=== PATIENT | female | born 1945 | race Caucasian/White ===

== ENCOUNTER → 2016-09-15 | Outpatient (CLI) | payer MEDICARE, OTHER | LOC: CARD 12:48 | PROVIDERS: ATTEND Nurse Practitioner Family | DX: I10 Essential (primary) hypertension (principal) | CPT/HCPCS: 93306 ==

== ENCOUNTER → 2016-10-21 | Outpatient (CLI) | payer MEDICARE, OTHER ==
--- NOTE | 2016-10-21 15:54 | Diagnostic Imaging Report ---
Bilateral screening mammogram 2D views with tomosynthesis The current study was also evaluated with a Computer Aided Detection (CAD) system. INDICATION: Screening. No current complaints stated on the questionnaire. COMPARISON: 11/21/2014. FINDINGS: The breasts are composed of heterogeneously dense parenchyma which may decrease mammographic sensitivity. There is a lobulated nodule in the central aspect of the right breast anteriorly and smaller similar lobulated nodules more posteriorly and superiorly. When compared to prior exams including 2010, these appear to be present on these prior exams compatible with cysts or fibroadenomas. Allowing for technique and positional differences, no suspicious change is seen. IMPRESSION: No significant change. ACR BI-RADS Category 2: Benign findings. Result letter will be mailed to the patient. Note: At least 10% of breast cancer is not imaged by mammography. Dictated by: Dictated on workstation # [id number]
== END ==
LOC: RAD 10:18
PROVIDERS: ATTEND Nurse Practitioner Family
DX: Z12.31 Encounter for screening mammogram for malignant neoplasm of breast (principal)
CPT/HCPCS: 77067

== ENCOUNTER → 2016-12-09 | Outpatient (CLI) | payer MEDICARE, OTHER ==
[2016-12-09 15:04] LABS: BASOPHILS % (AUTO) 0 % (0-10); EOSINOPHILS # (AUTO) 0.3 10^3/uL (0.0-0.3); EOSINOPHILS % (AUTO) 4 % (0-10); LYMPHOCYTES # (AUTO) 1.6 X 10^3 (1.0-4.0); LYMPHOCYTES % (AUTO) 24 % (12-44); MEAN CORPUSCULAR HEMOGLOBIN 31 PG (25-34); MEAN CORPUSCULAR HGB CONC 33 G/DL (32-36); MEAN CORPUSCULAR VOLUME 94 FL (80-99); MEAN PLATELET VOLUME 12.1 FL (7.4-10.4); MONOCYTES # (AUTO) 0.8 X 10^3 (0.0-1.0); MONOCYTES % (AUTO) 11 % (0-12); NEUTROPHILS # (AUTO) 4.1 X 10^3 (1.8-7.8); NEUTROPHILS % (AUTO) 61 % (42-75); PLATELET COUNT 215 10^3/uL (130-400); RED BLOOD COUNT 4.28 10^6/uL (4.35-5.85); RED CELL DISTRIBUTION WIDTH 13.2 % (10.0-14.5); WHITE BLOOD COUNT 6.8 10^3/uL (4.3-11.0)
[2016-12-09 15:25] LABS: ALANINE AMINOTRANSFERASE 13 U/L (0-55); ANION GAP 9 MMOL/L (5-14); ASPARTATE AMINO TRANSFERASE 14 U/L (5-34); BILIRUBIN,TOTAL 0.4 MG/DL (0.1-1.0); BLOOD UREA NITROGEN 19 MG/DL (7-18); BUN/CREATININE RATIO 21; CALCIUM 9.4 MG/DL (8.5-10.1); CARBON DIOXIDE 25 MMOL/L (21-32); CHLORIDE 107 MMOL/L (98-107); CREATININE SERUM 0.92 MG/DL (0.60-1.30); GFR ESTIMATED > 60; GLUCOSE 102 MG/DL (70-105); POTASSIUM 4.4 MMOL/L (3.6-5.0); SODIUM 141 MMOL/L (135-145); TOTAL PROTEIN 6.9 GM/DL (6.4-8.2)
[2016-12-09 15:27] LABS: TROPONIN I < 0.30 NG/ML (<0.30)
== END ==
LOC: CARD 14:41
PROVIDERS: ATTEND Nurse Practitioner Family
DX: R07.9 Chest pain, unspecified (principal)
CPT/HCPCS: 36415; 80053; 82553; 84484; 85025

== ENCOUNTER 2017-01-17 16:56 | Emergency (ER) | payer MEDICARE, OTHER ==
[~2017-01-17] VITALS: Ht 165.1 cm; Wt 77.1 kg
[2017-01-17] MEDS ORDERED: TETANUS,DIPTH,PERTUSS P/F (BOOSTRIX) 0.5 ML VIAL IM ONE (18:30)
--- NOTE | 2017-01-17 18:31 | ED Fall/Injury ---
General Chief Complaint: Trauma-Non Activation Stated Complaint: FALL/R EYE INJ Nursing Triage Note: Pt reports she tripped over a box and landed on the R side of face, R arm, and L knee. Swelling noted to R brow. Pt denies LOC at time of fall. Source: patient Exam Limitations: no limitations History of Present Illness Time seen by provider: 18:20 Initial Comments This 72-year-old woman presents to the emergency room after having a fall in her home. She tripped on a box she did not see while carrying other items. She struck her face on the hardwood floor and has pain and swelling over the right brow. She denies any loss of consciousness. She does not believe she has any symptoms of concussion such as confusion, nausea, change in vision, etc. She also struck her right forearm and has a small abrasion in that area. She has pain in the right trapezius muscles as well. She has some minor pain to the left knee. She is ambulatory. C-collar was applied on my assessment she had neck pain and tenderness. Allergies and Home Medications Allergies Coded Allergies: Penicillins (Verified Allergy, Unknown, 01/17/17) codeine (Verified Allergy, Unknown, 01/17/17) Constitutional: no symptoms reported Eyes: No Symptoms Reported Ears, Nose, Mouth, Throat: no symptoms reported Respiratory: no symptoms reported Cardiovascular: no symptoms reported Gastrointestinal: no symptoms reported Genitourinary: no symptoms reported : No Musculoskeletal: see HPI Skin: see HPI Psychiatric/Neurological: No Symptoms Reported Past [place]-[facility]oy[facility] Hx Patient Social History Recent Foreign Travel: No Contact w/Someone Who Travel: No Recent Infectious Disease Expo: No Surgeries History of Surgeries: Yes Surgeries: Section, Gallbladder, Hysterectomy Respiratory History of Respiratory Disorde: No Cardiovascular History of Cardiac Disorders: No Neurological History of Neurological Disord: No Genitourinary History of Genitourinary Disor: No Gastrointestinal History of Gastrointestinal Di: No Musculoskeletal History of Musculoskeletal Dis: No Endocrine History of Endocrine Disorders: Yes Endocrine Disorders: Diabetes, Non-Insulin dep HEENT History of HEENT Disorders: No Cancer History of Cancer: No Psychosocial History of Psychiatric Problem: No Integumentary History of Skin or Integumenta: No Physical Exam Vital Signs Vital Sign - Last 12Hours 01/17/17 17:29 Temp 98.1 Pulse 82 Resp 18 B/P (MAP) 137/92 Pulse Ox 98 O2 Delivery Room Air Capillary Refill : Less Than 3 Seconds General Appearance: WD/WN, no apparent distress HEENT: PERRL/EOMI, TMs normal, other (small shallow laceration over the right brow with localized edema) Neck: supple, normal inspection, tender midline (posterior) Cardiovascular: regular rate, rhythm, no edema, no murmur Respiratory: lungs clear, normal breath sounds, no respiratory distress, no accessory muscle use Gastrointestinal: non tender, soft Extremities: normal range of motion, non-tender, other (abrasion/laceration on the right forearm. Minor bruise on the left knee. 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, no motor/sensory deficits, alert, normal mood/affect, oriented x 3 Skin: normal color, warm/dry Lucas Coma Score Best Eye Response: (4) Open Spontaneously Best Verbal Response: (5) Oriented Best Motor Response: (6) Obeys Commands Lucas Total: 15 Progress/Results/Core Measures Results/Orders My Orders Orders - NOMAN PALM MD Ct Head/Cervical Spine Wo (01/17/17 18:27) Dipht,Pertuss(Acell),Tet Adult (Boostrix (01/17/17 18:30) Shoulder, Right, 3 Views (01/17/17 18:35) Medications Given in ED Current Medications Medications Dose Ordered Sig/Bereket Route Start Time Stop Time Status Last Admin Dose Admin Diphtheria/ Tetanus/Acell Pertussis 0.5 ml ONCE ONCE IM 01/17/17 18:30 01/17/17 18:31 DC 01/17/17 19:19 0.5 ML Vital Signs/I&O Vital Sign - Last 12Hours 01/17/17 01/17/17 01/17/17 17:29 18:00 19:24 Temp 98.1 98.1 Pulse 82 82 87 Resp 18 18 18 B/P (MAP) 137/92 137/92 (107) Pulse Ox 98 98 99 O2 Delivery Room Air Blood Pressure Mean: 107 Progress Note : Progress Note Patient was given a Boostrix tetanus booster. C-collar was cleared after review of CT report. Patient was offered medication for her pain which she declined. Brow laceration did not require repair. Diagnostic Imaging Diagonstic Imaging: CT Plain Films/CT/US/NM/MRI: c-spine, head Comments CT head and cervical spine viewed by me and report reviewed. See report below: NAME: [facility] REC#: [id number] PT STATUS: REG ER : 1945 PHYSICIAN: NOMAN PALM MD ADMIT DATE: 01/17/17/ER Draft Date of Exam:01/17/17 CT HEAD/CERVICAL SPINE WO TECHNIQUE: Multiple contiguous axial images were obtained through the brain and cervical spine without the use of intravenous contrast. Sagittal and coronal reformations through the cervical spine were then performed. INDICATION: Patient fell forward tonight. Swelling and bruising to the right lateral orbit. EXAMINATION: CT brain, CT cervical spine, 01/17/2017. Comparison made to a brain dated 01/05/2016. Brain: FINDINGS: Diffuse chronic ischemic disease is seen in a periventricular distribution. No mass, mass effect or midline shift is seen and there is no hydrocephalus. No acute hemorrhage is appreciated and there is no definite superimposed acute infarcts. IMPRESSION: 1. Diffuse chronic changes with no superimposed acute abnormality appreciated. CT cervical spine: FINDINGS: There is normal height and alignment of the vertebral bodies. Multilevel diffuse degenerative disease is seen with no acute fractures appreciated and there are no subluxations. The lung apices appear clear. The prevertebral soft tissues unremarkable. IMPRESSION: 1. Degenerative findings as described with no acute abnormality appreciated. Dictated on workstation # [id number] Dict: 01/17/17 1846 Trans: 01/17/17 1855 [facility] [place] [id number] Interpreted by: FAUSTO COTE MD Diagonstic Imaging: Xray Plain Films/CT/US/NM/MRI: other (right shoulder) Comments X-ray of the right shoulder viewed by me and report reviewed. See report below: NAME: [facility] REC#: [id number] PT STATUS: REG ER : 1945 PHYSICIAN: NOMAN PALM MD ADMIT DATE: 01/17/17/ER Draft Date of Exam:10/23/17 SHOULDER, RIGHT, 3 VIEWS INDICATION: Fall. FINDINGS: Right shoulder shows glenohumeral joint in good alignment. Joint space well preserved. Articulating surfaces are smooth. AC joint in good alignment. Mild hypertrophic changes are noted. There are no fractures. IMPRESSION: 1. No acute abnormalities with mild hypertrophic changes of the AC joint. Dictated on workstation # [id number] Dict: 01/17/171850 Trans: 01/17/171854 [id number] Interpreted by: JESSICA VELÁZQUEZ MD Departure Impression Impression: Primary Impression: Fall on same level Qualified Codes: W18.30XA - Fall on same level, unspecified, initial encounter Additional Impressions: Facial laceration Qualified Codes: S01.81XA - Laceration without foreign body of other part of head, initial encounter Abrasion of right arm Qualified Codes: S40.811A - Abrasion of right upper arm, initial encounter Facial contusion Qualified Codes: S00.83XA - Contusion of other part of head, initial encounter Disposition: 01 HOME, SELF-CARE Condition: Improved Departure-Patient Inst. Decision time for Depature: 19:12 Referrals: JOYCE JANE MD (PCP/Family) Primary Care Physician Patient Instructions: Contusion (DC) Add. Discharge Instructions: You may take Tylenol (acetaminophen) up to 1000 mg every 6 hours as needed for pain. Add ibuprofen up to 400 mg every 6 hours as needed for additional pain relief. Icing your forehead and other sore parts in 20 minute intervals may also be helpful. Return to the ER if you develop worsening symptoms or if you develop symptoms of concussion such as vomiting, confusion, irritability, vision changes, etc. Monitor your skin wounds for signs of infection such as increasing swelling, increasing pain, increasing redness, puslike drainage, or fever. You may option only use antibiotic ointment. Cover your wounds if in dirty environments. All discharge instructions reviewed with patient and/or family. Voiced understanding. NOMAN PALM MD Jan 17, 2017 18:31
--- NOTE | 2017-01-17 18:55 | Diagnostic Imaging Report ---
INDICATION: Fall. FINDINGS: Right shoulder shows glenohumeral joint in good alignment. Joint space well preserved. Articulating surfaces are smooth. AC joint in good alignment. Mild hypertrophic changes are noted. There are no fractures. IMPRESSION: 1. No acute abnormalities with mild hypertrophic changes of the AC joint. Dictated by: Dictated on workstation # [id number]
--- NOTE | 2017-01-17 18:56 | Diagnostic Imaging Report ---
TECHNIQUE: Multiple contiguous axial images were obtained through the brain and cervical spine without the use of intravenous contrast. Sagittal and coronal reformations through the cervical spine were then performed. INDICATION: Patient fell forward tonight. Swelling and bruising to the right lateral orbit. EXAMINATION: CT brain, CT cervical spine, 01/17/2017. Comparison made to a brain dated 01/05/2016. Brain: FINDINGS: Diffuse chronic ischemic disease is seen in a periventricular distribution. No mass, mass effect or midline shift is seen and there is no hydrocephalus. No acute hemorrhage is appreciated and there is no definite superimposed acute infarcts. IMPRESSION: 1. Diffuse chronic changes with no superimposed acute abnormality appreciated. CT cervical spine: FINDINGS: There is normal height and alignment of the vertebral bodies. Multilevel diffuse degenerative disease is seen with no acute fractures appreciated and there are no subluxations. The lung apices appear clear. The prevertebral soft tissues unremarkable. IMPRESSION: 1. Degenerative findings as described with no acute abnormality appreciated. Dictated by: Dictated on workstation # [id number]
[2017-01-17 19:24] VITALS: BP 132/87
== END 2017-01-17 19:24 | disposition home or self-care (01) ==
LOC: EDUNIT# 16:56 → ER 16:58
DX: S51.811A Laceration without foreign body of right forearm, initial encounter (principal); S01.111A Laceration without foreign body of right eyelid and periocular area, initial encounter; E11.9 Type 2 diabetes mellitus without complications; Z23 Encounter for immunization; Z87.59 Personal history of other complications of pregnancy, childbirth and the puerperium; Z90.710 Acquired absence of both cervix and uterus; W18.09XA Striking against other object with subsequent fall, initial encounter
CPT/HCPCS: 70450; 72125; 73030; 90471; 90715; 99284

== ENCOUNTER 2017-06-29 19:25 | Emergency (ER) | payer MEDICARE, OTHER ==
[~2017-06-29] VITALS: Ht 165.1 cm; Wt 77.1 kg
--- OUTSIDE RECORDS SUMMARY | 2017-06-29 19:32 | XMS REPORT | CCD ---
Author Author Shraddha Dillon MD, [facility] Address [address] [place] [address] Phone Care Team Providers Care Superintendent Drilling And Production Name Role Phone PP Unavailable CCM Unavailable Summary Purpose Interface Exchange Insurance Providers Payer name Policy type / Coverage type Covered democrat ID Effective Begin Date Effective End Date WPS Medicare Part B Medicare Part B [id number] Unknown Unknown [employer] Life Medicare Part B [id number] Unknown Unknown Family history Son Diagnosis Age At Onset Hyperlipidemia Unknown Father Diagnosis Age At Onset Congestive heart failure Unknown Colon cancer Unknown Diabetes Unknown Runs in the family Diagnosis Age At Onset Hyperlipidemia Unknown Mother Diagnosis Age At Onset Coronary Artery Disease Unknown Hyperlipidemia Unknown Breast cancer Unknown Social History Social History Element Codes Description Effective Dates Marital status Unknown [place] 08/27/2014 Number of children Unknown 5 08/27/[address]: 581857358 Never smoker 08/27/[address]: 946171440 Never drinks alcohol 08/27/2014 Allergies, Adverse Reactions, Alerts Allergies, Adverse Reactions, Alerts data not found Past Medical History Illness Codes Condition Status Onset Date Resolved Date Other acute sinusitis ICD-9: 461.8 ICD-10: J01.80 Active 03/18/2017 Unknown Other allergic rhinitis ICD-9: 477.8 ICD-10: J30.89 Active 04/29/2016 Unknown Encounter for immunization ICD-9: V04.81 ICD-10: Z23 Active 01/12/2017 Unknown Essential (primary) hypertension ICD-9: 401.9 ICD-10: I10 Active 08/27/2016 Unknown Other chest pain ICD-9 : 786.59 ICD-10: R07.89 Active 12/09/2016 Unknown Acne vulgaris ICD-9: 706.1 ICD-10: L70.0 Active 10/18/2016 Unknown Sacroiliitis, not elsewhere classified ICD-9: 720.2 ICD-10: M46.1 Active 10/18/2016 Unknown Encounter for general adult medical examination with abnormal findings ICD-9: V70.0 ICD-10: Z00.01 Active 09/21/2016 Unknown Hypertension Unknown Active 08/27/2016 Unknown Acute laryngopharyngitis ICD-9: 465.0 ICD-10: J06.0 Active 04/29/2016 Unknown Dysuria ICD-9: 788.1 ICD-10: R30.0 Active 02/24/2016 Unknown Cellulitis of neck ICD -9: 682.1 ICD-10: L03.221 Active 02/11/2016 Unknown Headache ICD-9: 784.0 ICD-10: R51 Active 01/04/2016 Unknown Insect bite (nonvenomous) of left front wall of thorax, initial encounter ICD-9: 911.5 ICD-10: S20.362A Active 01/04/2016 Unknown Mixed hyperlipidemia ICD-9: 272.2 ICD-10: E78.2 Active 01/04/2016 Unknown Transient visual loss, left eye ICD-9: 368.12 ICD-10: H53.122 Active 01/04/2016 Unknown Trigeminal neuralgia ICD-9: 350.1 ICD-10: G50.0 Active 01/04/2016 Unknown Type 2 diabetes mellitus without complications ICD-9: 250.00 ICD-10: E11.9 Active 08/26/2014 Unknown Other screening mammogram ICD-9: V76.12 Active 11/20/2014 Unknown Diabetes Unknown Active 08/27/2014 Unknown Diabetes mellitus ICD- 9: 250.00 Active 08/26/2014 Unknown Screening for breast cancer ICD-9: V76.10 Active 08/26/2014 Unknown Screening for osteoporosis ICD-9: V82.81 Active 08/26/2014 Unknown Problems Condition Codes Effective Dates Condition Status Other acute sinusitis ICD-9: 461.8 ICD-10: J01.80 03/18/2017 Active Other allergic rhinitis ICD-9: 477.8 ICD-10: J30.89 04/29/2016 Active Encounter for immunization ICD-9: V04.81 ICD-10: Z23 01/12/2017 Active Essential (primary) hypertension ICD-9: 401.9 ICD-10: I10 08/27/2016 Active Other chest pain ICD-9 : 786.59 ICD-10: R07.89 12/09/2016 Active Acne vulgaris ICD-9: 706.1 ICD-10: L70.0 10/18/2016 Active Sacroiliitis, not elsewhere classified ICD-9: 720.2 ICD-10: M46.1 10/18/2016 Active Encounter for general adult medical examination with abnormal findings ICD-9: V70.0 ICD-10: Z00.01 09/21/2016 Active Hypertension Unknown 08/27/2016 Active Acute laryngopharyngitis ICD-9: 465.0 ICD-10: J06.0 04/29/2016 Active Dysuria ICD-9: 788.1 ICD-10: R30.0 02/24/2016 Active Cellulitis of neck ICD -9: 682.1 ICD-10: L03.221 02/11/2016 Active Headache ICD-9: 784.0 ICD-10: R51 01/04/2016 Active Insect bite (nonvenomous) of left front wall of thorax, initial encounter ICD-9: 911.5 ICD-10: S20.362A 01/04/2016 Active Mixed hyperlipidemia ICD-9: 272.2 ICD-10: E78.2 01/04/2016 Active Transient visual loss, left eye ICD-9: 368.12 ICD-10: H53.122 01/04/2016 Active Trigeminal neuralgia ICD-9: 350.1 ICD-10: G50.0 01/04/2016 Active Type 2 diabetes mellitus without complications ICD-9: 250.00 ICD-10: E11.9 08/26/2014 Active Other screening mammogram ICD-9: V76.12 11/20/2014 Active Diabetes Unknown 08/27/2014 Active Diabetes mellitus ICD- 9: 250.00 08/26/2014 Active Screening for breast cancer ICD-9: V76.10 08/26/2014 Active Screening for osteoporosis ICD-9: V82.81 08/26/2014 Active Medications Medication Codes Instructions Start Date Stop Date Status Fill Instructions Kombiglyze XR 5 mg-1,000 mg tablet,extended release RxNorm: 0934831 TAKE ONE TABLET BY MOUTH DAILY 04/04/20172018 Active Kombiglyze XR 5 mg-1,000 mg tablet,extended release RxNorm: 3157819 TAKE ONE TABLET BY MOUTH DAILY 04/04/20172017 Inactive Zithromax Z-Jose 250 mg tablet RxNorm: 958472 1 Tablet(s) PO UD 03/18/2017 No Stop Date Active Kombiglyze XR 5 mg-1,000 mg tablet,extended release RxNorm: 0980348 TAKE ONE TABLET BY MOUTH DAILY 12/22/20162016 Inactive lisinopril 5 mg tablet RxNorm: 539531 1/2 Tablet(s) PO BID 03/08/2017 Inactive clobetasol 0.05 % topical cream RxNorm: 468672 1 Application TOP BID 10/18/2016 No Stop Date Active uubzfleo-pymackktl-tgwvqpkaw 3.5 mg/mL-10,000 unit/mL-1 % ear solution RxNorm: 568514 2 OTIC QID 10/18/2016 10/24/2016 Inactive lisinopril 5 mg tablet RxNorm: 000455 1/2-1 Tablet(s) PO daily 09/02/2016 11/30/2016 Inactive start 1/2 tab daily-increase to a full tab if needed lisinopril 20 mg tablet RxNorm: 294866 1 Tablet(s) PO daily 04/201609/01/2016 Inactive Lofibra 54 mg tablet RxNorm: 164822 1 Tablet(s) PO daily 201611/03/2016 Inactive DC fenofibrate 40 mg Lofibra 54 mg tablet RxNorm: 402578 1 Tablet(s) PO daily 201607/06/2016 Inactive DC fenofibrate 40 mg fenofibrate 40 mg tablet RxNorm: 975722 1 Tablet(s) PO daily 07/06/2016 Inactive fenofibrate 40 mg tablet RxNorm: 025905 1 Tablet(s) PO daily 07/01/2016 Inactive Kombiglyze XR 5 mg-1,000 mg tablet,extended release RxNorm: 6844630 TAKE ONE TABLET BY MOUTH DAILY 06/21/20162016 Inactive Kombiglyze XR 5 mg-1,000 mg tablet,extended release RxNorm: 1633740 Tablet(s) TAKE ONE TABLET BY MOUTH DAILY 05/05/2016 06/20/2016 Inactive Zyrtec 10 mg tablet RxNorm: 1287810 1 Tablet(s) PO daily 04/2905/28/2016 Inactive Zithromax Z-Jose 250 mg tablet RxNorm: 194770 1 Tablet(s) PO UD 04/29/2016 07/01/2016 Inactive Bactrim DS 800 mg-160 mg tablet RxNorm: 343946 1 Tablet(s) PO BID 02/25/2016 02/24/2016 Inactive Bactrim DS 800 mg-160 mg tablet RxNorm: 550941 1 Tablet(s) PO BID 02/25/2016 03/02/2016 Inactive WelChol 625 mg tablet RxNorm: 476295 3 Tablet(s) PO BID 201502/19/2016 Inactive WelChol 625 mg tablet RxNorm: 812138 3 Tablet(s) PO BID with meals 02/20/2016 04/19/2016 Inactive dc zetia doxycycline hyclate 100 mg tablet RxNorm: 587536 1 Tablet(s) PO BID 02/12/2016 02/18/2016 Inactive doxycycline hyclate 100 mg tablet RxNorm: 083627 1 Tablet(s) PO BID 01/05/2016 01/18/2016 Inactive prednisone 20 mg tablet RxNorm: 536289 3 Tablet(s) PO daily 12/201501/09/2016 Inactive Zetia 10 mg tablet RxNorm: 385583 TAKE ONE TABLET BY MOUTH EVERY NIGHT AT BEDTIME 11/13/2015 02/19/2016 Inactive Kombiglyze XR 5 mg-1,000 mg tablet,extended release RxNorm: 1316175 TAKE ONE TABLET BY MOUTH DAILY 07/24/20152015 Inactive Zetia 10 mg tablet RxNorm: 263444 1 Tablet(s) PO QHS 201511/04/2015 Inactive Zetia 10 mg tablet RxNorm: 462824 1 Tablet(s) PO QHS 201507/07/2015 Inactive Kombiglyze XR 5 mg-1,000 mg tablet,extended release RxNorm: 9791571 1 Tablet(s) PO daily 04/16/2015 07/14/2015 Inactive Calcium + D oral RxNorm: 784649 oral No Start Date Active Flaxseed Meal RxNorm: 943791 miscellaneous No Start Date Active Vitamin D3 5,000 unit tablet RxNorm: 572565 1 Tablet(s) PO daily No Start Date Active Multiple Vitamin oral RxNorm: 10136 oral No Start Date Active Kombiglyze XR 5 mg-1,000 mg tablet,extended release RxNorm: 4841658 1 Tablet(s) PO daily No Start Date 04/15/2015 Inactive Medication Administered No Medication Administered data Immunizations Vaccine Codes Date Status Influenza CVX: 141 01/12/2017 completed Assessments Condition Codes Effective Dates Other acute sinusitis ICD-10: J01.80 ICD-9: 461.8 03/18/2017 Other allergic rhinitis ICD-10: J30.89 ICD-9: 477.8 03/18/2017 Encounter for immunization ICD-10: Z23 ICD-9: V04.81 01/12/2017 Other chest pain ICD-10: R07.89 ICD-9: 786.59 12/09/2016 Essential (primary) hypertension ICD-10: I10 ICD-9: 401.9 12/09/2016 Acne vulgaris ICD-10: L70.0 ICD-9: 706.1 10/18/2016 Sacroiliitis, not elsewhere classified ICD-10: M46.1 ICD-9: 720.2 10/18/2016 Encounter for general adult medical examination with abnormal findings ICD-10: Z00.01 ICD-9: V70.0 09/21/2016 Acute laryngopharyngitis ICD-10: J06.0 ICD-9: 465.0 04/29/2016 Dysuria ICD-10: R30.0 ICD-9: 788.1 02/25/2016 Cellulitis of neck ICD-10: L03.221 ICD-9: 682.1 02/12/2016 Mixed hyperlipidemia ICD-10: E78.2 ICD-9: 272.2 01/05/2016 Type 2 diabetes mellitus without complications ICD-10: E11.9 ICD-9: 250.00 01/05/2016 Headache ICD-10: R51 ICD-9: 784.0 01/05/2016 Insect bite (nonvenomous) of left front wall of thorax, initial encounter ICD-10: S20.362A ICD-9: 911.5 01/05/2016 Trigeminal neuralgia ICD-10: G50.0 ICD-9: 350.1 01/05/2016 Transient visual loss, left eye ICD-10: H53.122 ICD-9: 368.12 01/05/2016 Other screening mammogram ICD-9: V76.12 11/21/2014 Screening for breast cancer ICD-9: V76.10 08/27/2014 Diabetes mellitus ICD-9: 250.00 2014 Screening for osteoporosis ICD-9: V82.81 08/27/2014 Reason For Visit Reason For Visit Effective Dates Notes sinus congestion 03/18/2017 vaccination against influenza 01/12/2017 chest pain/pressure 12/09/2016 hypertension 10/18/2016 Annual Medicare Wellness Exam 09/21/2016 hypertension 09/02/2016 hypertension 08/27/2016 fever 04/29/2016 spider bite 02/12/2016 dizziness 01/05/2016 well woman exam (65+ years) 02/26/2015 diabetes mellitus 08/27/2014 type 2. Results Observation Observation Code Item Item Code Result Date Lipid Ord30 CHOL 272 mg/dL 10/06/2016 Lipid Ord30 HDL 44.0 mg/dl 10/06/2016 Lipid Ord30 TRIG 252 mg/dL 10/06/2016 Lipid Ord30 LDL 178 mg/dL 10/06/2016 Lipid Ord30 C/HDL 6.2 Ratio 10/06/2016 Cbc With Differential Ord2 WBC 5.63 K/ul 10/06/2016 Cbc With Differential Ord2 RBC 4.14 M/ul 10/06/2016 Cbc With Differential Ord2 HGB 13.2 g/dl 10/06/2016 Cbc With Differential Ord2 Neut% 56.0 % 10/06/2016 Cbc With Differential Ord2 HCT 39.5 % 10/06/2016 Cbc With Differential Ord2 MCV 95.4 fl 10/06/2016 Cbc With Differential Ord2 Lymph% 29.0 % 10/06/2016 Cbc With Differential Ord2 MCH 31.9 pg 10/06/2016 Cbc With Differential Ord2 [place]% 9.8 % 10/06/2016 Cbc With Differential Ord2 MCHC 33.4 pg 10/06/2016 Cbc With Differential Ord2 Eos% 4.8 % 10/06/2016 Cbc With Differential Ord2 PLT 200 K/ul 10/06/2016 Cbc With Differential Ord2 Baso% 0.4 % 10/06/2016 Cbc With Differential Ord2 RDW 13.8 % 10/06/2016 Cbc With Differential Ord2 Neut ABS# 3.16 K/ul 10/06/2016 Cbc With Differential Ord2 Lymph ABS# 1.63 K/ul 10/06/2016 Cbc With Differential Ord2 [place] ABS# 0.6 K/ul 10/06/2016 Cbc With Differential Ord2 Eos ABS# 0.3 K/ul 10/06/2016 Cbc With Differential Ord2 Baso ABS# 0.0 K/ul 10/06/2016 Comp Metabolic Gwz444 NA 140 mEq/L 10/06/2016 Comp Metabolic Ctf942 K 4.3 mEq/L 10/06/2016 Comp Metabolic Ycq860 CL 107 mEq/L 10/06/2016 Comp Metabolic Igj913 CO2 25.0 mEq/L 10/06/2016 Comp Metabolic Jfs579 ANION GAP 12 10/06/2016 Comp Metabolic Emn068 GLUCOSE 122 mg/dL 10/06/2016 Comp Metabolic Gny382 Creat 0.7 mg/dL 10/06/2016 Comp Metabolic Wso361 eGFR 84 ml/min/1.73m2 10/06/2016 Comp Metabolic Nxo143 BUN 17 mg/dL 10/06/2016 Comp Metabolic Bnh900 B/C Ratio 23.3 Ratio 10/06/2016 Comp Metabolic Fam436 CALCIUM 9.0 mg/dL 10/06/2016 Comp Metabolic Tpf939 ALK PHOS 52 U/L 10/06/2016 Comp Metabolic Lug330 AST(SGOT) 18 U/L 10/06/2016 Comp Metabolic Fqa807 ALT(SGPT) 22 U/L 10/06/2016 Comp Metabolic Lmb633 BILI T 0.6 mg/dL 10/06/2016 Comp Metabolic Bny384 ALBUMIN 3.9 g/dL 10/06/2016 Comp Metabolic Ksz143 TPRO 6.1 g/dL 10/06/2016 Comp Metabolic Yzv245 GLOB 2.2 g/dL 10/06/2016 Comp Metabolic Wzp713 A/G Ratio 1.8 Ratio 10/06/2016 Comp Metabolic Bjs011 Osmo 282 mOsmo 10/06/2016 %Hba1C Fql791 % HbA1c 82217-9 6.4 % 10/06/2016 %Hba1C Ksp760 Gluc Ave 137 mg/dL 10/06/2016 %Hba1C Wdv213 % HbA1c 53387-8 6.3 % 05/21/2016 %Hba1C Hwo123 Gluc Ave 134 mg/dL 05/21/2016 Hepatic Hxp220 ALBUMIN 4.2 g/dL 05/21/2016 Hepatic Fty761 TPRO 6.6 g/dL 05/21/2016 Hepatic Zpg698 GLOB 2.4 g/dL 05/21/2016 Hepatic Haj678 A/G Ratio 1.7 Ratio 05/21/2016 Hepatic Voq033 ALK PHOS 64 U/L 05/21/2016 Hepatic Ftv738 ALT(SGPT) 16 U/L 05/21/2016 Hepatic Dit771 AST(SGOT) 13 U/L 05/21/2016 Hepatic Anj509 BILI T 0.5 mg/dL 05/21/2016 Hepatic Mym771 BILI D 0.1 mg/dL 05/21/2016 Hepatic Kpu111 BILI I 0.4 mg/dL 05/21/2016 Lipid Ord30 CHOL 285 mg/dL 05/21/2016 Lipid Ord30 HDL 42.0 mg/dl 05/21/2016 Lipid Ord30 TRIG 364 mg/dL 05/21/2016 Lipid Ord30 LDL 0 Unable to calculate Due to elevated triglycerides mg/dL 05/21/2016 Lipid Ord30 C/HDL 6.8 Ratio 05/21/2016 C A/B FLU [id number] Influenza A Scr Negative 04/29/2016 C A/B FLU 8745512 Influenza B Scr Negative 04/29/2016 Urine Culture Ucult Complete Growth of aerobe sent to ref lab 02/26/2016 Cbc With Differential Ord2 WBC 7.87 K/ul 02/12/2016 Cbc With Differential Ord2 RBC 4.24 M/ul 02/12/2016 Cbc With Differential Ord2 HGB 13.7 g/dl 02/12/2016 Cbc With Differential Ord2 Neut% 69.2 % 02/12/2016 Cbc With Differential Ord2 HCT 41.1 % 02/12/2016 Cbc With Differential Ord2 Lymph% 17.7 % 02/12/2016 Cbc With Differential Ord2 MCV 96.9 fl 02/12/2016 Cbc With Differential Ord2 [place]% 10.5 % 02/12/2016 Cbc With Differential Ord2 MCH 32.3 pg 02/12/2016 Cbc With Differential Ord2 MCHC 33.3 pg 02/12/2016 Cbc With Differential Ord2 Eos% 2.5 % 02/12/2016 Cbc With Differential Ord2 Baso% 0.1 % 02/12/2016 Cbc With Differential Ord2 PLT 205 K/ul 02/12/2016 Cbc With Differential Ord2 RDW 14.3 % 02/12/2016 Cbc With Differential Ord2 Neut ABS# 5.44 K/ul 02/12/2016 Cbc With Differential Ord2 Lymph ABS# 1.39 K/ul 02/12/2016 Cbc With Differential Ord2 [place] ABS# 0.8 K/ul 02/12/2016 Cbc With Differential Ord2 Eos ABS# 0.2 K/ul 02/12/2016 Cbc With Differential Ord2 Baso ABS# 0.0 K/ul 02/12/2016 %Hba1C Php073 % HbA1c 23494-3 6.6 % 02/12/2016 %Hba1C Lzd538 Gluc Ave 143 mg/dL 02/12/2016 Lipid Ord30 CHOL 276 mg/dL 02/12/2016 Lipid Ord30 HDL 47.0 mg/dl 02/12/2016 Lipid Ord30 TRIG 424 mg/dL 02/12/2016 Lipid Ord30 LDL 0 Unable to calculate Due to elevated triglycerides mg/dL 02/12/2016 Lipid Ord30 C/HDL 5.9 Ratio 02/12/2016 Tsh Ord6 hTSH II 1.21 uIU/mL 02/12/2016 Microalbumin Jzy831 MicroAlb <0.7 mg/dL 02/12/2016 Comp Metabolic Lef003 NA 138 mEq/L 02/12/2016 Comp Metabolic Lke969 K 4.2 mEq/L 02/12/2016 Comp Metabolic Xpd351 CL 103 mEq/L 02/12/2016 Comp Metabolic Hxl801 CO2 28.0 mEq/L 02/12/2016 Comp Metabolic Uwt168 ANION GAP 11 02/12/2016 Comp Metabolic Vtx787 GLUCOSE 97 mg/dL 02/12/2016 Comp Metabolic Ifo534 Creat 0.7 mg/dL 02/12/2016 Comp Metabolic Fbs405 eGFR 83 ml/min/1.73m2 02/12/2016 Comp Metabolic Cli250 BUN 16 mg/dL 02/12/2016 Comp Metabolic Lbi021 B/C Ratio 21.6 Ratio 02/12/2016 Comp Metabolic Jdr659 CALCIUM 9.6 mg/dL 02/12/2016 Comp Metabolic Cnq741 ALK PHOS 53 U/L 02/12/2016 Comp Metabolic Diz468 AST(SGOT) 16 U/L 02/12/2016 Comp Metabolic Dud515 ALT(SGPT) 22 U/L 02/12/2016 Comp Metabolic Zus183 BILI T 0.5 mg/dL 02/12/2016 Comp Metabolic Fom394 ALBUMIN 3.9 g/dL 02/12/2016 Comp Metabolic Fur015 TPRO 6.4 g/dL 02/12/2016 Comp Metabolic Wni618 GLOB 2.5 g/dL 02/12/2016 Comp Metabolic Kvz996 A/G Ratio 1.6 Ratio 02/12/2016 Comp Metabolic Mef252 Osmo 277 mOsmo 02/12/2016 [place] Spotted Fever Igg/Igm 378642 [place] SPOTTED FEVER IGM EIA . 01/10/2016 [place] Spotted Fever Igg/Igm 118280 RMSF, IGM 0.21 index 01/10/2016 [place] Spotted Fever Igg/Igm 880074 VIKTORIA MT SPOTTED FEVER IGG EIA FLEX . 01/10/2016 [place] Spotted Fever Igg/Igm 075894 RMSF, IGG SCREEN-FLEX Equivocal 01/10/2016 Viktoria Mtn Spot'D Fev Igg 422348 RMSF, IGG -TITER IFA <1:64 Ehrlichia Chaffeensis Antibody Igm 614447 EHRLICHIA CHAFFEENSIS IGM < 1:16 01/09/2016 Ehrlichia Chaffeensis Antibody Igg 782190 EHRLICHIA CHAFFEENSIS IGG <1:64 01/09/2016 [place] Virus Ab 468681 WE[place]ILE VIRUS AB IGG 0.33 IV 01/08/2016 [place] Nile Virus Ab [id number] [place] VIRUS AB IGM 0.02 IV 01/08/2016 Lymes Disease Total Antibodies With Western Blot Reflex [id number] B. BURGDORFERI, IGG/IGM 0.09 LI 01/07/2016 Lymes Disease Total Antibodies With Western Blot Reflex [id number] 01/07/2016 Cbc With Differential Ord2 WBC 6.25 K/ul 01/05/2016 Cbc With Differential Ord2 RBC 4.43 M/ul 01/05/2016 Cbc With Differential Ord2 HGB 14.3 g/dl 01/05/2016 Cbc With Differential Ord2 Neut% 63.3 % 01/05/2016 Cbc With Differential Ord2 HCT 42.5 % 01/05/2016 Cbc With Differential Ord2 Lymph% 25.8 % 01/05/2016 Cbc With Differential Ord2 MCV 95.9 fl 01/05/2016 Cbc With Differential Ord2 MCH 32.3 pg 01/05/2016 Cbc With Differential Ord2 [place]% 8.3 % 01/05/2016 Cbc With Differential Ord2 MCHC 33.6 pg 01/05/2016 Cbc With Differential Ord2 Eos% 2.4 % 01/05/2016 Cbc With Differential Ord2 PLT 207 K/ul 01/05/2016 Cbc With Differential Ord2 Baso% 0.2 % 01/05/2016 Cbc With Differential Ord2 RDW 13.5 % 01/05/2016 Cbc With Differential Ord2 Neut ABS# 3.96 K/ul 01/05/2016 Cbc With Differential Ord2 Lymph ABS# 1.61 K/ul 01/05/2016 Cbc With Differential Ord2 [place] ABS# 0.5 K/ul 01/05/2016 Cbc With Differential Ord2 Eos ABS# 0.2 K/ul 01/05/2016 Cbc With Differential Ord2 Baso ABS# 0.0 K/ul 01/05/2016 Sed Rate Ord21 ESR 16 mm/hr 01/05/2016 C-Reactive Protein Qnt Crqnt CRP 0.4 mg/dl 01/05/2016 Comp Metabolic Yxw724 NA 138 mEq/L 01/05/2016 Comp Metabolic Pny365 K 4.4 mEq/L 01/05/2016 Comp Metabolic Atq127 CL 103 mEq/L 01/05/2016 Comp Metabolic Sou866 CO2 27.0 mEq/L 01/05/2016 Comp Metabolic Psp369 ANION GAP 12 01/05/2016 Comp Metabolic Mpi000 GLUCOSE 199 mg/dL 01/05/2016 Comp Metabolic Bxi649 Creat 0.8 mg/dL 01/05/2016 Comp Metabolic Vsf176 eGFR 78 ml/min/1.73m2 01/05/2016 Comp Metabolic Muv901 BUN 15 mg/dL 01/05/2016 Comp Metabolic Zqe197 B/C Ratio 19.2 Ratio 01/05/2016 Comp Metabolic Fgx142 CALCIUM 9.4 mg/dL 01/05/2016 Comp Metabolic Acx028 ALK PHOS 59 U/L 01/05/2016 Comp Metabolic Rvx740 AST(SGOT) 15 U/L 01/05/2016 Comp Metabolic Fok409 ALT(SGPT) 19 U/L 01/05/2016 Comp Metabolic Ifi663 BILI T 0.6 mg/dL 01/05/2016 Comp Metabolic Gih289 ALBUMIN 4.2 g/dL 01/05/2016 Comp Metabolic Xfg442 TPRO 6.6 g/dL 01/05/2016 Comp Metabolic Bmb851 GLOB 2.4 g/dL 01/05/2016 Comp Metabolic Fmy609 A/G Ratio 1.7 Ratio 01/05/2016 Comp Metabolic Jpq492 Osmo 282 mOsmo 01/05/2016 Lipid Ord30 CHOL 241 mg/dL 10/07/2015 Lipid Ord30 HDL 47.0 mg/dl 10/07/2015 Lipid Ord30 TRIG 249 mg/dL 10/07/2015 Lipid Ord30 LDL 144 mg/dL 10/07/2015 Lipid Ord30 C/HDL 5.1 Ratio 10/07/2015 Lipid Ord30 CHOL 256 mg/dL 06/30/2015 Lipid Ord30 HDL 45.0 mg/dl 06/30/2015 Lipid Ord30 TRIG 336 mg/dL 06/30/2015 Lipid Ord30 LDL 144 mg/dL 06/30/2015 Lipid Ord30 C/HDL 5.7 Ratio 06/30/2015 %Hba1C Zqn642 % HbA1c 32629-3 5.8 % 06/30/2015 %Hba1C Lmn952 Gluc Ave 120 mg/dL 06/30/2015 Lipid Ord30 CHOL 274 mg/dL 02/27/2015 Lipid Ord30 HDL 44.0 mg/dl 02/27/2015 Lipid Ord30 TRIG 199 mg/dL 02/27/2015 Lipid Ord30 LDL 190 mg/dL 02/27/2015 Lipid Ord30 C/HDL 6.2 Ratio 02/27/2015 Microalbumin Qiq016 MicroAlb 0.2 mg/dL 02/27/2015 Tsh Ord6 hTSH II 2.53 uIU/mL 02/27/2015 Comp Metabolic Apn807 NA 139 mEq/L 02/27/2015 Comp Metabolic Tsx698 K 4.3 mEq/L 02/27/2015 Comp Metabolic Xgn430 CL 105 mEq/L 02/27/2015 Comp Metabolic Lzh180 CO2 28.0 mEq/L 02/27/2015 Comp Metabolic Ryu599 ANION GAP 10 02/27/2015 Comp Metabolic Den144 GLUCOSE 116 mg/dL 02/27/2015 Comp Metabolic Mom990 Creat 0.9 mg/dL 02/27/2015 Comp Metabolic Tvf864 eGFR 70 ml/min/1.73m2 02/27/2015 Comp Metabolic Aoj278 BUN 20 mg/dL 02/27/2015 Comp Metabolic Psr069 B/C Ratio 23.3 Ratio 02/27/2015 Comp Metabolic Pwz731 CALCIUM 9.0 mg/dL 02/27/2015 Comp Metabolic Ydk540 ALK PHOS 59 U/L 02/27/2015 Comp Metabolic Aai278 AST(SGOT) 15 U/L 02/27/2015 Comp Metabolic Peo195 ALT(SGPT) 17 U/L 02/27/2015 Comp Metabolic Ghg770 BILI T 0.7 mg/dL 02/27/2015 Comp Metabolic Svq542 ALBUMIN 3.9 g/dL 02/27/2015 Comp Metabolic Vcc374 TPRO 6.2 g/dL 02/27/2015 Comp Metabolic Wrt775 GLOB 2.3 g/dL 02/27/2015 Comp Metabolic Kis555 A/G Ratio 1.7 Ratio 02/27/2015 Comp Metabolic Kcg456 Osmo 281 mOsmo 02/27/2015 %Hba1C Gun654 % HbA1c 22295-7 6.2 % 02/27/2015 %Hba1C Zpu946 Gluc Ave 131 mg/dL 02/27/2015 Cbc With Differential Ord2 WBC 5.7 K/uL 02/27/2015 Cbc With Differential Ord2 LYM 2.0 K/uL 02/27/2015 Cbc With Differential Ord2 LYM% 35.2 % 02/27/2015 Cbc With Differential Ord2 NEUT/GRAN 3.3 K/uL 02/27/2015 Cbc With Differential Ord2 NEUT/GRAN % 57.9 % 02/27/2015 Cbc With Differential Ord2 MID 0.4 K/uL 02/27/2015 Cbc With Differential Ord2 MID% 6.9 % 02/27/2015 Cbc With Differential Ord2 RBC 4.38 M/uL 02/27/2015 Cbc With Differential Ord2 HGB 13.5 g/dL 02/27/2015 Cbc With Differential Ord2 HCT 43.1 % 02/27/2015 Cbc With Differential Ord2 MCV 98 fL 02/27/2015 Cbc With Differential Ord2 MCH 31 pg 02/27/2015 Cbc With Differential Ord2 MCHC 31 g/dL 02/27/2015 Cbc With Differential Ord2 PLT 183 K/uL 02/27/2015 Cbc With Differential Ord2 RDW 13.2 % 02/27/2015 Review of Systems System Result Effective Dates Constitutional recent illness 03/18/2017 Constitutional No chills 03/18/2017 Constitutional No diaphoresis 03/18/2017 Constitutional No fever 03/18/2017 Eyes No eye erythema 03/18/2017 Ears/Nose/Throat/Neck nasal allergies Ears/Nose/Throat/Neck nasal discharge Ears/Nose/Throat/Neck postnasal drip Ears/Nose/Throat/Neck sinus congestion Ears/Nose/Throat/Neck No sore throat Cardiovascular No chest pain/pressure Cardiovascular No dyspnea 03/18/2017 Respiratory No chest congestion 2016 Respiratory cough 03/18/2017 Respiratory No dyspnea 03/18/2017 Gastrointestinal No abdominal pain 2016 Gastrointestinal No constipation 2016 Gastrointestinal No diarrhea 03/18/2017 Gastrointestinal No nausea 03/18/2017 Gastrointestinal No vomiting 03/18/2017 Dermatologic No rash 03/18/2017 Neurologic No alteration of consciousness 03/18/2017 Neurologic No mental status change 2016 Ears/Nose/Throat/Neck otalgia 03/18/2017 Constitutional No recent illness 2016 Constitutional No chills 12/09/2016 Constitutional No diaphoresis 12/09/2016 Constitutional No fever 12/09/2016 Eyes No eye erythema 12/09/2016 Ears/Nose/Throat/Neck No nasal discharge 12/09/2016 Ears/Nose/Throat/Neck No nasal allergies 12/09/2016 Cardiovascular chest pain/pressure 2016 Cardiovascular dyspnea 12/09/2016 Cardiovascular No palpitations 2016 Cardiovascular No syncope 12/09/2016 Cardiovascular near-syncope/dizziness Respiratory No cough 12/09/2016 Respiratory No dyspnea 12/09/2016 Respiratory dyspnea on exertion 2016 Gastrointestinal No abdominal pain 2016 Gastrointestinal No vomiting 12/09/2016 Gastrointestinal No nausea 12/09/2016 Musculoskeletal back pain 12/09/2016 Dermatologic No rash 12/09/2016 Neurologic No alteration of consciousness 12/09/2016 Neurologic No mental status change 2016 Dermatologic sores 10/18/2016 Constitutional No recent illness 2016 Constitutional No anorexia 10/18/2016 Constitutional No night sweats 2016 Constitutional No chills 10/18/2016 Constitutional No diaphoresis 10/18/2016 Constitutional fatigue 10/18/2016 Constitutional No fever 10/18/2016 Constitutional No insomnia 10/18/2016 Constitutional No malaise 10/18/2016 Constitutional No weight loss 10/18/2016 Constitutional No weight gain 10/18/2016 Eyes No eye discharge 10/18/2016 Eyes No eye erythema 10/18/2016 Ears/Nose/Throat/Neck No dizziness 2016 Ears/Nose/Throat/Neck nasal allergies Ears/Nose/Throat/Neck No nasal discharge 10/18/2016 Cardiovascular No chest pain/pressure Cardiovascular No dyspnea 10/18/2016 Cardiovascular No edema 10/18/2016 Respiratory No productive sputum 2016 Respiratory No cough 10/18/2016 Gastrointestinal No abdominal pain 2016 Gastrointestinal No constipation 2016 Gastrointestinal No diarrhea 10/18/2016 Genitourinary/Nephrology No dysuria 10/18 Musculoskeletal No joint complaint 2016 Dermatologic No rash 10/18/2016 Neurologic No alteration of consciousness 10/18/2016 Dermatologic cyst 10/18/2016 Musculoskeletal back pain 10/18/2016 Constitutional No recent illness 2016 Constitutional No chills 09/21/2016 Constitutional No diaphoresis 09/21/2016 Constitutional No fever 09/21/2016 Eyes No eye erythema 09/21/2016 Ears/Nose/Throat/Neck No nasal discharge 09/21/2016 Cardiovascular No chest pain/pressure Cardiovascular No dyspnea 09/21/2016 Respiratory No cough 09/21/2016 Respiratory No dyspnea 09/21/2016 Gastrointestinal No abdominal pain 2016 Dermatologic No rash 09/21/2016 Neurologic No alteration of consciousness 09/21/2016 Neurologic No mental status change 2016 Constitutional No recent illness 2016 Constitutional No anorexia 09/02/2016 Constitutional No night sweats 2016 Constitutional No chills 09/02/2016 Constitutional No diaphoresis 09/02/2016 Constitutional fatigue 09/02/2016 Constitutional No fever 09/02/2016 Constitutional No insomnia 09/02/2016 Constitutional No malaise 09/02/2016 Constitutional No weight loss 09/02/2016 Constitutional No weight gain 09/02/2016 Eyes No eye discharge 09/02/2016 Eyes No eye erythema 09/02/2016 Ears/Nose/Throat/Neck No dizziness 2016 Ears/Nose/Throat/Neck headache 2016 Ears/Nose/Throat/Neck nasal allergies 10/2016 Ears/Nose/Throat/Neck No nasal discharge 09/02/2016 Cardiovascular No chest pain/pressure 10/2016 Cardiovascular No dyspnea 09/02/2016 Cardiovascular No edema 09/02/2016 Respiratory No productive sputum 2016 Respiratory No cough 09/02/2016 Gastrointestinal No abdominal pain 2016 Gastrointestinal No constipation 2016 Gastrointestinal No diarrhea 09/02/2016 Genitourinary/Nephrology No dysuria 09/02 Musculoskeletal No joint complaint 2016 Dermatologic No rash 09/02/2016 Neurologic No alteration of consciousness 09/02/2016 Constitutional No recent illness 2016 Constitutional No anorexia 08/27/2016 Constitutional No night sweats 2016 Constitutional No chills 08/27/2016 Constitutional No diaphoresis 08/27/2016 Constitutional fatigue 08/27/2016 Constitutional No fever 08/27/2016 Constitutional No insomnia 08/27/2016 Constitutional No malaise 08/27/2016 Constitutional No weight loss 08/27/2016 Constitutional No weight gain 08/27/2016 Eyes No eye discharge 08/27/2016 Eyes No eye erythema 08/27/2016 Ears/Nose/Throat/Neck No dizziness 2016 Ears/Nose/Throat/Neck headache 2016 Ears/Nose/Throat/Neck No nasal discharge 08/27/2016 Ears/Nose/Throat/Neck nasal allergies 04/2016 Cardiovascular No chest pain/pressure 04/2016 Cardiovascular No dyspnea 08/27/2016 Cardiovascular No edema 08/27/2016 Respiratory No productive sputum 2016 Respiratory No cough 08/27/2016 Gastrointestinal No abdominal pain 2016 Gastrointestinal No constipation 2016 Gastrointestinal No diarrhea 08/27/2016 Genitourinary/Nephrology No dysuria 08/27 Musculoskeletal No joint complaint 2016 Dermatologic No rash 08/27/2016 Neurologic No alteration of consciousness 08/27/2016 Constitutional recent illness 04/29/2016 Constitutional chills 04/29/2016 Constitutional No diaphoresis 04/29/2016 Constitutional fever 04/29/2016 Eyes No eye erythema 04/29/2016 Ears/Nose/Throat/Neck nasal allergies 04/2016 Ears/Nose/Throat/Neck nasal discharge 04/2016 Ears/Nose/Throat/Neck postnasal drip 04/2016 Ears/Nose/Throat/Neck sinus congestion Cardiovascular No chest pain/pressure 04/2016 Cardiovascular No dyspnea 04/29/2016 Respiratory No chest congestion 2016 Respiratory cough 04/29/2016 Respiratory No dyspnea 04/29/2016 Gastrointestinal nausea 04/29/2016 Gastrointestinal vomiting 04/29/2016 Dermatologic No rash 04/29/2016 Neurologic No alteration of consciousness 04/29/2016 Neurologic No mental status change 2016 Gastrointestinal No diarrhea 04/29/2016 Constitutional No recent illness 2015 Constitutional No anorexia 02/12/2016 Constitutional No night sweats 2015 Constitutional No chills 02/12/2016 Constitutional No diaphoresis 02/12/2016 Constitutional No fatigue 02/12/2016 Constitutional No fever 02/12/2016 Constitutional No insomnia 02/12/2016 Constitutional No malaise 02/12/2016 Constitutional No weight loss 02/12/2016 Constitutional No weight gain 02/12/2016 Dermatologic erythema 02/12/2016 Constitutional No recent illness 2015 Constitutional No anorexia 01/05/2016 Constitutional No night sweats 2015 Constitutional No chills 01/05/2016 Constitutional No diaphoresis 01/05/2016 Constitutional fatigue 01/05/2016 Constitutional No fever 01/05/2016 Constitutional No insomnia 01/05/2016 Constitutional No malaise 01/05/2016 Eyes No eye discharge 01/05/2016 Eyes No eye erythema 01/05/2016 Ears/Nose/Throat/Neck No dizziness 2015 Ears/Nose/Throat/Neck No headache 2015 Ears/Nose/Throat/Neck nasal allergies 12/2015 Ears/Nose/Throat/Neck nasal discharge 12/2015 Ears/Nose/Throat/Neck No sore throat 12/2015 Cardiovascular No chest pain/pressure 12/2015 Cardiovascular No dyspnea 01/05/2016 Cardiovascular No edema 01/05/2016 Respiratory No cough 01/05/2016 Gastrointestinal No abdominal pain 2015 Gastrointestinal No constipation 2015 Gastrointestinal No diarrhea 01/05/2016 Genitourinary/Nephrology No dysuria 01/04 Neurologic No alteration of consciousness 01/05/2016 Psychiatric anxiety 01/05/2016 Psychiatric No depression 01/05/2016 Neurologic dizziness 01/05/2016 Eyes eye pain 01/05/2016 Constitutional No recent illness 2014 Constitutional No anorexia 02/26/2015 Constitutional No night sweats 2014 Constitutional No chills 02/26/2015 Constitutional No diaphoresis 02/26/2015 Constitutional No fatigue 02/26/2015 Constitutional No fever 02/26/2015 Constitutional No insomnia 02/26/2015 Constitutional No malaise 02/26/2015 Eyes No eye discharge 02/26/2015 Eyes No eye erythema 02/26/2015 Ears/Nose/Throat/Neck No dizziness 2014 Ears/Nose/Throat/Neck No headache 2014 Ears/Nose/Throat/Neck nasal allergies 04/2014 Ears/Nose/Throat/Neck nasal discharge 04/2014 Ears/Nose/Throat/Neck No sore throat 04/2014 Cardiovascular No chest pain/pressure 04/2014 Cardiovascular No dyspnea 02/26/2015 Cardiovascular No edema 02/26/2015 Respiratory No cough 02/26/2015 Gastrointestinal No abdominal pain 2014 Gastrointestinal No constipation 2014 Gastrointestinal No diarrhea 02/26/2015 Genitourinary/Nephrology No dysuria 02/26 Neurologic No alteration of consciousness 02/26/2015 Psychiatric anxiety 02/26/2015 Psychiatric No depression 02/26/2015 Constitutional No recent illness 2014 Constitutional No anorexia 08/27/2014 Constitutional No night sweats 2014 Constitutional No chills 08/27/2014 Constitutional No diaphoresis 08/27/2014 Constitutional No fatigue 08/27/2014 Constitutional No fever 08/27/2014 Constitutional No malaise 08/27/2014 Constitutional No insomnia 08/27/2014 Constitutional No weight loss 08/27/2014 Constitutional No weight gain 08/27/2014 Constitutional No obesity 08/27/2014 Eyes No eye discharge 08/27/2014 Eyes No eye erythema 08/27/2014 Ears/Nose/Throat/Neck No dizziness 2014 Ears/Nose/Throat/Neck No headache 2014 Ears/Nose/Throat/Neck nasal allergies 04/2014 Ears/Nose/Throat/Neck nasal discharge 04/2014 Ears/Nose/Throat/Neck No sore throat 04/2014 Cardiovascular No chest pain/pressure 04/2014 Cardiovascular No dyspnea 08/27/2014 Cardiovascular No edema 08/27/2014 Respiratory No cough 08/27/2014 Gastrointestinal No abdominal pain 2014 Gastrointestinal No constipation 2014 Gastrointestinal No diarrhea 08/27/2014 Genitourinary/Nephrology No dysuria 08/27 Musculoskeletal joint complaint 2014 Dermatologic rash 08/27/2014 Neurologic No alteration of consciousness 08/27/2014 Psychiatric No depression 08/27/2014 Psychiatric anxiety 08/27/2014 Endocrine No dry or coarse skin 2014 Hematologic/Lymphatic No abnormal bleeding and bruising 08/27/2014 Physical Exam Exam Name System Name Item Name Status Result Effective Dates Notes Full Exam - ENT Constitutional general appearance Overall: well nourished 03/18/2017 None Full Exam - ENT Constitutional general appearance Overall: well developed 03/18/2017 None Full Exam - ENT Constitutional general appearance Overall: in no acute distress 03/18/2017 None Full Exam - ENT Ears/Nose/Throat otoscopic exam Overall: external auditory canals normal 03/18/2017 None Full Exam - ENT Ears/Nose/Throat otoscopic exam Left tympanic membrane: air -fluid level 03/18/2017 None Full Exam - ENT Ears/Nose/Throat otoscopic exam Right tympanic membrane: air-fluid level 03/18/2017 None Full Exam - ENT Ears/Nose/Throat nasal mucosa, septum, turbinates Drainage: clear 03/18/2017 None Full Exam - ENT Ears/Nose/Throat nasal mucosa, septum, turbinates Drainage: yellow 03/18/2017 None Full Exam - ENT Ears/Nose/Throat lips/ teeth/gingiva Overall: benign lips 03/18/2017 None Full Exam - ENT Ears/Nose/Throat oropharynx Posterior Pharynx: clear post nasal drainage 03/18/2017 None Full Exam - ENT Face and Head palpation Left maxillary sinus: tender 03/18/2017 None Full Exam - ENT Face and Head palpation Right maxillary sinus: tender 03/18/2017 None Full Exam - ENT Respiratory inspection Overall: no retractions 03/18/2017 None Full Exam - ENT Respiratory inspection Overall: normal rate None Full Exam - ENT Respiratory auscultation Overall: breath sounds clear bilaterally 03/18/2017 None Full Exam - ENT Cardiovascular auscultation of heart Overall: regular rate 03/18/2017 None Full Exam - ENT Cardiovascular auscultation of heart Overall: normal heart sounds 03/18/2017 None Full Exam - ENT Lymphatic palpation of lymph nodes Overall: anterior cervical chain benign 03/18/2017 None Full Exam - ENT Lymphatic palpation of lymph nodes Overall: posterior cervical chain benign 03/18/2017 None Full Exam - ENT Neurologic mood and affect Overall: normal mood 03/18/2017 None Full Exam - ENT Neurologic mood and affect Overall: normal affect 03/18/2017 None Full Exam - ENT Neurologic orientation Overall: oriented to person, place and time 03/18/2017 None Full Exam - General 1994 Constitutional general appearance Overall: well developed 12/09/2016 None Full Exam - General 1994 Constitutional general appearance Overall: in no acute distress 12/09/2016 None Full Exam - General 1994 Constitutional general appearance Overall: well nourished 12/09/2016 None Full Exam - General 1994 Eyes conjunctiva /eyelids Overall: conjunctiva clear 12/09/2016 None Full Exam - General 1994 Eyes conjunctiva /eyelids Overall: eyelids normal 12/09/2016 None Full Exam - General 1994 Eyes pupils and irises Overall: pupils equal, round, reactive to light and accomodation 12/09/2016 None Full Exam - General 1994 Ears/Nose/Throat oral cavity/pharynx/larynx Overall: oral mucosa clear 12/09/2016 None Full Exam - General 1994 Respiratory auscultation Overall: breath sounds clear bilaterally 12/09/2016 None Full Exam - General 1994 Respiratory respiratory effort/rhythm Overall: no retractions 12/09/2016 None Full Exam - General 1994 Respiratory respiratory effort/rhythm Overall: normal rate 12/09/2016 None Full Exam - General 1994 Cardiovascular extremities Overall: no clubbing 12/09/2016 None Full Exam - General 1994 Cardiovascular auscultation of heart Overall: regular rate 12/09/2016 None Full Exam - General 1994 Cardiovascular auscultation of heart Overall: normal heart sounds 12/09/2016 None Full Exam - General 1994 Abdomen abdominal exam Overall: no tenderness 12/09/2016 None Full Exam - General 1994 Abdomen abdominal exam Overall: normal bowel sounds 12/09/2016 None Full Exam - General 1994 Neurologic cranial nerves Overall: crainial nerves 2 - 12 grossly intact 12/09/2016 None Full Exam - General 1994 Psychiatric orientation/consciousness Overall: oriented to person, place and time 12/09/2016 None Full Exam - General 1994 Ears/Nose/Throat lips/teeth/gingiva Overall: benign lips 12/09/2016 None Full Exam - General 1994 Musculoskeletal spine, ribs and pelvis Spine: tender @ thoracic spine 12/09/2016 None Full Exam - General 1994 Musculoskeletal gait and station Overall: normal gait 12/09/2016 None Full Exam - General 1994 Musculoskeletal gait and station Overall: normal station 12/09/2016 None Full Exam - General 1994 Musculoskeletal head and neck Overall: head atraumatic 12/09/2016 None Full Exam - General 1994 Psychiatric mood and affect Overall: normal mood and affect 12/09/2016 None Full Exam - General 1994 Psychiatric appearance Overall: well-groomed, good eye contact 12/09/2016 None Full Exam - General 1994 Constitutional general appearance Overall: well developed 10/18/2016 None Full Exam - General 1994 Constitutional general appearance Overall: in no acute distress 10/18/2016 None Full Exam - General 1994 Constitutional general appearance Overall: well nourished 10/18/2016 None Full Exam - General 1994 Eyes conjunctiva /eyelids Overall: conjunctiva clear 10/18/2016 None Full Exam - General 1994 Ears/Nose/Throat otoscopic exam Overall: external auditory canals clear 10/18/2016 None Full Exam - General 1994 Ears/Nose/Throat otoscopic exam Overall: tympanic membranes clear 10/18/2016 None Full Exam - General 1994 Ears/Nose/Throat oral cavity/pharynx/larynx Overall: oral mucosa clear 10/18/2016 None Full Exam - General 1994 Respiratory auscultation Overall: breath sounds clear bilaterally 10/18/2016 None Full Exam - General 1994 Respiratory respiratory effort/rhythm Overall: no retractions 10/18/2016 None Full Exam - General 1994 Respiratory respiratory effort/rhythm Overall: normal rate 10/18/2016 None Full Exam - General 1994 Cardiovascular extremities Overall: no clubbing 10/18/2016 None Full Exam - General 1994 Cardiovascular auscultation of heart Overall: regular rate 10/18/2016 None Full Exam - General 1994 Cardiovascular auscultation of heart Overall: normal heart sounds 10/18/2016 None Full Exam - General 1994 Abdomen abdominal exam Overall: no tenderness 10/18/2016 None Full Exam - General 1994 Abdomen abdominal exam Overall: normal bowel sounds 10/18/2016 None Full Exam - General 1994 Lymphatic neck nodes Overall: anterior cervical chain benign 10/18/2016 None Full Exam - General 1994 Lymphatic neck nodes Overall: posterior cervical chain benign 10/18/2016 None Full Exam - General 1994 Neurologic deep tendon reflexes Overall: deep tendon reflexes intact 10/18/2016 None Full Exam - General 1994 Neurologic cranial nerves Overall: crainial nerves 2 - 12 grossly intact 10/18/2016 None Full Exam - General 1994 Psychiatric orientation/consciousness Overall: oriented to person, place and time 10/18/2016 None Full Exam - General 1994 Integument inspection of skin Location: left leg 10/18/2016 lipoma left thigh Full Exam - General 1994 Integument inspection of skin Location: chest 10/18/2016 comedome between breasts Full Exam - General 1994 Musculoskeletal spine, ribs and pelvis Sacroiliac joints: tender left sacroiliac joint 10/18/2016 None Full Exam - General 1994 Constitutional general appearance Overall: in no acute distress 09/21/2016 None Full Exam - General 1994 Constitutional general appearance Overall: well nourished 09/21/2016 None Full Exam - General 1994 Constitutional general appearance Overall: well developed 09/21/2016 None Full Exam - General 1994 Eyes conjunctiva /eyelids Overall: conjunctiva clear 09/21/2016 None Full Exam - General 1994 Eyes conjunctiva /eyelids Overall: eyelids normal 09/21/2016 None Full Exam - General 1994 Ears/Nose/Throat lips/teeth/gingiva Overall: benign lips 09/21/2016 None Full Exam - General 1994 Ears/Nose/Throat oral cavity/pharynx/larynx Overall: oral mucosa clear 09/21/2016 None Full Exam - General 1994 Respiratory respiratory effort/rhythm Overall: no retractions 09/21/2016 None Full Exam - General 1994 Respiratory respiratory effort/rhythm Overall: normal rate 09/21/2016 None Full Exam - General 1994 Cardiovascular extremities Overall: no clubbing 09/21/2016 None Full Exam - General 1994 Musculoskeletal head and neck Overall: head atraumatic 09/21/2016 None Full Exam - General 1994 Neurologic cranial nerves Overall: crainial nerves 2 - 12 grossly intact 09/21/2016 None Full Exam - General 1994 Psychiatric orientation/consciousness Overall: oriented to person, place and time 09/21/2016 None Full Exam - General 1994 Psychiatric mood and affect Overall: normal mood and affect 09/21/2016 None Full Exam - General 1994 Psychiatric appearance Overall: well-groomed, good eye contact 09/21/2016 None Full Exam - General 1994 Constitutional general appearance Overall: well developed 09/02/2016 None Full Exam - General 1994 Constitutional general appearance Overall: in no acute distress 09/02/2016 None Full Exam - General 1994 Constitutional general appearance Overall: well nourished 09/02/2016 None Full Exam - General 1994 Eyes conjunctiva /eyelids Overall: conjunctiva clear 09/02/2016 None Full Exam - General 1994 Ears/Nose/Throat otoscopic exam Overall: external auditory canals clear 09/02/2016 None Full Exam - General 1994 Ears/Nose/Throat otoscopic exam Overall: tympanic membranes clear 09/02/2016 None Full Exam - General 1994 Ears/Nose/Throat oral cavity/pharynx/larynx Overall: oral mucosa clear 09/02/2016 None Full Exam - General 1994 Neck inspection of neck Jugular venous distension: to angle of mandible in upright position 09/02/2016 None Full Exam - General 1994 Respiratory auscultation Overall: breath sounds clear bilaterally 09/02/2016 None Full Exam - General 1994 Respiratory respiratory effort/rhythm Overall: no retractions 09/02/2016 None Full Exam - General 1994 Respiratory respiratory effort/rhythm Overall: normal rate 09/02/2016 None Full Exam - General 1994 Cardiovascular extremities Overall: no clubbing 09/02/2016 None Full Exam - General 1994 Cardiovascular auscultation of heart Overall: regular rate 09/02/2016 None Full Exam - General 1994 Cardiovascular auscultation of heart Overall: normal heart sounds 09/02/2016 None Full Exam - General 1994 Abdomen abdominal exam Overall: no tenderness 09/02/2016 None Full Exam - General 1994 Abdomen abdominal exam Overall: normal bowel sounds 09/02/2016 None Full Exam - General 1994 Lymphatic neck nodes Overall: anterior cervical chain benign 09/02/2016 None Full Exam - General 1994 Lymphatic neck nodes Overall: posterior cervical chain benign 09/02/2016 None Full Exam - General 1994 Neurologic deep tendon reflexes Overall: deep tendon reflexes intact 09/02/2016 None Full Exam - General 1994 Neurologic cranial nerves Overall: crainial nerves 2 - 12 grossly intact 09/02/2016 None Full Exam - General 1994 Psychiatric orientation/consciousness Overall: oriented to person, place and time 09/02/2016 None Full Exam - General 1994 Constitutional general appearance Overall: well developed 08/27/2016 None Full Exam - General 1994 Constitutional general appearance Overall: in no acute distress 08/27/2016 None Full Exam - General 1994 Constitutional general appearance Overall: well nourished 08/27/2016 None Full Exam - General 1994 Eyes conjunctiva /eyelids Overall: conjunctiva clear 08/27/2016 None Full Exam - General 1994 Ears/Nose/Throat otoscopic exam Overall: external auditory canals clear 08/27/2016 None Full Exam - General 1994 Ears/Nose/Throat otoscopic exam Overall: tympanic membranes clear 08/27/2016 None Full Exam - General 1994 Ears/Nose/Throat oral cavity/pharynx/larynx Overall: oral mucosa clear 08/27/2016 None Full Exam - General 1994 Respiratory auscultation Overall: breath sounds clear bilaterally 08/27/2016 None Full Exam - General 1994 Respiratory respiratory effort/rhythm Overall: no retractions 08/27/2016 None Full Exam - General 1994 Respiratory respiratory effort/rhythm Overall: normal rate 08/27/2016 None Full Exam - General 1994 Cardiovascular extremities Overall: no clubbing 08/27/2016 None Full Exam - General 1994 Cardiovascular auscultation of heart Overall: regular rate 08/27/2016 None Full Exam - General 1994 Cardiovascular auscultation of heart Overall: normal heart sounds 08/27/2016 None Full Exam - General 1994 Abdomen abdominal exam Overall: no tenderness 08/27/2016 None Full Exam - General 1994 Abdomen abdominal exam Overall: normal bowel sounds 08/27/2016 None Full Exam - General 1994 Neurologic deep tendon reflexes Overall: deep tendon reflexes intact 08/27/2016 None Full Exam - General 1994 Neurologic cranial nerves Overall: crainial nerves 2 - 12 grossly intact 08/27/2016 None Full Exam - General 1994 Psychiatric orientation/consciousness Overall: oriented to person, place and time 08/27/2016 None Full Exam - General 1994 Lymphatic neck nodes Overall: anterior cervical chain benign 08/27/2016 None Full Exam - General 1994 Lymphatic neck nodes Overall: posterior cervical chain benign 08/27/2016 None Full Exam - General 1994 Neck inspection of neck Jugular venous distension: to angle of mandible in upright position 08/27/2016 None Full Exam - ENT Constitutional general appearance Overall: well nourished 04/29/2016 None Full Exam - ENT Constitutional general appearance Overall: well developed 04/29/2016 None Full Exam - ENT Constitutional general appearance Overall: in no acute distress 04/29/2016 None Full Exam - ENT Ears/Nose/Throat otoscopic exam Overall: external auditory canals normal 04/29/2016 None Full Exam - ENT Ears/Nose/Throat otoscopic exam Left tympanic membrane: air -fluid level 04/29/2016 None Full Exam - ENT Ears/Nose/Throat otoscopic exam Right tympanic membrane: air-fluid level 04/29/2016 None Full Exam - ENT Ears/Nose/Throat lips/ teeth/gingiva Overall: benign lips 04/29/2016 None Full Exam - ENT Ears/Nose/Throat oropharynx Overall: oral mucosa clear 04/29/2016 None Full Exam - ENT Ears/Nose/Throat oropharynx Posterior Pharynx: clear post nasal drainage 04/29/2016 None Full Exam - ENT Ears/Nose/Throat oropharynx Posterior Pharynx: erythema 04/29/2016 None Full Exam - ENT Respiratory inspection Overall: no retractions 04/29/2016 None Full Exam - ENT Respiratory inspection Overall: normal rate 04/2016 None Full Exam - ENT Respiratory auscultation Overall: breath sounds clear bilaterally 04/29/2016 None Full Exam - ENT Cardiovascular auscultation of heart Rate: normal rate 04/29/2016 None Full Exam - ENT Cardiovascular auscultation of heart Rhythm: regular rhythm 04/29/2016 None Full Exam - ENT Lymphatic palpation of lymph nodes Overall: anterior cervical chain benign 04/29/2016 None Full Exam - ENT Lymphatic palpation of lymph nodes Overall: posterior cervical chain benign 04/29/2016 None Full Exam - ENT Neurologic mood and affect Overall: normal mood 04/29/2016 None Full Exam - ENT Neurologic mood and affect Overall: normal affect 04/29/2016 None Full Exam - ENT Neurologic orientation Overall: oriented to person, place and time 04/29/2016 None Full Exam - Dermatology Constitutional general appearance Overall: well nourished 02/12/2016 None Full Exam - Dermatology Constitutional general appearance Overall: in no acute distress 02/12/2016 None Full Exam - Dermatology Constitutional general appearance Overall: well developed 02/12/2016 None Full Exam - Dermatology Constitutional general appearance Overall: of normal body habitus 02/12/2016 None Full Exam - Dermatology Constitutional general appearance Overall: well groomed 02/12/2016 None Full Exam - Dermatology Psychiatric orientation Overall: oriented to person, place and time 02/12/2016 None Full Exam - Dermatology Integument insp & palp - neck Location: on the left neck 02/12/2016 None Full Exam - Dermatology Integument insp & palp - neck Color: erythematous 02/12/2016 2 puncture chakraborty with surrounding erythema Full Exam - General 1994 Constitutional general appearance Overall: well developed 01/05/2016 None Full Exam - General 1994 Constitutional general appearance Overall: in no acute distress 01/05/2016 None Full Exam - General 1994 Constitutional general appearance Overall: well nourished 01/05/2016 None Full Exam - General 1994 Eyes conjunctiva /eyelids Overall: conjunctiva clear 01/05/2016 None Full Exam - General 1994 Ears/Nose/Throat otoscopic exam Overall: external auditory canals clear 01/05/2016 None Full Exam - General 1994 Ears/Nose/Throat otoscopic exam Overall: tympanic membranes clear 01/05/2016 None Full Exam - General 1994 Ears/Nose/Throat oral cavity/pharynx/larynx Overall: oral mucosa clear 01/05/2016 None Full Exam - General 1994 Respiratory auscultation Overall: breath sounds clear bilaterally 01/05/2016 None Full Exam - General 1994 Respiratory respiratory effort/rhythm Overall: no retractions 01/05/2016 None Full Exam - General 1994 Respiratory respiratory effort/rhythm Overall: normal rate 01/05/2016 None Full Exam - General 1994 Cardiovascular extremities Overall: no clubbing 01/05/2016 None Full Exam - General 1994 Cardiovascular auscultation of heart Overall: regular rate 01/05/2016 None Full Exam - General 1994 Cardiovascular auscultation of heart Overall: normal heart sounds 01/05/2016 None Full Exam - General 1994 Abdomen abdominal exam Overall: no tenderness 01/05/2016 None Full Exam - General 1994 Abdomen abdominal exam Overall: normal bowel sounds 01/05/2016 None Full Exam - General 1994 Neurologic deep tendon reflexes Overall: deep tendon reflexes intact 01/05/2016 None Full Exam - General 1994 Neurologic cranial nerves Overall: crainial nerves 2 - 12 grossly intact 01/05/2016 None Full Exam - General 1994 Psychiatric orientation/consciousness Overall: oriented to person, place and time 01/05/2016 None Full Exam - General 1994 Constitutional general appearance Overall: well developed 02/26/2015 None Full Exam - General 1994 Constitutional general appearance Overall: in no acute distress 02/26/2015 None Full Exam - General 1994 Constitutional general appearance Overall: well nourished 02/26/2015 None Full Exam - General 1994 Eyes conjunctiva /eyelids Overall: conjunctiva clear 02/26/2015 None Full Exam - General 1994 Ears/Nose/Throat otoscopic exam Overall: external auditory canals clear 02/26/2015 None Full Exam - General 1994 Ears/Nose/Throat otoscopic exam Overall: tympanic membranes clear 02/26/2015 None Full Exam - General 1994 Ears/Nose/Throat oral cavity/pharynx/larynx Overall: oral mucosa clear 02/26/2015 None Full Exam - General 1994 Respiratory auscultation Overall: breath sounds clear bilaterally 02/26/2015 None Full Exam - General 1994 Respiratory respiratory effort/rhythm Overall: no retractions 02/26/2015 None Full Exam - General 1994 Respiratory respiratory effort/rhythm Overall: normal rate 02/26/2015 None Full Exam - General 1994 Cardiovascular extremities Overall: no clubbing 02/26/2015 None Full Exam - General 1994 Cardiovascular auscultation of heart Overall: regular rate 02/26/2015 None Full Exam - General 1994 Cardiovascular auscultation of heart Overall: normal heart sounds 02/26/2015 None Full Exam - General 1994 Abdomen abdominal exam Overall: no tenderness 02/26/2015 None Full Exam - General 1994 Abdomen abdominal exam Overall: normal bowel sounds 02/26/2015 None Full Exam - General 1994 Neurologic deep tendon reflexes Overall: deep tendon reflexes intact 02/26/2015 None Full Exam - General 1994 Neurologic cranial nerves Overall: crainial nerves 2 - 12 grossly intact 02/26/2015 None Full Exam - General 1994 Psychiatric orientation/consciousness Overall: oriented to person, place and time 02/26/2015 None Full Exam - General 1994 Psychiatric orientation/consciousness Overall: oriented to person, place and time 08/27/2014 None Full Exam - General 1994 Neurologic deep tendon reflexes Overall: deep tendon reflexes intact 08/27/2014 None Full Exam - General 1994 Neurologic cranial nerves Overall: crainial nerves 2 - 12 grossly intact 08/27/2014 None Full Exam - General 1994 Integument inspection of skin Overall: no rash, lesions 08/27/2014 None Full Exam - General 1994 Musculoskeletal gait and station Overall: normal gait 08/27/2014 None Full Exam - General 1994 Musculoskeletal gait and station Overall: normal station 08/27/2014 None Full Exam - General 1994 Musculoskeletal head and neck Overall: head atraumatic 08/27/2014 None Full Exam - General 1994 Lymphatic neck nodes Overall: anterior cervical chain benign 08/27/2014 None Full Exam - General 1994 Lymphatic neck nodes Overall: posterior cervical chain benign 08/27/2014 None Full Exam - General 1994 Abdomen abdominal exam Overall: no tenderness 08/27/2014 None Full Exam - General 1994 Abdomen abdominal exam Overall: normal bowel sounds 08/27/2014 None Full Exam - General 1994 Cardiovascular auscultation of heart Overall: regular rate 08/27/2014 None Full Exam - General 1994 Cardiovascular auscultation of heart Overall: normal heart sounds 08/27/2014 None Full Exam - General 1994 Respiratory auscultation Overall: breath sounds clear bilaterally 08/27/2014 None Full Exam - General 1994 Respiratory respiratory effort/rhythm Overall: no retractions 08/27/2014 None Full Exam - General 1994 Respiratory respiratory effort/rhythm Overall: normal rate 08/27/2014 None Full Exam - General 1994 Ears/Nose/Throat otoscopic exam Overall: external auditory canals clear 08/27/2014 None Full Exam - General 1994 Ears/Nose/Throat otoscopic exam Overall: tympanic membranes clear 08/27/2014 None Full Exam - General 1994 Ears/Nose/Throat oral cavity/pharynx/larynx Overall: oral mucosa clear 08/27/2014 None Full Exam - General 1994 Eyes conjunctiva /eyelids Overall: conjunctiva clear 08/27/2014 None Full Exam - General 1994 Constitutional general appearance Overall: well nourished 08/27/2014 None Full Exam - General 1994 Constitutional general appearance Overall: well developed 08/27/2014 None Full Exam - General 1994 Constitutional general appearance Overall: in no acute distress 08/27/2014 None Full Exam - General 1994 Cardiovascular extremities Overall: no clubbing 08/27/2014 None Full Exam - General 1994 Musculoskeletal spine, ribs and pelvis Spine: a normal exam 08/27/2014 tender lumbar spine muscles bilaterally Procedures Procedure Codes Date FLU VAC NO PRSV 4 MOI 3 YRS+ CPT-4: 21069 01/12/2017 ADMIN INFLUENZA VIRUS VAC CPT-4: G0008 01/12/2017 PPPS, SUBSEQ VISIT CPT -4: G0439 09/21/2016 URINALYSIS NONAUTO W/O SCOPE CPT-4: 86394 02/25/2016 Vital Signs Date Vital 03/18/2017 Blood Pressure 1: 144/84 Code : 8480-6 BMI: 29.1 Code : 79459-7 Heart Rate 1 : 94 bpm Height: 5'5" SpO2: 98% Weight: 175 lbs 12/09/2016 Blood Pressure 1: 134/78 Code : 8480-6 BMI: 29.0 Code : 49884-7 Heart Rate 1 : 89 bpm Height: 5'5" SpO2: 97% Weight: 174 lbs 10/18/2016 Blood Pressure 1: 166/92 Code : 8480-6 BMI: 29.4 Code : 36800-4 Heart Rate 1 : 94 bpm Height: 5'5" SpO2: 94% Weight: 176 lbs 8 oz 09/21/2016 Blood Pressure 1: 140/84 Code : 8480-6 BMI: 29.1 Code : 60971-7 Heart Rate 1 : 90 bpm Height: 5'5" SpO2: 97% Weight: 175 lbs 09/02/2016 Blood Pressure 1: 146/82 Code : 8480-6 BMI: 29.3 Code : 11138-5 Heart Rate 1 : 95 bpm Height: 5'5" SpO2: 98% Weight: 176 lbs 08/27/2016 Blood Pressure 1: 178/90 Code : 8480-6 Blood Pressure 1: 148/88 Code: 8480-6 Blood Pressure 1: 162/84 Code: 8480-6 BMI: 30.1 Code: 02821-9 Heart Rate 1: 80 bpm Height: 5'5" SpO2: 98% Weight: 181 lbs 04/29/2016 Blood Pressure 1: 152/76 Code : 8480-6 BMI: 30.1 Code : 05414-2 Heart Rate 1 : 99 bpm Height: 5'5" SpO2: 98% Temperature: 37.4 (C) / 99.3 (F) Weight: 181 lbs 02/12/2016 Blood Pressure 1: 136/82 Code : 8480-6 Heart Rate 1: 88 bpm SpO2: 97% 01/05/2016 Blood Pressure 1: 150/80 Code : 8480-6 BMI: 28.8 Code : 34244-9 Heart Rate 1 : 80 bpm Height: 5'5" SpO2: 98% Weight: 173 lbs 02/26/2015 Blood Pressure 1: 144/84 Code : 8480-6 Blood Pressure 1: 140/82 Code: 8480-6 BMI: 28.8 Code: 27300-5 Heart Rate 1: 81 bpm Height: 5'5" SpO2: 98% Weight: 173 lbs 08/27/2014 Blood Pressure 1: 132/80 Code : 8480-6 BMI: 28.1 Code : 57322-8 Height: 5'5" Weight: 169 lbs Functional Status No Functional Status data History of Present Illness Symptom Name Status Result Effective Date Notes sinus congestion Location maxillary sinuses 03/18/2017 None sinus congestion Quality acute 03/18/2017 None sinus congestion Quality pressure 03/18/2017 None sinus congestion Onset and Resolution sudden in onset 03/18/2017 None sinus congestion Onset of Symptom 2-3 days ago 03/18/2017 None sinus congestion Severity moderate 03/18/2017 None sinus congestion Pertinent Findings Denies fever 03/18/2017 None sinus congestion Pertinent Findings cough 03/18/2017 None chest pain/pressure Location diffusely 12/09/2016 None chest pain/pressure Radiating the left shoulder 12/09/2016 None chest pain/pressure Quality aching 12/09/2016 None chest pain/pressure Quality pressure 12/09/2016 None chest pain/pressure Onset and Resolution sudden in onset 12/09/2016 None chest pain/pressure Onset of Symptom 3 days ago 12/09/2016 None hypertension Quality acute 10/18/2016 None hypertension Quality improving 10/18/2016 None hypertension Onset and Resolution sudden in onset 10/18/2016 None hypertension Onset of Symptom 1 days ago 10/18/2016 None hypertension Blood Pressure Values pt checking blood pressure - see scanned document 10/18/2016 None hypertension Severity not consistently severe symptoms, the symptoms fluctuate from no symptoms to anxiety and headaches 10/18/2016 None hypertension Frequency of Episodes increasing 10/18/2016 None hypertension Triggers no known associated factors 10/18/2016 None hypertension Alleviating Factors medication 10/18/2016 None hypertension Pertinent Findings Denies dizziness 10/18/2016 None hypertension Pertinent Findings Denies dyspnea 10/18/2016 None hypertension Pertinent Findings edema 10/18/2016 neck cyst Location on the chest 10/18/2016 None cyst Location on the left leg 10/18/2016 None cyst Onset and Resolution ongoing 10/18/2016 None Annual Medicare Wellness Exam Alcohol Use does not drink any alcohol 09/21/2016 None Annual Medicare Wellness Exam Aspirin Use no 09/21/2016 None Annual Medicare Wellness Exam Blood Glucose (self reported) borderline high (100-125) 09/21/2016 None Annual Medicare Wellness Exam Blood Pressure (self reported ) borderline (120/80 - 139/89) 09/21/2016 None Annual Medicare Wellness Exam Cholesterol (self reported) don't know 09/21/2016 None Annual Medicare Wellness Exam Depression (last 6 months) almost never 09/21/2016 None Annual Medicare Wellness Exam Depression or Hopelessness almost never 09/21/2016 None Annual Medicare Wellness Exam Describe Your Health very good 09/21/2016 None Annual Medicare Wellness Exam Exercise Habits exercises 4 days per week 09/21/2016 None Annual Medicare Wellness Exam Handling Stress usually santos effectively 09/21/2016 None Annual Medicare Wellness Exam Hemaglobin A-1C (self reported ) desireable (6 or lower) 09/21/2016 None Annual Medicare Wellness Exam Hours of Sleep 6-8 09/21/2016 None Annual Medicare Wellness Exam Interaction with Friends yes 09/21/2016 None Annual Medicare Wellness Exam Interests & Pleasure almost all of the time 09/21/2016 None Annual Medicare Wellness Exam Life Satisfaction satisfied 09/21/2016 None Annual Medicare Wellness Exam Motor Vehicle Safety always fastens seat belt: y 09/21/2016 None Annual Medicare Wellness Exam Nutrition servings of vegetables / fruit per day: 5-7 09/21/2016 None Annual Medicare Wellness Exam Smoking and Tobacco Use non smoker 09/21/2016 None Annual Medicare Wellness Exam Social & Emotional Support usually 09/21/2016 None Annual Medicare Wellness Exam Stress some of the time 09/21/2016 None Annual Medicare Wellness Exam Sun Exposure protects skin when outdoors: n 09/21/2016 None hypertension Onset and Resolution sudden in onset 09/02/2016 None hypertension Onset of Symptom 1 days ago 09/02/2016 None hypertension Severity not consistently severe symptoms, the symptoms fluctuate from no symptoms to anxiety and headaches 09/02/2016 None hypertension Frequency of Episodes increasing 09/02/2016 None hypertension Triggers no known associated factors 09/02/2016 None hypertension Alleviating Factors medication 09/02/2016 None hypertension Pertinent Findings Denies dizziness 09/02/2016 None hypertension Quality acute 09/02/2016 None hypertension Quality improving 09/02/2016 None hypertension Pertinent Findings Denies dyspnea 09/02/2016 None hypertension Pertinent Findings edema 09/02/2016 neck hypertension Blood Pressure Values pt checking blood pressure - see scanned document 09/02/2016 None hypertension Onset and Resolution sudden in onset 08/27/2016 None hypertension Onset of Symptom 1 days ago 08/27/2016 None hypertension Pertinent Findings dizziness 08/27/2016 None hypertension Blood Pressure Values patient checking blood pressure at home - did not bring in readings 08/27/2016 None hypertension Severity not consistently severe symptoms, the symptoms fluctuate from no symptoms to anxiety and headaches 08/27/2016 None hypertension Frequency of Episodes increasing 08/27/2016 None hypertension Triggers no known associated factors 08/27/2016 None hypertension Alleviating Factors medication 08/27/2016 None fever Onset and Resolution sudden in onset 04/29/2016 None fever Onset of Symptom 24 hours ago 04/29/2016 None fever Temperature 101 degrees 04/29/2016 None fever Frequency of Episodes daily 04/29/2016 None headache Location diffusely 04/29/2016 None headache Quality constant 04/29/2016 None headache Onset and Resolution sudden in onset 04/29/2016 None fever Quality constant 04/29/2016 None cellulitis Quality intermittent 02/12/2016 None cellulitis Onset and Resolution sudden in onset 02/12/2016 None cellulitis Onset of Symptom 4 days ago 02/12/2016 None cellulitis Pertinent Findings redness 02/12/2016 None cellulitis Pertinent Findings itching 02/12/2016 None cellulitis Location diffusely 02/12/2016 NECK cellulitis Limitation on Activities does not limit activities 02/12/2016 None cellulitis Frequency of Episodes increasing 02/12/2016 None cellulitis Triggers no known associated factors 02/12/2016 None cellulitis Significant Medical Conditions puncture wound 02/12/2016 None dizziness Quality acute 01/05/2016 None dizziness Onset and Resolution sudden in onset 01/05/2016 None dizziness Onset of Symptom 1 weeks ago 01/05/2016 None eye pain Location in the left eye 01/05/2016 None eye pain Quality acute 01/05/2016 None eye pain Quality constant 01/05/2016 None eye pain Onset and Resolution sudden in onset 01/05/2016 None eye pain Onset of Symptom 1 weeks ago 01/05/2016 None fatigue Onset and Resolution sudden in onset 01/05/2016 None fatigue Onset of Symptom 2 weeks ago 01/05/2016 None fatigue Limitation on Activities moderately limits activities 01/05/2016 None fatigue Quality acute 01/05/2016 None well woman exam (65+ years) Lifestyle regular seatbelt use 02/26/2015 None well woman exam (65+ years) Lifestyle family supportive 02/26/2015 None well woman exam (65+ years) Lifestyle normal sleep patterns 02/26/2015 None well woman exam (65+ years) Lifestyle normal amount of stress 02/26/2015 None well woman exam (65+ years) Nutrition and Exercise moderate exercise 02/26/2015 None well woman exam (65+ years) 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 urinary incontinence 02/26/2015 some leakage vaginal discharge Quality clear 02/26/2015 None vaginal discharge Onset and Resolution ongoing 02/26/2015 None vaginal discharge Onset and Resolution gradual in onset 02/26/2015 None vaginal discharge Quality stable 02/26/2015 None vaginal discharge Quality thin 02/26/2015 No smell, pt reports that the "discharge " is in her underwear in the "crease" where it would be near her urethra - she thinks that getting her blood sugar controlled has improved her symptoms vaginal discharge Pertinent Findings Denies pelvic pain 02/26/2015 None diabetes mellitus Quality NIDDM 08/27/2014 None diabetes mellitus Test results Pt checking blood glucose readings, did not bring results to clinic 08/27/2014 None diabetes mellitus Glucose monitoring occasional glucose testing 08/27/2014 2x per week. skin lesion Quality soft 08/27/2014 None skin lesion Onset of Symptom 2 weeks ago 08/27/2014 when she noticed it diabetes mellitus Pertinent Findings Denies dizziness 08/27/2014 None diabetes mellitus Pertinent Findings Denies dyspnea 08/27/2014 None diabetes mellitus Pertinent Findings numbness 08/27/2014 occ in hands but does have exzema on hands/fingers. diabetes mellitus Severity mild 08/27/2014 None diabetes mellitus Test results HgbA1c level 6.2 08/27/2014 None diabetes mellitus Blood glucose levels between 60 and 120 08/27/2014 None diabetes mellitus Alleviating Factors medication 08/27/2014 None diabetes mellitus Alleviating Factors diet 08/27/2014 None diabetes mellitus Onset of Symptom onset as an adult 08/27/2014 None Advance Directives No Advance Directive data Encounters Encounter Performer Location Codes Date EST. PATIENT, LEVEL IV Diagnosis: Other acute sinusitis[ICD10: J01.80] Diagnosis: Other allergic rhinitis[ICD10: J30.89] [facility] CPT-4: 87406 03/18/2017 [id number] EST. PATIENT, LEVEL III Diagnosis: Other chest pain[ICD10: R07.89] Diagnosis: Essential (primary) hypertension[ICD10: I10] Gayathri Thrasher MD, [facility] CPT-4: 14142 12/09/2016 ([id number]) 94930 EST. PATIENT, LEVEL IV Diagnosis: Essential (primary) hypertension[ICD10: I10] Diagnosis: Other allergic rhinitis[ICD10: J30.89] Diagnosis: Acne vulgaris[ICD10: L70.0] Diagnosis: Sacroiliitis, not elsewhere classified[ICD10: M46.1] Shraddha Thrasher MD, [facility] CPT-4: 21219 10/18/2016 ([id number]) Miscellaneous no charge Diagnosis: Essential (primary) hypertension[ICD10: I10] Shraddha Thrasher MD, [facility] CPT-4: 70637 09/02/2016 ([id number]) 33094 EST. PATIENT, LEVEL III Diagnosis: Essential (primary) hypertension[ICD10: I10] Shraddha Thrasher MD, [facility] CPT-4: 74510 08/27/2016 [id number] EST. PATIENT, LEVEL III Diagnosis: Other allergic rhinitis[ICD10: J30.89] Diagnosis: Acute laryngopharyngitis[ICD10: J06.0] Gayathri Thrasher MD, [facility] CPT-4: 62661 04/29/2016 ([id number]) 47998 EST. PATIENT, LEVEL III Diagnosis: Cellulitis of neck[ICD10: L03.221] Shraddha Thrasher MD, [facility] CPT-4: 08015 02/12/2016 ([id number]) 84211 EST. PATIENT, LEVEL IV Diagnosis: Type 2 diabetes mellitus without complications[ICD10: E11.9] Diagnosis: Mixed hyperlipidemia[ICD10: E78.2] Diagnosis: Transient visual loss, left eye[ICD10: H53.122] Diagnosis: Headache[ICD10: R51] Diagnosis: Trigeminal neuralgia[ICD10: G50.0] Diagnosis: Insect bite (nonvenomous) of left front wall of thorax, initial encounter[ICD10: S20.362A] Deysi Thrasher MD, [facility] CPT-4: 57144 01/05/2016 ([id number]) 73917 EST. PATIENT, LEVEL III Diagnosis: Type 2 diabetes mellitus without complications[ICD10: E11.9] Deysi Thrasher MD, [facility] CPT-4: 42113 02/26/2015 ([id number]) OFFICE VISIT, NEW - LEVEL 3 Diagnosis: Diabetes mellitus[ICD9: 250.00] Diagnosis: Screening for breast cancer[ICD9: V76.10] Diagnosis: Screening for osteoporosis[ICD9: V82.81] [facility] CPT-4: 72157 08/27/2014 Plan of Care Planned Activity Notes Codes Status Date Visit Plan: Sinusitis - Pt has acute infection - pain in face, maxillary region, Pt informed to use decongestant, RX given to patient, sinus rinses also recommended. Call if symptoms do not show improvement. Allergies - chronic - recommended pt to use allergy medication as prescribed. Pt has been counseled as to the appropriate use of the medication. Pt to call if allergy symptoms are not controlled with the medication. If using nasal spray , instructions as follows: Nasal spray- use twice daily, one spray per nostril twice daily, after 30 minutes, rinse out nose with saline spray.. Use opposite hand per nostril to spray in the nasal steroid allergy spray. 03/18/2017 [facility]ment[facility] [phone] [id number] (15 min) Moderate 03/18/2017 Patient Education: Patient Medication Summary Completed 03/18/2017 Appointment: Nurse Visit 01/12/2017 Patient Education: Patient Medication Summary Completed 01/12/2017 Visit Plan: Chest pain - sudden in onset, improving - pt has had uncontrolled blood pressures and has had medication adjustments in the past, but has not seen a service operator - will check labs and EKG - will treat as indicated and refer to cardiology. Pt is to go to the ER for any acute changes or concerns. Pt states that she does not want to take anything for anxiety, stress, or reflux at this time and she will just monitor her symptoms. Hypertension - uncontrolled - the patient's medications have been modified as documented in the visit note. The patient has been counseled to cut back on salt in diet for a no added salt diet, low fat diet, start an exercise program with low weight bearing exercises and higher aerobic activity for heart health. The patient is to check blood pressure readings as an outpatient and either fax , call, or email the readings to the office next week for practitioner to review. The pt is to call for acute concerns. 12/09/2016 Appointment: [facility] [phone] [id number] (30 min) Complex 12/09/2016 Patient Education: Patient Medication Summary Completed 12/09/2016 Patient Education: Hypertension Completed 12/09/2016 Care Plan: Referral Order SNOMED-CT : [id number] Pending 12/09/2016 Appointment: Nurse Visit 11/08/2016 Visit Plan: Hypertension - not well controlled today but states controlled at home-instructed patient to bring her machine to the office to have it checked. The patient has been counseled to cut back on salt in diet for a no added salt diet, low fat diet, start an exercise program with low weight bearing exercises and higher aerobic activity for heart health. The patient is to check blood pressure readings as an outpatient and either fax, call, or email the readings to the office next week for practitioner to review. The pt is to call for acute concerns. Comedome cyst-keep clean-recommend abx if acutely becomes infected-continue to monitor Sacroiliitis - back exercises discussed with the patient, pt to continue with anti-inflammatories. Pt is to call if the symptoms do not improve or if they worsen. Allergies-left ear itching-recommend anti histamine 10/18/2016 Appointment: Shraddha Dillon WPtel: [address] [place], [place] [phone] (15 min) Moderate 10/18/2016 Patient Education: Patient Medication Summary Completed 10/18/2016 Visit Plan: Medicare Exam - today we discussed the patients past history, immunizations, preventative exams/evaluations - colonoscopy, fecal occult blood testing, routine labs for renal function, glucose, cholesterol, osteoporosis evaluations, cardiovascular testing and cancer screenings. We have also discussed mental health and the signs/symptoms of depression. The patient was advised of home safety evaluations and the need to make sure that as the aging process continues, we need to be aware of different ways to make the home a safer place to reside. The patient has also been counseled that exercise is necessary - and of utmost importance as we age to help decrease fall risk and to maintain independence in the home. Today we discussed the need for the patient to create paperwork for Advanced directives as well as for the patient to provide this office with a copy of her DOP[employer] paperwork for health care surrogate. 09/21/2016 Patient Education: Patient Medication Summary Completed 09/21/2016 Visit Plan: HTN-not well controlled-take low dose lisinopril daily-start with 2.5mg daily-increase to 5mg daily if needed-call with readings or other symptoms as discussed-keep appt with Dr Joseph 09/02/2016 Appointment: Shraddha Dillon WPtel: [phone] [phone] (15 min) Moderate 09/02/2016 Patient Education: Patient Medication Summary Completed 09/02/2016 Patient Education: Hypertension Completed 09/02/2016 Visit Plan: Hypertension - uncontrolled - the patient's medications have been modified as documented in the visit note. The patient has been counseled to cut back on salt in diet for a no added salt diet, low fat diet, start an exercise program with low weight bearing exercises and higher aerobic activity for heart health. The patient is to check blood pressure readings as an outpatient and either fax, call, or email the readings to the office next week for practitioner to review. The pt is to call for acute concerns. SCHEDULE ECHOCARDIOGRAM 08/27/2016 Appointment: Shraddha Dillon WPtel: [phone] [phone] [place] (10 min) Simple 08/27/2016 Patient Education: Patient Medication Summary Completed 08/27/2016 Patient Education: Obesity Completed 08/27/2016 Visit Plan: URI - Pt advised to increase fluids, vitamin C. Discussed natural and expected course of this diagnosis and need to alert me if symptoms do not follow expected course, or if any worse. RX sent to patient' s pharmacy. Allergies - chronic - recommended pt to use allergy medication as prescribed. Pt has been counseled as to the appropriate use of the medication. Pt to call if allergy symptoms are not controlled with the medication. If using nasal spray, instructions as follows: Nasal spray- use twice daily, one spray per nostril twice daily, after 30 minutes, rinse out nose with saline spray.. Use opposite hand per nostril to spray in the nasal steroid allergy spray. 04/29/2016 App[facility]ment: [phone] (30 min) Complex 04/29/2016 Patient Education: Patient Medication Summary Completed 04/29/2016 Appointment: Lab Draw 02/25/2016 Patient Education: Patient Medication Summary Completed 02/25/2016 Visit Plan: Cellulitis - continue with oral antibiotics as previously directed, return to clinic as previously directed, call for acute change in symptoms, worsening redness, warmth, discharge. 02/12/2016 Appointment: Shraddha Dillon WPtel: [phone] [phone] (10 min) Simple 02/12/2016 Patient Education: Patient Medication Summary Completed 02/12/2016 Visit Plan: Hypertension - well controlled - continue with current medications, continue with no added salt diet. Pt has been encouraged to exercise daily. The pt has been advised to call the office if there are any acute concerns about change in blood pressure readings at home. Diabetes Mellitus - controlled - per recent FSBS reports. I have recommended for the patient to have follow up labs prior to the next office visit. The patient has been instructed to continue with current medications as previously directed, continue with regular FSBS monitoring to assure continued control of diabetes. Pt to call for any acute concerns, complaints, or if the blood glucose readings are starting to become less controlled. check labs - start on prednisone - check tic panel. CT head to assure no evidence of stroke 01/05/2016 Appointment: Deysi Thrahser WPtel: [phone] [phone] (15 min) Moderate 01/05/2016 Appointment: Gayathri Elizabeth WPtel: [phone] [phone] (30 min) Complex 01/05/2016 Patient Education: Patient Medication Summary Completed 01/05/2016 Visit Plan: Diabetes Mellitus - controlled - per recent FSBS reports. I have recommended for the patient to have follow up labs prior to the next office visit. The patient has been instructed to continue with current medications as previously directed, continue with regular FSBS monitoring to assure continued control of diabetes. Pt to call for any acute concerns, complaints, or if the blood glucose readings are starting to become less controlled. 02/26/2015 Patient Education: Patient Medication Summary Completed 02/26/2015 Care Plan: MICROALBUMIN QUANTITATIVE LOINC : 45462-6 Ordered 02/26/2015 Care Plan: COMPLETE CBC AUTOMATED LOINC : 11041-5 Ordered 02/26/2015 Patient Education: Patient Medication Summary Completed 11/21/2014 Visit Plan: Diabetes Mellitus - controlled - per recent FSBS reports. I have recommended for the patient to have follow up labs prior to the next office visit. The patient has been instructed to continue with current medications as previously directed, continue with regular FSBS monitoring to assure continued control of diabetes. Pt to call for any acute concerns, complaints, or if the blood glucose readings are starting to become less controlled. 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 Hypertension - uncontrolled - the patient's medications have been modified as documented in the visit note. The patient has been counseled to cut back on salt in diet for a no added salt diet, low fat diet, start an exercise program with low weight bearing exercises and higher aerobic activity for heart health. The patient is to check blood pressure readings as an outpatient and either fax , call, or email the readings to the office next week for practitioner to review. The pt is to call for acute concerns. SCHEDULE ECHOCARDIOGRAM Plan: ([id number]) SCREENINGMAMMOGRAPHYDIGITAL . Diabetes Mellitus - controlled - per recent FSBS reports. I have recommended for the patient to have follow up labs prior to the next office visit. The patient has been instructed to continue with current medications as previously directed, continue with regular FSBS monitoring to assure continued control of diabetes. Pt to call for any acute concerns, complaints, or if the blood glucose readings are starting to become less controlled. Lumbar back pain-recommend stretching exercises and call if symptoms do not resolve or if any worse . Hypertension - well controlled - continue with current medications, continue with no added salt diet. Pt has been encouraged to exercise daily. The pt has been advised to call the office if there are any acute concerns about change in blood pressure readings at home. Diabetes Mellitus - controlled - per recent FSBS reports. I have recommended for the patient to have follow up labs prior to the next office visit. The patient has been instructed to continue with current medications as previously directed, continue with regular FSBS monitoring to assure continued control of diabetes. Pt to call for any acute concerns, complaints, or if the blood glucose readings are starting to become less controlled. check labs - start on prednisone - check tic panel. CT head to assure no evidence of stroke BRING BLOOD PRESSURE MACHINE IN TO HAVE IT CHECKED WITH OURS . Hypertension - not well controlled today but states controlled at home- instructed patient to bring her machine to the office to have it checked. The patient has been counseled to cut back on salt in diet for a no added salt diet , low fat diet, start an exercise program with low weight bearing exercises and higher aerobic activity for heart health. The patient is to check blood pressure readings as an outpatient and either fax , call, or email the readings to the office next week for practitioner to review. The pt is to call for acute concerns. Comedome cyst-keep clean-recommend abx if acutely becomes infected-continue to monitor Sacroiliitis - back exercises discussed with the patient, pt to continue with anti-inflammatories. Pt is to call if the symptoms do not improve or if they worsen. Allergies-left ear itching-recommend anti histamine . Sinusitis - Pt has acute infection - pain in face, maxillary region, Pt informed to use decongestant, RX given to patient, sinus rinses also recommended. Call if symptoms do not show improvement. Allergies - chronic - recommended pt to use allergy medication as prescribed. Pt has been counseled as to the appropriate use of the medication. Pt to call if allergy symptoms are not controlled with the medication. If using nasal spray, instructions as follows: Nasal spray- use twice daily, one spray per nostril twice daily, after 30 minutes, rinse out nose with saline spray.. Use opposite hand per nostril to spray in the nasal steroid allergy spray. . HTN-not well controlled-take low dose lisinopril daily- start with 2.5mg daily-increase to 5mg daily if needed-call with readings or other symptoms as discussed-keep appt with Dr Jake SAHU - Pt advised to increase fluids, vitamin C. Discussed natural and expected course of this diagnosis and need to alert me if symptoms do not follow expected course, or if any worse. RX sent to patient's pharmacy. Allergies - chronic - recommended pt to use allergy medication as prescribed. Pt has been counseled as to the appropriate use of the medication. Pt to call if allergy symptoms are not controlled with the medication. If using nasal spray, instructions as follows: Nasal spray- use twice daily, one spray per nostril twice daily, after 30 minutes, rinse out nose with saline spray.. Use opposite hand per nostril to spray in the nasal steroid allergy spray. . Chest pain - sudden in onset, improving - pt has had uncontrolled blood pressures and has had medication adjustments in the past, but has not seen a service operator - will check labs and EKG - will treat as indicated and refer to cardiology. Pt is to go to the ER for any acute changes or concerns. Pt states that she does not want to take anything for anxiety, stress, or reflux at this time and she will just monitor her symptoms. Hypertension - uncontrolled - the patient's medications have been modified as documented in the visit note. The patient has been counseled to cut back on salt in diet for a no added salt diet, low fat diet, start an exercise program with low weight bearing exercises and higher aerobic activity for heart health. The patient is to check blood pressure readings as an outpatient and either fax , call, or email the readings to the office next week for practitioner to review. The pt is to call for acute concerns. Dr. Sebastian, Dr. Roth, Dr. Durán - surgeons in [place] Dr. Mojica, Dr. Mauricio - in [place] Dr. Wilkinson - internal Med in [place] Let me know who you want to be referred to for a screening colonoscopy . Medicare Exam - today we discussed the patients past history, immunizations, preventative exams/evaluations - colonoscopy, fecal occult blood testing, routine labs for renal function, glucose, cholesterol, osteoporosis evaluations , cardiovascular testing and cancer screenings. We have also discussed mental health and the signs/symptoms of depression. The patient was advised of home safety evaluations and the need to make sure that as the aging process continues , we need to be aware of different ways to make the home a safer place to reside. The patient has also been counseled that exercise is necessary - and of utmost importance as we age to help decrease fall risk and to maintain independence in the home. Today we discussed the need for the patient to create paperwork for Advanced directives as well as for the patient to provide this office with a copy of her DOPA paperwork for health care surrogate. . Diabetes Mellitus - controlled - per recent FSBS reports. I have recommended for the patient to have follow up labs prior to the next office visit. The patient has been instructed to continue with current medications as previously directed, continue with regular FSBS monitoring to assure continued control of diabetes. Pt to call for any acute concerns, complaints, or if the blood glucose readings are starting to become less controlled. . Cellulitis - continue with oral antibiotics as previously directed, return to clinic as previously directed, call for acute change in symptoms, worsening redness, warmth, discharge.
--- OUTSIDE RECORDS SUMMARY | 2017-06-29 19:34 | XMS REPORT | Continuity of Care Document ---
Author Author [facility] Organization [facility] Address Unknown Phone Unavailable Allergies Active Description Code Type Severity Reaction Onset Reported/Identified Relationship to Patient Clinical Status Yes codeine [id number] Drug Allergy Unknown N/A 01/17/2017 Yes Penicillins [id number] Drug Allergy Unknown N/A 01/17/2017 Medications There is no data. Problems Date Dx Coded Attending Type Code Diagnosis Diagnosed By 12/12/2014 JAN CHANP Ot 733.90 12/12/2014 JAN CHANP Ot V76.12 12/12/2014 JAN CHANP Ot V82.81 01/27/2016 JOYCE JANE MD Ot H53.9 UNSPECIFIED VISUAL DISTURBANCE 01/27/2016 JOYCE JANE MD Ot H57.12 OCULAR PAIN, LEFT EYE 01/27/2016 JOYCE JANE MD Ot R42 DIZZINESS AND GIDDINESS 01/27/2016 JOYCE JANE MD Ot R51 HEADACHE 09/15/2016 JAN CHANP Ot 733.90 BONE CARTILAGE DIS NOS 09/15/2016 JAN CHANP Ot V76.12 OTH SCREEN MAMMO-MALIGN NEOPLASM OF PAIGE 09/15/2016 JAN CHANP Ot V82.81 SCREENING FOR OSTEOPOROSIS 09/15/2016 JOYCE JANE MD Ot H53.9 UNSPECIFIED VISUAL DISTURBANCE 09/15/2016 JOYCE JANE MD Ot H57.12 OCULAR PAIN, LEFT EYE 09/15/2016 JOYCE JANE MD Ot R42 DIZZINESS AND GIDDINESS 09/15/2016 JOYCE JANE MD Ot R51 HEADACHE 10/08/2016 JAN CHANP Ot I10 ESSENTIAL (PRIMARY) HYPERTENSION 10/19/2016 HEMANT HAND HEALTHCARE ANALYST Ot Z12.31 ENCNTR SCREEN MAMMOGRAM FOR MALIGNANT NE 10/19/2016 JAN CHAN [employer]ER Ot 733.90 BONE CARTILAGE DIS NOS 10/19/2016 JAN CHAN [employer] Ot V76.12 OTH SCREEN MAMMO-MALIGN NEOPLASM OF PAIGE 10/19/2016 JAN CHAN [employer] Ot V82.81 SCREENING FOR OSTEOPOROSIS 10/19/2016 BUCK MARCH, JOYCE Anderson Ot H53.9 UNSPECIFIED VISUAL DISTURBANCE 10/19/2016 BUCK MARCH, JOYCE Anderson Ot H57.12 OCULAR PAIN, LEFT EYE 10/19/2016 BUCK MARCH, JOYCE A Ot R42 DIZZINESS AND GIDDINESS 10/19/2016 BUCK MARCH, JOYCE A Ot R51 HEADACHE 10/19/2016 JAN CHAN [place] [employer] Ot I10 ESSENTIAL (PRIMARY) HYPERTENSION 10/19/2016 HEMANT HAND HEALTHCARE ANALYST Ot Z12.31 ENCNTR SCREEN MAMMOGRAM FOR MALIGNANT NE 10/19/2016 HEMANT HAND HEALTHCARE ANALYST Ot Z12.31 ENCNTR SCREEN MAMMOGRAM FOR MALIGNANT NE 10/21/2016 JAN CHAN [employer] Ot 733.90 BONE CARTILAGE DIS NOS 10/21/2016 JAN CHAN [employer]ER Ot V76.12 OTH SCREEN MAMMO-MALIGN NEOPLASM OF PAIGE 10/21/2016 JAN CHAN [employer]ER Ot V82.81 SCREENING FOR OSTEOPOROSIS 10/21/2016 BUCK MARCH, JOYCE A Ot H53.9 UNSPECIFIED VISUAL DISTURBANCE 10/21/2016 BUCK MARCH, JOYCE Anderson Ot H57.12 OCULAR PAIN, LEFT EYE 10/21/2016 JOYCE JANE MD Ot R42 DIZZINESS AND GIDDINESS 10/21/2016 JOYCE JANE MD A Ot R51 HEADACHE 10/21/2016 JAN CHAN [place] [employer] Ot I10 ESSENTIAL (PRIMARY) HYPERTENSION 10/21/2016 HEMANT HAND HEALTHCARE ANALYST Ot Z12.31 ENCNTR SCREEN MAMMOGRAM FOR MALIGNANT NE 10/26/2016 HEMANT HAND HEALTHCARE ANALYST Ot Z12.31 ENCNTR SCREEN MAMMOGRAM FOR MALIGNANT NE 10/26/2016 HEMANT HAND HEALTHCARE ANALYST Ot Z12.31 ENCNTR SCREEN MAMMOGRAM FOR MALIGNANT NE 10/26/2016 HEMANT HAND HEALTHCARE ANALYST Ot Z12.31 ENCNTR SCREEN MAMMOGRAM FOR MALIGNANT NE 10/26/2016 HEMANT HAND HEALTHCARE ANALYST Ot Z12.31 ENCNTR SCREEN MAMMOGRAM FOR MALIGNANT NE 10/26/2016 HEMANT HAND HEALTHCARE ANALYST Ot Z12.31 ENCNTR SCREEN MAMMOGRAM FOR MALIGNANT NE 10/26/2016 HEMANT HAND HEALTHCARE ANALYST Ot Z12.31 ENCNTR SCREEN MAMMOGRAM FOR MALIGNANT NE 11/19/2016 HEMANT HAND HEALTHCARE ANALYST Ot Z12.31 ENCNTR SCREEN MAMMOGRAM FOR MALIGNANT NE 12/10/2016 HEMANT HAND [place] HEALTHCARE ANALYST Ot R07.9 CHEST PAIN, UNSPECIFIED 12/30/2016 HEMANT HAND HEALTHCARE ANALYST Ot R07.9 CHEST PAIN, UNSPECIFIED 01/17/2017 NOMAN PALM MD Ot E11.9 TYPE 2 DIABETES MELLITUS WITHOUT COMPLIC 01/17/2017 NOMAN PALM MD Ot S01.111A LACERATION W/O FB OF RIGHT EYELID AND PE 01/17/2017 NOMAN PALM MD Ot S05.91XA UNSPECIFIED INJURY OF RIGHT EYE AND ORBI 01/17/2017 NOMAN PALM MD Ot S51.811A LACERATION W/O FOREIGN BODY OF RIGHT FOR 01/17/2017 NOMAN PALM MD Ot W18.09XA STRIKING AGAINST OTH OBJECT W SUBSEQUENT 01/17/2017 NOMAN PALM MD Ot Z23 ENCOUNTER FOR IMMUNIZATION 01/17/2017 NOMAN PALM MD Ot Z87.59 PERSONAL HISTORY OF COMP OF PREG, CHLDBR 01/17/2017 NOMAN PALM MD Ot Z90.710 ACQUIRED ABSENCE OF BOTH CERVIX AND UTER 01/19/2017 NOMAN PALM MD Ot E11.9 TYPE 2 DIABETES MELLITUS WITHOUT COMPLIC 01/19/2017 NOMAN PALM MD Ot S01.111A LACERATION W/O FB OF RIGHT EYELID AND PE 01/19/2017 NOMAN PALM MD Ot S05.91XA UNSPECIFIED INJURY OF RIGHT EYE AND ORBI 01/19/2017 NOMAN PALM MD Ot S51.811A LACERATION W/O FOREIGN BODY OF RIGHT FOR 01/19/2017 NOMAN PALM MD, Ot W18.09XA STRIKING AGAINST OTH OBJECT W SUBSEQUENT 01/19/2017 NOMAN PALM MD, Ot Z23 ENCOUNTER FOR IMMUNIZATION 01/19/2017 NOMAN PALM MD, Ot Z87.59 PERSONAL HISTORY OF COMP OF PREG, CHLDBR 01/19/2017 NOMAN PALM MD, Ot Z90.710 ACQUIRED ABSENCE OF BOTH CERVIX AND UTER 01/23/2017 NOMAN PALM MD, Ot E11.9 TYPE 2 DIABETES MELLITUS WITHOUT COMPLIC 01/23/2017 NOMAN PALM MD, Ot S01.111A LACERATION W/O FB OF RIGHT EYELID AND PE 01/23/2017 NOMAN PALM MD, Ot S05.91XA UNSPECIFIED INJURY OF RIGHT EYE AND ORBI 01/23/2017 NOMAN PALM MD, Ot S51.811A LACERATION W/O FOREIGN BODY OF RIGHT FOR 01/23/2017 NOMAN PALM MD, Ot W18.09XA STRIKING AGAINST OTH OBJECT W SUBSEQUENT 01/23/2017 NOMAN PALM MD, Ot Z23 ENCOUNTER FOR IMMUNIZATION 01/23/2017 NOMAN PALM MD, Ot Z87.59 PERSONAL HISTORY OF COMP OF PREG, CHLDBR 01/23/2017 NOMAN PALM MD, Ot Z90.710 ACQUIRED ABSENCE OF BOTH CERVIX AND UTER Procedures There is no data. Results Test Result Range Complete blood count (CBC) with automated white blood cell (WBC) differential - 12/09/16 15:00 Blood leukocytes automated count (number/volume) 6.8 10*3/uL 4.3-11.0 Blood erythrocytes automated count (number/volume) 4.28 10*6/uL 4.35-5.85 Venous blood hemoglobin measurement (mass/volume) 13.4 g/dL 11.5-16.0 Blood hematocrit (volume fraction) 40 % 35-52 Automated erythrocyte mean corpuscular volume 94 [foz_us] 80-99 Automated erythrocyte mean corpuscular hemoglobin (mass per erythrocyte) 31 pg 25-34 Automated erythrocyte mean corpuscular hemoglobin concentration measurement ( mass/volume) 33 g/dL 32-36 Automated erythrocyte distribution width ratio 13.2 % 10.0-14.5 Automated blood platelet count (count/volume) 215 10*3/uL 130-400 Automated blood platelet mean volume measurement 12.1 [foz_us] 7.4-10.4 Automated blood neutrophils/100 leukocytes 61 % 42-75 Automated blood lymphocytes/100 leukocytes 24 % 12-44 Blood monocytes/100 leukocytes 11 % 0-12 Automated blood eosinophils/100 leukocytes 4 % 0-10 Automated blood basophils/100 leukocytes 0 % 0-10 Blood neutrophils automated count (number/volume) 4.1 10*3 1.8-7.8 Blood lymphocytes automated count (number/volume) 1.6 10*3 1.0-4.0 Blood monocytes automated count (number/volume) 0.8 10*3 0.0-1.0 Automated eosinophil count 0.3 10*3/uL 0.0-0.3 Automated blood basophil count (count/volume) 0.0 10*3/uL 0.0-0.1 Comprehensive metabolic panel - 12/09/16 15:00 Serum or plasma sodium measurement (moles/volume) 141 mmol/L 135-145 Serum or plasma potassium measurement (moles/volume) 4.4 mmol/L 3.6-5.0 Serum or plasma chloride measurement (moles/volume) 107 mmol/L 98-107 Carbon dioxide 25 mmol/L 21-32 Serum or plasma anion gap determination (moles/volume) 9 mmol/L 5-14 Serum or plasma urea nitrogen measurement (mass/volume) 19 mg/dL 7-18 Serum or plasma creatinine measurement (mass/volume) 0.92 mg/dL 0.60-1.30 Serum or plasma urea nitrogen/creatinine mass ratio 21 NRG Serum or plasma creatinine measurement with calculation of estimated glomerular filtration rate > NRG Serum or plasma glucose measurement (mass/volume) 102 mg/dL 70-105 Serum or plasma calcium measurement (mass/volume) 9.4 mg/dL 8.5-10.1 Serum or plasma total bilirubin measurement (mass/volume) 0.4 mg/dL 0.1-1.0 Serum or plasma alkaline phosphatase measurement (enzymatic activity/volume) 61 U/L 40-136 Serum or plasma aspartate aminotransferase measurement (enzymatic activity/ volume) 14 U/L 5-34 Serum or plasma alanine aminotransferase measurement (enzymatic activity/volume ) 13 U/L 0-55 Serum or plasma protein measurement (mass/volume) 6.9 g/dL 6.4-8.2 Serum or plasma albumin measurement (mass/volume) 4.0 g/dL 3.2-4.5 Serum or plasma creatine kinase MB measurement (enzymatic activity/volume) - 15:00 Serum or plasma creatine kinase MB measurement (enzymatic activity/volume) 0.6 ng/mL <6.6 Serum or plasma troponin i.cardiac measurement (mass/volume) - 12/09/16 15:00 Serum or plasma troponin i.cardiac measurement (mass/volume) < ng/ mL <0.30 Encounters ACCT No. Visit Date/Time Discharge Status Pt. Type Provider Facility Loc./Unit Complaint [id number] 01/17/2017 16:58:00 01/17/2017 19:24:00 DIS Emergency ARPITA MARCH, NOMAN Monterroso [facility] ER FALL/R EYE INJ [id number] 12/09/2016 14:41:00 12/09/2016 23:59:59 CLS Outpatient HEMANT HAND APRN [facility] CARD CHEST PAIN [id number] 10/21/2016 10:18:00 10/21/2016 23:59:59 CLS Outpatient HEMANT HAND APRN [facility] RAD SCREENING Z12.31 [id number] 09/15/2016 12:48:00 09/15/2016 23:59:59 CLS Outpatient JAN CHAN [facility] CARD HTN I10 [id number] 01/05/2016 11:56:00 01/05/2016 23:59:59 CLS Outpatient JOYCE JANE MD [facility] RAD VISION CHANGE,LT EYE PAIN,HEADACHE [id number] 11/21/2014 11:04:00 11/21/2014 23:59:59 CLS Outpatient JAN CHAN [facility] RAD SCREENING
--- OUTSIDE RECORDS SUMMARY | 2017-06-29 19:34 | XMS REPORT | CCD ---
Author Author Shraddha Dillon MD, [facility] Address [address] [place] [address] Phone Care Team Providers Care Drum Barker Operator Name Role Phone PP Unavailable CCM Unavailable Summary Purpose Interface Exchange Insurance Providers Payer name Policy type / Coverage type Covered libertarian ID Effective Begin Date Effective End Date WPS Medicare Part B Medicare Part B [id number] Unknown Unknown [employer] and [employer] Medicare Part B [id number] Unknown Unknown Family history Son Diagnosis Age [...] Unknown 7 08/27/[address]: 566805179 Never smoker 08/27/[address]: 018277951 Never drinks alcohol 08/27/2014 Allergies, Adverse Reactions, [...] XR 5 mg-1,000 mg tablet,extended release RxNorm: 3775056 TAKE ONE TABLET BY MOUTH DAILY 04/04/20172018 Active Kombiglyze XR 5 mg-1,000 mg tablet,extended release RxNorm: 7440821 TAKE ONE TABLET BY MOUTH DAILY 04/04/20172017 Inactive Zithromax Z-Jose 250 mg tablet RxNorm: 190357 1 Tablet(s) PO UD 03/18/2017 No Stop Date Active Kombiglyze XR 5 mg-1,000 mg tablet,extended release RxNorm: 8115056 TAKE ONE TABLET BY MOUTH DAILY 12/22/20162016 Inactive lisinopril 5 mg tablet RxNorm: 408142 1/2 Tablet(s) PO BID 03/08/2017 Inactive clobetasol 0.05 % topical cream RxNorm: 589271 1 Application TOP BID 10/18/2016 No Stop Date Active simissqy-wcqqipxhp-xivjilwob 3.5 mg/mL-10,000 unit/mL-1 % ear solution RxNorm: 975256 2 OTIC QID 10/18/2016 10/24/2016 Inactive lisinopril 5 mg tablet RxNorm: 880146 1/2-1 Tablet(s) PO daily 09/02/2016 11/30/2016 Inactive start 1/2 tab daily-increase to a full tab if needed lisinopril 20 mg tablet RxNorm: 440458 1 Tablet(s) PO daily 04/201609/01/2016 Inactive Lofibra 54 mg tablet RxNorm: 719097 1 Tablet(s) PO daily 201611/03/2016 Inactive DC fenofibrate 40 mg Lofibra 54 mg tablet RxNorm: 402092 1 Tablet(s) PO daily 201607/06/2016 Inactive DC fenofibrate 40 mg fenofibrate 40 mg tablet RxNorm: 741541 1 Tablet(s) PO daily 07/06/2016 Inactive fenofibrate 40 mg tablet RxNorm: 954663 1 Tablet(s) PO daily 07/01/2016 Inactive Kombiglyze XR 5 mg-1,000 mg tablet,extended release RxNorm: 5265720 TAKE ONE TABLET BY MOUTH DAILY 06/21/20162016 Inactive Kombiglyze XR 5 mg-1,000 mg tablet,extended release RxNorm: 9734970 Tablet(s) TAKE ONE TABLET BY MOUTH DAILY 05/05/2016 06/20/2016 Inactive Zyrtec 10 mg tablet RxNorm: 7744312 1 Tablet(s) PO daily 04/2905/28/2016 Inactive Zithromax Z-Jose 250 mg tablet RxNorm: 822802 1 Tablet(s) PO UD 04/29/2016 07/01/2016 Inactive Bactrim DS 800 mg-160 mg tablet RxNorm: 548271 1 Tablet(s) PO BID 02/25/2016 02/24/2016 Inactive Bactrim DS 800 mg-160 mg tablet RxNorm: 033656 1 Tablet(s) PO BID 02/25/2016 03/02/2016 Inactive WelChol 625 mg tablet RxNorm: 680362 3 Tablet(s) PO BID 201502/19/2016 Inactive WelChol 625 mg tablet RxNorm: 285406 3 Tablet(s) PO BID with meals 02/20/2016 04/19/2016 Inactive dc zetia doxycycline hyclate 100 mg tablet RxNorm: 309048 1 Tablet(s) PO BID 02/12/2016 02/18/2016 Inactive doxycycline hyclate 100 mg tablet RxNorm: 544346 1 Tablet(s) PO BID 01/05/2016 01/18/2016 Inactive prednisone 20 mg tablet RxNorm: 764728 3 Tablet(s) PO daily 12/201501/09/2016 Inactive Zetia 10 mg tablet RxNorm: 292187 TAKE ONE TABLET BY MOUTH EVERY NIGHT AT BEDTIME 11/13/2015 02/19/2016 Inactive Kombiglyze XR 5 mg-1,000 mg tablet,extended release RxNorm: 4806641 TAKE ONE TABLET BY MOUTH DAILY 07/24/20152015 Inactive Zetia 10 mg tablet RxNorm: 847312 1 Tablet(s) PO QHS 201511/04/2015 Inactive Zetia 10 mg tablet RxNorm: 163783 1 Tablet(s) PO QHS 201507/07/2015 Inactive Kombiglyze XR 5 mg-1,000 mg tablet,extended release RxNorm: 8576031 1 Tablet(s) PO daily 04/16/2015 07/14/2015 Inactive Calcium + D oral RxNorm: 070654 oral No Start Date Active Flaxseed Meal RxNorm: 644421 miscellaneous No Start Date Active Vitamin D3 5,000 unit tablet RxNorm: 910695 1 Tablet(s) PO daily No Start Date Active Multiple Vitamin oral RxNorm: 73209 oral No Start Date Active Kombiglyze XR 5 mg-1,000 mg tablet,extended release RxNorm: 8756788 1 Tablet(s) PO daily No Start Date [...] 13.2 g/dl 10/06/2016 Cbc With Differential Ord2 HCT 39.5 % 10/06/2016 Cbc With Differential Ord2 Neut% 56.0 % 10/06/2016 Cbc With Differential Ord2 Lymph% 29.0 % 10/06/2016 Cbc With Differential Ord2 MCV 95.4 fl 10/06/2016 Cbc With Differential Ord2 MCH 31.9 pg 10/06/2016 Cbc With Differential Ord2 [place]% 9.8 % 10/06/2016 Cbc With Differential Ord2 MCHC 33.4 pg 10/06/2016 Cbc With Differential Ord2 Eos% 4.8 % 10/06/2016 Cbc With Differential Ord2 Baso% 0.4 % 10/06/2016 Cbc With Differential Ord2 PLT 200 K/ul 10/06/2016 Cbc With Differential Ord2 RDW 13.8 % 10/06/2016 Cbc With Differential Ord2 Neut ABS# 3.16 K/ul 10/06/2016 Cbc With Differential Ord2 Lymph ABS# 1.63 K/ul 10/06/2016 Cbc With Differential Ord2 [place] ABS# 0.6 K/ul 10/06/2016 Cbc With Differential Ord2 Eos ABS# 0.3 K/ul 10/06/2016 Cbc With Differential Ord2 Baso ABS# 0.0 K/ul 10/06/2016 Comp Metabolic Hdd356 NA 140 mEq/L 10/06/2016 Comp Metabolic Aag154 K 4.3 mEq/L 10/06/2016 Comp Metabolic Jgn772 CL 107 mEq/L 10/06/2016 Comp Metabolic Ghp143 CO2 25.0 mEq/L 10/06/2016 Comp Metabolic Hdu385 ANION GAP 12 10/06/2016 Comp Metabolic Hyl347 GLUCOSE 122 mg/dL 10/06/2016 Comp Metabolic Upz801 Creat 0.7 mg/dL 10/06/2016 Comp Metabolic Psr577 eGFR 84 ml/min/1.73m2 10/06/2016 Comp Metabolic Qzy414 BUN 17 mg/dL 10/06/2016 Comp Metabolic Djz694 B/C Ratio 23.3 Ratio 10/06/2016 Comp Metabolic Hmx796 CALCIUM 9.0 mg/dL 10/06/2016 Comp Metabolic Edf151 ALK PHOS 52 U/L 10/06/2016 Comp Metabolic Qgy187 AST(SGOT) 18 U/L 10/06/2016 Comp Metabolic Lvv111 ALT(SGPT) 22 U/L 10/06/2016 Comp Metabolic Qpa300 BILI T 0.6 mg/dL 10/06/2016 Comp Metabolic Ine215 ALBUMIN 3.9 g/dL 10/06/2016 Comp Metabolic Zmb712 TPRO 6.1 g/dL 10/06/2016 Comp Metabolic Xxn953 GLOB 2.2 g/dL 10/06/2016 Comp Metabolic Ctn322 A/G Ratio 1.8 Ratio 10/06/2016 Comp Metabolic Fuo173 Osmo 282 mOsmo 10/06/2016 %Hba1C Llb289 % HbA1c 09508-5 6.4 % 10/06/2016 %Hba1C Cdo995 Gluc Ave 137 mg/dL 10/06/2016 %Hba1C Hxr221 % HbA1c 65840-7 6.3 % 05/21/2016 %Hba1C Mwp491 Gluc Ave 134 mg/dL 05/21/2016 Hepatic Wic985 ALBUMIN 4.2 g/dL 05/21/2016 Hepatic Ktt480 TPRO 6.6 g/dL 05/21/2016 Hepatic Kuo216 GLOB 2.4 g/dL 05/21/2016 Hepatic Mtz777 A/G Ratio 1.7 Ratio 05/21/2016 Hepatic Jdi591 ALK PHOS 64 U/L 05/21/2016 Hepatic Zna804 ALT(SGPT) 16 U/L 05/21/2016 Hepatic Fvn448 AST(SGOT) 13 U/L 05/21/2016 Hepatic Juw360 BILI T 0.5 mg/dL 05/21/2016 Hepatic Vlw070 BILI D 0.1 mg/dL 05/21/2016 Hepatic Ycb489 BILI I 0.4 mg/dL 05/21/2016 Lipid Ord30 CHOL 285 mg/dL 05/21/2016 Lipid Ord30 HDL 42.0 mg/dl 05/21/2016 Lipid Ord30 TRIG 364 mg/dL 05/21/2016 Lipid Ord30 LDL 0 Unable to calculate Due to elevated triglycerides mg/dL 05/21/2016 Lipid Ord30 C/HDL 6.8 Ratio 05/21/2016 C A/B FLU [id number] Influenza A Scr Negative 04/29/2016 C A/B FLU [id number] Influenza B Scr Negative 04/29/2016 Urine Culture Ucult Complete Growth of aerobe sent to ref lab 02/26/2016 Cbc With Differential Ord2 WBC 7.87 K/ul 02/12/2016 Cbc With Differential Ord2 RBC 4.24 M/ul 02/12/2016 Cbc With Differential Ord2 HGB 13.7 g/dl 02/12/2016 Cbc With Differential Ord2 HCT 41.1 % 02/12/2016 Cbc With Differential Ord2 Neut% 69.2 % 02/12/2016 Cbc With Differential Ord2 MCV 96.9 fl 02/12/2016 Cbc With Differential Ord2 Lymph% 17.7 % 02/12/2016 Cbc With Differential Ord2 [place]% 10.5 % 02/12/2016 Cbc With Differential Ord2 MCH 32.3 pg 02/12/2016 Cbc With Differential Ord2 MCHC 33.3 pg 02/12/2016 Cbc With Differential Ord2 Eos% 2.5 % 02/12/2016 Cbc With Differential Ord2 Baso% 0.1 % 02/12/2016 Cbc With Differential Ord2 PLT 205 K/ul 02/12/2016 Cbc With Differential Ord2 Neut ABS# 5.44 K/ul 02/12/2016 Cbc With Differential Ord2 RDW 14.3 % 02/12/2016 Cbc With Differential Ord2 Lymph ABS# 1.39 K/ul 02/12/2016 Cbc With Differential Ord2 [place] ABS# 0.8 K/ul 02/12/2016 Cbc With Differential Ord2 Eos ABS# 0.2 K/ul 02/12/2016 Cbc With Differential Ord2 Baso ABS# 0.0 K/ul 02/12/2016 %Hba1C Bqi737 % HbA1c 40096-1 6.6 % 02/12/2016 %Hba1C Vuh234 Gluc Ave 143 mg/dL 02/12/2016 Lipid Ord30 CHOL 276 mg/dL 02/12/2016 Lipid Ord30 HDL 47.0 mg/dl 02/12/2016 Lipid Ord30 TRIG 424 mg/dL 02/12/2016 Lipid Ord30 LDL 0 Unable to calculate Due to elevated triglycerides mg/dL 02/12/2016 Lipid Ord30 C/HDL 5.9 Ratio 02/12/2016 Tsh Ord6 hTSH II 1.21 uIU/mL 02/12/2016 Microalbumin Pzu110 MicroAlb <0.7 mg/dL 02/12/2016 Comp Metabolic Vzb070 NA 138 mEq/L 02/12/2016 Comp Metabolic Hpb318 K 4.2 mEq/L 02/12/2016 Comp Metabolic Oag109 CL 103 mEq/L 02/12/2016 Comp Metabolic Cpl043 CO2 28.0 mEq/L 02/12/2016 Comp Metabolic Qao941 ANION GAP 11 02/12/2016 Comp Metabolic Krc157 GLUCOSE 97 mg/dL 02/12/2016 Comp Metabolic Dlb419 Creat 0.7 mg/dL 02/12/2016 Comp Metabolic Hsz808 eGFR 83 ml/min/1.73m2 02/12/2016 Comp Metabolic Dhg974 BUN 16 mg/dL 02/12/2016 Comp Metabolic Onz656 B/C Ratio 21.6 Ratio 02/12/2016 Comp Metabolic Kmi807 CALCIUM 9.6 mg/dL 02/12/2016 Comp Metabolic Yup280 ALK PHOS 53 U/L 02/12/2016 Comp Metabolic Xxv145 AST(SGOT) 16 U/L 02/12/2016 Comp Metabolic Bka784 ALT(SGPT) 22 U/L 02/12/2016 Comp Metabolic Gwd550 BILI T 0.5 mg/dL 02/12/2016 Comp Metabolic Qja954 ALBUMIN 3.9 g/dL 02/12/2016 Comp Metabolic Ums140 TPRO 6.4 g/dL 02/12/2016 Comp Metabolic Cuw681 GLOB 2.5 g/dL 02/12/2016 Comp Metabolic Sun152 A/G Ratio 1.6 Ratio 02/12/2016 Comp Metabolic Mhf820 Osmo 277 mOsmo 02/12/2016 [place] Spotted Fever Igg/Igm [id number] VIKTOR[place] MT SPOTTED FEVER IGM EIA . 01/10/2016 [place] Spotted Fever Igg/Igm [id number] RMSF, IGM 0.21 index 01/10/2016 [place] Spotted Fever Igg/Igm [id number] VIKTORIA MT SPOTTED FEVER IGG EIA FLEX . 01/10/2016 [place] Spotted Fever Igg/Igm [id number] RMSF, IGG SCREEN-FLEX Equivocal 01/10/2016 Viktoria Mtn Spot'D Fev Igg 559731 RMSF, IGG -TITER IFA <1:64 Ehrlichia Chaffeensis Antibody Igm [id number] EHRLICHIA CHAFFEENSIS IGM < 1:16 01/09/2016 Ehrlichia Chaffeensis Antibody Igg [id number] EHRLICHIA CHAFFEENSIS IGG <1:64 01/09/2016 West Nile Virus Ab [id number] WEST NILE VIRUS AB IGG 0.33 IV 01/08/2016 West Nile Virus Ab [id number] WEST NILE VIRUS AB IGM 0.02 IV 01/08/2016 Lymes Disease Total Antibodies With Western Blot Reflex [id number] B. BURGDORFERI, IGG/IGM 0.09 LI 01/07/2016 Lymes Disease Total Antibodies With Western Blot Reflex [id number] 01/07/2016 Cbc With Differential Ord2 WBC 6.25 K/ul 01/05/2016 Cbc With Differential Ord2 RBC 4.43 M/ul 01/05/2016 Cbc With Differential Ord2 HGB 14.3 g/dl 01/05/2016 Cbc With Differential Ord2 HCT 42.5 % 01/05/2016 Cbc With Differential Ord2 Neut% 63.3 % 01/05/2016 Cbc With Differential Ord2 MCV 95.9 fl 01/05/2016 Cbc With Differential Ord2 Lymph% 25.8 % 01/05/2016 Cbc With Differential Ord2 [place]% 8.3 % 01/05/2016 Cbc With Differential Ord2 MCH 32.3 pg 01/05/2016 Cbc With Differential Ord2 MCHC 33.6 pg 01/05/2016 Cbc With Differential Ord2 Eos% 2.4 % 01/05/2016 Cbc With Differential Ord2 Baso% 0.2 % 01/05/2016 Cbc With Differential Ord2 PLT 207 K/ul 01/05/2016 Cbc With Differential Ord2 RDW 13.5 % 01/05/2016 Cbc With Differential Ord2 Neut ABS# 3.96 K/ul 01/05/2016 Cbc With Differential Ord2 Lymph ABS# 1.61 K/ul 01/05/2016 Cbc With Differential Ord2 [place] ABS# 0.5 K/ul 01/05/2016 Cbc With Differential Ord2 Eos ABS# 0.2 K/ul 01/05/2016 Cbc With Differential Ord2 Baso ABS# 0.0 K/ul 01/05/2016 Sed Rate Ord21 ESR 16 mm/hr 01/05/2016 C-Reactive Protein Qnt Crqnt CRP 0.4 mg/dl 01/05/2016 Comp Metabolic Rxb314 NA 138 mEq/L 01/05/2016 Comp Metabolic Tif289 K 4.4 mEq/L 01/05/2016 Comp Metabolic Ohe357 CL 103 mEq/L 01/05/2016 Comp Metabolic Ism339 CO2 27.0 mEq/L 01/05/2016 Comp Metabolic Cvy711 ANION GAP 12 01/05/2016 Comp Metabolic Mog790 GLUCOSE 199 mg/dL 01/05/2016 Comp Metabolic Jdh979 Creat 0.8 mg/dL 01/05/2016 Comp Metabolic Nru311 eGFR 78 ml/min/1.73m2 01/05/2016 Comp Metabolic Uxe454 BUN 15 mg/dL 01/05/2016 Comp Metabolic Qlw109 B/C Ratio 19.2 Ratio 01/05/2016 Comp Metabolic Enb337 CALCIUM 9.4 mg/dL 01/05/2016 Comp Metabolic Inp986 ALK PHOS 59 U/L 01/05/2016 Comp Metabolic Ajt413 AST(SGOT) 15 U/L 01/05/2016 Comp Metabolic Zws916 ALT(SGPT) 19 U/L 01/05/2016 Comp Metabolic Lis809 BILI T 0.6 mg/dL 01/05/2016 Comp Metabolic Bnz782 ALBUMIN 4.2 g/dL 01/05/2016 Comp Metabolic Mxa092 TPRO 6.6 g/dL 01/05/2016 Comp Metabolic Efv029 GLOB 2.4 g/dL 01/05/2016 Comp Metabolic Pdt814 A/G Ratio 1.7 Ratio 01/05/2016 Comp Metabolic Wgd440 Osmo 282 mOsmo 01/05/2016 Lipid Ord30 CHOL [...] Lipid Ord30 C/HDL 5.7 Ratio 06/30/2015 %Hba1C Yev830 % HbA1c 67480-4 5.8 % 06/30/2015 %Hba1C Jlm270 Gluc Ave 120 mg/dL 06/30/2015 Lipid Ord30 CHOL 274 mg/dL 02/27/2015 Lipid Ord30 HDL 44.0 mg/dl 02/27/2015 Lipid Ord30 TRIG 199 mg/dL 02/27/2015 Lipid Ord30 LDL 190 mg/dL 02/27/2015 Lipid Ord30 C/HDL 6.2 Ratio 02/27/2015 Microalbumin Mht332 MicroAlb 0.2 mg/dL 02/27/2015 Tsh Ord6 hTSH II 2.53 uIU/mL 02/27/2015 Comp Metabolic Hda324 NA 139 mEq/L 02/27/2015 Comp Metabolic Luo097 K 4.3 mEq/L 02/27/2015 Comp Metabolic Qws981 CL 105 mEq/L 02/27/2015 Comp Metabolic Jie442 CO2 28.0 mEq/L 02/27/2015 Comp Metabolic Ujq073 ANION GAP 10 02/27/2015 Comp Metabolic Jlm685 GLUCOSE 116 mg/dL 02/27/2015 Comp Metabolic Tmb487 Creat 0.9 mg/dL 02/27/2015 Comp Metabolic Tup262 eGFR 70 ml/min/1.73m2 02/27/2015 Comp Metabolic Njs825 BUN 20 mg/dL 02/27/2015 Comp Metabolic Ssv099 B/C Ratio 23.3 Ratio 02/27/2015 Comp Metabolic Hry392 CALCIUM 9.0 mg/dL 02/27/2015 Comp Metabolic Nno472 ALK PHOS 59 U/L 02/27/2015 Comp Metabolic Xfj600 AST(SGOT) 15 U/L 02/27/2015 Comp Metabolic Rbl541 ALT(SGPT) 17 U/L 02/27/2015 Comp Metabolic Egc591 BILI T 0.7 mg/dL 02/27/2015 Comp Metabolic Cou464 ALBUMIN 3.9 g/dL 02/27/2015 Comp Metabolic Eby396 TPRO 6.2 g/dL 02/27/2015 Comp Metabolic Tuj904 GLOB 2.3 g/dL 02/27/2015 Comp Metabolic Ecy315 A/G Ratio 1.7 Ratio 02/27/2015 Comp Metabolic Dfs662 Osmo 281 mOsmo 02/27/2015 %Hba1C Dmh806 % HbA1c 77341-3 6.2 % 02/27/2015 %Hba1C Ofl512 Gluc Ave 131 mg/dL 02/27/2015 Cbc With [...] NO PRSV 4 MOI 3 YRS+ CPT-4: 34055 01/12/2017 ADMIN INFLUENZA VIRUS VAC CPT-4: G0008 01/12/2017 PPPS, SUBSEQ VISIT CPT -4: G0439 09/21/2016 URINALYSIS NONAUTO W/O SCOPE CPT-4: 43715 02/25/2016 Vital Signs Date Vital 03/18/2017 Blood Pressure 1: 144/84 Code : 8480-6 BMI: 29.1 Code : 12735-9 Heart Rate 1 : 94 bpm Height: 5'5" SpO2: 98% Weight: 175 lbs 12/09/2016 Blood Pressure 1: 134/78 Code : 8480-6 BMI: 29.0 Code : 07210-9 Heart Rate 1 : 89 bpm Height: 5'5" SpO2: 97% Weight: 174 lbs 10/18/2016 Blood Pressure 1: 166/92 Code : 8480-6 BMI: 29.4 Code : 82964-0 Heart Rate 1 : 94 bpm Height: 5'5" SpO2: 94% Weight: 176 lbs 8 oz 09/21/2016 Blood Pressure 1: 140/84 Code : 8480-6 BMI: 29.1 Code : 91026-0 Heart Rate 1 : 90 bpm Height: 5'5" SpO2: 97% Weight: 175 lbs 09/02/2016 Blood Pressure 1: 146/82 Code : 8480-6 BMI: 29.3 Code : 31955-8 Heart Rate 1 : 95 bpm Height: 5'5" SpO2: 98% Weight: 176 lbs 08/27/2016 Blood Pressure 1: 162/84 Code : 8480-6 Blood Pressure 1: 178/90 Code: 8480-6 Blood Pressure 1: 148/88 Code: 8480-6 BMI: 30.1 Code: 28708-2 Heart Rate 1: 80 bpm Height: 5'5" SpO2: 98% Weight: 181 lbs 04/29/2016 Blood Pressure 1: 152/76 Code : 8480-6 BMI: 30.1 Code : 37613-0 Heart Rate 1 : 99 bpm Height: 5'5" SpO2: 98% Temperature: 37.4 (C) / 99.3 (F) Weight: 181 lbs 02/12/2016 Blood Pressure 1: 136/82 Code : 8480-6 Heart Rate 1: 88 bpm SpO2: 97% 01/05/2016 Blood Pressure 1: 150/80 Code : 8480-6 BMI: 28.8 Code : 45255-3 Heart Rate 1 : 80 bpm Height: 5'5" SpO2: 98% Weight: 173 lbs 02/26/2015 Blood Pressure 1: 144/84 Code : 8480-6 Blood Pressure 1: 140/82 Code: 8480-6 BMI: 28.8 Code: 79170-5 Heart Rate 1: 81 bpm Height: 5'5" SpO2: 98% Weight: 173 lbs 08/27/2014 Blood Pressure 1: 132/80 Code : 8480-6 BMI: 28.1 Code : 74816-7 Height: 5'5" Weight: 169 lbs Functional Status [...] 02/26/2015 None well woman exam (65+ years) 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 PATIENT, LEVEL III Diagnosis: Other chest pain[ICD10: R07.89] Diagnosis: Essential (primary) hypertension[ICD10: I10] Gayathri Thrasher MD, [facility] CPT-4: 88714 12/09/2016 ([id number]) 98212 EST. PATIENT, LEVEL IV Diagnosis: Essential (primary) hypertension[ICD10: I10] Diagnosis: Other allergic rhinitis[ICD10: J30.89] Diagnosis: Acne vulgaris[ICD10: L70.0] Diagnosis: Sacroiliitis, not elsewhere classified[ICD10: M46.1] Shraddha Thrasher MD, [facility] CPT-4: 11094 10/18/2016 ([id number]) Miscellaneous no charge Diagnosis: Essential (primary) hypertension[ICD10: I10] Shraddha Thrasher MD, [facility] CPT-4: 75739 09/02/2016 ([id number]) 92044 EST. PATIENT, LEVEL III Diagnosis: Essential (primary) hypertension[ICD10: I10] Shraddha Thrasher MD, [facility] CPT-4: 70016 08/27/2016 60495 EST. PATIENT, LEVEL III Diagnosis: Other allergic rhinitis[ICD10: J30.89] Diagnosis: Acute laryngopharyngitis[ICD10: J06.0] Gayathri Thrasher MD, [facility] CPT-4: 43387 04/29/2016 ([id number]) 21681 EST. PATIENT, LEVEL III Diagnosis: Cellulitis of neck[ICD10: L03.221] Shraddha Thrasher MD, [facility] CPT-4: 11179 02/12/2016 ([id number]) 67336 EST. PATIENT, LEVEL IV Diagnosis: Type 2 diabetes mellitus without complications[ICD10: E11.9] Diagnosis: Mixed hyperlipidemia[ICD10: E78.2] Diagnosis: Transient visual loss, left eye[ICD10: H53.122] Diagnosis: Headache[ICD10: R51] Diagnosis: Trigeminal neuralgia[ICD10: G50.0] Diagnosis: Insect bite (nonvenomous) of left front wall of thorax, initial encounter[ICD10: S20.362A] Deysi Thrasher MD, [facility] CPT-4: 11866 01/05/2016 ([id number]) 95642 EST. PATIENT, LEVEL III Diagnosis: Type 2 diabetes mellitus without complications[ICD10: E11.9] Deysi Thrasher MD, [facility] CPT-4: 57883 02/26/2015 ([id number]) OFFICE VISIT, NEW - LEVEL 3 Diagnosis: Diabetes mellitus[ICD9: 250.00] Diagnosis: Screening for breast cancer[ICD9: V76.10] Diagnosis: Screening for osteoporosis[ICD9: V82.81] [facility] CPT-4: 64527 08/27/2014 Plan of Care Planned Activity Notes Codes Status Date Appointment: [facility] [phone] [facility] ([facility] min) Moderate 03/18/2017 Patient Education: Patient Medication Summary Completed 03/18/2017 Appointment: Nurse Visit 01/12/2017 Patient Education: Patient Medication Summary Completed 01/12/2017 Appointment: [facility] (30 min) Complex 12/09/2016 Patient Education: Patient Medication Summary Completed 12/09/2016 Patient Education: Hypertension Completed 12/09/2016 Care Plan: Referral Order SNOMED-CT : [id number] Pending 12/09/2016 Appointment: Nurse Visit 11/08/2016 Appointment: Shraddha Dillon WPtel: [phone] [place] (15 min) Moderate 10/18/2016 Patient Education: Patient Medication Summary Completed 10/18/2016 Patient Education: Patient Medication Summary Completed 09/21/2016 Appointment: [facility]add[facility] Dillon [phone] [place] (15 min) Moderate 09/02/2016 Patient Education: Patient Medication Summary Completed 09/02/2016 Patient Education: Hypertension Completed 09/02/2016 Appointment: Shraddha Dillon WPtel: [phone] [place] (10 min) Simple 08/27/2016 Patient Education: Patient Medication Summary Completed 08/27/2016 Patient Education: Obesity Completed 08/27/2016 Appointment: [facility]athri Elizabeth [facility]Ptel[facility] [place] (30 min) Complex 04/29/2016 Patient Education: Patient Medication Summary Completed 04/29/2016 Appointment: Lab Draw 02/25/2016 Patient Education: Patient Medication Summary Completed 02/25/2016 Appointment: [facility]add[facility] [phone] [phone] [place] (10 min) Simple 02/12/2016 Patient Education: Patient Medication Summary Completed 02/12/2016 Appointment: [facility] [phone] [facility] [place] (15 min) Moderate 01/05/2016 Appointment: [facility] [phone] [facility] [place] (30 min) Complex 01/05/2016 Patient Education: Patient Medication Summary Completed 01/05/2016 Patient Education: Patient Medication Summary Completed 02/26/2015 Care Plan: MICROALBUMIN QUANTITATIVE LOINC : 78097-0 Ordered 02/26/2015 Care Plan: COMPLETE CBC AUTOMATED LOINC : 49686-1 Ordered 02/26/2015 Patient Education: Patient Medication Summary Completed 11/21/2014 Appointment: New Patient 08/27/2014 Patient Education: Patient Medication Summary Completed 08/27/2014 Referral: External, Ordering Provider Referral Initiated Referral: External, Ordering Provider there office will be calling her for appt Initiated Instructions No Instructions
--- NOTE | 2017-06-29 19:41 | ED Abdominal Pain ---
General Chief Complaint: Abdominal/GI Problems Stated Complaint: VOMITING, L SIDE ABD PAIN Source of Information: Patient Exam Limitations: No Limitations History of Present Illness Date Seen by Provider: Jun 29, 2017 Time Seen by Provider: 19:39 Initial Comments To ER per private vehicle with reports of vomiting left-sided abdominal pain. This began at 2:30 PM this afternoon with vomiting. After the vomiting started she then had some left-sided abdominal pain. She does report that she is currently on Keflex and baby aspirin daily for "thrombus" of the left leg pointing to the anterior left proximal tibia. She's been on the baby aspirin and Keflex for 7 days and she has noted some "black stools" since being on the Keflex. She does report that she had some dizziness and lightheadedness earlier. Timing/Duration: 1-2 Days Severity/Quality: Moderate Location: [facility] Radiation: No Radiation Activities at Onset: None Allergies and Home Medications Allergies Coded Allergies: Penicillins (Verified Allergy, Unknown, 01/17/17) codeine (Verified Allergy, Unknown, 01/17/17) Patient Home Medication List Home Medication List Reviewed: Yes Review of Systems Constitutional: see HPI EENTM: No Symptoms Reported Respiratory: No Symptoms Reported Cardiovascular: No Symptoms Reported Gastrointestinal: See HPI, Abdominal Pain, Nausea Genitourinary: No Symptoms Reported Musculoskeletal: no symptoms reported Skin: no symptoms reported Psychiatric/Neurological: No Symptoms Reported Endocrine: No Symptoms Reported Past Nhzqbib-Xovhvk-Fcgqns Hx Patient Social History 2nd Hand Smoke Exposure: No Recent Foreign Travel: No Contact w/Someone Who Travel: No Immunizations Up To Date Tetanus Booster (TDap): More than 5yrs Surgeries History of Surgeries: Yes Surgeries: Section, Gallbladder, Hysterectomy Respiratory History of Respiratory Disorde: No Cardiovascular History of Cardiac Disorders: No Neurological History of Neurological Disord: No Genitourinary History of Genitourinary Disor: No Gastrointestinal History of Gastrointestinal Di: No Musculoskeletal History of Musculoskeletal Dis: No Endocrine History of Endocrine Disorders: Yes Endocrine Disorders: Diabetes, Non-Insulin dep HEENT History of HEENT Disorders: No Cancer History of Cancer: No Psychosocial History of Psychiatric Problem: No Integumentary History of Skin or Integumenta: No Physical Exam Vital Signs VS - Last 72 Hours, by Label 06/29/17 06/29/17 06/29/17 06/29/17 19:32 20:35 21:15 21:15 Temp 97.5 97.5 97.5 97.5 Pulse 96 Resp 20 B/P (MAP) 169/93 (118) Pulse Ox 96 O2 Delivery Room Air Capillary Refill : General Appearance: WD/WN, no apparent distress HEENT: PERRL/EOMI, normal ENT inspection Neck: non-tender, full range of motion Respiratory: normal breath sounds, no respiratory distress, no accessory muscle use Cardiovascular: regular rate, rhythm, no murmur Gastrointestinal: normal bowel sounds, soft, tenderness (left-sided tenderness to palpation) Genital/Rectal: other (fecal occult test at the bedside which was a good sample is negative) Extremities: normal range of motion, non-tender, other (there is no swelling to either lower extremity, no ecchymosis and no erythema or ecchymosis to the left leg to suggest a superficial thrombophlebitis at this time.) Neurologic/Psychiatric: alert, normal mood/affect, oriented x 3 Skin: normal color, warm/dry Focused Exam Evaluation Lactate Level Laboratory Tests 06/29/17 22:10: Lactic Acid Level Laboratory Tests Test 06/29/17 22:10 Progress/Results/Core Measures Results/Orders Lab Results Laboratory Tests Test 06/29/17 19:30 06/29/17 21:37 06/29/17 22:10 Range/Units White Blood Count 15.4 H 4.3-11.0 10^3/uL Red Blood Count 4.34 L 4.35-5.85 10^6/uL Hemoglobin 13.8 11.5-16.0 G/DL Hematocrit 41 35-52 % Mean Corpuscular Volume 94 80-99 FL Mean Corpuscular Hemoglobin 32 25-34 PG Mean Corpuscular Hemoglobin Concent 34 32-36 G/DL Red Cell Distribution Width 13.8 10.0-14.5 % Platelet Count 242 130-400 10^3/uL Mean Platelet Volume 12.4 H 7.4-10.4 FL Neutrophils (%) (Auto) 91 H 42-75 % Lymphocytes (%) (Auto) 6 L 12-44 % Monocytes (%) (Auto) 2 0-12 % Eosinophils (%) (Auto) 0 0-10 % Basophils (%) (Auto) 0 0-10 % Neutrophils # (Auto) 14.0 H 1.8-7.8 X 10^3 Lymphocytes # (Auto) 1.0 1.0-4.0 X 10^3 Monocytes # (Auto) 0.4 0.0-1.0 X 10^3 Eosinophils # (Auto) 0.0 0.0-0.3 10^3/uL Basophils # (Auto) 0.0 0.0-0.1 10^3/uL Neutrophils % (Manual) 77 % Lymphocytes % (Manual) 10 % Monocytes % (Manual) 1 % Eosinophils % (Manual) 0 % Basophils % (Manual) 0 % Band Neutrophils 12 % Blood Morphology Comment NORMAL Sodium Level 140 135-145 MMOL/L Potassium Level 4.6 3.6-5.0 MMOL/L Chloride Level 106 98-107 MMOL/L Carbon Dioxide Level 23 21-32 MMOL/L Anion Gap 11 5-14 MMOL/L Blood Urea Nitrogen 24 H 7-18 MG/DL Creatinine 1.11 0.60-1.30 MG/DL Estimat Glomerular Filtration Rate 49 BUN/Creatinine Ratio 22 Glucose Level 189 H 70-105 MG/DL Calcium Level 9.8 8.5-10.1 MG/DL Total Bilirubin 0.5 0.1-1.0 MG/DL Aspartate Amino Transf (AST/SGOT) 19 5-34 U/L Alanine Aminotransferase (ALT/SGPT) 24 0-55 U/L Alkaline Phosphatase 64 40-136 U/L Total Protein 7.6 6.4-8.2 GM/DL Albumin 4.5 3.2-4.5 GM/DL Lipase 22 8-78 U/L Urine Color YELLOW Urine Clarity SLIGHTLY CLOUDY Urine pH 6 5-9 Urine Specific [place] 1.020 1.016-1.022 Urine Protein NEGATIVE NEGATIVE Urine Glucose (UA) 1+ H NEGATIVE Urine Ketones 3+ H NEGATIVE Urine Nitrite NEGATIVE NEGATIVE Urine Bilirubin NEGATIVE NEGATIVE Urine Urobilinogen NORMAL NORMAL MG/DL Urine Leukocyte Esterase 1+ H NEGATIVE Urine RBC (Auto) 5+ H NEGATIVE Urine RBC 10-25 H /HPF Urine WBC RARE /HPF Urine Squamous Epithelial Cells 0-2 /HPF Urine Crystals NONE /LPF Urine Bacteria NEGATIVE /HPF Urine Casts NONE /LPF Urine Mucus NEGATIVE /LPF Urine Culture Indicated NO My Orders Orders - CATALINA GONZALEZ [employer]PON MANIFEST CLERK Cbc With Automated Diff (06/29/17 19:38) Comprehensive Metabolic Panel (06/29/17 19:38) Lipase (06/29/17 19:38) Ua Culture If Indicated (06/29/17 19:38) Saline Lock/Iv-Start (06/29/17 19:38) Ondansetron Injection (Zofran Injectio (06/29/17 19:45) Lactated Ringers (Lr 1000 Ml Iv Solution (06/29/17 19:45) Manual Differential (06/29/17 19:30) Iohexol Injection (Omnipaque 350 Mg/Ml 1 (06/29/17 20:30) Ns (Ivpb) (Sodium Chloride 0.9% Ivpb Bag (06/29/17 20:30) Fentanyl Injection (Sublimaze Injection (06/29/17 20:30) Ct Abdomen/Pelvis Wo (06/29/17 20:41) Abdomen/Kub 1view (06/29/17 20:48) Ketorolac Injection (Toradol Injection) (06/29/17 21:00) Fentanyl Injection (Sublimaze Injection (06/29/17 21:00) Ceftriaxone Injection (Rocephin Injectio (06/29/17 22:00) Blood Culture (06/29/17 21:55) Lactic Acid Analyzer (06/29/17 21:55) Medications Given in ED Current Medications Medications Dose Ordered Sig/Bereket Route Start Time Stop Time Status Last Admin Dose Admin Ceftriaxone Sodium 1000 mg/ Sodium Chloride 100 ml @ 200 mls/hr ONCE ONCE IV 06/29/17 22:00 06/29/17 22:29 DC 06/29/17 22:17 200 MLS/HR Fentanyl Citrate 25 mcg ONCE PRN IVP 06/29/17 20:30 06/29/17 20:35 25 MCG Fentanyl Citrate 25 mcg ONCE PRN IVP 06/29/17 21:00 06/29/17 21:15 25 MCG Ketorolac Tromethamine 15 mg ONCE ONCE IVP 06/29/17 21:00 06/29/17 21:01 DC 06/29/17 21:15 15 MG Ondansetron HCl 8 mg ONCE ONCE IVP 06/29/17 19:45 06/29/17 19:46 DC 06/29/17 19:54 8 MG Vital Signs/I&O Vital Sign - Last 12Hours 06/29/17 06/29/17 06/29/17 06/29/17 19:32 20:35 21:15 21:15 Temp 97.5 97.5 97.5 97.5 Pulse 96 Resp 20 B/P (MAP) 169/93 (118) Pulse Ox 96 O2 Delivery Room Air Diagnostic Imaging Diagonstic Imaging: CT Comments NAME: SEL[facility] REC#: [id number] PT STATUS: REG ER : 1945 PHYSICIAN: CATALINA GONZALEZ APRN ADMIT DATE: 06/29/17/ER Draft Date of Exam:06/29/17 CT ABDOMEN/PELVIS WO PROCEDURE: CT abdomen and pelvis without contrast. TECHNIQUE: Multiple contiguous axial images were obtained through the abdomen and pelvis without the use of intravenous contrast. INDICATION: Nausea and vomiting. Left lower quadrant abdominal pain. COMPARISON: None. FINDINGS: Scarring in the lung bases. Cholecystectomy. There is a 0.5 cm renal stone in the left ureteropelvic junction that results in advanced left pyelocaliectasis, enlargement of the left kidney and perinephric stranding. 0.4 cm nonobstructing calyceal tip renal stone in the lower pole of the left kidney. No right renal or ureteral stones. No right hydronephrosis. Hysterectomy. The liver, pancreas, spleen, adrenals, right kidney, right collecting system and bladder are unremarkable. Normal appendix. No free intraperitoneal air or fluid. No lymphadenopathy. No evidence of bowel obstruction. Mild spondylotic changes in the visualized spine. No acute osseous findings. IMPRESSION: Obstructing 0.5 cm renal stone in the left ureteropelvic junction resulting in advanced left hydronephrosis. Dictated on workstation # [id number] Dict: 06/29/172048 Trans: 06/29/172054 [id number] Interpreted by: RY YO MD Electronically signed by: NAME: SELMA [facility]US [facility] REC#: [id number] PT STATUS: REG ER : 1945 PHYSICIAN: CATALINA GONZALEZ APRN ADMIT DATE: 06/29/17/ER Draft Date of Exam:06/29/17 ABDOMEN/KUB 1VIEW EXAM: ABDOMEN/KUB 1VIEW INDICATION: Abdominal pain. COMPARISON: CT abdomen and pelvis contrast also performed today. FINDINGS: The nonobstructing left renal stone is not well seen. Cholecystectomy clips. Nonspecific bowel gas pattern. No acute osseous findings. IMPRESSION: No acute radiographic findings in the abdomen. The known obstructing left renal stone from today's CT is not well seen. Dictated on workstation # [id number] Dict: 06/29/172102 Trans: 06/29/172105 [id number] Interpreted by: RY YO MD Electronically signed by: Departure Communication (Admissions) Progress Notes 1- I spoke with Dr. Hernandez. The leukocytosis is likely from the vomiting that she's been doing rather than infection. Her urinalysis is clean. She has already been on Keflex for 5 days for the leg issue. She is afebrile. Her pain is completely gone at this time and she feels back to normal other than "a little loopy" from the pain medication. She is laughing and joking in the bed with family. Vitals remain stable. Dr. Kruger will see her tomorrow at 1:15 PM. She is getting Rocephin at this time. I will give a prescription for Bactrim DS and Flomax. She states that she has plenty of hydrocodone at home from prior surgery that she never took and she does not want a prescription for any more of this. She should return to the emergency room for any fevers chills or worsening pain. I discussed this with the and daughter who are at the bedside and agreeable to bring her back for any of these symptoms. Additionally , her hemoglobin is normal and her fecal occult blood test was negative so I do not feel that her unusually dark stools were the result of GI bleeding Impression Impression: Primary Impression: Left ureteral calculus Disposition: HOME, SELF-CARE Condition: Stable Departure-Patient Inst. Decision time for Depature: 22:37 Referrals: JOYCE JANE MD (PCP/Family) Primary Care Physician Patient Instructions: Kidney Stones (DC) Add. Discharge Instructions: 1. Use either naproxen or Advil but not both. Do not use Tylenol because the hydrocodone has Tylenol in it. I would like to use 5 mg of hydrocodone every 4 hours for pain control. If you have the 10 mg tablets at home this would mean that you take one half of the tablet every 4 hours. If you have a 7.5 mg tablets at home and you may take1/2 to 1 whole tablet every 4 hours. You must return promptly to the emergency room for any fevers or chills or intolerable pain. Otherwise, you are scheduled to see Dr. Kruger at 1:15 tomorrow. Fill the prescription for antibiotics and Flomax tomorrow as well. All discharge instructions reviewed with patient and/or family. Voiced understanding. Scripts Tamsulosin HCl (Flomax) 0.4 Mg Cap 0.4 MG PO DAILY, #14 CAP Prov: CATALINA GONZALEZ APRN 06/29/17 Sulfamethoxazole/Trimethoprim (Bactrim Ds Tablet) 1 Each Tablet 1 EACH PO BID, #10 TAB Prov: CATALINA GONZALEZ APRN 06/29/17 Copy Copies To 1: TY KRUGER MD Copies To 2: JOYCE JANE MD, PETER J APRN Jun 29, 2017 19:41
[2017-06-29] MEDS ORDERED: LACTATED RINGERS 1,000 ML IV SCH (19:45)
[2017-06-29] MEDS ORDERED: ONDANSETRON 4 MG/2 ML (SDV) Z0FRAN IVP ONE (19:45)
[2017-06-29 19:54] LABS: BASOPHILS % (AUTO) 0 % (0-10); EOSINOPHILS % (AUTO) 0 % (0-10); HEMATOCRIT 41 % (35-52); HEMOGLOBIN 13.8 G/DL (11.5-16.0); LYMPHOCYTES % (AUTO) 6 % (12-44); MEAN CORPUSCULAR HEMOGLOBIN 32 PG (25-34); MEAN CORPUSCULAR HGB CONC 34 G/DL (32-36); MEAN CORPUSCULAR VOLUME 94 FL (80-99); MEAN PLATELET VOLUME 12.4 FL (7.4-10.4); MONOCYTES # (AUTO) 0.4 X 10^3 (0.0-1.0); MONOCYTES % (AUTO) 2 % (0-12); NEUTROPHILS % (AUTO) 91 % (42-75); PLATELET COUNT 242 10^3/uL (130-400); RED BLOOD COUNT 4.34 10^6/uL (4.35-5.85); RED CELL DISTRIBUTION WIDTH 13.8 % (10.0-14.5); WHITE BLOOD COUNT 15.4 10^3/uL (4.3-11.0)
[2017-06-29 20:07] LABS: ALBUMIN 4.5 GM/DL (3.2-4.5); BILIRUBIN,TOTAL 0.5 MG/DL (0.1-1.0); CALCIUM 9.8 MG/DL (8.5-10.1); CREATININE SERUM 1.11 MG/DL (0.60-1.30); POTASSIUM 4.6 MMOL/L (3.6-5.0); TOTAL PROTEIN 7.6 GM/DL (6.4-8.2)
[2017-06-29] MEDS ORDERED: NS 100 ML (IVPB) BAG IV ONE (20:30)
[2017-06-29] MEDS ORDERED: IOHEXOL 350 MG/ML 100 ML (OMNIPAQUE 350) VIAL IV ONE (20:30)
[2017-06-29] MEDS ORDERED: fentaNYL INJECTION 100 MCG/2 ML AMP IVP PRN ×2 (20:30→21:00)
[2017-06-29 20:35] LABS: BAND NEUTROPHILS 12 %; BASOPHILS % (MANUAL) 0 %; EOSINOPHILS % (MANUAL) 0 %; LYMPHOCYTES % (MANUAL) 10 %; MONOCYTES % (MANUAL) 1 %; NEUTROPHILS % (MANUAL) 77 %; RBC MORPH NORMAL
--- NOTE | 2017-06-29 20:55 | Diagnostic Imaging Report ---
PROCEDURE: CT abdomen and pelvis without contrast. TECHNIQUE: Multiple contiguous axial images were obtained through the abdomen and pelvis without the use of intravenous contrast. INDICATION: Nausea and vomiting. Left lower quadrant abdominal pain. COMPARISON: None. FINDINGS: Scarring in the lung bases. Cholecystectomy. There is a 0.5 cm renal stone in the left ureteropelvic junction that results in advanced left pyelocaliectasis, enlargement of the left kidney and perinephric stranding. 0.4 cm nonobstructing calyceal tip renal stone in the lower pole of the left kidney. No right renal or ureteral stones. No right hydronephrosis. Hysterectomy. The liver, pancreas, spleen, adrenals, right kidney, right collecting system and bladder are unremarkable. Normal appendix. No free intraperitoneal air or fluid. No lymphadenopathy. No evidence of bowel obstruction. Mild spondylotic changes in the visualized spine. No acute osseous findings. IMPRESSION: Obstructing 0.5 cm renal stone in the left ureteropelvic junction resulting in advanced left hydronephrosis. Dictated by: Dictated on workstation # [id number]
[2017-06-29] MEDS ORDERED: KETOROLAC 30 MG/ML VIAL IVP ONE (21:00)
--- NOTE | 2017-06-29 21:06 | Diagnostic Imaging Report ---
EXAM: ABDOMEN/KUB 1VIEW INDICATION: Abdominal pain. COMPARISON: CT abdomen and pelvis contrast also performed today. FINDINGS: The nonobstructing left renal stone is not well seen. Cholecystectomy clips. Nonspecific bowel gas pattern. No acute osseous findings. IMPRESSION: No acute radiographic findings in the abdomen. The known obstructing left renal stone from today's CT is not well seen. Dictated by: Dictated on workstation # [id number]
[2017-06-29 21:48] LABS: BILIRUBIN,URINE NEGATIVE (NEGATIVE); CLARITY,URINE SLIGHTLY CLOUDY; COLOR,URINE YELLOW; GLUCOSE, URINE (UA) 1+ (NEGATIVE); KETONES,URINE 3+ (NEGATIVE); LEUKOCYTE ESTERASE ,URINE 1+ (NEGATIVE); NITRITE,URINE NEGATIVE (NEGATIVE); PH,URINE 6 (5-9); PROTEIN,URINE NEGATIVE (NEGATIVE); UROBILINOGEN,URINE NORMAL (NORMAL)
[2017-06-29] MEDS ORDERED: cefTRIAXone INJECTION 1,000 MG in NS (IVPB) 100 ML IV ONE (22:00)
[2017-06-29 22:13] LABS: BACTERIA,URINE NEGATIVE /HPF; WBC,URINE RARE /HPF
[2017-06-29 22:14] LABS: SQUAMOUS EPITHELIAL CELL,UR 0-2 /HPF
[2017-06-29] MEDS ORDERED: SULF1TAB35 PO (22:39)
[2017-06-29] MEDS ORDERED: TAMS0.4C98 PO (22:39)
[2017-06-29 22:58] VITALS: BP 148/77
== END 2017-06-29 22:58 | disposition home or self-care (01) ==
LOC: EDUNIT# 19:25 → ER 19:26
DX: N20.1 Calculus of ureter (principal); E11.9 Type 2 diabetes mellitus without complications; Z87.59 Personal history of other complications of pregnancy, childbirth and the puerperium; Z90.710 Acquired absence of both cervix and uterus; Z88.0 Allergy status to penicillin; Z88.6 Allergy status to analgesic agent; Z79.82 Long term (current) use of aspirin
CPT/HCPCS: 36415; 74018; 74176; 80053; 81000; 83690; 85007; 85027; 87040; 96361; 96365; 96375

== ENCOUNTER 2017-07-01 05:49 | Outpatient (CLI) | payer MEDICARE, OTHER ==
[~2017-07-01] VITALS: Ht 165.1 cm; Wt 77.1 kg
[~2017-07-01 05:49] MED LIST: SULF1TAB35 PO; TAMS0.4C98 PO
[2017-07-01] MEDS ORDERED: LISI2.5T PO (16:03)
[2017-07-01] MEDS ORDERED: MULT-884 PO (16:03)
[2017-07-01] MEDS ORDERED: SAXA1TBM3 PO (16:03)
[2017-07-01] MEDS ORDERED: CHOL200059 PO (16:03)
== END 2017-07-01 16:11 ==
LOC: PREOP 05:49
PROVIDERS: ATTEND Urology
DX: Z01.818 Encounter for other preprocedural examination (principal); N20.1 Calculus of ureter; N20.0 Calculus of kidney

== ENCOUNTER 2017-07-05 08:54 | Day surgery (SDC) | payer MEDICARE, OTHER ==
[~2017-07-05] VITALS: Ht 165.1 cm; Wt 77.1 kg
[~2017-07-05 08:54] MED LIST changes: +CHOL200059 PO; +LISI2.5T PO; +MULT-884 PO; +SAXA1TBM3 PO
[2017-07-05] MEDS ORDERED: LACTATED RINGERS 1,000 ML IV PRN (09:04)
[2017-07-05] MEDS ORDERED: LEVOFLOXACIN 500 MG/100 ML IV 100 ML IV ONE (09:15)
--- NOTE | 2017-07-05 09:18 | Progress Note-Pre Operative ---
Pre-Operative Progress Note H&P Reviewed The H&P was reviewed, patient examined and no changes noted. Date Seen by Provider: Jul 05, 2017 Time Seen by Provider: :18 Date H&P Reviewed: Jul 05, 2017 Time H&P Reviewed: :18 Pre-Operative Diagnosis: LT URETERAL STONE TY KRUGER MD Jul 05, 2017 9:18 am
[2017-07-05] MEDS ORDERED: proPOfol 200 MG/20 ML (DIPRIVAN) VIAL IV ONE (10:17)
[2017-07-05] MEDS ORDERED: LIDOCAINE 2% 20 ML (XYLOCAINE) VIAL ONE (10:17)
[2017-07-05] MEDS ORDERED: fentaNYL INJECTION 100 MCG/2 ML AMP ONE (10:18)
[2017-07-05] MEDS ORDERED: ONDANSETRON 4 MG/2 ML (SDV) Z0FRAN ONE (10:19)
[2017-07-05] MEDS ORDERED: DEXAMETHASONE 10 MG/ML (DECADRON) 1 ML VIAL ONE (10:19)
[2017-07-05] MEDS ORDERED: PHENYLEPHRINE 100 MCG/ML 10 ML (ANESTHESIA) SYR ONE (10:42)
[2017-07-05 11:06] VITALS: BP 141/78
--- NOTE | 2017-07-05 11:18 | Diagnostic Imaging Report ---
INDICATION: Left ureteral calculus. Preop evaluation. COMPARISON: 06/29/2017. FINDINGS: Two supine radiographic views of the abdomen were obtained. Multiple extraosseous calcifications are noted, bilaterally. Comparison radiograph dated 06/29/2017 is suboptimal secondary to underpenetration on that exam. There is a 4 mm calculus projecting over the left pelvis, which could conceivably represent migration of previously described left ureteral calculus. Pelvic phlebolith is not entirely excluded. Several other pelvic phleboliths are also noted. Small bowel loops are nondistended. Moderate air and stool is noted within the colon. IMPRESSION: 1. Possible calculus now seen within the distal left ureter as described above. 2. Nonobstructive small bowel gas pattern. Dictated by: Dictated on workstation # [id number]
[2017-07-05] MEDS ORDERED: SEVOFLURANE (ULTANE) 15 ML INHAL SOLN ONE (11:23)
--- NOTE | 2017-07-05 11:35 | Progress Note-Post Operative ---
Post-Operative Progess Note Surgeon (s)/Ballpoint Pen Assembly Machine Operator (s) Surgeon TY KRUGER MD Ballpoint Pen Assembly Machine Operator: N/A Pre-Operative Diagnosis LT URETERAL STONE Post-Operative Diagnosis SAME, VAGINAL PROLAPSE AND DUS Procedure & Operative Findings Date of Procedure 07/05/17 Procedure Performed/Findings U.D, LT URETEROSCOPY WITH STONE LITHOTRIPSY, RETROGRADE UROGRAM AND ATTEMPTED STENT Anesthesia Type GENERAL Estimated Blood Loss Estimated blood loss (mL): N/A Specimens/Packing Specimens Removed N/A Packing: N/A TY KRUGER MD Jul 05, 2017 11:35 am
--- NOTE | 2017-07-05 11:37 | Discharge Inst-Urology ---
Discharge Inst-Urology Discharge Medications New, Converted, or Re-newed RX: RX on Chart Patient Instructions/Follow Up Plan Please make appointment to been seen in office next Tuesday Increase oral fluids for 48 hours and then as needed. Diet and Activity as tolerated. If questions or concerns contact your physician Or seek help at emergency department. TY KRUGER MD Jul 05, 2017 11:37 am
[2017-07-05] MEDS ORDERED: HYDROmorphone (DILAUDID) 2 MG/ML VIAL IVP PRN (11:45)
[2017-07-05] MEDS ORDERED: ONDANSETRON 4 MG/2 ML (SDV) Z0FRAN IVP PRN (11:45)
[2017-07-05] MEDS ORDERED: IOHEXOL 300 MG/ML 30 ML (OMNIPAQUE 300) VIAL IV ONE (11:45)
[2017-07-05] MEDS ORDERED: MEPERIDINE (DEMEROL) INJ 50 MG/ML IVP PRN (11:45)
[2017-07-05 12:25] VITALS: BP 150/83
[2017-07-05] MEDS ORDERED: PHEN-640 PO (12:50)
[2017-07-05] MEDS ORDERED: TAMS0.4C98 PO (12:50)
[2017-07-05] MEDS ORDERED: HYDR-3870 PO (12:50)
[2017-07-05] MEDS ORDERED: LEVO500T2 PO (12:50)
[2017-07-05 12:55] VITALS: BP 163/81
[2017-07-05] MEDS ORDERED: HYDROcodone/APAP 5 MG/325 MG (LORTAB) TAB PO ONE (13:00)
[2017-07-05 13:25] VITALS: BP 158/91
[2017-07-05 14:30] VITALS: BP 158/91
--- NOTE | 2017-07-05 15:03 | Anesthesia-General Post-Op ---
General Patient Condition Mental Status/LOC: Same as Preop Cardiovascular: Satisfactory Nausea/Vomiting: Absent Respiratory: Satisfactory Pain: Controlled Complications: Absent Post Op Complications Complications None Follow Up Care/Instructions Patient Instructions None needed. Anesthesia/Patient Condition Patient Condition Patient is doing well, no complaints, stable vital signs, no apparent adverse anesthesia problems. No complications reported per nursing. RICK BEAR CRNA Jul 05, 2017 15:03
--- NOTE | 2017-07-05 16:22 | Diagnostic Imaging Report ---
INDICATION: Left-sided lithotripsy. IMPRESSION: Fluoroscopy was provided during lithotripsy. 65 seconds of fluoroscopy time was utilized. No images were obtained. Dictated by: Dictated on workstation # [id number]
--- NOTE | 2017-07-05 20:09 | OPERATIVE REPORT ---
DATE OF SERVICE: 07/05/2017 PREOPERATIVE DIAGNOSIS: Left distal ureteral stone. POSTOPERATIVE DIAGNOSES: Left distal ureteral stone, vaginal prolapse and distal urethral stenosis. OPERATION PERFORMED: Urethral dilatation, left ureteroscopy with stone lithotripsy, retrograde urogram and attempted stent. SURGEON: Cj Kruger MD ANESTHESIA: General. COMPLICATIONS: None. PROCEDURE: Under satisfactory general anesthesia, the patient in lithotomy position, genitalia were prepped and draped in the usual sterile fashion. Attempt to pass a 23-Dutch cystoscope met resistance at the distal urethral stenosis. It was dilated from 18 to 24-Dutch easily. Noted also a significant vaginal prolapse mostly cystocele. Cystoscope was introduced in her bladder. The bladder looked normal except prolapse. The ureteral orifices pulled down with the prolapse was clear efflux on the right side, sluggish on the left side. No foreign body, bladder tumor or stone visualized. Using the foroblique lens and putting a surgical lap into the vagina to reduce the prolapse and unable me to enter the ureter. I dilated the left ureter and intramural portion to accommodate a 6.9 Dutch semirigid ureteroscope went up to the level of the stone that was very spicy and embedded in the wall of the ureter and causing complete obstruction. I went ahead using the LithoClast. I fragmented it into many small fragments. There was one fragment that was not small, but stuck into the wall of the ureter. I noticed that the ureteral wall had suffered from the stone as well as the lithotripsy, so I injected some contrast and indeed there was some intravasation, no extravasation so I removed the ureteroscope. I inserted a cystoscope attempted to pass a stent, it was unsuccessful. I did not attempt further to avoid any harm. There was no wrong doing of the stent or going the wrong direction at all. So, I emptied the bladder, removed the cystoscope and patient tolerated the procedure and anesthesia well and was sent to recovery room in stable condition. PLAN: Plan which was explained to the family, and daughter as well as the patient after surgery, we will see how she does. If she progresses okay with no severe pain, infection, sepsis or any other problems. We will just observe see the passage of the stone and the healing process. If she develops any problems, she will contact me or come to the emergency room and if she has indeed some problem. We will have to transfer to a place where they put percutaneous nephrostomy and maybe antegrade stenting, which our radiologist here does not perform. This again was fully explained to them. Job ID: [id number] DocumentID: [id number] Dictated Date: 07/05/2017 11:43:05 Soft Sugar Supervisor Date: 07/05/2017 20:08:25 Dictated By: CJ KRUGER MD MTDD
== END 2017-07-05 14:50 | disposition home or self-care (01) ==
LOC: SDC 08:54
PROVIDERS: ATTEND Urology
DX: N20.1 Calculus of ureter (principal); N35.9 Urethral stricture, unspecified; N81.10 Cystocele, unspecified; I10 Essential (primary) hypertension; E11.9 Type 2 diabetes mellitus without complications; Z79.899 Other long term (current) drug therapy
CPT/HCPCS: 74018; 82962; 87081

== ENCOUNTER → 2017-07-11 | Outpatient (CLI) | payer MEDICARE, OTHER ==
[~2017-07-11] MED LIST changes: +HYDR-3870 PO; +LEVO500T2 PO; +PHEN-640 PO
--- NOTE | 2017-07-11 15:06 | Diagnostic Imaging Report ---
INDICATION: Followup ureteral stone. COMPARISON: CT abdomen and pelvis of 06/29/2017. FINDINGS: There is no stone seen within the expected region of the left ureter to correspond to area of previously noted stone. No new calculi along the urinary tract path. Nonobstructive bowel gas pattern. Cholecystectomy. No evidence of free intraperitoneal air. IMPRESSION: No radiographic evidence of urinary tract calculi. Dictated by: Dictated on workstation # [id number]
== END ==
LOC: RAD 14:14
PROVIDERS: ATTEND Urology
DX: Z09 Encounter for follow-up examination after completed treatment for conditions other than malignant neoplasm (principal); Z87.442 Personal history of urinary calculi
CPT/HCPCS: 74018

== ENCOUNTER 2017-12-26 05:51 | Outpatient (CLI) | payer MEDICARE, OTHER ==
[~2017-12-26] VITALS: Ht 165.1 cm; Wt 77.1 kg
[2017-12-26] MEDS ORDERED: FISH1CAP15 PO (14:40)
== END 2017-12-26 14:45 | disposition home or self-care (01) ==
LOC: PREOP 05:51
PROVIDERS: ATTEND Surgery
DX: Z01.818 Encounter for other preprocedural examination (principal)

== ENCOUNTER → 2018-01-02 | Day surgery (SDC) | payer MEDICARE, OTHER ==
[~2018-01-02] VITALS: Ht 165.1 cm; Wt 77.1 kg
[~2018-01-02] MED LIST changes: +FISH1CAP15 PO; +MIDAZOLAM 2 MG/2 ML (VERSED) VIAL IVP ONE; +MIDAZOLAM 2 MG/2 ML (VERSED) VIAL ONE; +NS IV 500 ML 500 ML IV PRN; +fentaNYL INJECTION 100 MCG/2 ML AMP IVP ONE; +fentaNYL INJECTION 100 MCG/2 ML AMP ONE
[2018-01-02 08:05] VITALS: BP 142/93
--- NOTE | 2018-01-02 09:14 | Conscious Sedation/ASA ---
Conscious Sedation Pre-Proced Time 09:14 ASA Score 2 For ASA 3 and 4: Consider anesthesia and medical clearance. Also, for patients with a history of failed moderate sedation consider anesthesia. Airway Lungs Heart ASA score ASA 1: a normal healthy patient ASA 2: a patient with a mild systemic disease (mid diabetes, controlled hypertension, obesity ASA 3: a patient with a severe systemic disease that limits activity (angina , COPD, prior Myocardial infarction) ASA 4: a patient with an incapacitating disease that is a constant threat to life (CHF, renal failure) ASA 5: a moribund patient not expected to survive 24 hrs. (ruptured aneurysm) ASA 6: a declared brain patient whose organs are being harvested. For emergent operations, add the letter E after the classification Mallampati Classification Grade 1 Sedation Plan Discussed options with patient/fam The patient is an appropriate candidate to undergo the planned procedure, sedation, and anesthesia. The patient immediately re-assessed prior to indication. BRYN ROUSSEAU MD Jan 02, 2018 09:14
--- NOTE | 2018-01-02 09:14 | History & Physicial ---
History of Present Illness History of Present Illness Reason for visit/HPI to undergo screening colonoscopy. She reports a family history of colon cancer in her father. Previous colonoscopy reported to be negative for polyps. Date of Admission 01/02/18 Date Seen by a Provider: Jan 02, 2018 Time Seen by a Provider: 09:12 I consulted on this patient on 01/02/18 09:12 Attending Physician Bryn Sebastian MD Admitting Physician Deysi Thrasher MD Consult Allergies and Home Medications Allergies Coded Allergies: levofloxacin (Verified Allergy, Mild, N/V, 12/26/17) Penicillins (Verified Allergy, Unknown, 12/26/17) codeine (Verified Allergy, Unknown, 12/26/17) Home Medications Cholecalciferol (Vitamin D3) 2,000 Unit Tablet, 2,000 UNIT PO DAILY, (Reported) Fish Oil/Dha/Epa 1 Each Capsule, 1 EACH PO DAILY, (Reported) Lisinopril 2.5 Mg Tablet, 2.5 MG PO BID, (Reported) Multivits,Ca,Minerals/Iron/FA 1 Each Tablet, 1 EACH PO DAILY, (Reported) Saxagliptin HCl/Metformin HCl 1 Each Tbmp.24hr, 1 EACH PO DAILY, (Reported) Patient Home Medication List Home Medication List Reviewed: Yes Past Weivvix-Ankfzi-Fjswbc Hx Patient Social History Marrital Status: Employed/Student: retired Alcohol Use: Denies Use Recreational Drug Use: No Smoking Status: Never a Smoker 2nd Hand Smoke Exposure: No Recent Foreign Travel: No Contact w/other who traveled: No Recent Hopitalizations: No Recent Infectious Disease Expo: No Immunizations Up To Date Tetanus Booster (TDap): More than 5yrs Date of Pneumonia Vaccine: Jan 10, 2017 Date of Influenza Vaccine: Dec 29, 2016 Seasonal Allergies Seasonal Allergies: Yes Surgeries Yes Section, Gallbladder, Hysterectomy Respiratory No Cardiovascular Yes Hypertension Neurological No Reproductive System Hx Reproductive Disorders: No Sexually Transmitted Disease: No HIV/AIDS: No Genitourinary No Kidney Stones Gastrointestinal No Musculoskeletal No Endocrine History of Endocrine Disorders: Yes Endocrine Disorders: Diabetes, Non-Insulin dep HEENT History of HEENT Disorders: No Loss of Vision: Bilateral Hearing Impairment: Denies Cancer No Psychosocial History of Psychiatric Problem: No Integumentary History of Skin or Integumenta: No Blood Transfusions Adverse Reaction to a Blood Tr: No (HAS HAD BLOOD WITH NO REACTION) Review of Systems Constitutional: no symptoms reported EENTM: no symptoms reported Respiratory: no symptoms reported Cardiovascular: no symptoms reported Gastrointestinal: no symptoms reported Genitourinary: no symptoms reported Musculoskeletal: no symptoms reported Skin: no symptoms reported Psychiatric/Neurological: No Symptoms Reported Physical Exam Vital Signs Vital Signs - First Documented 01/02/18 08:05 Temp 97.2 Pulse 75 Resp 16 B/P (MAP) 142/93 (109) Pulse Ox 95 O2 Delivery Room Air Capillary Refill : Height, Weight, BMI Height: 5'5.00" Weight: 170lbs. 0.0oz. [id number]; 28.3 BMI Method:Stated General Appearance: Anxious Respiratory: Lungs Clear Cardiovascular: Regular Rate, Rhythm Gastrointestinal: Non Tender, Soft Extremity: Normal Inspection Neurologic/Psychiatric: Alert, Oriented x3 Skin: Warm/Dry Assessment/Plan Assessment and Plan lady with a family history of colon cancer. For screening colonoscopy. Admission Diagnosis Admission Status: Other (Outpt Proc) BRYN SEBASTIAN MD Jan 02, 2018 09:14
--- NOTE | 2018-01-02 10:00 | Endo Procedure Record ---
Endo Procedure Report Date of Procedure Last Colonoscopy: Yes (2011) Jan 02, 2018 Surgeon (s) BRYN ROUSSEAU MD Post Procedure/Op Diagnosis very few sigmoid diverticula Procedure Performed colonoscopy to cecum Description of Procedure Anesthesia Type: Conscious Sedation Specimen(s) collected/removed none Description of the Procedure indication for the procedure: This lady, with a family history of colon cancer, came in for screening colonoscopy. Informed consent was obtained after reviewing the procedure in detail. Description of procedure: As placed in left lateral decubitus position and her vital signs were monitored. Conscious sedation was achieved using Versed and fentanyl. Examination of the perianal area revealed a minor degree of external hemorrhoids and skin tags. Digital examination was otherwise unremarkable. The colonoscope was then introduced into the rectum and advanced all the way up to cecum The scope was then withdrawn slowly and the mucosa examined in a systematic fashion. Findings: Sigmoid diverticulosis. No polyps were found. She tolerated the procedure well and was taken back to the nursing area in a stable condition. Impression: Screening colonoscopy. Positive family history. No polyps. Recommend repeating in 5 years. Copy Copies To 1: JOYCE JANE MD,BRYN Valentino MD Jan 02, 2018 10:00
--- NOTE | 2018-01-02 10:02 | Discharge Inst-Simple/Standard ---
Discharge Inst-Standard Discharge Medications New, Converted or Re-Newed RX: Other Patient Instructions/Follow Up Plan of Care/Instructions/FU: Repeat colonoscopy in 5 years Activity as Tolerated: Yes Discharge Diet: ADA Diet BRYN ROUSSEAU MD Jan 02, 2018 10:02
[2018-01-02 10:20] VITALS: BP 119/69
[2018-01-02 10:50] VITALS: BP 118/74
[2018-01-02 11:05] VITALS: BP 118/74
== END | disposition home or self-care (01) ==
LOC: ENDO 07:46
PROVIDERS: ATTEND Surgery
DX: Z12.11 Encounter for screening for malignant neoplasm of colon (principal); K57.30 Diverticulosis of large intestine without perforation or abscess without bleeding; K64.4 Residual hemorrhoidal skin tags; Z80.0 Family history of malignant neoplasm of digestive organs

== ENCOUNTER 2018-04-11 05:47 | Outpatient (CLI) | payer MEDICARE, OTHER ==
[~2018-04-11] VITALS: Ht 165.1 cm; Wt 77.1 kg
== END 2018-04-12 14:11 | disposition home or self-care (01) ==
LOC: PREOP 05:47
PROVIDERS: ATTEND Specialist
DX: Z01.818 Encounter for other preprocedural examination (principal)

== ENCOUNTER → 2018-04-11 | Outpatient (CLI) | payer MEDICARE, OTHER ==
[~2018-04-11] MED LIST changes: -MIDAZOLAM 2 MG/2 ML (VERSED) VIAL IVP ONE; -MIDAZOLAM 2 MG/2 ML (VERSED) VIAL ONE; -NS IV 500 ML 500 ML IV PRN; -fentaNYL INJECTION 100 MCG/2 ML AMP IVP ONE; -fentaNYL INJECTION 100 MCG/2 ML AMP ONE
--- NOTE | 2018-04-11 20:38 | Diagnostic Imaging Report ---
INDICATION: Routine screening. COMPARISON is made with prior mammogram from 10/21/2016 and 11/21/2014. 2-D and 3-D bilateral screening mammography was performed with CAD. FINDINGS: Scattered fibroglandular densities are identified bilaterally. Circumscribed lobulated densities in the right breast anteriorly as well as mid depth appear to be stable. Circumscribed density central left breast also appears to be stable. No spiculated mass or malignant-appearing microcalcifications are seen. There are benign calcifications bilaterally. Axillae are unremarkable. IMPRESSION: BI-RADS category 2 No mammographic features suspicious for malignancy are identified. ACR BI-RADS Category 2: Benign findings. Result letter will be mailed to the patient. Note: At least 10% of breast cancer is not imaged by mammography. Dictated by: Dictated on workstation # [id number]
== END ==
LOC: RAD 14:06
PROVIDERS: ATTEND Family Medicine
DX: Z12.31 Encounter for screening mammogram for malignant neoplasm of breast (principal)
CPT/HCPCS: 77067

== ENCOUNTER 2018-04-14 07:06 | Day surgery (SDC) | payer MEDICARE, OTHER ==
[~2018-04-14] VITALS: Ht 165.1 cm; Wt 77.1 kg
[2018-04-14] MEDS ORDERED: LIDOCAINE PF 1% 2 ML AMP IR PRN (07:15)
[2018-04-14] MEDS ORDERED: TIMOLOL MALEATE 0.5% 5 ML (TIMOPTIC) BTL OU PRN (07:15)
[2018-04-14] MEDS ORDERED: MOXIFLOXACIN OPHTH SOLN 5 MG/ML 0.3 ML SYRINGE OP ONE (07:15)
[2018-04-14] MEDS ORDERED: POVIDONE (BETADINE) OPHTH SOLN 5% 30 ML OP ONE (07:15)
[2018-04-14 07:19] VITALS: BP 137/71
[2018-04-14] MEDS: TETRACAINE 0.5% OPHTH SOLN 4 ML BTL (SINGLE DOSE ONLY) OU PRN ×4 (07:19→07:37)
[2018-04-14] MEDS: PHENYLEPHRINE 10% OPHTH (NEO-SYN) 5 ML BTL OU SCH ×3 (07:25→07:37)
[2018-04-14] MEDS: CYCLOPENTOLATE 1% (CYCLOGYL) 2 ML DROPS OP SCH ×3 (07:25→07:37)
[2018-04-14] MEDS ORDERED: MIDAZOLAM 2 MG/2 ML (VERSED) VIAL ONE (07:39)
--- NOTE | 2018-04-14 08:01 | Ophthalmologist Pre-Op Note ---
Pre-Operative Progress Note H&P Reviewed The H&P was reviewed, patient examined and no changes noted. Date H&P Reviewed: Apr 14, 2018 Time H&P Reviewed: 08:00 Pre-Op Dx Cataract, Right Eye LEOBARDO CHIN MD Apr 14, 2018 08:01
--- NOTE | 2018-04-14 08:24 | Ophthalmology Operative Report ---
Cataract removal/placement IOL PREOPERATIVE DIAGNOSIS: Cataract Right Eye POSTOPERATIVE DIAGNOSIS: Cataract Right Eye PROCEDURE: Cataract removal and placement of posterior chamber implant, right eye SURGEON: Jose Armando Chin ANESTHESIA: Topical with sedation COMPLICATIONS: None ESTIMATED BLOOD LOSS: Minimal DESCRIPTION OF PROCEDURE: After proper informed consent was obtained, the patient, a 73 female, was taken to the Operating Room and the right eye was anesthetized with tetracaine. The right eye was then prepped and draped in the usual manner. A wire lid speculum was placed. A paracentesis was made at the left hand position. Preservative free lidocaine was injected into the anterior chamber followed by viscoelastic. A clear corneal incision was made in the temporal position. A capsulorrhexis was preformed and the central nuclear and cortical material were removed. The posterior capsule was polished and Hieu 24.0 AU00T0 IOL was placed into the capsular bag. The residual viscoelastic was aspirated and balanced saline solution was injected into the anterior chamber. Moxifloxacin was injected into the anterior chamber. The wound was checked and found to be water tight. The patient tolerated the procedure well without complications. JOSE ARMANDO CHIN MD Apr 14, 2018 08:24
[2018-04-14 08:30] VITALS: BP 130/71
[2018-04-14] MEDS ORDERED: acetaZOLAMIDE ER 500 MG CAP (DIAMOX SEQUELS) PO ONE (08:30)
--- NOTE | 2018-04-14 12:37 | Anesthesia-General Post-Op ---
MAC Patient Condition Mental Status/LOC: Same as Preop Cardiovascular: Satisfactory Nausea/Vomiting: Absent Respiratory: Satisfactory Pain: Controlled Complications: Absent Post Op Complications Complications None Follow Up Care/Instructions Patient Instructions None needed. Anesthesiology Discharge Order Discharge Order Patient is doing well, no complaints, stable vital signs, no apparent adverse anesthesia problems. No complications reported per nursing. CHANG DOLAN CRNA Apr 14, 2018 12:37
== END 2018-04-14 08:30 | disposition home or self-care (01) ==
LOC: SDC 07:06
PROVIDERS: ATTEND Specialist
DX: H25.11 Age-related nuclear cataract, right eye (principal); E11.36 Type 2 diabetes mellitus with diabetic cataract; I10 Essential (primary) hypertension; Z79.899 Other long term (current) drug therapy
CPT/HCPCS: 82962

== ENCOUNTER 2018-04-25 06:19 | Outpatient (CLI) | payer MEDICARE, OTHER | END 2018-04-25 11:02 | disposition home or self-care (01) | LOC: PREOP 06:19 | PROVIDERS: ATTEND Specialist | DX: Z01.818 Encounter for other preprocedural examination (principal) ==

== ENCOUNTER 2018-04-28 07:18 | Day surgery (SDC) | payer MEDICARE, OTHER ==
[~2018-04-28] VITALS: Ht 165.1 cm; Wt 77.1 kg
--- OUTSIDE RECORDS SUMMARY | 2018-04-28 07:23 | XMS REPORT | CCD ---
Author Author Shraddha Dillon MD, [facility] Address [address] [place] [address] Phone Care Team Providers Care Landscape Contractor Name Role Phone PP Unavailable CCM Unavailable Summary Purpose Interface Exchange Insurance Providers Payer name Policy type / Coverage type Covered alliance party ID Effective Begin Date Effective End Date WPS Medicare Part B Medicare Part B [id number] 2017 Unknown [employer] Medicare Part B [id number] Unknown Family history Son Diagnosis Age At [...] Unknown 5 08/27/[address]: 736002123 Never smoker 08/27/[address]: 035435550 Never drinks alcohol 08/27/2014 Allergies, Adverse Reactions, Alerts Substance Reaction Codes Entered Date Inactivated Date Status * OTHER REACTION - SEE ANSWER BOX statin-myalgia Unknown 2017 No Inactive Date Active CODEINE RxNorm: 2670 08/27/2014 No Inactive Date Active hydrocodone emesis Unknown 07/27/2017 No Inactive Date Active Levaquin diarrhea RxNorm: 05787 07/27/2017 No Inactive Date Active Penicillin Unknown 08/27/2014 No Inactive Date Active Past Medical History Illness Codes Condition Status Onset Date Resolved Date Encounter for screening mammogram for malignant neoplasm of breast ICD-9: V76.12 ICD-10: Z12.31 Active 04/12/2018 Unknown Essential (primary) hypertension ICD-9: 401.1 ICD-10: I10 Active 04/27/2017 Unknown Mixed hyperlipidemia ICD-9: 272.2 ICD-10: E78.2 Active 01/04/2016 Unknown Type 2 diabetes mellitus without complications ICD-9: 250.00 ICD-10: E11.9 Active 08/26/2014 Unknown Localized edema ICD-9 : 782.3 ICD-10: R60.0 Active 11/30/2017 Unknown Pain in left knee ICD- 9: 719.46 ICD-10: M25.562 Active 11/30/2017 Unknown Other specified disorders of nose and nasal sinuses ICD-9: 478.19 ICD-10: J34.89 Active 07/27/2017 Unknown Dysuria ICD-9: 788.1 ICD-10: R30.0 Active 02/24/2016 Unknown Pain in left lower leg ICD-9: 729.5 ICD-10: M79.662 Active 06/22/2017 Unknown Sciatica Unknown Active 06/07/2017 Unknown Low back pain ICD-9: 724.2 ICD-10: M54.5 Active 06/07/2017 Unknown Sciatica, left side ICD-9: 724.3 ICD-10: M54.32 Active 06/07/2017 Unknown Xerosis cutis ICD-9: 701.1 ICD-10: L85.3 Active 04/27/2017 Unknown Other acute sinusitis ICD-9: 461.8 ICD-10: J01.80 [...] ICD-9: 465.0 ICD-10: J06.0 Active 04/29/2016 Unknown Cellulitis of neck ICD -9: 682.1 ICD-10: L03.221 Active 02/11/2016 Unknown Headache ICD-9: 784.0 ICD-10: R51 Active 01/04/2016 Unknown Insect bite (nonvenomous) of left front wall of thorax, initial encounter ICD-9: 911.5 ICD-10: S20.362A Active 01/04/2016 Unknown Transient visual loss, left eye ICD-9: 368.12 ICD-10: H53.122 Active 01/04/2016 Unknown Trigeminal neuralgia ICD-9: 350.1 ICD-10: G50.0 Active 01/04/2016 Unknown Other screening mammogram ICD-9: V76.12 Active 11/20/2014 Unknown Diabetes Unknown Active 08/27/2014 Unknown Diabetes mellitus ICD- 9: 250.00 Active 08/26/2014 Unknown Screening for breast cancer ICD-9: V76.10 Active 08/26/2014 Unknown Screening for osteoporosis ICD-9: V82.81 Active 08/26/2014 Unknown Problems Condition Codes Effective Dates Condition Status Encounter for screening mammogram for malignant neoplasm of breast ICD-9: V76.12 ICD-10: Z12.31 04/12/2018 Active Essential (primary) hypertension ICD-9: 401.1 ICD-10: I10 04/27/2017 Active Mixed hyperlipidemia ICD-9: 272.2 ICD-10: E78.2 01/04/2016 Active Type 2 diabetes mellitus without complications ICD-9: 250.00 ICD-10: E11.9 08/26/2014 Active Localized edema ICD-9 : 782.3 ICD-10: R60.0 11/30/2017 Active Pain in left knee ICD- 9: 719.46 ICD-10: M25.562 11/30/2017 Active Other specified disorders of nose and nasal sinuses ICD-9: 478.19 ICD-10: J34.89 07/27/2017 Active Dysuria ICD-9: 788.1 ICD-10: R30.0 02/24/2016 Active Pain in left lower leg ICD-9: 729.5 ICD-10: M79.662 06/22/2017 Active Sciatica Unknown 06/07/2017 Active Low back pain ICD-9: 724.2 ICD-10: M54.5 06/07/2017 Active Sciatica, left side ICD-9: 724.3 ICD-10: M54.32 06/07/2017 Active Xerosis cutis ICD-9: 701.1 ICD-10: L85.3 04/27/2017 Active Other acute sinusitis ICD-9: 461.8 ICD-10: J01.80 [...] laryngopharyngitis ICD-9: 465.0 ICD-10: J06.0 04/29/2016 Active Cellulitis of neck ICD -9: 682.1 ICD-10: L03.221 02/11/2016 Active Headache ICD-9: 784.0 ICD-10: R51 01/04/2016 Active Insect bite (nonvenomous) of left front wall of thorax, initial encounter ICD-9: 911.5 ICD-10: S20.362A 01/04/2016 Active Transient visual loss, left eye ICD-9: 368.12 ICD-10: H53.122 01/04/2016 Active Trigeminal neuralgia ICD-9: 350.1 ICD-10: G50.0 01/04/2016 Active Other screening mammogram ICD-9: V76.12 11/20/2014 Active Diabetes Unknown 08/27/2014 Active Diabetes mellitus ICD- 9: 250.00 08/26/2014 Active Screening for breast cancer ICD-9: V76.10 08/26/2014 Active Screening for osteoporosis ICD-9: V82.81 08/26/2014 Active Medications Medication Codes Instructions Start Date Stop Date Status Fill Instructions Kombiglyze XR 5 mg-1,000 mg tablet,extended release RxNorm: 2834064 TAKE ONE TABLET BY MOUTH DAILY 04/24/20182018 Active Zetia 10 mg tablet RxNorm: 597270 Tablet(s) TAKE ONE TABLET BY MOUTH EVERY NIGHT AT BEDTIME 04/13/2018 08/10/2018 Active Vitamin C 500 mg tablet RxNorm: 101294 1 Tablet(s) PO daily 12/201805/05/2018 Active lisinopril 5 mg tablet RxNorm: 358724 TAKE 1/2 TABLET BY MOUTH TWO TIMES A DAY 01/30/2018 07/28/2018 Active naproxen 500 mg tablet RxNorm: 533521 TAKE ONE TABLET BY MOUTH TWICE A DAY 11/18/2017 01/16/2018 Inactive Retin-A Micro 0.1 % topical gel RxNorm: 209784 1 Application TOP BID 08/18/2017 12/15/2017 Inactive tamsulosin 0.4 mg capsule RxNorm: 452656 1 Capsule(s) PO daily 07/21/2017 08/17/2017 Inactive naproxen 500 mg tablet RxNorm: 550362 TAKE ONE TABLET BY MOUTH TWICE A DAY 07/19/2017 09/16/2017 Inactive Keflex 500 mg capsule RxNorm: 621486 1 Capsule(s) PO QID 201706/28/2017 Inactive ketorolac 60 mg/2 mL intramuscular solution RxNorm: 223323 2 Milliliter(s) IM 06/07/2017 06/07/2017 Inactive naproxen 500 mg tablet RxNorm: 573525 1 Tablet(s) PO BID 201707/06/2017 Inactive lisinopril 5 mg tablet RxNorm: 609570 1/2 Tablet(s) PO BID 04/201711/22/2017 Inactive Cipro 500 mg tablet RxNorm: 642132 1 Tablet(s) PO BID 201706/01/2017 Inactive Cipro 500 mg tablet RxNorm: 065633 1 Tablet(s) PO BID 201705/22/2017 Inactive clobetasol 0.05 % topical cream RxNorm: 921672 1 Application TOP BID as needed Itching 04/27/2017 No Stop Date Active Kombiglyze XR 5 mg-1,000 mg tablet,extended release RxNorm: 7116107 TAKE ONE TABLET BY MOUTH DAILY 04/04/20172018 Inactive Kombiglyze XR 5 mg-1,000 mg tablet,extended release RxNorm: 8947173 TAKE ONE TABLET BY MOUTH DAILY 04/04/20172017 Inactive Zithromax Z-Jose 250 mg tablet RxNorm: 148817 1 Tablet(s) PO UD 03/18/2017 04/26/2017 Inactive Kombiglyze XR 5 mg-1,000 mg tablet,extended release RxNorm: 1870868 TAKE ONE TABLET BY MOUTH DAILY 12/22/20162016 Inactive lisinopril 5 mg tablet RxNorm: 000896 1/2 Tablet(s) PO BID 03/08/2017 Inactive clobetasol 0.05 % topical cream RxNorm: 538982 1 Application TOP BID 10/18/2016 No Stop Date Active kapmkysi-wvgrpsfuw-whjieyavl 3.5 mg/mL-10,000 unit/mL-1 % ear solution RxNorm: 427731 2 OTIC QID 10/18/2016 10/24/2016 Inactive lisinopril 5 mg tablet RxNorm: 637688 1/2-1 Tablet(s) PO daily 09/02/2016 11/30/2016 Inactive start 1/2 tab daily-increase to a full tab if needed lisinopril 20 mg tablet RxNorm: 052056 1 Tablet(s) PO daily 04/201609/01/2016 Inactive Lofibra 54 mg tablet RxNorm: 529269 1 Tablet(s) PO daily 201604/26/2017 Inactive DC fenofibrate 40 mg Lofibra 54 mg tablet RxNorm: 953654 1 Tablet(s) PO daily 201607/06/2016 Inactive DC fenofibrate 40 mg fenofibrate 40 mg tablet RxNorm: 858195 1 Tablet(s) PO daily 07/06/2016 Inactive fenofibrate 40 mg tablet RxNorm: 719813 1 Tablet(s) PO daily 07/01/2016 Inactive Kombiglyze XR 5 mg-1,000 mg tablet,extended release RxNorm: 7308217 TAKE ONE TABLET BY MOUTH DAILY 06/21/20162016 Inactive Kombiglyze XR 5 mg-1,000 mg tablet,extended release RxNorm: 8101706 Tablet(s) TAKE ONE TABLET BY MOUTH DAILY 05/05/2016 06/20/2016 Inactive Zyrtec 10 mg tablet RxNorm: 6844027 1 Tablet(s) PO daily 04/2905/28/2016 Inactive Zithromax Z-Jose 250 mg tablet RxNorm: 736681 1 Tablet(s) PO UD 04/29/2016 07/01/2016 Inactive Bactrim DS 800 mg-160 mg tablet RxNorm: 514616 1 Tablet(s) PO BID 02/25/2016 02/24/2016 Inactive Bactrim DS 800 mg-160 mg tablet RxNorm: 283724 1 Tablet(s) PO BID 02/25/2016 03/02/2016 Inactive WelChol 625 mg tablet RxNorm: 272297 3 Tablet(s) PO BID 201502/19/2016 Inactive WelChol 625 mg tablet RxNorm: 152877 3 Tablet(s) PO BID with meals 02/20/2016 04/19/2016 Inactive dc zetia doxycycline hyclate 100 mg tablet RxNorm: 987910 1 Tablet(s) PO BID 02/12/2016 02/18/2016 Inactive doxycycline hyclate 100 mg tablet RxNorm: 210996 1 Tablet(s) PO BID 01/05/2016 01/18/2016 Inactive prednisone 20 mg tablet RxNorm: 821003 3 Tablet(s) PO daily 12/201501/09/2016 Inactive Zetia 10 mg tablet RxNorm: 793499 TAKE ONE TABLET BY MOUTH EVERY NIGHT AT BEDTIME 11/13/2015 02/19/2016 Inactive Kombiglyze XR 5 mg-1,000 mg tablet,extended release RxNorm: 9851015 TAKE ONE TABLET BY MOUTH DAILY 07/24/20152015 Inactive Zetia 10 mg tablet RxNorm: 369086 1 Tablet(s) PO QHS 201511/04/2015 Inactive Zetia 10 mg tablet RxNorm: 509840 1 Tablet(s) PO QHS 201507/07/2015 Inactive Kombiglyze XR 5 mg-1,000 mg tablet,extended release RxNorm: 1449846 1 Tablet(s) PO daily 04/16/2015 07/14/2015 Inactive Fish Oil 1,000 mg capsule RxNorm: 1200 Capsule(s) PO BID No Start Date Active Calcium + D oral RxNorm: 871300 oral No Start Date Active Flaxseed Meal RxNorm: 992901 miscellaneous No Start Date Active Vitamin D3 5,000 unit tablet RxNorm: 539698 1 Tablet(s) PO daily No Start Date Active Multiple Vitamin oral RxNorm: 02798 oral No Start Date Active Kombiglyze XR 5 mg-1,000 mg tablet,extended release RxNorm: 1849317 1 Tablet(s) PO daily No Start Date 04/15/2015 Inactive Medication Administered Medication Codes Instructions Start Date Status ketorolac 60 mg/2 mL intramuscular solution RxNorm: 928123 2Milliliter 06/07/2017 No longer Active Immunizations Vaccine Codes Date Status Influenza CVX: 141 01/12/2017 completed Assessments Condition Codes Effective Dates Encounter for screening mammogram for malignant neoplasm of breast ICD-10: Z12.31 ICD-9: V76.12 04/12/2018 Essential (primary) hypertension ICD-10: I10 ICD-9: 401.1 04/06/2018 Type 2 diabetes mellitus without complications ICD-10: E11.9 ICD-9: 250.00 04/06/2018 Mixed hyperlipidemia ICD-10: E78.2 ICD-9: 272.2 04/06/2018 Localized edema ICD-10: R60.0 ICD-9: 782.3 11/30/2017 Pain in left knee ICD-10: M25.562 ICD-9: 719.46 11/30/2017 Other specified disorders of nose and nasal sinuses ICD-10: J34.89 ICD-9: 478.19 07/27/2017 Dysuria ICD-10: R30.0 ICD-9: 788.1 06/22/2017 Pain in left lower leg ICD-10: M79.662 ICD-9: 729.5 06/22/2017 Sciatica, left side ICD-10: M54.32 ICD-9: 724.3 06/07/2017 Low back pain ICD-10: M54.5 ICD-9: 724.2 06/07/2017 Xerosis cutis ICD-10: L85.3 ICD-9: 701.1 04/27/2017 Other acute sinusitis ICD-10: J01.80 ICD-9: 461.8 [...] Acute laryngopharyngitis ICD-10: J06.0 ICD-9: 465.0 04/29/2016 Cellulitis of neck ICD-10: L03.221 ICD-9: 682.1 02/12/2016 Headache ICD-10: R51 ICD-9: 784.0 01/05/2016 Insect [...] Visit Reason For Visit Effective Dates Notes hypertension 04/06/2018 hypertension 11/30/2017 hypertension 08/18/2017 nasal discharge 07/27/2017 knee pain 06/22/2017 back pain 06/07/2017 earache 04/27/2017 sinus congestion 03/18/2017 vaccination against influenza 01/12/2017 chest pain/pressure 12/09/2016 hypertension 10/18/2016 Annual Medicare Wellness Exam 09/21/2016 hypertension 09/02/2016 hypertension 08/27/2016 fever 04/29/2016 spider bite 02/12/2016 dizziness 01/05/2016 well woman exam (65+ years) 02/26/2015 diabetes mellitus 08/27/2014 type 2. Results Observation Observation Code Item Item Code Result Date Tsh Ord6 TSH (3rd IS) 1.92 uIU/mL 04/12/2018 Microalbumin Uxb665 MicroAlb <0.7 mg/dL 04/12/2018 Cbc With Differential Ord2 WBC 7.55 K/ul 04/12/2018 Cbc With Differential Ord2 RBC 4.06 M/ul 04/12/2018 Cbc With Differential Ord2 HGB 12.6 g/dl 04/12/2018 Cbc With Differential Ord2 HCT 38.5 % 04/12/2018 Cbc With Differential Ord2 Neut% 57.2 % 04/12/2018 Cbc With Differential Ord2 MCV 94.8 fl 04/12/2018 Cbc With Differential Ord2 Lymph% 29.0 % 04/12/2018 Cbc With Differential Ord2 MCH 31.0 pg 04/12/2018 Cbc With Differential Ord2 [place]% 9.1 % 04/12/2018 Cbc With Differential Ord2 MCHC 32.7 pg 04/12/2018 Cbc With Differential Ord2 Eos% 4.4 % 04/12/2018 Cbc With Differential Ord2 Baso% 0.3 % 04/12/2018 Cbc With Differential Ord2 PLT 231 K/ul 04/12/2018 Cbc With Differential Ord2 RDW 14.3 % 04/12/2018 Cbc With Differential Ord2 Neut ABS# 4.32 K/ul 04/12/2018 Cbc With Differential Ord2 Lymph ABS# 2.19 K/ul 04/12/2018 Cbc With Differential Ord2 [place] ABS# 0.7 K/ul 04/12/2018 Cbc With Differential Ord2 Eos ABS# 0.3 K/ul 04/12/2018 Cbc With Differential Ord2 Baso ABS# 0.0 K/ul 04/12/2018 Comp Metabolic Ylv488 NA 140 mEq/L 04/12/2018 Comp Metabolic Zet392 K 4.5 mEq/L 04/12/2018 Comp Metabolic Xdt486 CL 104 mEq/L 04/12/2018 Comp Metabolic Ncs017 CO2 26.0 mEq/L 04/12/2018 Comp Metabolic Wxa631 ANION GAP 15 04/12/2018 Comp Metabolic Wfv525 GLUCOSE 111 mg/dL 04/12/2018 Comp Metabolic Gaf827 Creat 0.7 mg/dL 04/12/2018 Comp Metabolic Wnp197 eGFR 82 ml/min/1.73m2 04/12/2018 Comp Metabolic Azw415 BUN 25 mg/dL 04/12/2018 Comp Metabolic Fxg997 B/C Ratio 33.8 Ratio 04/12/2018 Comp Metabolic Opz935 CALCIUM 9.5 mg/dL 04/12/2018 Comp Metabolic Fax149 ALK PHOS 56 U/L 04/12/2018 Comp Metabolic Tqp110 AST(SGOT) 12 U/L 04/12/2018 Comp Metabolic Oec286 ALT(SGPT) 13 U/L 04/12/2018 Comp Metabolic Rxv960 BILI T 0.5 mg/dL 04/12/2018 Comp Metabolic Bxk888 ALBUMIN 4.0 g/dL 04/12/2018 Comp Metabolic Vnv900 TPRO 6.2 g/dL 04/12/2018 Comp Metabolic Zhk976 GLOB 2.2 g/dL 04/12/2018 Comp Metabolic Dwv951 A/G Ratio 1.8 Ratio 04/12/2018 Comp Metabolic Qvq705 Osmo 284 mOsmo 04/12/2018 Lipid Ord30 CHOL 280 mg/dL 04/12/2018 Lipid Ord30 HDL 45.0 mg/dl 04/12/2018 Lipid Ord30 TRIG 346 mg/dL 04/12/2018 Lipid Ord30 LDL Unable to calculate Due to elevated triglycerides mg/dL 04/12/2018 Lipid Ord30 C/HDL 6.2 Ratio 04/12/2018 %Hba1C Rnz759 % HbA1c 65169-4 6.3 % 04/12/2018 %Hba1C Pbs008 Gluc Ave 134 mg/dL 04/12/2018 Lipid Ord30 CHOL 261 mg/dL 08/31/2017 Lipid Ord30 HDL 45.0 mg/dl 08/31/2017 Lipid Ord30 TRIG 173 mg/dL 08/31/2017 Lipid Ord30 LDL 181 mg/dL 08/31/2017 Lipid Ord30 C/HDL 5.8 Ratio 08/31/2017 %Hba1C Hfy701 % HbA1c 32214-5 6.1 % 08/31/2017 %Hba1C Pio345 Gluc Ave 128 mg/dL 08/31/2017 Comp Metabolic Awp915 NA 139 mEq/L 08/31/2017 Comp Metabolic Frb014 K 4.4 mEq/L 08/31/2017 Comp Metabolic Pft877 CL 107 mEq/L 08/31/2017 Comp Metabolic Ziv855 CO2 23.0 mEq/L 08/31/2017 Comp Metabolic Dqk981 ANION GAP 13 08/31/2017 Comp Metabolic Ctq316 GLUCOSE 110 mg/dL 08/31/2017 Comp Metabolic Hrp570 Creat 0.7 mg/dL 08/31/2017 Comp Metabolic Uvh581 eGFR 92 ml/min/1.73m2 08/31/2017 Comp Metabolic Deh671 BUN 20 mg/dL 08/31/2017 Comp Metabolic Wjh001 B/C Ratio 29.9 Ratio 08/31/2017 Comp Metabolic Etq805 CALCIUM 9.0 mg/dL 08/31/2017 Comp Metabolic Gfc654 ALK PHOS 51 U/L 08/31/2017 Comp Metabolic Xsk226 AST(SGOT) 12 U/L 08/31/2017 Comp Metabolic Xqa272 ALT(SGPT) 14 U/L 08/31/2017 Comp Metabolic Vdr391 BILI T 0.4 mg/dL 08/31/2017 Comp Metabolic Ghw112 ALBUMIN 3.7 g/dL 08/31/2017 Comp Metabolic Cwu011 TPRO 5.8 g/dL 08/31/2017 Comp Metabolic Kde304 GLOB 2.1 g/dL 08/31/2017 Comp Metabolic Gwi908 A/G Ratio 1.8 Ratio 08/31/2017 Comp Metabolic Gkm987 Osmo 281 mOsmo 08/31/2017 Urine Culture Ucult Preliminary NO Growth Day 1 06/24/2017 Urine Culture Ucult Complete NO Growth Day 2 06/24/2017 Culture Urine [id number] URINE CULTURE SEE NOTES 05/26/2017 Culture Urine [id number] Continued Results 05/26/2017 Urine Culture Ucult Complete >100,000 col/ml aerobic growth sent to ref lab 05/24/2017 Lipid Ord30 CHOL 272 mg/dL 10/06/2016 Lipid [...] 56.0 % 10/06/2016 Cbc With Differential Ord2 MCV 95.4 fl 10/06/2016 Cbc With Differential Ord2 Lymph% 29.0 % 10/06/2016 Cbc With Differential Ord2 MCH 31.9 pg 10/06/2016 Cbc With Differential Ord2 [place]% 9.8 % 10/06/2016 Cbc With Differential Ord2 [...] 1.63 K/ul 10/06/2016 Cbc With Differential Ord2 [place] ABS# 0.6 K/ul 10/06/2016 Cbc With Differential Ord2 Eos ABS# 0.3 K/ul 10/06/2016 Cbc With Differential Ord2 Baso ABS# 0.0 K/ul 10/06/2016 Comp Metabolic Tdy962 NA 140 mEq/L 10/06/2016 Comp Metabolic Tjf549 K 4.3 mEq/L 10/06/2016 Comp Metabolic Jbg269 CL 107 mEq/L 10/06/2016 Comp Metabolic Niy843 CO2 25.0 mEq/L 10/06/2016 Comp Metabolic Ezs536 ANION GAP 12 10/06/2016 Comp Metabolic Xsh868 GLUCOSE 122 mg/dL 10/06/2016 Comp Metabolic Kfz921 Creat 0.7 mg/dL 10/06/2016 Comp Metabolic Nca360 eGFR 84 ml/min/1.73m2 10/06/2016 Comp Metabolic Iyg965 BUN 17 mg/dL 10/06/2016 Comp Metabolic Wvq394 B/C Ratio 23.3 Ratio 10/06/2016 Comp Metabolic Ajk170 CALCIUM 9.0 mg/dL 10/06/2016 Comp Metabolic Znk942 ALK PHOS 52 U/L 10/06/2016 Comp Metabolic Ssv470 AST(SGOT) 18 U/L 10/06/2016 Comp Metabolic Pnv371 ALT(SGPT) 22 U/L 10/06/2016 Comp Metabolic Vvo175 BILI T 0.6 mg/dL 10/06/2016 Comp Metabolic Yhi944 ALBUMIN 3.9 g/dL 10/06/2016 Comp Metabolic Sow578 TPRO 6.1 g/dL 10/06/2016 Comp Metabolic Dnf207 GLOB 2.2 g/dL 10/06/2016 Comp Metabolic Bgu773 A/G Ratio 1.8 Ratio 10/06/2016 Comp Metabolic Qml291 Osmo 282 mOsmo 10/06/2016 %Hba1C Auw078 % HbA1c 74798-8 6.4 % 10/06/2016 %Hba1C Yba978 Gluc Ave 137 mg/dL 10/06/2016 %Hba1C Nnh119 % HbA1c 98047-4 6.3 % 05/21/2016 %Hba1C Ltw994 Gluc Ave 134 mg/dL 05/21/2016 Hepatic Lgg328 ALBUMIN 4.2 g/dL 05/21/2016 Hepatic Ros879 TPRO 6.6 g/dL 05/21/2016 Hepatic Lgg679 GLOB 2.4 g/dL 05/21/2016 Hepatic Zbu454 A/G Ratio 1.7 Ratio 05/21/2016 Hepatic Agv323 ALK PHOS 64 U/L 05/21/2016 Hepatic Qii375 ALT(SGPT) 16 U/L 05/21/2016 Hepatic Vwy138 AST(SGOT) 13 U/L 05/21/2016 Hepatic Hlp160 BILI T 0.5 mg/dL 05/21/2016 Hepatic Pob383 BILI D 0.1 mg/dL 05/21/2016 Hepatic Els031 BILI I 0.4 mg/dL 05/21/2016 Lipid Ord30 CHOL 285 mg/dL 05/21/2016 Lipid Ord30 HDL 42.0 mg/dl 05/21/2016 Lipid Ord30 TRIG 364 mg/dL 05/21/2016 Lipid Ord30 LDL 0 Unable to calculate Due to elevated triglycerides mg/dL 05/21/2016 Lipid Ord30 C/HDL 6.8 Ratio 05/21/2016 C A/B FLU [id number] Influenza A Scr Negative 04/29/2016 C A/B FLU [id number] Influenza B Scr Negative 04/29/2016 Urine Culture Ucult Complete Growth of aerobe sent to ref lab 02/26/2016 Cbc With Differential Ord2 WBC 7.87 K/ul 02/12/2016 Cbc With Differential Ord2 RBC 4.24 M/ul 02/12/2016 Cbc With Differential Ord2 HGB 13.7 g/dl 02/12/2016 Cbc With Differential Ord2 HCT 41.1 % 02/12/2016 Cbc With Differential Ord2 Neut% 69.2 % 02/12/2016 Cbc With Differential Ord2 Lymph% 17.7 % 02/12/2016 Cbc With Differential Ord2 MCV 96.9 fl 02/12/2016 Cbc With Differential Ord2 [place]% 10.5 % 02/12/2016 Cbc With Differential Ord2 MCH 32.3 pg 02/12/2016 Cbc With Differential Ord2 Eos% 2.5 % 02/12/2016 Cbc With Differential Ord2 MCHC 33.3 pg 02/12/2016 Cbc With Differential Ord2 Baso% 0.1 % 02/12/2016 Cbc With Differential Ord2 PLT 205 K/ul 02/12/2016 Cbc With Differential Ord2 RDW 14.3 % 02/12/2016 Cbc With Differential Ord2 Neut ABS# 5.44 K/ul 02/12/2016 Cbc With Differential Ord2 Lymph ABS# 1.39 K/ul 02/12/2016 Cbc With Differential Ord2 [place] ABS# 0.8 K/ul 02/12/2016 Cbc With Differential Ord2 Eos ABS# 0.2 K/ul 02/12/2016 Cbc With Differential Ord2 Baso ABS# 0.0 K/ul 02/12/2016 %Hba1C Zod123 % HbA1c 57564-9 6.6 % 02/12/2016 %Hba1C Zmy888 Gluc Ave 143 mg/dL 02/12/2016 Lipid Ord30 CHOL 276 mg/dL 02/12/2016 Lipid Ord30 HDL 47.0 mg/dl 02/12/2016 Lipid Ord30 TRIG 424 mg/dL 02/12/2016 Lipid Ord30 LDL 0 Unable to calculate Due to elevated triglycerides mg/dL 02/12/2016 Lipid Ord30 C/HDL 5.9 Ratio 02/12/2016 Tsh Ord6 hTSH II 1.21 uIU/mL 02/12/2016 Microalbumin Gxw486 MicroAlb <0.7 mg/dL 02/12/2016 Comp Metabolic Upv545 NA 138 mEq/L 02/12/2016 Comp Metabolic Bfo751 K 4.2 mEq/L 02/12/2016 Comp Metabolic Sez326 CL 103 mEq/L 02/12/2016 Comp Metabolic Cky640 CO2 28.0 mEq/L 02/12/2016 Comp Metabolic Yye260 ANION GAP 11 02/12/2016 Comp Metabolic Ghj189 GLUCOSE 97 mg/dL 02/12/2016 Comp Metabolic Cut811 Creat 0.7 mg/dL 02/12/2016 Comp Metabolic Zbm896 eGFR 83 ml/min/1.73m2 02/12/2016 Comp Metabolic Jyj021 BUN 16 mg/dL 02/12/2016 Comp Metabolic Nll318 B/C Ratio 21.6 Ratio 02/12/2016 Comp Metabolic Krr347 CALCIUM 9.6 mg/dL 02/12/2016 Comp Metabolic Foo392 ALK PHOS 53 U/L 02/12/2016 Comp Metabolic Wih069 AST(SGOT) 16 U/L 02/12/2016 Comp Metabolic Qua268 ALT(SGPT) 22 U/L 02/12/2016 Comp Metabolic Nur120 BILI T 0.5 mg/dL 02/12/2016 Comp Metabolic Wdy650 ALBUMIN 3.9 g/dL 02/12/2016 Comp Metabolic Qbd303 TPRO 6.4 g/dL 02/12/2016 Comp Metabolic Kor363 GLOB 2.5 g/dL 02/12/2016 Comp Metabolic Iwe897 A/G Ratio 1.6 Ratio 02/12/2016 Comp Metabolic Mbn660 Osmo 277 mOsmo 02/12/2016 [place] Spotted Fever Igg/Igm [id number] [place] SPOTTED FEVER IGM EIA . 01/10/2016 [place] Spotted Fever Igg/Igm 988984 RMSF, IGM 0.21 index 01/10/2016 [place] Spotted Fever Igg/Igm 833881 VIKTORIA MT SPOTTED FEVER IGG EIA FLEX . 01/10/2016 [place] Spotted Fever Igg/Igm 349306 RMSF, IGG SCREEN-FLEX Equivocal 01/10/2016 Viktoria Mtn Spot'D Fev Igg 769025 RMSF, IGG -TITER IFA <1:64 Ehrlichia Chaffeensis Antibody Igm 762240 EHRLICHIA CHAFFEENSIS IGM < 1:16 01/09/2016 Ehrlichia Chaffeensis Antibody Igg 623906 EHRLICHIA CHAFFEENSIS IGG <1:64 01/09/2016 [place] Nile Virus Ab [id number] WEST NILE VIRUS AB IGG 0.33 IV 01/08/2016 [place] Nile Virus Ab [id number] WEST NILE VIRUS AB IGM 0.02 IV 01/08/2016 Lymes Disease Total Antibodies With Western Blot Reflex [id number] B. BURGDORFERI, IGG/IGM 0.09 LI 01/07/2016 Lymes Disease Total Antibodies With Western Blot Reflex [id number] 01/07/2016 Cbc With Differential Ord2 WBC 6.25 K/ul 01/05/2016 Cbc With Differential Ord2 RBC 4.43 M/ul 01/05/2016 Cbc With Differential Ord2 HGB 14.3 g/dl 01/05/2016 Cbc With Differential Ord2 Neut% 63.3 % 01/05/2016 Cbc With Differential Ord2 HCT 42.5 % 01/05/2016 Cbc With Differential Ord2 Lymph% 25.8 % 01/05/2016 Cbc With Differential Ord2 MCV 95.9 fl 01/05/2016 Cbc With Differential Ord2 [place]% 8.3 % 01/05/2016 Cbc With Differential Ord2 [...] 1.61 K/ul 01/05/2016 Cbc With Differential Ord2 [place] ABS# 0.5 K/ul 01/05/2016 Cbc With Differential Ord2 Eos ABS# 0.2 K/ul 01/05/2016 Cbc With Differential Ord2 Baso ABS# 0.0 K/ul 01/05/2016 Sed Rate Ord21 ESR 16 mm/hr 01/05/2016 C-Reactive Protein Qnt Crqnt CRP 0.4 mg/dl 01/05/2016 Comp Metabolic Fvz321 NA 138 mEq/L 01/05/2016 Comp Metabolic Bpd272 K 4.4 mEq/L 01/05/2016 Comp Metabolic Srx271 CL 103 mEq/L 01/05/2016 Comp Metabolic Iqh222 CO2 27.0 mEq/L 01/05/2016 Comp Metabolic Pec484 ANION GAP 12 01/05/2016 Comp Metabolic Jkt445 GLUCOSE 199 mg/dL 01/05/2016 Comp Metabolic Rwd135 Creat 0.8 mg/dL 01/05/2016 Comp Metabolic Hht550 eGFR 78 ml/min/1.73m2 01/05/2016 Comp Metabolic Yks959 BUN 15 mg/dL 01/05/2016 Comp Metabolic Zgx065 B/C Ratio 19.2 Ratio 01/05/2016 Comp Metabolic Zuq863 CALCIUM 9.4 mg/dL 01/05/2016 Comp Metabolic Vwt344 ALK PHOS 59 U/L 01/05/2016 Comp Metabolic Pdl973 AST(SGOT) 15 U/L 01/05/2016 Comp Metabolic Sdc099 ALT(SGPT) 19 U/L 01/05/2016 Comp Metabolic Ind947 BILI T 0.6 mg/dL 01/05/2016 Comp Metabolic Ibp314 ALBUMIN 4.2 g/dL 01/05/2016 Comp Metabolic Rod032 TPRO 6.6 g/dL 01/05/2016 Comp Metabolic Zda397 GLOB 2.4 g/dL 01/05/2016 Comp Metabolic Vog514 A/G Ratio 1.7 Ratio 01/05/2016 Comp Metabolic Ipf587 Osmo 282 mOsmo 01/05/2016 Lipid Ord30 CHOL [...] Lipid Ord30 C/HDL 5.7 Ratio 06/30/2015 %Hba1C Bdo808 % HbA1c 22490-4 5.8 % 06/30/2015 %Hba1C Xsy700 Gluc Ave 120 mg/dL 06/30/2015 Lipid Ord30 CHOL 274 mg/dL 02/27/2015 Lipid Ord30 HDL 44.0 mg/dl 02/27/2015 Lipid Ord30 TRIG 199 mg/dL 02/27/2015 Lipid Ord30 LDL 190 mg/dL 02/27/2015 Lipid Ord30 C/HDL 6.2 Ratio 02/27/2015 Microalbumin Ecb575 MicroAlb 0.2 mg/dL 02/27/2015 Tsh Ord6 hTSH II 2.53 uIU/mL 02/27/2015 Comp Metabolic Eux573 NA 139 mEq/L 02/27/2015 Comp Metabolic Ble078 K 4.3 mEq/L 02/27/2015 Comp Metabolic Jjb692 CL 105 mEq/L 02/27/2015 Comp Metabolic Yym112 CO2 28.0 mEq/L 02/27/2015 Comp Metabolic Gmf834 ANION GAP 10 02/27/2015 Comp Metabolic Fli220 GLUCOSE 116 mg/dL 02/27/2015 Comp Metabolic Mur700 Creat 0.9 mg/dL 02/27/2015 Comp Metabolic Hlj308 eGFR 70 ml/min/1.73m2 02/27/2015 Comp Metabolic Rxm089 BUN 20 mg/dL 02/27/2015 Comp Metabolic Edt540 B/C Ratio 23.3 Ratio 02/27/2015 Comp Metabolic Dek263 CALCIUM 9.0 mg/dL 02/27/2015 Comp Metabolic Lre752 ALK PHOS 59 U/L 02/27/2015 Comp Metabolic Pvr370 AST(SGOT) 15 U/L 02/27/2015 Comp Metabolic Bod562 ALT(SGPT) 17 U/L 02/27/2015 Comp Metabolic Cri263 BILI T 0.7 mg/dL 02/27/2015 Comp Metabolic Zhs591 ALBUMIN 3.9 g/dL 02/27/2015 Comp Metabolic Hgd578 TPRO 6.2 g/dL 02/27/2015 Comp Metabolic Vsm927 GLOB 2.3 g/dL 02/27/2015 Comp Metabolic Bdb411 A/G Ratio 1.7 Ratio 02/27/2015 Comp Metabolic Uio963 Osmo 281 mOsmo 02/27/2015 %Hba1C Kuf340 % HbA1c 87693-4 6.2 % 02/27/2015 %Hba1C Yyp991 Gluc Ave 131 mg/dL 02/27/2015 Cbc With [...] of Systems System Result Effective Dates Constitutional No recent illness 2018 Constitutional No anorexia 04/06/2018 Constitutional No night sweats 2018 Constitutional No chills 04/06/2018 Constitutional No diaphoresis 04/06/2018 Constitutional No fatigue 04/06/2018 Constitutional No fever 04/06/2018 Constitutional No insomnia 04/06/2018 Constitutional No malaise 04/06/2018 Eyes No eye discharge 04/06/2018 Eyes No eye erythema 04/06/2018 Ears/Nose/Throat/Neck No dizziness 2018 Ears/Nose/Throat/Neck No headache 2018 Ears/Nose/Throat/Neck No sore throat 12/2018 Cardiovascular No chest pain/pressure 12/2018 Cardiovascular No dyspnea 04/06/2018 Cardiovascular No edema 04/06/2018 Respiratory No cough 04/06/2018 Gastrointestinal No abdominal pain 2018 Gastrointestinal No constipation 2018 Gastrointestinal No diarrhea 04/06/2018 Genitourinary/Nephrology No dysuria 04/06 Musculoskeletal stiffness 04/06/2018 Musculoskeletal No back pain 04/06/2018 Dermatologic No rash 04/06/2018 Dermatologic No sores 04/06/2018 Neurologic No alteration of consciousness 04/06/2018 Psychiatric anxiety 04/06/2018 Psychiatric No depression 04/06/2018 Endocrine diabetes mellitus type 2 2018 Constitutional No recent illness 2017 Constitutional No anorexia 11/30/2017 Constitutional No night sweats 2017 Constitutional No chills 11/30/2017 Constitutional No diaphoresis 11/30/2017 Constitutional No fatigue 11/30/2017 Constitutional No fever 11/30/2017 Constitutional No insomnia 11/30/2017 Constitutional No malaise 11/30/2017 Eyes No eye discharge 11/30/2017 Eyes No eye erythema 11/30/2017 Ears/Nose/Throat/Neck No dizziness 2017 Ears/Nose/Throat/Neck No headache 2017 Ears/Nose/Throat/Neck nasal allergies 07/2017 Ears/Nose/Throat/Neck nasal discharge 07/2017 Ears/Nose/Throat/Neck No sore throat 07/2017 Cardiovascular No chest pain/pressure 07/2017 Cardiovascular No dyspnea 11/30/2017 Cardiovascular No edema 11/30/2017 Respiratory No cough 11/30/2017 Gastrointestinal No abdominal pain 2017 Gastrointestinal No constipation 2017 Gastrointestinal No diarrhea 11/30/2017 Genitourinary/Nephrology No dysuria 11/30 Neurologic No alteration of consciousness 11/30/2017 Psychiatric anxiety 11/30/2017 Psychiatric No depression 11/30/2017 Endocrine diabetes mellitus type 2 2017 Dermatologic No rash 11/30/2017 Dermatologic No sores 11/30/2017 Musculoskeletal stiffness 11/30/2017 Musculoskeletal No back pain 11/30/2017 Constitutional No recent illness 2017 Constitutional No anorexia 08/18/2017 Constitutional No night sweats 2017 Constitutional No chills 08/18/2017 Constitutional No diaphoresis 08/18/2017 Constitutional fatigue 08/18/2017 Constitutional No fever 08/18/2017 Constitutional No insomnia 08/18/2017 Constitutional No malaise 08/18/2017 Eyes No eye discharge 08/18/2017 Eyes No eye erythema 08/18/2017 Ears/Nose/Throat/Neck No dizziness 2017 Ears/Nose/Throat/Neck No nasal discharge 08/18/2017 Ears/Nose/Throat/Neck nasal lesion 2017 Cardiovascular No chest pain/pressure Cardiovascular No dyspnea 08/18/2017 Cardiovascular No edema 08/18/2017 Respiratory No productive sputum 2017 Respiratory No cough 08/18/2017 Gastrointestinal No abdominal pain 2017 Gastrointestinal No constipation 2017 Gastrointestinal No diarrhea 08/18/2017 Genitourinary/Nephrology No dysuria 08/18 Musculoskeletal No joint complaint 2017 Dermatologic No rash 08/18/2017 Neurologic No alteration of consciousness 08/18/2017 Musculoskeletal No stiffness 08/18/2017 Constitutional No recent illness 2017 Constitutional No anorexia 07/27/2017 Constitutional No night sweats 2017 Constitutional No chills 07/27/2017 Constitutional No diaphoresis 07/27/2017 Constitutional fatigue 07/27/2017 Constitutional No fever 07/27/2017 Constitutional No insomnia 07/27/2017 Constitutional No malaise 07/27/2017 Eyes No eye discharge 07/27/2017 Eyes No eye erythema 07/27/2017 Ears/Nose/Throat/Neck No dizziness 2017 Ears/Nose/Throat/Neck No nasal discharge 07/27/2017 Cardiovascular No chest pain/pressure 04/2017 Cardiovascular No dyspnea 07/27/2017 Cardiovascular No edema 07/27/2017 Respiratory No productive sputum 2017 Respiratory No cough 07/27/2017 Gastrointestinal No abdominal pain 2017 Gastrointestinal No constipation 2017 Gastrointestinal No diarrhea 07/27/2017 Genitourinary/Nephrology No dysuria 07/27 Musculoskeletal No joint complaint 2017 Dermatologic No rash 07/27/2017 Neurologic No alteration of consciousness 07/27/2017 Ears/Nose/Throat/Neck nasal lesion 2017 Constitutional No recent illness 2017 Constitutional No fatigue 06/22/2017 Constitutional No fever 06/22/2017 Cardiovascular No chest pain/pressure Cardiovascular No dyspnea 06/22/2017 Cardiovascular No edema 06/22/2017 Cardiovascular No exercise intolerance Cardiovascular No fatigue 06/22/2017 Cardiovascular No near-syncope/dizziness 06/22/2017 Respiratory No chest tightness 2017 Respiratory No cigarette smoking 2017 Respiratory No cough 06/22/2017 Respiratory No dyspnea 06/22/2017 Respiratory No pedal edema 06/22/2017 Respiratory No snoring 06/22/2017 Respiratory No wheezing 06/22/2017 Musculoskeletal stiffness 06/22/2017 Musculoskeletal back pain 06/22/2017 Psychiatric No anxiety 06/22/2017 Psychiatric No depression 06/22/2017 Constitutional No recent illness 2017 Constitutional No fatigue 06/07/2017 Constitutional No fever 06/07/2017 Psychiatric No anxiety 06/07/2017 Psychiatric No depression 06/07/2017 Musculoskeletal stiffness 06/07/2017 Musculoskeletal back pain 06/07/2017 Cardiovascular No chest pain/pressure Cardiovascular No dyspnea 06/07/2017 Cardiovascular No edema 06/07/2017 Cardiovascular No exercise intolerance Cardiovascular No fatigue 06/07/2017 Cardiovascular No near-syncope/dizziness 06/07/2017 Respiratory No chest tightness 2017 Respiratory No cigarette smoking 2017 Respiratory No cough 06/07/2017 Respiratory No dyspnea 06/07/2017 Respiratory No pedal edema 06/07/2017 Respiratory No snoring 06/07/2017 Respiratory No wheezing 06/07/2017 Constitutional No recent illness 2017 Constitutional No anorexia 04/27/2017 Constitutional No night sweats 2017 Constitutional No chills 04/27/2017 Constitutional No diaphoresis 04/27/2017 Constitutional fatigue 04/27/2017 Constitutional No fever 04/27/2017 Constitutional No insomnia 04/27/2017 Constitutional No malaise 04/27/2017 Eyes No eye discharge 04/27/2017 Eyes No eye erythema 04/27/2017 Ears/Nose/Throat/Neck No dizziness 2017 Ears/Nose/Throat/Neck headache 2017 Ears/Nose/Throat/Neck nasal allergies Ears/Nose/Throat/Neck No nasal discharge 04/27/2017 Cardiovascular No chest pain/pressure Cardiovascular No dyspnea 04/27/2017 Cardiovascular No edema 04/27/2017 Respiratory No productive sputum 2017 Respiratory No cough 04/27/2017 Gastrointestinal No abdominal pain 2017 Gastrointestinal No constipation 2017 Gastrointestinal No diarrhea 04/27/2017 Genitourinary/Nephrology No dysuria 04/27 Musculoskeletal No joint complaint 2017 Dermatologic No rash 04/27/2017 Neurologic No alteration of consciousness 04/27/2017 Constitutional recent illness 03/18/2017 Constitutional No chills [...] Result Effective Dates Notes Full Exam - General 1994 Constitutional general appearance Overall: well developed 04/06/2018 None Full Exam - General 1994 Constitutional general appearance Overall: in no acute distress 04/06/2018 None Full Exam - General 1994 Constitutional general appearance Overall: well nourished 04/06/2018 None Full Exam - General 1994 Eyes conjunctiva /eyelids Overall: conjunctiva clear 04/06/2018 None Full Exam - General 1994 Ears/Nose/Throat otoscopic exam Overall: external auditory canals clear 04/06/2018 None Full Exam - General 1994 Ears/Nose/Throat otoscopic exam Overall: tympanic membranes clear 04/06/2018 None Full Exam - General 1994 Ears/Nose/Throat oral cavity/pharynx/larynx Overall: oral mucosa clear 04/06/2018 None Full Exam - General 1994 Respiratory auscultation Overall: breath sounds clear bilaterally 04/06/2018 None Full Exam - General 1994 Respiratory respiratory effort/rhythm Overall: no retractions 04/06/2018 None Full Exam - General 1994 Respiratory respiratory effort/rhythm Overall: normal rate 04/06/2018 None Full Exam - General 1994 Cardiovascular extremities Overall: no clubbing 04/06/2018 None Full Exam - General 1994 Cardiovascular auscultation of heart Overall: regular rate 04/06/2018 None Full Exam - General 1994 Cardiovascular auscultation of heart Overall: normal heart sounds 04/06/2018 None Full Exam - General 1994 Abdomen abdominal exam Overall: no tenderness 04/06/2018 None Full Exam - General 1994 Abdomen abdominal exam Overall: normal bowel sounds 04/06/2018 None Full Exam - General 1994 Lymphatic neck nodes Overall: anterior cervical chain benign 04/06/2018 None Full Exam - General 1994 Lymphatic neck nodes Overall: posterior cervical chain benign 04/06/2018 None Full Exam - General 1994 Musculoskeletal lower extremity Palpation - knee: crepitus 04/06/2018 None Full Exam - General 1994 Neurologic deep tendon reflexes Overall: deep tendon reflexes intact 04/06/2018 None Full Exam - General 1994 Neurologic cranial nerves Overall: crainial nerves 2 - 12 grossly intact 04/06/2018 None Full Exam - General 1994 Psychiatric orientation/consciousness Overall: oriented to person, place and time 04/06/2018 None Full Exam - General 1994 Constitutional general appearance Overall: well developed 11/30/2017 None Full Exam - General 1994 Constitutional general appearance Overall: in no acute distress 11/30/2017 None Full Exam - General 1994 Constitutional general appearance Overall: well nourished 11/30/2017 None Full Exam - General 1994 Eyes conjunctiva /eyelids Overall: conjunctiva clear 11/30/2017 None Full Exam - General 1994 Ears/Nose/Throat otoscopic exam Overall: external auditory canals clear 11/30/2017 None Full Exam - General 1994 Ears/Nose/Throat otoscopic exam Overall: tympanic membranes clear 11/30/2017 None Full Exam - General 1994 Ears/Nose/Throat oral cavity/pharynx/larynx Overall: oral mucosa clear 11/30/2017 None Full Exam - General 1994 Respiratory auscultation Overall: breath sounds clear bilaterally 11/30/2017 None Full Exam - General 1994 Respiratory respiratory effort/rhythm Overall: no retractions 11/30/2017 None Full Exam - General 1994 Respiratory respiratory effort/rhythm Overall: normal rate 11/30/2017 None Full Exam - General 1994 Cardiovascular extremities Overall: no clubbing 11/30/2017 None Full Exam - General 1994 Cardiovascular auscultation of heart Overall: regular rate 11/30/2017 None Full Exam - General 1994 Cardiovascular auscultation of heart Overall: normal heart sounds 11/30/2017 None Full Exam - General 1994 Abdomen abdominal exam Overall: no tenderness 11/30/2017 None Full Exam - General 1994 Abdomen abdominal exam Overall: normal bowel sounds 11/30/2017 None Full Exam - General 1994 Neurologic deep tendon reflexes Overall: deep tendon reflexes intact 11/30/2017 None Full Exam - General 1994 Neurologic cranial nerves Overall: crainial nerves 2 - 12 grossly intact 11/30/2017 None Full Exam - General 1994 Psychiatric orientation/consciousness Overall: oriented to person, place and time 11/30/2017 None Full Exam - General 1994 Lymphatic neck nodes Overall: anterior cervical chain benign 11/30/2017 None Full Exam - General 1994 Lymphatic neck nodes Overall: posterior cervical chain benign 11/30/2017 None Full Exam - General 1994 Musculoskeletal lower extremity Palpation - knee: crepitus 11/30/2017 None Full Exam - General 1994 Constitutional general appearance Overall: well developed 08/18/2017 None Full Exam - General 1994 Constitutional general appearance Overall: in no acute distress 08/18/2017 None Full Exam - General 1994 Constitutional general appearance Overall: well nourished 08/18/2017 None Full Exam - General 1994 Eyes conjunctiva /eyelids Overall: conjunctiva clear 08/18/2017 None Full Exam - General 1994 Ears/Nose/Throat otoscopic exam Overall: external auditory canals clear 08/18/2017 None Full Exam - General 1994 Ears/Nose/Throat otoscopic exam Overall: tympanic membranes clear 08/18/2017 None Full Exam - General 1994 Ears/Nose/Throat internal nose Nasal cavity: ulceration 08/18/2017 medial aspect small ulcer Full Exam - General 1994 Ears/Nose/Throat oral cavity/pharynx/larynx Overall: oral mucosa clear 08/18/2017 None Full Exam - General 1994 Respiratory auscultation Overall: breath sounds clear bilaterally 08/18/2017 None Full Exam - General 1994 Respiratory respiratory effort/rhythm Overall: no retractions 08/18/2017 None Full Exam - General 1994 Respiratory respiratory effort/rhythm Overall: normal rate 08/18/2017 None Full Exam - General 1994 Cardiovascular extremities Overall: no clubbing 08/18/2017 None Full Exam - General 1994 Cardiovascular auscultation of heart Overall: regular rate 08/18/2017 None Full Exam - General 1994 Cardiovascular auscultation of heart Overall: normal heart sounds 08/18/2017 None Full Exam - General 1994 Neurologic cranial nerves Overall: crainial nerves 2 - 12 grossly intact 08/18/2017 None Full Exam - General 1994 Psychiatric orientation/consciousness Overall: oriented to person, place and time 08/18/2017 None Full Exam - General 1994 Abdomen abdominal exam Overall: no tenderness 08/18/2017 None Full Exam - General 1994 Abdomen abdominal exam Overall: normal bowel sounds 08/18/2017 None Full Exam - General 1994 Constitutional general appearance Overall: well developed 07/27/2017 None Full Exam - General 1994 Constitutional general appearance Overall: in no acute distress 07/27/2017 None Full Exam - General 1994 Constitutional general appearance Overall: well nourished 07/27/2017 None Full Exam - General 1994 Eyes conjunctiva /eyelids Overall: conjunctiva clear 07/27/2017 None Full Exam - General 1994 Ears/Nose/Throat otoscopic exam Overall: external auditory canals clear 07/27/2017 None Full Exam - General 1995 Ears/Nose/Throat otoscopic exam Overall: tympanic membranes clear 07/27/2017 None Full Exam - General 1994 Ears/Nose/Throat oral cavity/pharynx/larynx Overall: oral mucosa clear 07/27/2017 None Full Exam - General 1994 Respiratory auscultation Overall: breath sounds clear bilaterally 07/27/2017 None Full Exam - General 1994 Respiratory respiratory effort/rhythm Overall: no retractions 07/27/2017 None Full Exam - General 1994 Respiratory respiratory effort/rhythm Overall: normal rate 07/27/2017 None Full Exam - General 1994 Cardiovascular extremities Overall: no clubbing 07/27/2017 None Full Exam - General 1994 Cardiovascular auscultation of heart Overall: regular rate 07/27/2017 None Full Exam - General 1994 Cardiovascular auscultation of heart Overall: normal heart sounds 07/27/2017 None Full Exam - General 1994 Neurologic cranial nerves Overall: crainial nerves 2 - 12 grossly intact 07/27/2017 None Full Exam - General 1994 Psychiatric orientation/consciousness Overall: oriented to person, place and time 07/27/2017 None Full Exam - General 1994 Ears/Nose/Throat internal nose Nasal cavity: ulceration 07/27/2017 medial aspect small ulcer Full Exam - General 1994 Constitutional general appearance Overall: well developed 06/22/2017 None Full Exam - General 1994 Constitutional general appearance Overall: in no acute distress 06/22/2017 None Full Exam - General 1994 Constitutional general appearance Overall: well nourished 06/22/2017 None Full Exam - General 1994 Respiratory auscultation Overall: breath sounds clear bilaterally 06/22/2017 None Full Exam - General 1994 Respiratory respiratory effort/rhythm Overall: no retractions 06/22/2017 None Full Exam - General 1994 Respiratory respiratory effort/rhythm Overall: normal rate 06/22/2017 None Full Exam - General 1994 Cardiovascular auscultation of heart Overall: regular rate 06/22/2017 None Full Exam - General 1994 Cardiovascular auscultation of heart Overall: normal heart sounds 06/22/2017 None Full Exam - General 1994 Cardiovascular auscultation of heart Overall: no murmurs 06/22/2017 None Full Exam - General 1994 Musculoskeletal spine, ribs and pelvis Sacroiliac joints: tender left sacroiliac joint 06/22/2017 None Full Exam - General 1994 Musculoskeletal spine, ribs and pelvis Palpation: tender along femur 06/22/2017 lateral thigh ttp and deep in buttock on left Full Exam - General 1994 Musculoskeletal gait and station Gait: unable to turn quickly 06/22/2017 None Full Exam - General 1994 Psychiatric orientation/consciousness Overall: oriented to person, place and time 06/22/2017 None Full Exam - General 1994 Psychiatric mood and affect Overall: normal mood and affect 06/22/2017 None Full Exam - General 1994 Psychiatric mood and affect Mood: happy 06/22/2017 None Full Exam - General 1994 Cardiovascular extremities Other findings: varicose veins 06/22/2017 left medial inner lower leg - tender to palpation Full Exam - General 1994 Constitutional general appearance Overall: well nourished 06/07/2017 None Full Exam - General 1994 Constitutional general appearance Overall: well developed 06/07/2017 None Full Exam - General 1994 Constitutional general appearance Overall: in no acute distress 06/07/2017 None Full Exam - General 1994 Psychiatric orientation/consciousness Overall: oriented to person, place and time 06/07/2017 None Full Exam - General 1994 Psychiatric mood and affect Mood: happy 06/07/2017 None Full Exam - General 1994 Psychiatric mood and affect Overall: normal mood and affect 06/07/2017 None Full Exam - General 1994 Musculoskeletal gait and station Gait: unable to turn quickly 06/07/2017 None Full Exam - General 1994 Musculoskeletal spine, ribs and pelvis Sacroiliac joints: tender left sacroiliac joint 06/07/2017 None Full Exam - General 1994 Musculoskeletal spine, ribs and pelvis Palpation: tender along femur 06/07/2017 lateral thigh ttp and deep in buttock on left Full Exam - General 1994 Respiratory auscultation Overall: breath sounds clear bilaterally 06/07/2017 None Full Exam - General 1994 Respiratory respiratory effort/rhythm Overall: normal rate 06/07/2017 None Full Exam - General 1994 Respiratory respiratory effort/rhythm Overall: no retractions 06/07/2017 None Full Exam - General 1994 Cardiovascular auscultation of heart Overall: regular rate 06/07/2017 None Full Exam - General 1994 Cardiovascular auscultation of heart Overall: normal heart sounds 06/07/2017 None Full Exam - General 1994 Cardiovascular auscultation of heart Overall: no murmurs 06/07/2017 None Full Exam - General 1994 Constitutional general appearance Overall: well developed 04/27/2017 None Full Exam - General 1994 Constitutional general appearance Overall: in no acute distress 04/27/2017 None Full Exam - General 1994 Constitutional general appearance Overall: well nourished 04/27/2017 None Full Exam - General 1994 Eyes conjunctiva /eyelids Overall: conjunctiva clear 04/27/2017 None Full Exam - General 1994 Ears/Nose/Throat otoscopic exam Overall: external auditory canals clear 04/27/2017 None Full Exam - General 1994 Ears/Nose/Throat otoscopic exam Overall: tympanic membranes clear 04/27/2017 None Full Exam - General 1994 Ears/Nose/Throat oral cavity/pharynx/larynx Overall: oral mucosa clear 04/27/2017 None Full Exam - General 1994 Respiratory auscultation Overall: breath sounds clear bilaterally 04/27/2017 None Full Exam - General 1994 Respiratory respiratory effort/rhythm Overall: no retractions 04/27/2017 None Full Exam - General 1994 Respiratory respiratory effort/rhythm Overall: normal rate 04/27/2017 None Full Exam - General 1994 Cardiovascular extremities Overall: no clubbing 04/27/2017 None Full Exam - General 1994 Cardiovascular auscultation of heart Overall: regular rate 04/27/2017 None Full Exam - General 1994 Cardiovascular auscultation of heart Overall: normal heart sounds 04/27/2017 None Full Exam - General 1994 Abdomen abdominal exam Overall: no tenderness 04/27/2017 None Full Exam - General 1994 Abdomen abdominal exam Overall: normal bowel sounds 04/27/2017 None Full Exam - General 1994 Lymphatic neck nodes Overall: anterior cervical chain benign 04/27/2017 None Full Exam - General 1994 Lymphatic neck nodes Overall: posterior cervical chain benign 04/27/2017 None Full Exam - General 1994 Neurologic deep tendon reflexes Overall: deep tendon reflexes intact 04/27/2017 None Full Exam - General 1994 Neurologic cranial nerves Overall: crainial nerves 2 - 12 grossly intact 04/27/2017 None Full Exam - General 1994 Psychiatric orientation/consciousness Overall: oriented to person, place and time 04/27/2017 None Full Exam - General 1994 Integument inspection of skin Dermatitis: dryness/ flaking 04/27/2017 in ear on left Full Exam - ENT Constitutional general appearance [...] spine muscles bilaterally Procedures Procedure Codes Date URINALYSIS NONAUTO W/O SCOPE CPT-4: 15604 06/22/2017 THER/PROPH/DIAG INJ SC/IM CPT-4: 35274 06/07/2017 KETOROLAC TROMETHAMINE INJ CPT-4: J1885 06/07/2017 FLU VAC NO PRSV 4 MOI 3 YRS+ CPT-4: 84620 01/12/2017 ADMIN INFLUENZA VIRUS VAC CPT-4: G0008 01/12/2017 PPPS, SUBSEQ VISIT CPT -4: G0439 09/21/2016 URINALYSIS NONAUTO W/O SCOPE CPT-4: 18337 02/25/2016 Vital Signs Date Vital 04/06/2018 Blood Pressure 1: 122/80 Code : 8480-6 BMI: 28.5 Code : 12965-3 Heart Rate 1 : 92 bpm Height: 5'5" SpO2: 96% Weight: 171 lbs 11/30/2017 Blood Pressure 1: 120/76 Code : 8480-6 BMI: 28.6 Code : 48309-7 Heart Rate 1 : 91 bpm Height: 5'5" SpO2: 97% Weight: 172 lbs 08/18/2017 Blood Pressure 1: 126/78 Code : 8480-6 BMI: 28.6 Code : 76985-9 Heart Rate 1 : 88 bpm Height: 5'5" SpO2: 98% Weight: 172 lbs 07/27/2017 Blood Pressure 1: 140/76 Code : 8480-6 BMI: 28.0 Code : 75708-7 Heart Rate 1 : 99 bpm Height: 5'5" SpO2: 98% Temperature: 36.7 (C) / 98.1 (F) Weight: 168 lbs 06/22/2017 Blood Pressure 1: 134/70 Code : 8480-6 BMI: 29.1 Code : 07439-6 Heart Rate 1 : 94 bpm Height: 5'5" SpO2: 98% Weight: 175 lbs 06/07/2017 Blood Pressure 1: 136/70 Code : 8480-6 BMI: 28.6 Code : 03329-2 Heart Rate 1 : 78 bpm Height: 5'5" SpO2: 98% Weight: 172 lbs 04/27/2017 Blood Pressure 1: 132/70 Code : 8480-6 BMI: 28.5 Code : 01010-3 Heart Rate 1 : 93 bpm Height: 5'5" SpO2: 98% Weight: 171 lbs 03/18/2017 Blood Pressure 1: 144/84 Code : 8480-6 BMI: 29.1 Code : 64222-6 Heart Rate 1 : 94 bpm Height: 5'5" SpO2: 98% Weight: 175 lbs 12/09/2016 Blood Pressure 1: 134/78 Code : 8480-6 BMI: 29.0 Code : 76104-7 Heart Rate 1 : 89 bpm Height: 5'5" SpO2: 97% Weight: 174 lbs 10/18/2016 Blood Pressure 1: 166/92 Code : 8480-6 BMI: 29.4 Code : 31688-9 Heart Rate 1 : 94 bpm Height: 5'5" SpO2: 94% Weight: 176 lbs 8 oz 09/21/2016 Blood Pressure 1: 140/84 Code : 8480-6 BMI: 29.1 Code : 06654-4 Heart Rate 1 : 90 bpm Height: 5'5" SpO2: 97% Weight: 175 lbs 09/02/2016 Blood Pressure 1: 146/82 Code : 8480-6 BMI: 29.3 Code : 76651-0 Heart Rate 1 : 95 bpm Height: 5'5" SpO2: 98% Weight: 176 lbs 08/27/2016 Blood Pressure 1: 178/90 Code : 8480-6 Blood Pressure 1: 148/88 Code: 8480-6 Blood Pressure 1: 162/84 Code: 8480-6 BMI: 30.1 Code: 54979-3 Heart Rate 1: 80 bpm Height: 5'5" SpO2: 98% Weight: 181 lbs 04/29/2016 Blood Pressure 1: 152/76 Code : 8480-6 BMI: 30.1 Code : 46232-7 Heart Rate 1 : 99 bpm Height: 5'5" SpO2: 98% Temperature: 37.4 (C) / 99.3 (F) Weight: 181 lbs 02/12/2016 Blood Pressure 1: 136/82 Code : 8480-6 Heart Rate 1: 88 bpm SpO2: 97% 01/05/2016 Blood Pressure 1: 150/80 Code : 8480-6 BMI: 28.8 Code : 13240-9 Heart Rate 1 : 80 bpm Height: 5'5" SpO2: 98% Weight: 173 lbs 02/26/2015 Blood Pressure 1: 144/84 Code : 8480-6 Blood Pressure 1: 140/82 Code: 8480-6 BMI: 28.8 Code: 99663-8 Heart Rate 1: 81 bpm Height: 5'5" SpO2: 98% Weight: 173 lbs 08/27/2014 Blood Pressure 1: 132/80 Code : 8480-6 BMI: 28.1 Code : 25738-7 Height: 5'5" Weight: 169 lbs Functional Status No Functional Status data History of Present Illness Symptom Name Status Result Effective Date Notes Quality chronic 04/06 None Quality primary hypertension 04/06/2018 None Onset and Resolution ongoing 04/06/2018 None Onset of Symptom during adulthood 04/06/2018 None Blood Pressure Values patient checking blood pressure at home - did not bring in readings 2018 -Checks occasionally Alleviating Factors medication 04/06/2018 None Pertinent Findings decreased energy 04/06/2018 None Pertinent Findings Denies dyspnea 04/06/2018 None Pertinent Findings Denies edema 04/06/2018 None Quality non-insulin dependent 04/06/2018 None Quality chronic 04/06 None Alleviating Factors medication 04/06/2018 None Exacerbating Factors diet 04/06/2018 None Pertinent Findings Denies nausea 04/06/2018 None Glucose monitoring daily 04/06/2018 None hypertension Quality primary hypertension 11/30/2017 None hypertension Onset and Resolution ongoing 11/30/2017 None hypertension Onset of Symptom during adulthood 11/30/2017 None hypertension Blood Pressure Values patient checking blood pressure at home - did not bring in readings 11/30/2017 -Checks occasionally hypertension Alleviating Factors medication 11/30/2017 None hypertension Pertinent Findings Denies dyspnea 11/30/2017 None hypertension Pertinent Findings Denies edema 11/30/2017 None hypertension Quality chronic 11/30/2017 None diabetes mellitus Quality chronic 11/30/2017 None diabetes mellitus Quality non-insulin dependent 11/30/2017 None diabetes mellitus Alleviating Factors medication 11/30/2017 None diabetes mellitus Exacerbating Factors diet 11/30/2017 None diabetes mellitus Test results Pt checking blood glucose readings, did not bring results to clinic 11/30/2017 None diabetes mellitus Glucose monitoring fasting 11/30/2017 None hypertension Pertinent Findings decreased energy 11/30/2017 None diabetes mellitus Pertinent Findings Denies nausea 11/30/2017 None hypertension Quality primary hypertension 08/18/2017 None hypertension Onset and Resolution ongoing 08/18/2017 None hypertension Onset of Symptom during adulthood 08/18/2017 None hypertension Blood Pressure Values patient checking blood pressure at home - did not bring in readings 08/18/2017 -Checks occasionally hypertension Alleviating Factors medication 08/18/2017 None hypertension Pertinent Findings Denies dyspnea 08/18/2017 None hypertension Pertinent Findings Denies edema 08/18/2017 None knee pain Location on the left 08/18/2017 None knee pain Location in the medial region 08/18/2017 None knee pain Quality sharp pain 08/18/2017 None knee pain Quality acute 08/18/2017 None knee pain Quality intermittent 08/18/2017 None knee pain Timing of Episodes in the morning 08/18/2017 None knee pain Timing of Episodes in the afternoon 08/18/2017 None knee pain Timing of Episodes in the evening 08/18/2017 None knee pain Onset and Resolution sudden in onset 08/18/2017 None knee pain Frequency of Episodes daily 08/18/2017 None knee pain Alleviating Factors non weight bearing 08/18/2017 None knee pain Alleviating Factors NSAID's 08/18/2017 None knee pain Exacerbating Factors weight bearing 08/18/2017 None knee pain Pertinent Findings decreased range of motion 08/18/2017 None knee pain Pertinent Findings limping 08/18/2017 None knee pain Pertinent Findings pain with movement 08/18/2017 None knee pain Pertinent Findings weakness 08/18/2017 None knee pain Quality stable 08/18/2017 None knee pain Quality improving 08/18/2017 None nasal discharge Quality green 07/27/2017 None nasal discharge Quality acute 07/27/2017 None nasal discharge Quality bloody 07/27/2017 None nasal discharge Onset and Resolution sudden in onset 07/27/2017 None nasal discharge Location in both nares 07/27/2017 None nasal discharge Onset of Symptom 3 days ago 07/27/2017 None nasal discharge Frequency of Episodes daily 07/27/2017 None nasal discharge Pertinent Findings cough 07/27/2017 None nasal discharge Pertinent Findings sneezing 07/27/2017 None nasal discharge Pertinent Findings Denies fever 07/27/2017 None knee pain Location on the left 06/22/2017 None knee pain Quality sharp pain 06/22/2017 None knee pain Quality acute 06/22/2017 None knee pain Timing of Episodes in the morning 06/22/2017 None knee pain Timing of Episodes in the afternoon 06/22/2017 None knee pain Timing of Episodes in the evening 06/22/2017 None knee pain Onset and Resolution sudden in onset 06/22/2017 None knee pain Alleviating Factors NSAID's 06/22/2017 None knee pain Exacerbating Factors weight bearing 06/22/2017 None knee pain Pertinent Findings decreased range of motion 06/22/2017 None knee pain Pertinent Findings limping 06/22/2017 None knee pain Pertinent Findings pain with movement 06/22/2017 None knee pain Pertinent Findings weakness 06/22/2017 None knee pain Location in the medial region 06/22/2017 None knee pain Quality intermittent 06/22/2017 None knee pain Frequency of Episodes daily 06/22/2017 None knee pain Alleviating Factors non weight bearing 06/22/2017 None back pain Quality aching 06/07/2017 None back pain Onset and Resolution sudden in onset 06/07/2017 None back pain Limitation on Activities moderately limits activities 06/07/2017 None back pain Onset of Symptom _ days ago 06/07/2017 None back pain Triggers no known associated factors 06/07/2017 None back pain Pertinent Findings morning stiffness 06/07/2017 None back pain Pertinent Findings weakness 06/07/2017 None back pain Pertinent Findings sleep disturbance 06/07/2017 None knee pain Location on the left 06/07/2017 None knee pain Location in the lateral region 06/07/2017 None knee pain Quality sharp pain 06/07/2017 None knee pain Quality acute 06/07/2017 None knee pain Quality constant 06/07/2017 None knee pain Timing of Episodes in the morning 06/07/2017 None knee pain Timing of Episodes in the afternoon 06/07/2017 None knee pain Timing of Episodes in the evening 06/07/2017 None knee pain Timing of Episodes at night 06/07/2017 None knee pain Onset and Resolution sudden in onset 06/07/2017 None knee pain Onset of Symptom _ days ago 06/07/2017 None knee pain Mechanism of injury unknown 06/07/2017 None knee pain Mechanism of injury twisting with a popping sensation 06/07/2017 popping sensation knee pain Alleviating Factors NSAID's 06/07/2017 None knee pain Pertinent Findings decreased range of motion 06/07/2017 None knee pain Pertinent Findings limping 06/07/2017 None knee pain Pertinent Findings instability 06/07/2017 None knee pain Pertinent Findings pain with movement 06/07/2017 None knee pain Pertinent Findings weakness 06/07/2017 None knee pain Exacerbating Factors exertion 06/07/2017 None knee pain Exacerbating Factors weight bearing 06/07/2017 None knee pain Exacerbating Factors flexion of the knee 06/07/2017 None knee pain Exacerbating Factors extension of the knee 06/07/2017 None hypertension Quality primary hypertension 04/27/2017 None hypertension Onset and Resolution ongoing 04/27/2017 None hypertension Onset of Symptom during adulthood 04/27/2017 None hypertension Alleviating Factors medication 04/27/2017 None hypertension Blood Pressure Values patient checking blood pressure at home - did not bring in readings 04/27/2017 -Checks occasionally hypertension Pertinent Findings Denies dyspnea 04/27/2017 None hypertension Pertinent Findings Denies edema 04/27/2017 None earache Location left ear 04/27/2017 None earache Quality acute 04/27/2017 None earache Onset and Resolution ongoing 04/27/2017 None earache Triggers no known triggers 04/27/2017 None sinus congestion Location maxillary sinuses 03/18/2017 None [...] 02/26/2015 None 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 PATIENT, LEVEL IV Diagnosis: Essential (primary) hypertension[ICD10: I10] Diagnosis: Type 2 diabetes mellitus without complications[ICD10: E11.9] Diagnosis: Mixed hyperlipidemia[ICD10: E78.2] Deysi Thrasher MD, [facility] CPT-4: 46794 04/06/2018 [id number]) 95662 EST. PATIENT, LEVEL IV Diagnosis: Type 2 diabetes mellitus without complications[ICD10: E11.9] Diagnosis: Essential (primary) hypertension[ICD10: I10] Diagnosis: Pain in left knee[ICD10: M25.562] Diagnosis: Localized edema[ICD10: R60.0] Deysi Thrasher MD, [facility] CPT- 4: 37018 11/30/2017 [id number] 05041 EST. PATIENT, LEVEL IV Diagnosis: Essential (primary) hypertension[ICD10: I10] Diagnosis: Type 2 diabetes mellitus without complications[ICD10: E11.9] Deysi Thrasher MD, [facility] CPT-4: 44948 08/18/2017 [id number]) 34789 EST. PATIENT, LEVEL III Diagnosis: Essential (primary) hypertension[ICD10: I10] Diagnosis: Other specified disorders of nose and nasal sinuses[ICD10: J34.89] Deysi Thrasher MD, [facility] CPT-4: 02928 07/27/2017 ([id number]) 91049 EST. PATIENT, LEVEL III Diagnosis: Pain in left lower leg[ICD10: M79.662] Diagnosis: Dysuria[ICD10: R30.0] Deysi Thrasher MD [facility] CPT-4: 89255 06/22/2017 ([id number]) 58448 EST. PATIENT, LEVEL III Diagnosis: Sciatica, left side[ICD10: M54.32] Diagnosis: Low back pain[ICD10: M54.5] Deysi Thrasher MD [facility] CPT- 4: 30447 06/07/2017 ([id number]) Miscellaneous no charge Diagnosis: Dysuria[ICD10: R30.0] Deysi Thrasher MD [facility] CPT-4: 96422 05/23/2017 ([id number]) 72993 EST. PATIENT, LEVEL III Diagnosis: Essential (primary) hypertension[ICD10: I10] Diagnosis: Xerosis cutis[ICD10: L85.3] Deysi Thrasher MD [facility] CPT- 4: 24609 04/27/2017 71377 EST. PATIENT, LEVEL IV Diagnosis: Other acute sinusitis[ICD10: J01.80] Diagnosis: Other allergic rhinitis[ICD10: J30.89] Gayathri Thrasher MD, [facility] CPT-4: 75985 03/18/2017 08190 EST. PATIENT, LEVEL III Diagnosis: Other chest pain[ICD10: R07.89] Diagnosis: Essential (primary) hypertension[ICD10: I10] Gayathri Thrasher MD [facility] CPT-4: 83309 12/09/2016 ([id number]) 41683 EST. PATIENT, LEVEL IV Diagnosis: Essential (primary) hypertension[ICD10: I10] Diagnosis: Other allergic rhinitis[ICD10: J30.89] Diagnosis: Acne vulgaris[ICD10: L70.0] Diagnosis: Sacroiliitis, not elsewhere classified[ICD10: M46.1] Shraddha Thrashre MD, [facility] CPT-4: 49022 10/18/2016 ([id number]) Miscellaneous no charge Diagnosis: Essential (primary) hypertension[ICD10: I10] Shraddha Thrasher MD, [facility] CPT-4: 18992 09/02/2016 ([id number]) 87190 EST. PATIENT, LEVEL III Diagnosis: Essential (primary) hypertension[ICD10: I10] Shraddha Thrasher MD, [facility] CPT-4: 98456 08/27/2016 76326 EST. PATIENT, LEVEL III Diagnosis: Other allergic rhinitis[ICD10: J30.89] Diagnosis: Acute laryngopharyngitis[ICD10: J06.0] Gayathri Thrasher MD, [facility] CPT-4: 82555 04/29/2016 ([id number]) 48093 EST. PATIENT, LEVEL III Diagnosis: Cellulitis of neck[ICD10: L03.221] Shraddha Thrasher MD, [facility] CPT-4: 09739 02/12/2016 ([id number]) 25622 EST. PATIENT, LEVEL IV Diagnosis: Type 2 diabetes mellitus without complications[ICD10: E11.9] Diagnosis: Mixed hyperlipidemia[ICD10: E78.2] Diagnosis: Transient visual loss, left eye[ICD10: H53.122] Diagnosis: Headache[ICD10: R51] Diagnosis: Trigeminal neuralgia[ICD10: G50.0] Diagnosis: Insect bite (nonvenomous) of left front wall of thorax, initial encounter[ICD10: S20.362A] Deysi Thrasher MD, [facility] CPT-4: 19942 01/05/2016 ([id number]) 24575 EST. PATIENT, LEVEL III Diagnosis: Type 2 diabetes mellitus without complications[ICD10: E11.9] [facility] CPT-4: 30494 02/26/2015 ([id number]) OFFICE VISIT, NEW - LEVEL 3 Diagnosis: Diabetes mellitus[ICD9: 250.00] Diagnosis: Screening for breast cancer[ICD9: V76.10] Diagnosis: Screening for osteoporosis[ICD9: V82.81] [facility] CPT-4: 23729 08/27/2014 Plan of Care Planned Activity Notes Codes Status Date Patient Education: Patient Medication Summary Completed 04/12/2018 Care Plan: SCREENINGMAMMOGRAPHYDIGITAL LOINC : 09603-8 Pending 04/12/2018 Visit Plan: Diabetes Mellitus - controlled - [...] readings are starting to become less controlled. Hypertension - well controlled - continue with current medications, continue with no added salt diet. Pt has been encouraged to exercise daily. The pt has been advised to call the office if there are any acute concerns about change in blood pressure readings at home. Hyperlipidemia - pt has been counseled about appropriate diet, exercise, and need for low fat food choices. I have discussed the need for the patient to take medications as prescribed. If the patient has negative side effects from the medication, they are to CALL the office and not abruptly discontinue the medication without discussion with a practitioner in the office. We will check labs in 3-6 months for follow up on the patient's chronic medical problem and to assure normal liver response to medications. 04/06/2018 Appointment: [facility] [phone] [facility] (15 min) Moderate 04/06/2018 Patient Education: Patient Medication Summary Completed 04/06/2018 Patient Education: Diabetes Completed 04/06/2018 Patient Education: Cholesterol Management Completed 04/06/2018 Care Plan: SCREENINGMAMMOGRAPHYDIGITAL LOINC : 58715-8 Pending 04/06/2018 Visit Plan: Diabetes Mellitus - controlled - [...] readings are starting to become less controlled. Hypertension - well controlled - continue with current medications, continue with no added salt diet. Pt has been encouraged to exercise daily. The pt has been advised to call the office if there are any acute concerns about change in blood pressure readings at home. Edema - stable with compression socks - discussed different compression socks with pt. 11/30/2017 Appointment: [facility]el[facility] [phone] [facility] (15 min) Moderate 11/30/2017 Patient Education: Patient Medication Summary Completed 11/30/2017 Visit Plan: Hypertension - well controlled - [...] readings are starting to become less controlled. 08/18/2017 Visit Plan: Hypertension - well controlled - [...] readings are starting to become less controlled. 08/18/2017 Appointment: Deysi Thrasher WPtel: [phone] [facility] (15 min) Moderate 08/18/2017 Patient Education: Patient Medication Summary Completed 08/18/2017 Care Plan: Microalbumin Pending 08/18/2017 Visit Plan: Hypertension - well controlled - continue with current medications, continue with no added salt diet. Pt has been encouraged to exercise daily. The pt has been advised to call the office if there are any acute concerns about change in blood pressure readings at home. Nasal irritation in medial aspect of nasal cavity - pt advised as follows: vaseline twice daily in nasal passages use nelimed sinus rinse at night use saline spray as needed for nasal discharge. 07/27/2017 Appointment: [facility]el[facility] [phone] [facility] (15 min) Moderate 07/27/2017 Patient Education: Patient Medication Summary Completed 07/27/2017 Visit Plan: Varicose vein - thrombophlebitis take an enteric coated 81 mg aspirin daily x 4 weeks keflex antibiotic - take this four times a day x 7 days - take a probiotic with the antibiotic. (this will help to prevent diarrhea) salonpas lidocaine patch 4% - apply on the leg one time daily - leave on for 12 hours and off for 12 hours. 06/22/2017 Appointment: Deysi Thrasher WPtel: [id number] (15 min) Moderate 06/22/2017 Patient Education: Patient Medication Summary Completed 06/22/2017 Visit Plan: Low back pain - SI joint pain - Sciatica - recommended pt to start on exercises for low back - rx for naproxen, ketorolac shot today. 06/07/2017 Appointment: Deysi Thrasher WPtel: [facility]0 [id number] (15 min) Moderate 06/07/2017 Patient Education: Patient Medication Summary Completed 06/07/2017 Visit Plan: ua collected 05/23/2017 Appointment: Lab Draw 05/23/2017 Patient Education: Patient Medication Summary Completed 05/23/2017 Visit Plan: Hypertension - well controlled - continue with current medications, continue with no added salt diet. Pt has been encouraged to exercise daily. The pt has been advised to call the office if there are any acute concerns about change in blood pressure readings at home. Dry skin - RX for clobetasol, call if not better 04/27/2017 Appointment: Deysi Thrasher WPtel: [facility] (15 min) Moderate 04/27/2017 Patient Education: Patient Medication Summary Completed 04/27/2017 Appointment: Gayathri Elizabeth WPtel: [phone] [facility] (15 min) Moderate 04/22/2017 Visit Plan: Sinusitis - Pt has acute [...] allergy spray. 03/18/2017 Appointment: [phone] [facility] (15 min) Moderate 03/18/2017 Patient Education: Patient Medication Summary Completed 03/18/2017 Appointment: Nurse Visit 01/12/2017 Patient Education: Patient Medication Summary Completed 01/12/2017 Visit Plan: Chest pain - sudden in onset, improving - pt has had uncontrolled blood pressures and has had medication adjustments in the past, but has not seen a oracle developer - will check labs and EKG - [...] acute concerns. 12/09/2016 Appointment: Gayathri Elizabeth [facility]el[facility] [phone] [facility] (30 min) Complex 12/09/2016 Patient Education: Patient Medication Summary Completed 12/09/2016 Patient Education: Hypertension Completed 12/09/2016 Care Plan: Referral Order SNOMED-CT : [id number] Pending 12/09/2016 Appointment: Nurse Visit 11/08/2016 Visit [...] anti histamine 10/18/2016 Appointment: Shraddha Dillon WPtel: [phone] (15 min) Moderate 10/18/2016 Patient Education: Patient [...] Joseph 09/02/2016 Appointment: Shraddha Dillon WPtel: [phone] [phone] (15 min) Moderate 09/02/2016 Patient Education: Patient [...] ECHOCARDIOGRAM 08/27/2016 Appointment: Shraddha Dillon WPtel: [phone] [phone] (10 min) Simple 08/27/2016 Patient Education: Patient [...] allergy spray. 04/29/2016 Appointment: Gayathri Elizabeth WPtel: [facility] (30 min) Complex 04/29/2016 Patient Education: Patient Medication Summary Completed 04/29/2016 Appointment: Lab Draw 02/25/2016 Patient Education: Patient Medication Summary Completed 02/25/2016 Visit Plan: Cellulitis - continue with oral antibiotics as previously directed, return to clinic as previously directed, call for acute change in symptoms, worsening redness, warmth, discharge. 02/12/2016 Appointment: Shraddha Dillon WPtel: [phone] (10 min) Simple 02/12/2016 Patient Education: Patient [...] no evidence of stroke 01/05/2016 Appointment: [facility]el[facility] [phone] [facility] (15 min) Moderate 01/05/2016 Appointment: Gayathri Elizabeth [facility]Ptel[facility] [phone] [facility] (30 min) Complex 01/05/2016 Patient Education: Patient [...] 02/26/2015 Care Plan: MICROALBUMIN QUANTITATIVE LOINC : 90917-0 Ordered 02/26/2015 Care Plan: COMPLETE CBC AUTOMATED LOINC : 54097-8 Ordered 02/26/2015 Patient Education: Patient Medication Summary [...] calling her for appt Initiated Instructions Comment . Hypertension - well controlled - continue [...] readings are starting to become less controlled. Dr. Sebastian, Dr. Roth, Dr. Durán - surgeons in [place] Dr. Mojica, Dr. Mauricio - in [place] Dr. 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 . Chest pain - sudden in onset, improving - pt has had uncontrolled blood pressures and has had medication adjustments in the past, but has not seen a oracle developer - will check labs and EKG - [...] pt is to call for acute concerns. . URI - Pt advised to increase fluids, [...] in the nasal steroid allergy spray. . ua collected take an enteric coated 81 mg aspirin daily x 4 weeks keflex antibiotic - take this four times a day x 7 days - take a probiotic with the antibiotic. (this will help to prevent diarrhea) salonpas lidocaine patch 4% - apply on the leg one time daily - leave on for 12 hours and off for 12 hours. . Varicose vein - thrombophlebitis take an enteric coated 81 mg aspirin daily x 4 weeks keflex antibiotic - take this four times a day x 7 days - take a probiotic with the antibiotic. (this will help to prevent diarrhea) salonpas lidocaine patch 4% - apply on the leg one time daily - leave on for 12 hours and off for 12 hours. . Low back pain - SI joint pain - Sciatica - recommended pt to start on exercises for low back - rx for naproxen, ketorolac shot today. . Sinusitis - Pt has acute infection [...] spray in the nasal steroid allergy spray. vaseline twice daily in nasal passages use nelimed sinus rinse at night use saline spray as needed for nasal discharge. . Hypertension - well controlled - continue with current medications, continue with no added salt diet. Pt has been encouraged to exercise daily. The pt has been advised to call the office if there are any acute concerns about change in blood pressure readings at home. Nasal irritation in medial aspect of nasal cavity - pt advised as follows: vaseline twice daily in nasal passages use nelimed sinus rinse at night use saline spray as needed for nasal discharge. BRING BLOOD PRESSURE MACHINE IN TO HAVE [...] worsen. Allergies-left ear itching-recommend anti histamine . 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 SCHEDULE ECHOCARDIOGRAM . Hypertension - well controlled - continue [...] are starting to become less controlled. . Diabetes Mellitus - controlled - per [...] change in symptoms, worsening redness, warmth, discharge. on [employer] - look for Vitalsox - compression socks . Diabetes Mellitus - controlled - per [...] readings are starting to become less controlled. Hypertension - well controlled - continue with current medications, continue with no added salt diet. Pt has been encouraged to exercise daily. The pt has been advised to call the office if there are any acute concerns about change in blood pressure readings at home. Edema - stable with compression socks - discussed different compression socks with pt. . Diabetes Mellitus - controlled - per [...] readings are starting to become less controlled. Hypertension - well controlled - continue with current medications, continue with no added salt diet. Pt has been encouraged to exercise daily. The pt has been advised to call the office if there are any acute concerns about change in blood pressure readings at home. Hyperlipidemia - pt has been counseled about appropriate diet, exercise, and need for low fat food choices. I have discussed the need for the patient to take medications as prescribed. If the patient has negative side effects from the medication, they are to CALL the office and not abruptly discontinue the medication without discussion with a practitioner in the office. We will check labs in 3-6 months for follow up on the patient's chronic medical problem and to assure normal liver response to medications. . Hypertension - well controlled - continue with current medications, continue with no added salt diet. Pt has been encouraged to exercise daily. The pt has been advised to call the office if there are any acute concerns about change in blood pressure readings at home. Dry skin - RX for clobetasol, call if not better . HTN-not well controlled-take low dose lisinopril daily- start with 2.5mg daily-increase to 5mg daily if needed-call with readings or other symptoms as discussed-keep appt with Dr Joseph Plan: (G0275) SCREENINGMAMMOGRAPHYDIGITAL . Diabetes Mellitus - controlled - [...]
[2018-04-28 07:25] VITALS: BP 130/100
--- OUTSIDE RECORDS SUMMARY | 2018-04-28 07:25 | XMS REPORT | CCD ---
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 Name Role Phone PP Unavailable CCM Unavailable Summary Purpose Interface Exchange Insurance Providers Payer name Policy type / Coverage type Covered constitution party ID Effective Begin Date Effective End Date WPS Medicare Part B Medicare Part B [id number] 2017 Unknown [employer] Medicare Part B [id number] Unknown Family history Son Diagnosis Age At [...] Unknown 5 08/27/[address]: 888169796 Never smoker 08/27/[address]: 715714829 Never drinks alcohol 08/27/2014 Allergies, Adverse Reactions, Alerts Substance Reaction Codes Entered Date Inactivated Date Status * OTHER REACTION - SEE ANSWER BOX statin-myalgia Unknown 2017 No Inactive Date Active CODEINE RxNorm: 2670 08/27/2014 No Inactive Date Active hydrocodone emesis Unknown 07/27/2017 No Inactive Date Active Levaquin diarrhea RxNorm: 81355 07/27/2017 No Inactive Date Active Penicillin Unknown [...] Start Date Stop Date Status Fill Instructions Zetia 10 mg tablet RxNorm: 083706 Tablet(s) TAKE ONE TABLET BY MOUTH EVERY NIGHT AT BEDTIME 04/13/2018 08/10/2018 Active Vitamin C 500 mg tablet RxNorm: 932083 1 Tablet(s) PO daily 12/201805/05/2018 Active lisinopril 5 mg tablet RxNorm: 255197 TAKE 1/2 TABLET BY MOUTH TWO TIMES A DAY 01/30/2018 07/28/2018 Active naproxen 500 mg tablet RxNorm: 321980 TAKE ONE TABLET BY MOUTH TWICE A DAY 11/18/2017 01/16/2018 Inactive Retin-A Micro 0.1 % topical gel RxNorm: 125403 1 Application TOP BID 08/18/2017 12/15/2017 Inactive tamsulosin 0.4 mg capsule RxNorm: 925115 1 Capsule(s) PO daily 07/21/2017 08/17/2017 Inactive naproxen 500 mg tablet RxNorm: 241656 TAKE ONE TABLET BY MOUTH TWICE A DAY 07/19/2017 09/16/2017 Inactive Keflex 500 mg capsule RxNorm: 813922 1 Capsule(s) PO QID 201706/28/2017 Inactive ketorolac 60 mg/2 mL intramuscular solution RxNorm: 653905 2 Milliliter(s) IM 06/07/2017 06/07/2017 Inactive naproxen 500 mg tablet RxNorm: 659293 1 Tablet(s) PO BID 201707/06/2017 Inactive lisinopril 5 mg tablet RxNorm: 982937 1/2 Tablet(s) PO BID 04/201711/22/2017 Inactive Cipro 500 mg tablet RxNorm: 537027 1 Tablet(s) PO BID 201706/01/2017 Inactive Cipro 500 mg tablet RxNorm: 709782 1 Tablet(s) PO BID 201705/22/2017 Inactive clobetasol 0.05 % topical cream RxNorm: 993154 1 Application TOP BID as needed Itching 04/27/2017 No Stop Date Active Kombiglyze XR 5 mg-1,000 mg tablet,extended release RxNorm: 3381981 TAKE ONE TABLET BY MOUTH DAILY 04/04/20172018 Inactive Kombiglyze XR 5 mg-1,000 mg tablet,extended release RxNorm: 5832258 TAKE ONE TABLET BY MOUTH DAILY 04/04/20172017 Inactive Zithromax Z-Jose 250 mg tablet RxNorm: 632415 1 Tablet(s) PO UD 03/18/2017 04/26/2017 Inactive Kombiglyze XR 5 mg-1,000 mg tablet,extended release RxNorm: 3768546 TAKE ONE TABLET BY MOUTH DAILY 12/22/20162016 Inactive lisinopril 5 mg tablet RxNorm: 441629 1/2 Tablet(s) PO BID 03/08/2017 Inactive clobetasol 0.05 % topical cream RxNorm: 313408 1 Application TOP BID 10/18/2016 No Stop Date Active yjmvqpuu-brqaczmff-btoyiygbz 3.5 mg/mL-10,000 unit/mL-1 % ear solution RxNorm: 155610 2 OTIC QID 10/18/2016 10/24/2016 Inactive lisinopril 5 mg tablet RxNorm: 132919 1/2-1 Tablet(s) PO daily 09/02/2016 11/30/2016 Inactive start 1/2 tab daily-increase to a full tab if needed lisinopril 20 mg tablet RxNorm: 739351 1 Tablet(s) PO daily 04/201609/01/2016 Inactive Lofibra 54 mg tablet RxNorm: 805010 1 Tablet(s) PO daily 201604/26/2017 Inactive DC fenofibrate 40 mg Lofibra 54 mg tablet RxNorm: 032025 1 Tablet(s) PO daily 201607/06/2016 Inactive DC fenofibrate 40 mg fenofibrate 40 mg tablet RxNorm: 774832 1 Tablet(s) PO daily 07/06/2016 Inactive fenofibrate 40 mg tablet RxNorm: 497357 1 Tablet(s) PO daily 07/01/2016 Inactive Kombiglyze XR 5 mg-1,000 mg tablet,extended release RxNorm: 9353648 TAKE ONE TABLET BY MOUTH DAILY 06/21/20162016 Inactive Kombiglyze XR 5 mg-1,000 mg tablet,extended release RxNorm: 8408158 Tablet(s) TAKE ONE TABLET BY MOUTH DAILY 05/05/2016 06/20/2016 Inactive Zyrtec 10 mg tablet RxNorm: 8303065 1 Tablet(s) PO daily 04/2905/28/2016 Inactive Zithromax Z-Jose 250 mg tablet RxNorm: 182414 1 Tablet(s) PO UD 04/29/2016 07/01/2016 Inactive Bactrim DS 800 mg-160 mg tablet RxNorm: 204582 1 Tablet(s) PO BID 02/25/2016 02/24/2016 Inactive Bactrim DS 800 mg-160 mg tablet RxNorm: 605472 1 Tablet(s) PO BID 02/25/2016 03/02/2016 Inactive WelChol 625 mg tablet RxNorm: 859859 3 Tablet(s) PO BID 201502/19/2016 Inactive WelChol 625 mg tablet RxNorm: 510015 3 Tablet(s) PO BID with meals 02/20/2016 04/19/2016 Inactive dc zetia doxycycline hyclate 100 mg tablet RxNorm: 590410 1 Tablet(s) PO BID 02/12/2016 02/18/2016 Inactive doxycycline hyclate 100 mg tablet RxNorm: 398505 1 Tablet(s) PO BID 01/05/2016 01/18/2016 Inactive prednisone 20 mg tablet RxNorm: 933274 3 Tablet(s) PO daily 12/201501/09/2016 Inactive Zetia 10 mg tablet RxNorm: 014547 TAKE ONE TABLET BY MOUTH EVERY NIGHT AT BEDTIME 11/13/2015 02/19/2016 Inactive Kombiglyze XR 5 mg-1,000 mg tablet,extended release RxNorm: 7454765 TAKE ONE TABLET BY MOUTH DAILY 07/24/20152015 Inactive Zetia 10 mg tablet RxNorm: 426156 1 Tablet(s) PO QHS 201511/04/2015 Inactive Zetia 10 mg tablet RxNorm: 197620 1 Tablet(s) PO QHS 201507/07/2015 Inactive Kombiglyze XR 5 mg-1,000 mg tablet,extended release RxNorm: 6708077 1 Tablet(s) PO daily 04/16/2015 07/14/2015 Inactive Fish Oil 1,000 mg capsule RxNorm: 1200 Capsule(s) PO BID No Start Date Active Calcium + D oral RxNorm: 004348 oral No Start Date Active Flaxseed Meal RxNorm: 710918 miscellaneous No Start Date Active Vitamin D3 5,000 unit tablet RxNorm: 913567 1 Tablet(s) PO daily No Start Date Active Multiple Vitamin oral RxNorm: 42693 oral No Start Date Active Kombiglyze XR 5 mg-1,000 mg tablet,extended release RxNorm: 3762144 1 Tablet(s) PO daily No Start Date 04/15/2015 Inactive Medication Administered Medication Codes Instructions Start Date Status ketorolac 60 mg/2 mL intramuscular solution RxNorm: 287653 2Milliliter 06/07/2017 No longer Active Immunizations Vaccine [...] TSH (3rd IS) 1.92 uIU/mL 04/12/2018 Microalbumin Tef846 MicroAlb <0.7 mg/dL 04/12/2018 Cbc With Differential [...] 31.0 pg 04/12/2018 Cbc With Differential Ord2 Nance% 9.1 % 04/12/2018 Cbc With Differential Ord2 [...] 2.19 K/ul 04/12/2018 Cbc With Differential Ord2 Nance ABS# 0.7 K/ul 04/12/2018 Cbc With Differential Ord2 Eos ABS# 0.3 K/ul 04/12/2018 Cbc With Differential Ord2 Baso ABS# 0.0 K/ul 04/12/2018 Comp Metabolic Sgw161 NA 140 mEq/L 04/12/2018 Comp Metabolic Vbv660 K 4.5 mEq/L 04/12/2018 Comp Metabolic Yru912 CL 104 mEq/L 04/12/2018 Comp Metabolic Gxj608 CO2 26.0 mEq/L 04/12/2018 Comp Metabolic Ccg339 ANION GAP 15 04/12/2018 Comp Metabolic Guc160 GLUCOSE 111 mg/dL 04/12/2018 Comp Metabolic Osx095 Creat 0.7 mg/dL 04/12/2018 Comp Metabolic Upf738 eGFR 82 ml/min/1.73m2 04/12/2018 Comp Metabolic Ifk836 BUN 25 mg/dL 04/12/2018 Comp Metabolic Zpy337 B/C Ratio 33.8 Ratio 04/12/2018 Comp Metabolic Xzq215 CALCIUM 9.5 mg/dL 04/12/2018 Comp Metabolic Bmz446 ALK PHOS 56 U/L 04/12/2018 Comp Metabolic Tnz304 AST(SGOT) 12 U/L 04/12/2018 Comp Metabolic Uev922 ALT(SGPT) 13 U/L 04/12/2018 Comp Metabolic Bre379 BILI T 0.5 mg/dL 04/12/2018 Comp Metabolic Tsv035 ALBUMIN 4.0 g/dL 04/12/2018 Comp Metabolic Rdt233 TPRO 6.2 g/dL 04/12/2018 Comp Metabolic Tzo680 GLOB 2.2 g/dL 04/12/2018 Comp Metabolic Tzm066 A/G Ratio 1.8 Ratio 04/12/2018 Comp Metabolic Lfb007 Osmo 284 mOsmo 04/12/2018 Lipid Ord30 CHOL 280 mg/dL 04/12/2018 Lipid Ord30 HDL 45.0 mg/dl 04/12/2018 Lipid Ord30 TRIG 346 mg/dL 04/12/2018 Lipid Ord30 LDL Unable to calculate Due to elevated triglycerides mg/dL 04/12/2018 Lipid Ord30 C/HDL 6.2 Ratio 04/12/2018 %Hba1C Qbr639 % HbA1c 45690-2 6.3 % 04/12/2018 %Hba1C Lzq424 Gluc Ave 134 mg/dL 04/12/2018 Lipid Ord30 CHOL 261 mg/dL 08/31/2017 Lipid Ord30 HDL 45.0 mg/dl 08/31/2017 Lipid Ord30 TRIG 173 mg/dL 08/31/2017 Lipid Ord30 LDL 181 mg/dL 08/31/2017 Lipid Ord30 C/HDL 5.8 Ratio 08/31/2017 %Hba1C Neo048 % HbA1c 22352-6 6.1 % 08/31/2017 %Hba1C Lbn226 Gluc Ave 128 mg/dL 08/31/2017 Comp Metabolic Vyk477 NA 139 mEq/L 08/31/2017 Comp Metabolic Zqk086 K 4.4 mEq/L 08/31/2017 Comp Metabolic Ktk099 CL 107 mEq/L 08/31/2017 Comp Metabolic Dja117 CO2 23.0 mEq/L 08/31/2017 Comp Metabolic Opr190 ANION GAP 13 08/31/2017 Comp Metabolic Mcr778 GLUCOSE 110 mg/dL 08/31/2017 Comp Metabolic Kdt713 Creat 0.7 mg/dL 08/31/2017 Comp Metabolic Nmc277 eGFR 92 ml/min/1.73m2 08/31/2017 Comp Metabolic Vil662 BUN 20 mg/dL 08/31/2017 Comp Metabolic Okh455 B/C Ratio 29.9 Ratio 08/31/2017 Comp Metabolic Eyy736 CALCIUM 9.0 mg/dL 08/31/2017 Comp Metabolic Myr508 ALK PHOS 51 U/L 08/31/2017 Comp Metabolic Her837 AST(SGOT) 12 U/L 08/31/2017 Comp Metabolic Fnh327 ALT(SGPT) 14 U/L 08/31/2017 Comp Metabolic Zbu925 BILI T 0.4 mg/dL 08/31/2017 Comp Metabolic Efn212 ALBUMIN 3.7 g/dL 08/31/2017 Comp Metabolic Aqs486 TPRO 5.8 g/dL 08/31/2017 Comp Metabolic Uho797 GLOB 2.1 g/dL 08/31/2017 Comp Metabolic Vyf814 A/G Ratio 1.8 Ratio 08/31/2017 Comp Metabolic Bwt402 Osmo 281 mOsmo 08/31/2017 Urine Culture Ucult Preliminary NO Growth Day 1 06/24/2017 Urine Culture Ucult Complete NO Growth Day 2 06/24/2017 Culture Urine [id number] URINE CULTURE SEE NOTES 05/26/2017 Culture Urine [id number] Continued Results 05/26/2017 Urine Culture Ucult Complete [...] 31.9 pg 10/06/2016 Cbc With Differential Ord2 Nance% 9.8 % 10/06/2016 Cbc With Differential Ord2 [...] 1.63 K/ul 10/06/2016 Cbc With Differential Ord2 [place] ABS# 0.6 K/ul 10/06/2016 Cbc With Differential Ord2 Eos ABS# 0.3 K/ul 10/06/2016 Cbc With Differential Ord2 Baso ABS# 0.0 K/ul 10/06/2016 Comp Metabolic Nxs606 NA 140 mEq/L 10/06/2016 Comp Metabolic Tmk016 K 4.3 mEq/L 10/06/2016 Comp Metabolic Grp200 CL 107 mEq/L 10/06/2016 Comp Metabolic Kai256 CO2 25.0 mEq/L 10/06/2016 Comp Metabolic Pqk468 ANION GAP 12 10/06/2016 Comp Metabolic Zow193 GLUCOSE 122 mg/dL 10/06/2016 Comp Metabolic Gcs713 Creat 0.7 mg/dL 10/06/2016 Comp Metabolic Ibj007 eGFR 84 ml/min/1.73m2 10/06/2016 Comp Metabolic Znt913 BUN 17 mg/dL 10/06/2016 Comp Metabolic Uly503 B/C Ratio 23.3 Ratio 10/06/2016 Comp Metabolic Vsb703 CALCIUM 9.0 mg/dL 10/06/2016 Comp Metabolic Tde613 ALK PHOS 52 U/L 10/06/2016 Comp Metabolic Imp610 AST(SGOT) 18 U/L 10/06/2016 Comp Metabolic Jho196 ALT(SGPT) 22 U/L 10/06/2016 Comp Metabolic Uyv261 BILI T 0.6 mg/dL 10/06/2016 Comp Metabolic Czf189 ALBUMIN 3.9 g/dL 10/06/2016 Comp Metabolic Cux472 TPRO 6.1 g/dL 10/06/2016 Comp Metabolic Som739 GLOB 2.2 g/dL 10/06/2016 Comp Metabolic Svr226 A/G Ratio 1.8 Ratio 10/06/2016 Comp Metabolic Uif776 Osmo 282 mOsmo 10/06/2016 %Hba1C Iex323 % HbA1c 07046-7 6.4 % 10/06/2016 %Hba1C Uvy165 Gluc Ave 137 mg/dL 10/06/2016 %Hba1C Mel720 % HbA1c 13261-5 6.3 % 05/21/2016 %Hba1C Bfo127 Gluc Ave 134 mg/dL 05/21/2016 Hepatic Grx603 ALBUMIN 4.2 g/dL 05/21/2016 Hepatic Hhm424 TPRO 6.6 g/dL 05/21/2016 Hepatic Avg012 GLOB 2.4 g/dL 05/21/2016 Hepatic Ere911 A/G Ratio 1.7 Ratio 05/21/2016 Hepatic Eus951 ALK PHOS 64 U/L 05/21/2016 Hepatic Usy739 ALT(SGPT) 16 U/L 05/21/2016 Hepatic Ewh907 AST(SGOT) 13 U/L 05/21/2016 Hepatic Rzn899 BILI T 0.5 mg/dL 05/21/2016 Hepatic Htj410 BILI D 0.1 mg/dL 05/21/2016 Hepatic Vbq422 BILI I 0.4 mg/dL 05/21/2016 Lipid Ord30 CHOL 285 mg/dL 05/21/2016 Lipid Ord30 HDL 42.0 mg/dl 05/21/2016 Lipid Ord30 TRIG 364 mg/dL 05/21/2016 Lipid Ord30 LDL 0 Unable to calculate Due to elevated triglycerides mg/dL 05/21/2016 Lipid Ord30 C/HDL 6.8 Ratio 05/21/2016 C A/B FLU [id number] Influenza A Scr Negative 04/29/2016 C A/B FLU [id number] Influenza B Scr Negative 04/29/2016 Urine Culture [...] 96.9 fl 02/12/2016 Cbc With Differential Ord2 Nance% 10.5 % 02/12/2016 Cbc With Differential Ord2 [...] 1.39 K/ul 02/12/2016 Cbc With Differential Ord2 N[place] ABS# 0.8 K/ul 02/12/2016 Cbc With Differential Ord2 Eos ABS# 0.2 K/ul 02/12/2016 Cbc With Differential Ord2 Baso ABS# 0.0 K/ul 02/12/2016 %Hba1C Ojp576 % HbA1c 97574-5 6.6 % 02/12/2016 %Hba1C Ugk307 Gluc Ave 143 mg/dL 02/12/2016 Lipid Ord30 CHOL 276 mg/dL 02/12/2016 Lipid Ord30 HDL 47.0 mg/dl 02/12/2016 Lipid Ord30 TRIG 424 mg/dL 02/12/2016 Lipid Ord30 LDL 0 Unable to calculate Due to elevated triglycerides mg/dL 02/12/2016 Lipid Ord30 C/HDL 5.9 Ratio 02/12/2016 Tsh Ord6 hTSH II 1.21 uIU/mL 02/12/2016 Microalbumin Set728 MicroAlb <0.7 mg/dL 02/12/2016 Comp Metabolic Sua525 NA 138 mEq/L 02/12/2016 Comp Metabolic Rkn379 K 4.2 mEq/L 02/12/2016 Comp Metabolic Ksn950 CL 103 mEq/L 02/12/2016 Comp Metabolic Azu031 CO2 28.0 mEq/L 02/12/2016 Comp Metabolic Byl627 ANION GAP 11 02/12/2016 Comp Metabolic Czn396 GLUCOSE 97 mg/dL 02/12/2016 Comp Metabolic Yns652 Creat 0.7 mg/dL 02/12/2016 Comp Metabolic Psd833 eGFR 83 ml/min/1.73m2 02/12/2016 Comp Metabolic Fon112 BUN 16 mg/dL 02/12/2016 Comp Metabolic Sen854 B/C Ratio 21.6 Ratio 02/12/2016 Comp Metabolic Epg345 CALCIUM 9.6 mg/dL 02/12/2016 Comp Metabolic Ifn633 ALK PHOS 53 U/L 02/12/2016 Comp Metabolic Jgk343 AST(SGOT) 16 U/L 02/12/2016 Comp Metabolic Sxs698 ALT(SGPT) 22 U/L 02/12/2016 Comp Metabolic Jkr968 BILI T 0.5 mg/dL 02/12/2016 Comp Metabolic Cfd764 ALBUMIN 3.9 g/dL 02/12/2016 Comp Metabolic Oea284 TPRO 6.4 g/dL 02/12/2016 Comp Metabolic Gxo299 GLOB 2.5 g/dL 02/12/2016 Comp Metabolic Gjh305 A/G Ratio 1.6 Ratio 02/12/2016 Comp Metabolic Lca302 Osmo 277 mOsmo 02/12/2016 [place] Spotted Fever Igg/Igm 985369 [place] SPOTTED FEVER IGM EIA . 01/10/2016 [place] Spotted Fever Igg/Igm 320065 RMSF, IGM 0.21 index 01/10/2016 [place] Spotted Fever Igg/Igm 289390 VIKTORIA MT SPOTTED FEVER IGG EIA FLEX . 01/10/2016 [place] Spotted Fever Igg/Igm 854828 RMSF, IGG SCREEN-FLEX Equivocal 01/10/2016 [place] Mtn Spot'D Fev Igg 881350 RMSF, IGG -TITER IFA <1:64 Ehrlichia Chaffeensis Antibody Igm 707837 EHRLICHIA CHAFFEENSIS IGM < 1:16 01/09/2016 Ehrlichia Chaffeensis Antibody Igg 589061 EHRLICHIA CHAFFEENSIS IGG <1:64 01/09/2016 West Nile Virus Ab [id number] WEST NILE VIRUS AB IGG 0.33 IV 01/08/2016 West Nile Virus Ab [id number] WEST NILE VIRUS AB IGM 0.02 IV 01/08/2016 Lymes Disease Total Antibodies With Western Blot Reflex [id number] B. BURGDORFERI, IGG/IGM 0.09 LI 01/07/2016 Lymes Disease Total Antibodies With Western Blot Reflex [id number] 01/07/2016 Cbc With Differential Ord2 WBC 6.25 K/ul 01/05/2016 Cbc With Differential Ord2 RBC 4.43 M/ul 01/05/2016 Cbc With Differential Ord2 HGB 14.3 g/dl 01/05/2016 Cbc With Differential Ord2 Neut% 63.3 % 01/05/2016 Cbc With Differential Ord2 HCT 42.5 % 01/05/2016 Cbc With Differential Ord2 Lymph% 25.8 % 01/05/2016 Cbc With Differential Ord2 MCV 95.9 fl 01/05/2016 Cbc With Differential Ord2 Nance% 8.3 % 01/05/2016 Cbc With Differential Ord2 [...] 1.61 K/ul 01/05/2016 Cbc With Differential Ord2 [place] ABS# 0.5 K/ul 01/05/2016 Cbc With Differential Ord2 Eos ABS# 0.2 K/ul 01/05/2016 Cbc With Differential Ord2 Baso ABS# 0.0 K/ul 01/05/2016 Sed Rate Ord21 ESR 16 mm/hr 01/05/2016 C-Reactive Protein Qnt Crqnt CRP 0.4 mg/dl 01/05/2016 Comp Metabolic Owx961 NA 138 mEq/L 01/05/2016 Comp Metabolic Ppi745 K 4.4 mEq/L 01/05/2016 Comp Metabolic Dji382 CL 103 mEq/L 01/05/2016 Comp Metabolic Ose715 CO2 27.0 mEq/L 01/05/2016 Comp Metabolic Rlw761 ANION GAP 12 01/05/2016 Comp Metabolic Hgl221 GLUCOSE 199 mg/dL 01/05/2016 Comp Metabolic Fcd476 Creat 0.8 mg/dL 01/05/2016 Comp Metabolic Yan767 eGFR 78 ml/min/1.73m2 01/05/2016 Comp Metabolic Jag474 BUN 15 mg/dL 01/05/2016 Comp Metabolic Lcu338 B/C Ratio 19.2 Ratio 01/05/2016 Comp Metabolic Ymd850 CALCIUM 9.4 mg/dL 01/05/2016 Comp Metabolic Erm123 ALK PHOS 59 U/L 01/05/2016 Comp Metabolic Qmw455 AST(SGOT) 15 U/L 01/05/2016 Comp Metabolic Bnn653 ALT(SGPT) 19 U/L 01/05/2016 Comp Metabolic Vqm016 BILI T 0.6 mg/dL 01/05/2016 Comp Metabolic Aoi883 ALBUMIN 4.2 g/dL 01/05/2016 Comp Metabolic Nwq635 TPRO 6.6 g/dL 01/05/2016 Comp Metabolic Vkr288 GLOB 2.4 g/dL 01/05/2016 Comp Metabolic Zhm128 A/G Ratio 1.7 Ratio 01/05/2016 Comp Metabolic Nrc184 Osmo 282 mOsmo 01/05/2016 Lipid Ord30 CHOL [...] Lipid Ord30 C/HDL 5.7 Ratio 06/30/2015 %Hba1C Tnw123 % HbA1c 13697-4 5.8 % 06/30/2015 %Hba1C Tlr388 Gluc Ave 120 mg/dL 06/30/2015 Lipid Ord30 CHOL 274 mg/dL 02/27/2015 Lipid Ord30 HDL 44.0 mg/dl 02/27/2015 Lipid Ord30 TRIG 199 mg/dL 02/27/2015 Lipid Ord30 LDL 190 mg/dL 02/27/2015 Lipid Ord30 C/HDL 6.2 Ratio 02/27/2015 Microalbumin Nny593 MicroAlb 0.2 mg/dL 02/27/2015 Tsh Ord6 hTSH II 2.53 uIU/mL 02/27/2015 Comp Metabolic Rdq528 NA 139 mEq/L 02/27/2015 Comp Metabolic Ywj119 K 4.3 mEq/L 02/27/2015 Comp Metabolic Pww655 CL 105 mEq/L 02/27/2015 Comp Metabolic Drx211 CO2 28.0 mEq/L 02/27/2015 Comp Metabolic Ljh882 ANION GAP 10 02/27/2015 Comp Metabolic Epd430 GLUCOSE 116 mg/dL 02/27/2015 Comp Metabolic Wwm180 Creat 0.9 mg/dL 02/27/2015 Comp Metabolic Qir170 eGFR 70 ml/min/1.73m2 02/27/2015 Comp Metabolic Kkg504 BUN 20 mg/dL 02/27/2015 Comp Metabolic Lpi194 B/C Ratio 23.3 Ratio 02/27/2015 Comp Metabolic Jyz999 CALCIUM 9.0 mg/dL 02/27/2015 Comp Metabolic Gkh869 ALK PHOS 59 U/L 02/27/2015 Comp Metabolic Pfi554 AST(SGOT) 15 U/L 02/27/2015 Comp Metabolic Imo541 ALT(SGPT) 17 U/L 02/27/2015 Comp Metabolic Ckl424 BILI T 0.7 mg/dL 02/27/2015 Comp Metabolic Cgo908 ALBUMIN 3.9 g/dL 02/27/2015 Comp Metabolic Ndw986 TPRO 6.2 g/dL 02/27/2015 Comp Metabolic Joh250 GLOB 2.3 g/dL 02/27/2015 Comp Metabolic Upq451 A/G Ratio 1.7 Ratio 02/27/2015 Comp Metabolic Yve387 Osmo 281 mOsmo 02/27/2015 %Hba1C Wnf378 % HbA1c 42444-4 6.2 % 02/27/2015 %Hba1C Irn546 Gluc Ave 131 mg/dL 02/27/2015 Cbc With [...] Codes Date URINALYSIS NONAUTO W/O SCOPE CPT-4: 18142 06/22/2017 THER/PROPH/DIAG INJ SC/IM CPT-4: 68566 06/07/2017 KETOROLAC TROMETHAMINE INJ CPT-4: J1885 06/07/2017 FLU VAC NO PRSV 4 MOI 3 YRS+ CPT-4: 56486 01/12/2017 ADMIN INFLUENZA VIRUS VAC CPT-4: G0008 01/12/2017 PPPS, SUBSEQ VISIT CPT -4: G0439 09/21/2016 URINALYSIS NONAUTO W/O SCOPE CPT-4: 76953 02/25/2016 Vital Signs Date Vital 04/06/2018 Blood Pressure 1: 122/80 Code : 8480-6 BMI: 28.5 Code : 12103-9 Heart Rate 1 : 92 bpm Height: 5'5" SpO2: 96% Weight: 171 lbs 11/30/2017 Blood Pressure 1: 120/76 Code : 8480-6 BMI: 28.6 Code : 60897-9 Heart Rate 1 : 91 bpm Height: 5'5" SpO2: 97% Weight: 172 lbs 08/18/2017 Blood Pressure 1: 126/78 Code : 8480-6 BMI: 28.6 Code : 58893-4 Heart Rate 1 : 88 bpm Height: 5'5" SpO2: 98% Weight: 172 lbs 07/27/2017 Blood Pressure 1: 140/76 Code : 8480-6 BMI: 28.0 Code : 75130-3 Heart Rate 1 : 99 bpm Height: 5'5" SpO2: 98% Temperature: 36.7 (C) / 98.1 (F) Weight: 168 lbs 06/22/2017 Blood Pressure 1: 134/70 Code : 8480-6 BMI: 29.1 Code : 90690-7 Heart Rate 1 : 94 bpm Height: 5'5" SpO2: 98% Weight: 175 lbs 06/07/2017 Blood Pressure 1: 136/70 Code : 8480-6 BMI: 28.6 Code : 85078-3 Heart Rate 1 : 78 bpm Height: 5'5" SpO2: 98% Weight: 172 lbs 04/27/2017 Blood Pressure 1: 132/70 Code : 8480-6 BMI: 28.5 Code : 76443-9 Heart Rate 1 : 93 bpm Height: 5'5" SpO2: 98% Weight: 171 lbs 03/18/2017 Blood Pressure 1: 144/84 Code : 8480-6 BMI: 29.1 Code : 75451-1 Heart Rate 1 : 94 bpm Height: 5'5" SpO2: 98% Weight: 175 lbs 12/09/2016 Blood Pressure 1: 134/78 Code : 8480-6 BMI: 29.0 Code : 13923-5 Heart Rate 1 : 89 bpm Height: 5'5" SpO2: 97% Weight: 174 lbs 10/18/2016 Blood Pressure 1: 166/92 Code : 8480-6 BMI: 29.4 Code : 68750-6 Heart Rate 1 : 94 bpm Height: 5'5" SpO2: 94% Weight: 176 lbs 8 oz 09/21/2016 Blood Pressure 1: 140/84 Code : 8480-6 BMI: 29.1 Code : 76520-0 Heart Rate 1 : 90 bpm Height: 5'5" SpO2: 97% Weight: 175 lbs 09/02/2016 Blood Pressure 1: 146/82 Code : 8480-6 BMI: 29.3 Code : 80504-1 Heart Rate 1 : 95 bpm Height: 5'5" SpO2: 98% Weight: 176 lbs 08/27/2016 Blood Pressure 1: 178/90 Code : 8480-6 Blood Pressure 1: 148/88 Code: 8480-6 Blood Pressure 1: 162/84 Code: 8480-6 BMI: 30.1 Code: 09966-2 Heart Rate 1: 80 bpm Height: 5'5" SpO2: 98% Weight: 181 lbs 04/29/2016 Blood Pressure 1: 152/76 Code : 8480-6 BMI: 30.1 Code : 02916-4 Heart Rate 1 : 99 bpm Height: 5'5" SpO2: 98% Temperature: 37.4 (C) / 99.3 (F) Weight: 181 lbs 02/12/2016 Blood Pressure 1: 136/82 Code : 8480-6 Heart Rate 1: 88 bpm SpO2: 97% 01/05/2016 Blood Pressure 1: 150/80 Code : 8480-6 BMI: 28.8 Code : 24130-5 Heart Rate 1 : 80 bpm Height: 5'5" SpO2: 98% Weight: 173 lbs 02/26/2015 Blood Pressure 1: 144/84 Code : 8480-6 Blood Pressure 1: 140/82 Code: 8480-6 BMI: 28.8 Code: 16242-9 Heart Rate 1: 81 bpm Height: 5'5" SpO2: 98% Weight: 173 lbs 08/27/2014 Blood Pressure 1: 132/80 Code : 8480-6 BMI: 28.1 Code : 42905-9 Height: 5'5" Weight: 169 lbs Functional Status [...] 02/26/2015 None well 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 PATIENT, LEVEL IV Diagnosis: Essential (primary) hypertension[ICD10: I10] Diagnosis: Type 2 diabetes mellitus without complications[ICD10: E11.9] Diagnosis: Mixed hyperlipidemia[ICD10: E78.2] Deysi Thrasher MD, [facility] CPT-4: 48149 04/06/2018 [id number]) [id number] EST. PATIENT, LEVEL IV Diagnosis: Type 2 diabetes mellitus without complications[ICD10: E11.9] Diagnosis: Essential (primary) hypertension[ICD10: I10] Diagnosis: Pain in left knee[ICD10: M25.562] Diagnosis: Localized edema[ICD10: R60.0] Deysi Thrasher MD, [facility] CPT- 4: 56810 11/30/2017 ([id number]) [id number] EST. PATIENT, LEVEL IV Diagnosis: Essential (primary) hypertension[ICD10: I10] Diagnosis: Type 2 diabetes mellitus without complications[ICD10: E11.9] Deysi Thrasher MD, [facility] CPT-4: 59938 08/18/2017 [id number]) [id number] EST. PATIENT, LEVEL III Diagnosis: Essential (primary) hypertension[ICD10: I10] Diagnosis: Other specified disorders of nose and nasal sinuses[ICD10: J34.89] Deysi Thrasher MD, [facility] CPT-4: 93605 07/27/2017 [id number]) [id number] EST. PATIENT, LEVEL III Diagnosis: Pain in left lower leg[ICD10: M79.662] Diagnosis: Dysuria[ICD10: R30.0] Deysi Thrasher MD [facility] CPT-4: 22544 06/22/2017 ([id number]) 90091 EST. PATIENT, LEVEL III Diagnosis: Sciatica, left side[ICD10: M54.32] Diagnosis: Low back pain[ICD10: M54.5] Deysi Thrasher MD [facility] CPT- 4: 33076 06/07/2017 ([id number]) Miscellaneous no charge Diagnosis: Dysuria[ICD10: R30.0] Deysi Thrasher MD [facility] CPT-4: 58202 05/23/2017 ([id number]) 18745 EST. PATIENT, LEVEL III Diagnosis: Essential (primary) hypertension[ICD10: I10] Diagnosis: Xerosis cutis[ICD10: L85.3] Deysi Thrasher MD [facility] CPT- 4: 58518 04/27/2017 [id number] EST. PATIENT, LEVEL IV Diagnosis: Other acute sinusitis[ICD10: J01.80] Diagnosis: Other allergic rhinitis[ICD10: J30.89] Gayathri Thrasher MD, [facility] CPT-4: 33091 03/18/2017 [id number] EST. PATIENT, LEVEL III Diagnosis: Other chest pain[ICD10: R07.89] Diagnosis: Essential (primary) hypertension[ICD10: I10] Gayathri Thrasher MD, [facility] CPT-4: 92506 12/09/2016 ([id number]) 97709 EST. PATIENT, LEVEL IV Diagnosis: Essential (primary) hypertension[ICD10: I10] Diagnosis: Other allergic rhinitis[ICD10: J30.89] Diagnosis: Acne vulgaris[ICD10: L70.0] Diagnosis: Sacroiliitis, not elsewhere classified[ICD10: M46.1] Shraddha Thrasher MD, [facility] CPT-4: 03616 10/18/2016 ([id number]) Miscellaneous no charge Diagnosis: Essential (primary) hypertension[ICD10: I10] Shraddha Thrasher MD, [facility] CPT-4: 89887 09/02/2016 ([id number]) 79876 EST. PATIENT, LEVEL III Diagnosis: Essential (primary) hypertension[ICD10: I10] Shraddha Thrasher MD, [facility] CPT-4: 92198 08/27/2016 [id number] EST. PATIENT, LEVEL III Diagnosis: Other allergic rhinitis[ICD10: J30.89] Diagnosis: Acute laryngopharyngitis[ICD10: J06.0] Gayathri Thrasher MD, [facility] CPT-4: 06136 04/29/2016 ([id number]) 75238 EST. PATIENT, LEVEL III Diagnosis: Cellulitis of neck[ICD10: L03.221] Shraddha Thrasher MD, [facility] CPT-4: 94041 02/12/2016 ([id number]) 14029 EST. PATIENT, LEVEL IV Diagnosis: Type 2 diabetes mellitus without complications[ICD10: E11.9] Diagnosis: Mixed hyperlipidemia[ICD10: E78.2] Diagnosis: Transient visual loss, left eye[ICD10: H53.122] Diagnosis: Headache[ICD10: R51] Diagnosis: Trigeminal neuralgia[ICD10: G50.0] Diagnosis: Insect bite (nonvenomous) of left front wall of thorax, initial encounter[ICD10: S20.362A] Deysi Thrasher MD, [facility] CPT-4: 34530 01/05/2016 ([id number]) [id number] EST. PATIENT, LEVEL III Diagnosis: Type 2 diabetes mellitus without complications[ICD10: E11.9] Deysi Thrasher MD, [facility] CPT-4: 88185 02/26/2015 ([id number]) OFFICE VISIT, NEW - LEVEL 3 Diagnosis: Diabetes mellitus[ICD9: 250.00] Diagnosis: Screening for breast cancer[ICD9: V76.10] Diagnosis: Screening for osteoporosis[ICD9: V82.81] Shraddha Thrasher MD, [facility] CPT-4: 28860 08/27/2014 Plan of Care Planned Activity Notes Codes Status Date Patient Education: Patient Medication Summary Completed 04/12/2018 Care Plan: SCREENINGMAMMOGRAPHYDIGITAL LOINC : 63830-9 Pending 04/12/2018 Visit Plan: Diabetes Mellitus - [...] to medications. 04/06/2018 Appointment: Deysi Thrasher WPtel: [facility] (15 min) Moderate 04/06/2018 Patient Education: Patient Medication Summary Completed 04/06/2018 Patient Education: Diabetes Completed 04/06/2018 Patient Education: Cholesterol Management Completed 04/06/2018 Care Plan: SCREENINGMAMMOGRAPHYDIGITAL LOINC : 38204-9 Pending 04/06/2018 Visit Plan: Diabetes Mellitus - [...] with pt. 11/30/2017 Appointment[phone] (15 min) Moderate 11/30/2017 Patient Education: Patient [...] less controlled. 08/18/2017 Appointment: Deys[facility] Thrasher [facility]Ptel: [facility] (15 min) Moderate 08/18/2017 Patient Education: Patient [...] nasal discharge. 07/27/2017 Appointment: Deys[facility] Thrasher WPtel[facility] (15 min) Moderate 07/27/2017 Patient Education: Patient [...] 12 hours. 06/22/2017 Appointment: Deysi Thrasher WPtel: [phone] [facility] (15 min) Moderate 06/22/2017 Patient Education: Patient Medication Summary Completed 06/22/2017 Visit Plan: Low back pain - SI joint pain - Sciatica - recommended pt to start on exercises for low back - rx for naproxen, ketorolac shot today. 06/07/2017 Appointment: Deysi Thrasher WPtel: [facility] [address] (15 min) Moderate 06/07/2017 Patient Education: Patient [...] not better 04/27/2017 Appointment: Deysi Thrasher WPtel: [facility] [address] (15 min) Moderate 04/27/2017 Patient Education: Patient Medication Summary Completed 04/27/2017 Appointment: Gayathri Elizabeth WPtel: [phone] [facility] (15 min) Moderate 04/22/2017 Visit Plan: Sinusitis [...] spray. 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 12/09/2016 Appointment: [facility]el[phone] (30 min) Complex 12/09/2016 Patient Education: Patient Medication Summary Completed 12/09/2016 Patient Education: Hypertension Completed 12/09/2016 Care Plan: Referral Order SNOMED-CT : [id number] Pending 12/09/2016 Appointment: Nurse Visit 11/08/2016 Visit [...] histamine 10/18/2016 Appointment: Shraddha Dillon WPtel: [phone] [id number] [place] [address] (15 min) Moderate 10/18/2016 Patient Education: Patient [...] Joseph 09/02/2016 Appointment: Shraddha Dillon WPtel: [phone] [phone] (15 min) Moderate 09/02/2016 Patient Education: Patient [...] ECHOCARDIOGRAM 08/27/2016 Appointment: Shraddha Dillon WPtel: [phone] [phone] (10 min) Simple 08/27/2016 Patient Education: Patient [...] allergy spray. 04/29/2016 Appointment: Gayathri Elizabeth WPtel: [phone] (30 min) Complex 04/29/2016 Patient Education: Patient Medication Summary Completed 04/29/2016 Appointment: Lab Draw 02/25/2016 Patient Education: Patient Medication Summary Completed 02/25/2016 Visit Plan: Cellulitis - continue with oral antibiotics as previously directed, return to clinic as previously directed, call for acute change in symptoms, worsening redness, warmth, discharge. 02/12/2016 Appointment: Shraddha Dillon WPtel: [phone] (10 min) Simple 02/12/2016 Patient Education: Patient [...] stroke 01/05/2016 Appointment: [facility]el[phone] [place] (15 min) Moderate 01/05/2016 Appointment: [phone] [place] (30 min) Complex 01/05/2016 Patient Education: [...] 02/26/2015 Care Plan: MICROALBUMIN QUANTITATIVE LOINC : 36844-3 Ordered 02/26/2015 Care Plan: COMPLETE CBC AUTOMATED LOINC : 43940-3 Ordered 02/26/2015 Patient Education: Patient Medication Summary [...] BLOOD PRESSURE DAILY IF NEEDS TO SEE SHIPWRIGHT HELPER, SHE WANTS TO GO TO [facility] OVER THE WEEKEND FOR SYMPTOMS DISCUSSED [...] they worsen. Allergies-left ear itching-recommend anti histamine vaseline twice daily in nasal passages use [...] spray as needed for nasal discharge. . Sinusitis - Pt has acute infection [...] symptoms as discussed-keep appt with Dr Joseph . Hypertension - well controlled - continue with current medications, continue with no added salt diet. Pt has been encouraged to exercise daily. The pt has been advised to call the office if there are any acute concerns about change in blood pressure readings at home. Dry skin - RX for clobetasol, call if not better . Diabetes Mellitus - controlled - per [...] assure normal liver response to medications. . Low back pain - SI joint pain - Sciatica - recommended pt to start on exercises for low back - rx for naproxen, ketorolac shot today. take an enteric coated 81 mg aspirin [...] 12 hours and off for 12 hours. on [employer] - look for Vitalsox - compression socks [...] discussed different compression socks with pt. . ua collected . URI - Pt advised to increase [...] the past, but has not seen a high school drafting teacher - will check labs and EKG - [...] Dr. Roth, Dr. Durán - surgeons in [place] Dr. Mojica, Dr. Mauricio - in [place] Dr. Wilkinson - internal Med in [place] Let me know who you want to [...] are starting to become less controlled. . Hypertension - well controlled - continue [...] are starting to become less controlled. . Hypertension - well controlled - continue [...]
--- OUTSIDE RECORDS SUMMARY | 2018-04-28 07:28 | XMS REPORT | CCD ---
Author Author Shraddha Dillon MD, [facility] Address [address] [place] [address] Phone Care Team Providers Care Feeder Operator Automatic Name Role Phone PP Unavailable CCM Unavailable Summary Purpose Interface Exchange Insurance Providers Payer name Policy type / Coverage type Covered alliance party ID Effective Begin Date Effective End Date WPS Medicare Part B Medicare Part B [id number] 2017 Unknown [employer] Medicare Part B [id number] Unknown Family history Son Diagnosis Age At [...] Unknown 5 08/27/[address]: 809274834 Never smoker 08/27/[address]: 212856539 Never drinks alcohol 08/27/2014 Allergies, Adverse Reactions, Alerts Substance Reaction Codes Entered Date Inactivated Date Status * OTHER REACTION - SEE ANSWER BOX statin-myalgia Unknown 2017 No Inactive Date Active CODEINE RxNorm: 2670 08/27/2014 No Inactive Date Active hydrocodone emesis Unknown 07/27/2017 No Inactive Date Active Levaquin diarrhea RxNorm: 57438 07/27/2017 No Inactive Date Active Penicillin Unknown [...] Start Date Stop Date Status Fill Instructions Vitamin C 500 mg tablet RxNorm: 063322 1 Tablet(s) PO daily 12/201805/05/2018 Active lisinopril 5 mg tablet RxNorm: 454205 TAKE 1/2 TABLET BY MOUTH TWO TIMES A DAY 01/30/2018 07/28/2018 Active naproxen 500 mg tablet RxNorm: 817574 TAKE ONE TABLET BY MOUTH TWICE A DAY 11/18/2017 01/16/2018 Inactive Retin-A Micro 0.1 % topical gel RxNorm: 290470 1 Application TOP BID 08/18/2017 12/15/2017 Inactive tamsulosin 0.4 mg capsule RxNorm: 284635 1 Capsule(s) PO daily 07/21/2017 08/17/2017 Inactive naproxen 500 mg tablet RxNorm: 906738 TAKE ONE TABLET BY MOUTH TWICE A DAY 07/19/2017 09/16/2017 Inactive Keflex 500 mg capsule RxNorm: 808311 1 Capsule(s) PO QID 201706/28/2017 Inactive ketorolac 60 mg/2 mL intramuscular solution RxNorm: 475870 2 Milliliter(s) IM 06/07/2017 06/07/2017 Inactive naproxen 500 mg tablet RxNorm: 030377 1 Tablet(s) PO BID 201707/06/2017 Inactive lisinopril 5 mg tablet RxNorm: 009733 1/2 Tablet(s) PO BID 04/201711/22/2017 Inactive Cipro 500 mg tablet RxNorm: 319347 1 Tablet(s) PO BID 201706/01/2017 Inactive Cipro 500 mg tablet RxNorm: 139146 1 Tablet(s) PO BID 201705/22/2017 Inactive clobetasol 0.05 % topical cream RxNorm: 910461 1 Application TOP BID as needed Itching 04/27/2017 No Stop Date Active Kombiglyze XR 5 mg-1,000 mg tablet,extended release RxNorm: 8556194 TAKE ONE TABLET BY MOUTH DAILY 04/04/20172018 Inactive Kombiglyze XR 5 mg-1,000 mg tablet,extended release RxNorm: 1771214 TAKE ONE TABLET BY MOUTH DAILY 04/04/20172017 Inactive Zithromax Z-Jose 250 mg tablet RxNorm: 736720 1 Tablet(s) PO UD 03/18/2017 04/26/2017 Inactive Kombiglyze XR 5 mg-1,000 mg tablet,extended release RxNorm: 2760787 TAKE ONE TABLET BY MOUTH DAILY 12/22/20162016 Inactive lisinopril 5 mg tablet RxNorm: 999978 1/2 Tablet(s) PO BID 03/08/2017 Inactive clobetasol 0.05 % topical cream RxNorm: 441638 1 Application TOP BID 10/18/2016 No Stop Date Active swmnqwhi-vjwzdrafn-gasqefdht 3.5 mg/mL-10,000 unit/mL-1 % ear solution RxNorm: 439779 2 OTIC QID 10/18/2016 10/24/2016 Inactive lisinopril 5 mg tablet RxNorm: 796696 1/2-1 Tablet(s) PO daily 09/02/2016 11/30/2016 Inactive start 1/2 tab daily-increase to a full tab if needed lisinopril 20 mg tablet RxNorm: 296200 1 Tablet(s) PO daily 04/201609/01/2016 Inactive Lofibra 54 mg tablet RxNorm: 960519 1 Tablet(s) PO daily 201604/26/2017 Inactive DC fenofibrate 40 mg Lofibra 54 mg tablet RxNorm: 496580 1 Tablet(s) PO daily 201607/06/2016 Inactive DC fenofibrate 40 mg fenofibrate 40 mg tablet RxNorm: 304488 1 Tablet(s) PO daily 07/06/2016 Inactive fenofibrate 40 mg tablet RxNorm: 672525 1 Tablet(s) PO daily 07/01/2016 Inactive Kombiglyze XR 5 mg-1,000 mg tablet,extended release RxNorm: 2748370 TAKE ONE TABLET BY MOUTH DAILY 06/21/20162016 Inactive Kombiglyze XR 5 mg-1,000 mg tablet,extended release RxNorm: 0606107 Tablet(s) TAKE ONE TABLET BY MOUTH DAILY 05/05/2016 06/20/2016 Inactive Zyrtec 10 mg tablet RxNorm: 1168344 1 Tablet(s) PO daily 04/2905/28/2016 Inactive Zithromax Z-Jose 250 mg tablet RxNorm: 035271 1 Tablet(s) PO UD 04/29/2016 07/01/2016 Inactive Bactrim DS 800 mg-160 mg tablet RxNorm: 379664 1 Tablet(s) PO BID 02/25/2016 02/24/2016 Inactive Bactrim DS 800 mg-160 mg tablet RxNorm: 166226 1 Tablet(s) PO BID 02/25/2016 03/02/2016 Inactive WelChol 625 mg tablet RxNorm: 298474 3 Tablet(s) PO BID 201502/19/2016 Inactive WelChol 625 mg tablet RxNorm: 942670 3 Tablet(s) PO BID with meals 02/20/2016 04/19/2016 Inactive dc zetia doxycycline hyclate 100 mg tablet RxNorm: 062980 1 Tablet(s) PO BID 02/12/2016 02/18/2016 Inactive doxycycline hyclate 100 mg tablet RxNorm: 153598 1 Tablet(s) PO BID 01/05/2016 01/18/2016 Inactive prednisone 20 mg tablet RxNorm: 505070 3 Tablet(s) PO daily 12/201501/09/2016 Inactive Zetia 10 mg tablet RxNorm: 159765 TAKE ONE TABLET BY MOUTH EVERY NIGHT AT BEDTIME 11/13/2015 02/19/2016 Inactive Kombiglyze XR 5 mg-1,000 mg tablet,extended release RxNorm: 6087421 TAKE ONE TABLET BY MOUTH DAILY 07/24/20152015 Inactive Zetia 10 mg tablet RxNorm: 723620 1 Tablet(s) PO QHS 201511/04/2015 Inactive Zetia 10 mg tablet RxNorm: 338032 1 Tablet(s) PO QHS 201507/07/2015 Inactive Kombiglyze XR 5 mg-1,000 mg tablet,extended release RxNorm: 1828352 1 Tablet(s) PO daily 04/16/2015 07/14/2015 Inactive Fish Oil 1,000 mg capsule RxNorm: 1200 Capsule(s) PO BID No Start Date Active Calcium + D oral RxNorm: 335001 oral No Start Date Active Flaxseed Meal RxNorm: 989563 miscellaneous No Start Date Active Vitamin D3 5,000 unit tablet RxNorm: 341024 1 Tablet(s) PO daily No Start Date Active Multiple Vitamin oral RxNorm: 53162 oral No Start Date Active Kombiglyze XR 5 mg-1,000 mg tablet,extended release RxNorm: 3149203 1 Tablet(s) PO daily No Start Date 04/15/2015 Inactive Medication Administered Medication Codes Instructions Start Date Status ketorolac 60 mg/2 mL intramuscular solution RxNorm: 426504 2Milliliter 06/07/2017 No longer Active Immunizations Vaccine [...] TSH (3rd IS) 1.92 uIU/mL 04/12/2018 Microalbumin Koc421 MicroAlb <0.7 mg/dL 04/12/2018 Cbc With Differential [...] 31.0 pg 04/12/2018 Cbc With Differential Ord2 [place]% 9.1 % 04/12/2018 Cbc With Differential Ord2 [...] 2.19 K/ul 04/12/2018 Cbc With Differential Ord2 [place] ABS# 0.7 K/ul 04/12/2018 Cbc With Differential Ord2 Eos ABS# 0.3 K/ul 04/12/2018 Cbc With Differential Ord2 Baso ABS# 0.0 K/ul 04/12/2018 Comp Metabolic Ojp920 NA 140 mEq/L 04/12/2018 Comp Metabolic Pyb885 K 4.5 mEq/L 04/12/2018 Comp Metabolic Wwd024 CL 104 mEq/L 04/12/2018 Comp Metabolic Kbp080 CO2 26.0 mEq/L 04/12/2018 Comp Metabolic Nds681 ANION GAP 15 04/12/2018 Comp Metabolic Mgn341 GLUCOSE 111 mg/dL 04/12/2018 Comp Metabolic Xrb026 Creat 0.7 mg/dL 04/12/2018 Comp Metabolic Ebq306 eGFR 82 ml/min/1.73m2 04/12/2018 Comp Metabolic Xsc334 BUN 25 mg/dL 04/12/2018 Comp Metabolic Xqx521 B/C Ratio 33.8 Ratio 04/12/2018 Comp Metabolic Jps319 CALCIUM 9.5 mg/dL 04/12/2018 Comp Metabolic Uvq083 ALK PHOS 56 U/L 04/12/2018 Comp Metabolic Nsc494 AST(SGOT) 12 U/L 04/12/2018 Comp Metabolic Rqd026 ALT(SGPT) 13 U/L 04/12/2018 Comp Metabolic Kpd964 BILI T 0.5 mg/dL 04/12/2018 Comp Metabolic Ahw527 ALBUMIN 4.0 g/dL 04/12/2018 Comp Metabolic Arx014 TPRO 6.2 g/dL 04/12/2018 Comp Metabolic Hnk294 GLOB 2.2 g/dL 04/12/2018 Comp Metabolic Rgf652 A/G Ratio 1.8 Ratio 04/12/2018 Comp Metabolic Tzl326 Osmo 284 mOsmo 04/12/2018 Lipid Ord30 CHOL 280 mg/dL 04/12/2018 Lipid Ord30 HDL 45.0 mg/dl 04/12/2018 Lipid Ord30 TRIG 346 mg/dL 04/12/2018 Lipid Ord30 LDL Unable to calculate Due to elevated triglycerides mg/dL 04/12/2018 Lipid Ord30 C/HDL 6.2 Ratio 04/12/2018 %Hba1C Qfm122 % HbA1c 13655-2 6.3 % 04/12/2018 %Hba1C Qmx606 Gluc Ave 134 mg/dL 04/12/2018 Lipid Ord30 CHOL 261 mg/dL 08/31/2017 Lipid Ord30 HDL 45.0 mg/dl 08/31/2017 Lipid Ord30 TRIG 173 mg/dL 08/31/2017 Lipid Ord30 LDL 181 mg/dL 08/31/2017 Lipid Ord30 C/HDL 5.8 Ratio 08/31/2017 %Hba1C Ebu317 % HbA1c 62041-2 6.1 % 08/31/2017 %Hba1C Ynu805 Gluc Ave 128 mg/dL 08/31/2017 Comp Metabolic Wpt325 NA 139 mEq/L 08/31/2017 Comp Metabolic Hwu276 K 4.4 mEq/L 08/31/2017 Comp Metabolic Vlj456 CL 107 mEq/L 08/31/2017 Comp Metabolic Xve090 CO2 23.0 mEq/L 08/31/2017 Comp Metabolic Hbv644 ANION GAP 13 08/31/2017 Comp Metabolic Shi082 GLUCOSE 110 mg/dL 08/31/2017 Comp Metabolic Emk644 Creat 0.7 mg/dL 08/31/2017 Comp Metabolic Ivq698 eGFR 92 ml/min/1.73m2 08/31/2017 Comp Metabolic Lgd943 BUN 20 mg/dL 08/31/2017 Comp Metabolic Yaa279 B/C Ratio 29.9 Ratio 08/31/2017 Comp Metabolic Kty699 CALCIUM 9.0 mg/dL 08/31/2017 Comp Metabolic Xae689 ALK PHOS 51 U/L 08/31/2017 Comp Metabolic Xym069 AST(SGOT) 12 U/L 08/31/2017 Comp Metabolic Rde061 ALT(SGPT) 14 U/L 08/31/2017 Comp Metabolic Qns866 BILI T 0.4 mg/dL 08/31/2017 Comp Metabolic Rfr284 ALBUMIN 3.7 g/dL 08/31/2017 Comp Metabolic Awy496 TPRO 5.8 g/dL 08/31/2017 Comp Metabolic Mpb649 GLOB 2.1 g/dL 08/31/2017 Comp Metabolic Teu714 A/G Ratio 1.8 Ratio 08/31/2017 Comp Metabolic Ezq357 Osmo 281 mOsmo 08/31/2017 Urine Culture Ucult Preliminary NO Growth Day 1 06/24/2017 Urine Culture Ucult Complete NO Growth Day 2 06/24/2017 Culture Urine [id number] URINE CULTURE SEE NOTES 05/26/2017 Culture Urine [id number] Continued Results 05/26/2017 Urine Culture Ucult Complete [...] 31.9 pg 10/06/2016 Cbc With Differential Ord2 [place]% 9.8 % 10/06/2016 Cbc With Differential Ord2 [...] 1.63 K/ul 10/06/2016 Cbc With Differential Ord2 [place] ABS# 0.6 K/ul 10/06/2016 Cbc With Differential Ord2 Eos ABS# 0.3 K/ul 10/06/2016 Cbc With Differential Ord2 Baso ABS# 0.0 K/ul 10/06/2016 Comp Metabolic Kre170 NA 140 mEq/L 10/06/2016 Comp Metabolic Zxd312 K 4.3 mEq/L 10/06/2016 Comp Metabolic Ssb166 CL 107 mEq/L 10/06/2016 Comp Metabolic Qbu191 CO2 25.0 mEq/L 10/06/2016 Comp Metabolic Nyn676 ANION GAP 12 10/06/2016 Comp Metabolic Fus972 GLUCOSE 122 mg/dL 10/06/2016 Comp Metabolic Fui342 Creat 0.7 mg/dL 10/06/2016 Comp Metabolic Ayx434 eGFR 84 ml/min/1.73m2 10/06/2016 Comp Metabolic Sqb676 BUN 17 mg/dL 10/06/2016 Comp Metabolic Ueh935 B/C Ratio 23.3 Ratio 10/06/2016 Comp Metabolic Yzq917 CALCIUM 9.0 mg/dL 10/06/2016 Comp Metabolic Rrt536 ALK PHOS 52 U/L 10/06/2016 Comp Metabolic Tpu111 AST(SGOT) 18 U/L 10/06/2016 Comp Metabolic Qbj104 ALT(SGPT) 22 U/L 10/06/2016 Comp Metabolic Txg287 BILI T 0.6 mg/dL 10/06/2016 Comp Metabolic Mio903 ALBUMIN 3.9 g/dL 10/06/2016 Comp Metabolic Ztr412 TPRO 6.1 g/dL 10/06/2016 Comp Metabolic Iql420 GLOB 2.2 g/dL 10/06/2016 Comp Metabolic Oci357 A/G Ratio 1.8 Ratio 10/06/2016 Comp Metabolic Ypc120 Osmo 282 mOsmo 10/06/2016 %Hba1C Uqo457 % HbA1c 70948-5 6.4 % 10/06/2016 %Hba1C Uou890 Gluc Ave 137 mg/dL 10/06/2016 %Hba1C Pth059 % HbA1c 32078-5 6.3 % 05/21/2016 %Hba1C Cpo190 Gluc Ave 134 mg/dL 05/21/2016 Hepatic Edk492 ALBUMIN 4.2 g/dL 05/21/2016 Hepatic Pwm106 TPRO 6.6 g/dL 05/21/2016 Hepatic Cjn595 GLOB 2.4 g/dL 05/21/2016 Hepatic Ebn403 A/G Ratio 1.7 Ratio 05/21/2016 Hepatic Jvy107 ALK PHOS 64 U/L 05/21/2016 Hepatic Ihq098 ALT(SGPT) 16 U/L 05/21/2016 Hepatic Zvz364 AST(SGOT) 13 U/L 05/21/2016 Hepatic Jfe646 BILI T 0.5 mg/dL 05/21/2016 Hepatic Syu663 BILI D 0.1 mg/dL 05/21/2016 Hepatic Fwl199 BILI I 0.4 mg/dL 05/21/2016 Lipid Ord30 CHOL 285 mg/dL 05/21/2016 Lipid Ord30 HDL 42.0 mg/dl 05/21/2016 Lipid Ord30 TRIG 364 mg/dL 05/21/2016 Lipid Ord30 LDL 0 Unable to calculate Due to elevated triglycerides mg/dL 05/21/2016 Lipid Ord30 C/HDL 6.8 Ratio 05/21/2016 C A/B FLU [id number] Influenza A Scr Negative 04/29/2016 C A/B FLU [id number] Influenza B Scr Negative 04/29/2016 Urine Culture [...] 96.9 fl 02/12/2016 Cbc With Differential Ord2 [place]% 10.5 % 02/12/2016 Cbc With Differential Ord2 [...] 1.39 K/ul 02/12/2016 Cbc With Differential Ord2 [place] ABS# 0.8 K/ul 02/12/2016 Cbc With Differential Ord2 Eos ABS# 0.2 K/ul 02/12/2016 Cbc With Differential Ord2 Baso ABS# 0.0 K/ul 02/12/2016 %Hba1C Wts832 % HbA1c 24007-2 6.6 % 02/12/2016 %Hba1C Zhs681 Gluc Ave 143 mg/dL 02/12/2016 Lipid Ord30 CHOL 276 mg/dL 02/12/2016 Lipid Ord30 HDL 47.0 mg/dl 02/12/2016 Lipid Ord30 TRIG 424 mg/dL 02/12/2016 Lipid Ord30 LDL 0 Unable to calculate Due to elevated triglycerides mg/dL 02/12/2016 Lipid Ord30 C/HDL 5.9 Ratio 02/12/2016 Tsh Ord6 hTSH II 1.21 uIU/mL 02/12/2016 Microalbumin Smv376 MicroAlb <0.7 mg/dL 02/12/2016 Comp Metabolic Tlv070 NA 138 mEq/L 02/12/2016 Comp Metabolic Elb695 K 4.2 mEq/L 02/12/2016 Comp Metabolic Jej562 CL 103 mEq/L 02/12/2016 Comp Metabolic Rst947 CO2 28.0 mEq/L 02/12/2016 Comp Metabolic Iws973 ANION GAP 11 02/12/2016 Comp Metabolic Wmm488 GLUCOSE 97 mg/dL 02/12/2016 Comp Metabolic Ibm231 Creat 0.7 mg/dL 02/12/2016 Comp Metabolic Xqr057 eGFR 83 ml/min/1.73m2 02/12/2016 Comp Metabolic Bxz167 BUN 16 mg/dL 02/12/2016 Comp Metabolic Vjx676 B/C Ratio 21.6 Ratio 02/12/2016 Comp Metabolic Ksp003 CALCIUM 9.6 mg/dL 02/12/2016 Comp Metabolic Pfd824 ALK PHOS 53 U/L 02/12/2016 Comp Metabolic Ojx303 AST(SGOT) 16 U/L 02/12/2016 Comp Metabolic Vhx100 ALT(SGPT) 22 U/L 02/12/2016 Comp Metabolic Cvq476 BILI T 0.5 mg/dL 02/12/2016 Comp Metabolic Dbo124 ALBUMIN 3.9 g/dL 02/12/2016 Comp Metabolic Ysh233 TPRO 6.4 g/dL 02/12/2016 Comp Metabolic Idq045 GLOB 2.5 g/dL 02/12/2016 Comp Metabolic Dym021 A/G Ratio 1.6 Ratio 02/12/2016 Comp Metabolic Ldr047 Osmo 277 mOsmo 02/12/2016 [place] Spotted Fever Igg/Igm [id number] VIKTORIA MT SPOTTED FEVER IGM EIA . 01/10/2016 [place] Spotted Fever Igg/Igm 857275 RMSF, IGM 0.21 index 01/10/2016 [place] Spotted Fever Igg/Igm [id number] VIKTORIA MT SPOTTED FEVER IGG EIA FLEX . 01/10/2016 [place] Spotted Fever Igg/Igm 211038 RMSF, IGG SCREEN-FLEX Equivocal 01/10/2016 Viktoria Mtn Spot'D Fev Igg 506331 RMSF, IGG -TITER IFA <1:64 Ehrlichia Chaffeensis Antibody Igm 002835 EHRLICHIA CHAFFEENSIS IGM < 1:16 01/09/2016 Ehrlichia Chaffeensis Antibody Igg 751781 EHRLICHIA CHAFFEENSIS IGG <1:64 01/09/2016 West Nile Virus Ab [id number] WEST NILE VIRUS AB IGG 0.33 IV 01/08/2016 West Nile Virus Ab [id number] WEST NILE VIRUS AB IGM 0.02 IV 01/08/2016 Lymes Disease Total Antibodies With Western Blot Reflex [id number] B. BURGDORFERI, IGG/IGM 0.09 LI 01/07/2016 Lymes Disease Total Antibodies With Western Blot Reflex [id number] 01/07/2016 Cbc With Differential Ord2 WBC 6.25 K/ul 01/05/2016 Cbc With Differential Ord2 RBC 4.43 M/ul 01/05/2016 Cbc With Differential Ord2 HGB 14.3 g/dl 01/05/2016 Cbc With Differential Ord2 Neut% 63.3 % 01/05/2016 Cbc With Differential Ord2 HCT 42.5 % 01/05/2016 Cbc With Differential Ord2 Lymph% 25.8 % 01/05/2016 Cbc With Differential Ord2 MCV 95.9 fl 01/05/2016 Cbc With Differential Ord2 Dade% 8.3 % 01/05/2016 Cbc With Differential Ord2 [...] 1.61 K/ul 01/05/2016 Cbc With Differential Ord2 [place] ABS# 0.5 K/ul 01/05/2016 Cbc With Differential Ord2 Eos ABS# 0.2 K/ul 01/05/2016 Cbc With Differential Ord2 Baso ABS# 0.0 K/ul 01/05/2016 Sed Rate Ord21 ESR 16 mm/hr 01/05/2016 C-Reactive Protein Qnt Crqnt CRP 0.4 mg/dl 01/05/2016 Comp Metabolic Jtw219 NA 138 mEq/L 01/05/2016 Comp Metabolic Xgu519 K 4.4 mEq/L 01/05/2016 Comp Metabolic Zvu324 CL 103 mEq/L 01/05/2016 Comp Metabolic Bjc523 CO2 27.0 mEq/L 01/05/2016 Comp Metabolic Sck701 ANION GAP 12 01/05/2016 Comp Metabolic Juy204 GLUCOSE 199 mg/dL 01/05/2016 Comp Metabolic Aso456 Creat 0.8 mg/dL 01/05/2016 Comp Metabolic Kpt174 eGFR 78 ml/min/1.73m2 01/05/2016 Comp Metabolic Zxf364 BUN 15 mg/dL 01/05/2016 Comp Metabolic Ihk572 B/C Ratio 19.2 Ratio 01/05/2016 Comp Metabolic Axl501 CALCIUM 9.4 mg/dL 01/05/2016 Comp Metabolic Oso403 ALK PHOS 59 U/L 01/05/2016 Comp Metabolic Rem561 AST(SGOT) 15 U/L 01/05/2016 Comp Metabolic Ipu245 ALT(SGPT) 19 U/L 01/05/2016 Comp Metabolic Mue899 BILI T 0.6 mg/dL 01/05/2016 Comp Metabolic Obf309 ALBUMIN 4.2 g/dL 01/05/2016 Comp Metabolic Xnq515 TPRO 6.6 g/dL 01/05/2016 Comp Metabolic Zhg315 GLOB 2.4 g/dL 01/05/2016 Comp Metabolic Fjs664 A/G Ratio 1.7 Ratio 01/05/2016 Comp Metabolic Rev756 Osmo 282 mOsmo 01/05/2016 Lipid Ord30 CHOL [...] Lipid Ord30 C/HDL 5.7 Ratio 06/30/2015 %Hba1C Iwh539 % HbA1c 38922-4 5.8 % 06/30/2015 %Hba1C Vok568 Gluc Ave 120 mg/dL 06/30/2015 Lipid Ord30 CHOL 274 mg/dL 02/27/2015 Lipid Ord30 HDL 44.0 mg/dl 02/27/2015 Lipid Ord30 TRIG 199 mg/dL 02/27/2015 Lipid Ord30 LDL 190 mg/dL 02/27/2015 Lipid Ord30 C/HDL 6.2 Ratio 02/27/2015 Microalbumin Ban084 MicroAlb 0.2 mg/dL 02/27/2015 Tsh Ord6 hTSH II 2.53 uIU/mL 02/27/2015 Comp Metabolic Ogn201 NA 139 mEq/L 02/27/2015 Comp Metabolic Vhd427 K 4.3 mEq/L 02/27/2015 Comp Metabolic Ofa397 CL 105 mEq/L 02/27/2015 Comp Metabolic Ozg341 CO2 28.0 mEq/L 02/27/2015 Comp Metabolic Vmw099 ANION GAP 10 02/27/2015 Comp Metabolic Cgw774 GLUCOSE 116 mg/dL 02/27/2015 Comp Metabolic Tbj196 Creat 0.9 mg/dL 02/27/2015 Comp Metabolic Nkt949 eGFR 70 ml/min/1.73m2 02/27/2015 Comp Metabolic Xfg142 BUN 20 mg/dL 02/27/2015 Comp Metabolic Ocj878 B/C Ratio 23.3 Ratio 02/27/2015 Comp Metabolic Dwb412 CALCIUM 9.0 mg/dL 02/27/2015 Comp Metabolic Lsp950 ALK PHOS 59 U/L 02/27/2015 Comp Metabolic Nov396 AST(SGOT) 15 U/L 02/27/2015 Comp Metabolic Dpt134 ALT(SGPT) 17 U/L 02/27/2015 Comp Metabolic Qlc316 BILI T 0.7 mg/dL 02/27/2015 Comp Metabolic Yjl139 ALBUMIN 3.9 g/dL 02/27/2015 Comp Metabolic Brr705 TPRO 6.2 g/dL 02/27/2015 Comp Metabolic Tbm038 GLOB 2.3 g/dL 02/27/2015 Comp Metabolic Bdy426 A/G Ratio 1.7 Ratio 02/27/2015 Comp Metabolic Rsg891 Osmo 281 mOsmo 02/27/2015 %Hba1C Lsv824 % HbA1c 86578-3 6.2 % 02/27/2015 %Hba1C Gzh530 Gluc Ave 131 mg/dL 02/27/2015 Cbc With [...] Codes Date URINALYSIS NONAUTO W/O SCOPE CPT-4: 83424 06/22/2017 THER/PROPH/DIAG INJ SC/IM CPT-4: 54151 06/07/2017 KETOROLAC TROMETHAMINE INJ CPT-4: J1885 06/07/2017 FLU VAC NO PRSV 4 MOI 3 YRS+ CPT-4: 18457 01/12/2017 ADMIN INFLUENZA VIRUS VAC CPT-4: G0008 01/12/2017 PPPS, SUBSEQ VISIT CPT -4: G0439 09/21/2016 URINALYSIS NONAUTO W/O SCOPE CPT-4: 20897 02/25/2016 Vital Signs Date Vital 04/06/2018 Blood Pressure 1: 122/80 Code : 8480-6 BMI: 28.5 Code : 46953-0 Heart Rate 1 : 92 bpm Height: 5'5" SpO2: 96% Weight: 171 lbs 11/30/2017 Blood Pressure 1: 120/76 Code : 8480-6 BMI: 28.6 Code : 01021-3 Heart Rate 1 : 91 bpm Height: 5'5" SpO2: 97% Weight: 172 lbs 08/18/2017 Blood Pressure 1: 126/78 Code : 8480-6 BMI: 28.6 Code : 10721-6 Heart Rate 1 : 88 bpm Height: 5'5" SpO2: 98% Weight: 172 lbs 07/27/2017 Blood Pressure 1: 140/76 Code : 8480-6 BMI: 28.0 Code : 17611-3 Heart Rate 1 : 99 bpm Height: 5'5" SpO2: 98% Temperature: 36.7 (C) / 98.1 (F) Weight: 168 lbs 06/22/2017 Blood Pressure 1: 134/70 Code : 8480-6 BMI: 29.1 Code : 73956-4 Heart Rate 1 : 94 bpm Height: 5'5" SpO2: 98% Weight: 175 lbs 06/07/2017 Blood Pressure 1: 136/70 Code : 8480-6 BMI: 28.6 Code : 07236-2 Heart Rate 1 : 78 bpm Height: 5'5" SpO2: 98% Weight: 172 lbs 04/27/2017 Blood Pressure 1: 132/70 Code : 8480-6 BMI: 28.5 Code : 00914-6 Heart Rate 1 : 93 bpm Height: 5'5" SpO2: 98% Weight: 171 lbs 03/18/2017 Blood Pressure 1: 144/84 Code : 8480-6 BMI: 29.1 Code : 63888-6 Heart Rate 1 : 94 bpm Height: 5'5" SpO2: 98% Weight: 175 lbs 12/09/2016 Blood Pressure 1: 134/78 Code : 8480-6 BMI: 29.0 Code : 12022-8 Heart Rate 1 : 89 bpm Height: 5'5" SpO2: 97% Weight: 174 lbs 10/18/2016 Blood Pressure 1: 166/92 Code : 8480-6 BMI: 29.4 Code : 44008-1 Heart Rate 1 : 94 bpm Height: 5'5" SpO2: 94% Weight: 176 lbs 8 oz 09/21/2016 Blood Pressure 1: 140/84 Code : 8480-6 BMI: 29.1 Code : 11599-9 Heart Rate 1 : 90 bpm Height: 5'5" SpO2: 97% Weight: 175 lbs 09/02/2016 Blood Pressure 1: 146/82 Code : 8480-6 BMI: 29.3 Code : 69511-8 Heart Rate 1 : 95 bpm Height: 5'5" SpO2: 98% Weight: 176 lbs 08/27/2016 Blood Pressure 1: 178/90 Code : 8480-6 Blood Pressure 1: 148/88 Code: 8480-6 Blood Pressure 1: 162/84 Code: 8480-6 BMI: 30.1 Code: 14236-2 Heart Rate 1: 80 bpm Height: 5'5" SpO2: 98% Weight: 181 lbs 04/29/2016 Blood Pressure 1: 152/76 Code : 8480-6 BMI: 30.1 Code : 58905-8 Heart Rate 1 : 99 bpm Height: 5'5" SpO2: 98% Temperature: 37.4 (C) / 99.3 (F) Weight: 181 lbs 02/12/2016 Blood Pressure 1: 136/82 Code : 8480-6 Heart Rate 1: 88 bpm SpO2: 97% 01/05/2016 Blood Pressure 1: 150/80 Code : 8480-6 BMI: 28.8 Code : 13842-6 Heart Rate 1 : 80 bpm Height: 5'5" SpO2: 98% Weight: 173 lbs 02/26/2015 Blood Pressure 1: 144/84 Code : 8480-6 Blood Pressure 1: 140/82 Code: 8480-6 BMI: 28.8 Code: 30331-6 Heart Rate 1: 81 bpm Height: 5'5" SpO2: 98% Weight: 173 lbs 08/27/2014 Blood Pressure 1: 132/80 Code : 8480-6 BMI: 28.1 Code : 86283-7 Height: 5'5" Weight: 169 lbs Functional Status [...] 02/26/2015 None well woman exam (65+ 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 PATIENT, LEVEL IV Diagnosis: Essential (primary) hypertension[ICD10: I10] Diagnosis: Type 2 diabetes mellitus without complications[ICD10: E11.9] Diagnosis: Mixed hyperlipidemia[ICD10: E78.2] Deysi Thrasher MD, [facility] CPT-4: 47587 04/06/2018 ([id number]) 27010 EST. PATIENT, LEVEL IV Diagnosis: Type 2 diabetes mellitus without complications[ICD10: E11.9] Diagnosis: Essential (primary) hypertension[ICD10: I10] Diagnosis: Pain in left knee[ICD10: M25.562] Diagnosis: Localized edema[ICD10: R60.0] Deysi Thrasher MD, [facility] CPT- 4: 78913 11/30/2017 ([id number]) 25768 EST. PATIENT, LEVEL IV Diagnosis: Essential (primary) hypertension[ICD10: I10] Diagnosis: Type 2 diabetes mellitus without complications[ICD10: E11.9] [facility] CPT-4: 75036 08/18/2017 ([id number]) 10083 EST. PATIENT, LEVEL III Diagnosis: Essential (primary) hypertension[ICD10: I10] Diagnosis: Other specified disorders of nose and nasal sinuses[ICD10: J34.89] [facility] CPT-4: 48444 07/27/2017 ([id number]) 80048 EST. PATIENT, LEVEL III Diagnosis: Pain in left lower leg[ICD10: M79.662] Diagnosis: Dysuria[ICD10: R30.0] [facility] CPT-4: 67149 06/22/2017 [id number] [id number] EST. PATIENT, LEVEL III Diagnosis: Sciatica, left side[ICD10: M54.32] Diagnosis: Low back pain[ICD10: M54.5] Deysi Thrasher MD [facility] CPT- 4: 93519 06/07/2017 ([id number]) Miscellaneous no charge Diagnosis: Dysuria[ICD10: R30.0] Deysi Thrasher MD [facility] CPT-4: 81808 05/23/2017 ([id number]) 16223 EST. PATIENT, LEVEL III Diagnosis: Essential (primary) hypertension[ICD10: I10] Diagnosis: Xerosis cutis[ICD10: L85.3] Deysi Thrasher MD [facility] CPT- 4: 70797 04/27/2017 [id number] EST. PATIENT, LEVEL IV Diagnosis: Other acute sinusitis[ICD10: J01.80] Diagnosis: Other allergic rhinitis[ICD10: J30.89] Gayathri Thrasher MD [facility] CPT-4: 07528 03/18/2017 [id number] EST. PATIENT, LEVEL III Diagnosis: Other chest pain[ICD10: R07.89] Diagnosis: Essential (primary) hypertension[ICD10: I10] Gayathri Thrasher MD, [facility] CPT-4: 27504 12/09/2016 ([id number]) 49352 EST. PATIENT, LEVEL IV Diagnosis: Essential (primary) hypertension[ICD10: I10] Diagnosis: Other allergic rhinitis[ICD10: J30.89] Diagnosis: Acne vulgaris[ICD10: L70.0] Diagnosis: Sacroiliitis, not elsewhere classified[ICD10: M46.1] Shraddha Thrasher MD, [facility] CPT-4: 19189 10/18/2016 ([id number]) Miscellaneous no charge Diagnosis: Essential (primary) hypertension[ICD10: I10] Shraddha Thrasher MD, [facility] CPT-4: 19393 09/02/2016 ([id number]) 41295 EST. PATIENT, LEVEL III Diagnosis: Essential (primary) hypertension[ICD10: I10] Shraddha Thrasher MD, [facility] CPT-4: 91482 08/27/2016 02243 EST. PATIENT, LEVEL III Diagnosis: Other allergic rhinitis[ICD10: J30.89] Diagnosis: Acute laryngopharyngitis[ICD10: J06.0] Gayathri Thrasher MD, [facility] CPT-4: 23314 04/29/2016 ([id number] [id number] EST. PATIENT, LEVEL III Diagnosis: Cellulitis of neck[ICD10: L03.221] [facility] CPT-4: 98133 02/12/2016 ([id number]) 66146 EST. PATIENT, LEVEL IV Diagnosis: Type 2 diabetes mellitus without complications[ICD10: E11.9] Diagnosis: Mixed hyperlipidemia[ICD10: E78.2] Diagnosis: Transient visual loss, left eye[ICD10: H53.122] Diagnosis: Headache[ICD10: R51] Diagnosis: Trigeminal neuralgia[ICD10: G50.0] Diagnosis: Insect bite (nonvenomous) of left front wall of thorax, initial encounter[ICD10: S20.362A] [facility] CPT-4: 12007 01/05/2016 [id number]) [id number] EST. PATIENT, LEVEL III Diagnosis: Type 2 diabetes mellitus without complications[ICD10: E11.9] Deysi Thrasher MD, [facility] CPT-4: 62694 02/26/2015 ([id number]) OFFICE VISIT, NEW - LEVEL 3 Diagnosis: Diabetes mellitus[ICD9: 250.00] Diagnosis: Screening for breast cancer[ICD9: V76.10] Diagnosis: Screening for osteoporosis[ICD9: V82.81] Shraddha Thrasher [facility] CPT-4: 29767 08/27/2014 Plan of Care Planned Activity Notes Codes Status Date Patient Education: Patient Medication Summary Completed 04/12/2018 Care Plan: SCREENINGMAMMOGRAPHYDIGITAL LOINC : 87764-2 Pending 04/12/2018 Visit Plan: Diabetes Mellitus - [...] to medications. 04/06/2018 App[facility]ment: [phone] (15 min) Moderate 04/06/2018 Patient Education: Patient Medication Summary Completed 04/06/2018 Patient Education: Diabetes Completed 04/06/2018 Patient Education: Cholesterol Management Completed 04/06/2018 Care Plan: SCREENINGMAMMOGRAPHYDIGITAL [facility] : 26467-5 Pending 04/06/2018 Visit Plan: Diabetes Mellitus - [...] with pt. 11/30/2017 Appointment: [phone] [place] (15 min) Moderate 11/30/2017 Patient Education: Patient [...] less controlled. 08/18/2017 Appointment: [phone] [place] (15 min) Moderate 08/18/2017 Patient Education: Patient [...] nasal discharge. 07/27/2017 Appointment: [phone] [place] (15 min) Moderate 07/27/2017 Patient Education: Patient [...] 12 hours. 06/22/2017 Appointment: Deysi Thrasher WPtel: [facility] (15 min) Moderate 06/22/2017 Patient Education: Patient Medication Summary Completed 06/22/2017 Visit Plan: Low back pain - SI joint pain - Sciatica - recommended pt to start on exercises for low back - rx for naproxen, ketorolac shot today. 06/07/2017 Appointment: Deysi Thrasher WPtel: [phone] [facility] (15 min) Moderate 06/07/2017 Patient Education: Patient [...] not better 04/27/2017 Appointment: Deysi Thrasher WPtel: [facility]5 [facility] (15 min) Moderate 04/27/2017 Patient Education: Patient Medication Summary Completed 04/27/2017 Appointment: Gayathri Elizabeth WPtel: [facility]5 [facility] (15 min) Moderate 04/22/2017 Visit Plan: [...] spray. 03/18/2017 [phone] (15 min) Moderate 03/18/2017 Patient Education: Patient Medication Summary Completed 03/18/2017 Appointment: Nurse Visit 01/12/2017 Patient Education: Patient Medication Summary Completed 01/12/2017 Visit Plan: Chest pain - sudden in onset, improving - pt has had uncontrolled blood pressures and has had medication adjustments in the past, but has not seen a cytopathology technologist - will check labs and EKG - [...] concerns. 12/09/2016 App[facility]ment: [phone] (30 min) Complex 12/09/2016 Patient Education: Patient Medication Summary Completed 12/09/2016 Patient Education: Hypertension Completed 12/09/2016 Care Plan: Referral Order SNOMED-CT : [id number] Pending 12/09/2016 Appointment: Nurse Visit 11/08/2016 Visit [...] anti histamine 10/18/2016 Appointment: Shraddha Dillon WPtel: [phone] (15 min) Moderate 10/18/2016 Patient Education: Patient [...] Dr Joseph 09/02/2016 Appointment: Shraddha Dillon WPtel: [phone] (15 min) Moderate 09/02/2016 Patient Education: Patient [...] SCHEDULE ECHOCARDIOGRAM 08/27/2016 Appointment: Shraddha Dillon WPtel: [phone] [phone] (10 min) Simple 08/27/2016 Patient Education: Patient [...] allergy spray. 04/29/2016 Appointment: Gayathri Elizabeth WPtel: [facility] (30 min) Complex 04/29/2016 Patient Education: Patient Medication Summary Completed 04/29/2016 Appointment: Lab Draw 02/25/2016 Patient Education: Patient Medication Summary Completed 02/25/2016 Visit Plan: Cellulitis - continue with oral antibiotics as previously directed, return to clinic as previously directed, call for acute change in symptoms, worsening redness, warmth, discharge. 02/12/2016 Appointment: Shraddha Dillon WPtel: [phone] [phone] [place] (10 min) Simple 02/12/2016 Patient Education: [...] stroke 01/05/2016 Appointment: [facility]ysi Thrasher [facility]el[phone] [place] [place] (15 min) Moderate 01/05/2016 Appointment: [phone] [facility] [place] (30 min) Complex 01/05/2016 Patient [...] 02/26/2015 Care Plan: MICROALBUMIN QUANTITATIVE LOINC : 08481-0 Ordered 02/26/2015 Care Plan: COMPLETE CBC AUTOMATED LOINC : 05523-7 Ordered 02/26/2015 Patient Education: Patient Medication Summary [...] calling her for appt Initiated Instructions Comment BRING BLOOD PRESSURE MACHINE IN TO HAVE [...] they worsen. Allergies-left ear itching-recommend anti histamine SCHEDULE ECHO LISINOPRIL 20MG DAILY MONITOR BLOOD PRESSURE DAILY IF NEEDS TO SEE ACUTE CARE CLINICAL NURSE SPECIALIST, SHE WANTS TO GO TO [facility] OVER THE WEEKEND FOR SYMPTOMS DISCUSSED . [...] call for acute concerns. SCHEDULE ECHOCARDIOGRAM . Cellulitis - continue with oral antibiotics as previously directed, return to clinic as previously directed, call for acute change in symptoms, worsening redness, warmth, discharge. . Hypertension - well controlled - [...] Dr. Roth, Dr. Durán - surgeons in [place] Dr. Mojica, Dr. Mauricio - in [place] Dr. Wilkinson - internal Med in [place] Let me know who you want to [...] DOP[employer] paperwork for health care surrogate. . ua collected on [employer] for [employer] - compression socks . Diabetes [...] - discussed different compression socks with pt. take an enteric coated 81 mg aspirin [...] rx for naproxen, ketorolac shot today. . HTN-not well controlled-take low dose lisinopril daily- start with 2.5mg daily-increase to 5mg daily if needed-call with readings or other symptoms as discussed-keep appt with Dr Joseph . Sinusitis - Pt has acute infection [...] head to assure no evidence of stroke Plan: ([id number]) SCREENINGMAMMOGRAPHYDIGITAL . Diabetes Mellitus - [...] not resolve or if any worse . Chest pain - sudden in onset, improving - pt has had uncontrolled blood pressures and has had medication adjustments in the past, but has not seen a cytopathology technologist - will check labs and EKG - [...] in the nasal steroid allergy spray. . Diabetes Mellitus - controlled - per [...]
[2018-04-28] MEDS ORDERED: LIDOCAINE PF 1% 2 ML AMP IR PRN (07:30)
[2018-04-28] MEDS ORDERED: TIMOLOL MALEATE 0.5% 5 ML (TIMOPTIC) BTL OU PRN (07:30)
[2018-04-28] MEDS ORDERED: POVIDONE (BETADINE) OPHTH SOLN 5% 30 ML OP ONE (07:30)
[2018-04-28] MEDS ORDERED: MOXIFLOXACIN OPHTH SOLN 5 MG/ML 0.3 ML SYRINGE OP ONE (07:30)
[2018-04-28] MEDS ORDERED: MIDAZOLAM 2 MG/2 ML (VERSED) VIAL ONE (07:31)
--- OUTSIDE RECORDS SUMMARY | 2018-04-28 07:31 | XMS REPORT | CCD ---
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 Name Role Phone PP Unavailable CCM Unavailable Summary Purpose Interface Exchange Insurance Providers Payer name Policy type / Coverage type Covered democrat ID Effective Begin Date Effective End Date WPS Medicare Part B Medicare Part B [id number] 2017 Unknown [employer] Medicare Part B [id number] 2017 Unknown Family history Son Diagnosis Age At [...] Unknown 5 08/27/[address]: 552517136 Never smoker 08/27/[address]: 798196828 Never drinks alcohol 08/27/2014 Allergies, Adverse Reactions, Alerts Substance Reaction Codes Entered Date Inactivated Date Status * OTHER REACTION - SEE ANSWER BOX statin-myalgia Unknown 2017 No Inactive Date Active CODEINE RxNorm: 2670 08/27/2014 No Inactive Date Active hydrocodone emesis Unknown 07/27/2017 No Inactive Date Active Levaquin diarrhea RxNorm: 82075 07/27/2017 No Inactive Date Active Penicillin Unknown 08/27/2014 No Inactive Date Active Past Medical History Illness Codes Condition Status Onset Date Resolved Date Essential (primary) hypertension ICD-9: 401.1 ICD-10: I10 [...] Problems Condition Codes Effective Dates Condition Status Essential (primary) hypertension ICD-9: 401.1 ICD-10: I10 [...] Instructions Vitamin C 500 mg tablet RxNorm: 129186 1 Tablet(s) PO daily 12/201805/05/2018 Active lisinopril 5 mg tablet RxNorm: 453513 TAKE 1/2 TABLET BY MOUTH TWO TIMES A DAY 01/30/2018 07/28/2018 Active naproxen 500 mg tablet RxNorm: 136703 TAKE ONE TABLET BY MOUTH TWICE A DAY 11/18/2017 01/16/2018 Inactive Retin-A Micro 0.1 % topical gel RxNorm: 842955 1 Application TOP BID 08/18/2017 12/15/2017 Inactive tamsulosin 0.4 mg capsule RxNorm: 394363 1 Capsule(s) PO daily 07/21/2017 08/17/2017 Inactive naproxen 500 mg tablet RxNorm: 621442 TAKE ONE TABLET BY MOUTH TWICE A DAY 07/19/2017 09/16/2017 Inactive Keflex 500 mg capsule RxNorm: 670628 1 Capsule(s) PO QID 201706/28/2017 Inactive ketorolac 60 mg/2 mL intramuscular solution RxNorm: 767106 2 Milliliter(s) IM 06/07/2017 06/07/2017 Inactive naproxen 500 mg tablet RxNorm: 097912 1 Tablet(s) PO BID 201707/06/2017 Inactive lisinopril 5 mg tablet RxNorm: 409409 1/2 Tablet(s) PO BID 04/201711/22/2017 Inactive Cipro 500 mg tablet RxNorm: 155006 1 Tablet(s) PO BID 201706/01/2017 Inactive Cipro 500 mg tablet RxNorm: 769709 1 Tablet(s) PO BID 201705/22/2017 Inactive clobetasol 0.05 % topical cream RxNorm: 882710 1 Application TOP BID as needed Itching 04/27/2017 No Stop Date Active Kombiglyze XR 5 mg-1,000 mg tablet,extended release RxNorm: 9892710 TAKE ONE TABLET BY MOUTH DAILY 04/04/20172018 Inactive Kombiglyze XR 5 mg-1,000 mg tablet,extended release RxNorm: 3075225 TAKE ONE TABLET BY MOUTH DAILY 04/04/20172017 Inactive Zithromax Z-Jose 250 mg tablet RxNorm: 208464 1 Tablet(s) PO UD 03/18/2017 04/26/2017 Inactive Kombiglyze XR 5 mg-1,000 mg tablet,extended release RxNorm: 7848681 TAKE ONE TABLET BY MOUTH DAILY 12/22/20162016 Inactive lisinopril 5 mg tablet RxNorm: 677469 1/2 Tablet(s) PO BID 03/08/2017 Inactive clobetasol 0.05 % topical cream RxNorm: 433338 1 Application TOP BID 10/18/2016 No Stop Date Active tkgrpckb-tesxbdcjc-aqtllviwm 3.5 mg/mL-10,000 unit/mL-1 % ear solution RxNorm: 808878 2 OTIC QID 10/18/2016 10/24/2016 Inactive lisinopril 5 mg tablet RxNorm: 911064 1/2-1 Tablet(s) PO daily 09/02/2016 11/30/2016 Inactive start 1/2 tab daily-increase to a full tab if needed lisinopril 20 mg tablet RxNorm: 675764 1 Tablet(s) PO daily 04/201609/01/2016 Inactive Lofibra 54 mg tablet RxNorm: 833319 1 Tablet(s) PO daily 201604/26/2017 Inactive DC fenofibrate 40 mg Lofibra 54 mg tablet RxNorm: 908713 1 Tablet(s) PO daily 201607/06/2016 Inactive DC fenofibrate 40 mg fenofibrate 40 mg tablet RxNorm: 221567 1 Tablet(s) PO daily 07/06/2016 Inactive fenofibrate 40 mg tablet RxNorm: 470386 1 Tablet(s) PO daily 07/01/2016 Inactive Kombiglyze XR 5 mg-1,000 mg tablet,extended release RxNorm: 9960249 TAKE ONE TABLET BY MOUTH DAILY 06/21/20162016 Inactive Kombiglyze XR 5 mg-1,000 mg tablet,extended release RxNorm: 3530269 Tablet(s) TAKE ONE TABLET BY MOUTH DAILY 05/05/2016 06/20/2016 Inactive Zyrtec 10 mg tablet RxNorm: 6394651 1 Tablet(s) PO daily 04/2905/28/2016 Inactive Zithromax Z-Jose 250 mg tablet RxNorm: 579176 1 Tablet(s) PO UD 04/29/2016 07/01/2016 Inactive Bactrim DS 800 mg-160 mg tablet RxNorm: 706343 1 Tablet(s) PO BID 02/25/2016 02/24/2016 Inactive Bactrim DS 800 mg-160 mg tablet RxNorm: 449087 1 Tablet(s) PO BID 02/25/2016 03/02/2016 Inactive WelChol 625 mg tablet RxNorm: 925637 3 Tablet(s) PO BID 201502/19/2016 Inactive WelChol 625 mg tablet RxNorm: 602360 3 Tablet(s) PO BID with meals 02/20/2016 04/19/2016 Inactive dc zetia doxycycline hyclate 100 mg tablet RxNorm: 306134 1 Tablet(s) PO BID 02/12/2016 02/18/2016 Inactive doxycycline hyclate 100 mg tablet RxNorm: 660294 1 Tablet(s) PO BID 01/05/2016 01/18/2016 Inactive prednisone 20 mg tablet RxNorm: 142611 3 Tablet(s) PO daily 12/201501/09/2016 Inactive Zetia 10 mg tablet RxNorm: 009669 TAKE ONE TABLET BY MOUTH EVERY NIGHT AT BEDTIME 11/13/2015 02/19/2016 Inactive Kombiglyze XR 5 mg-1,000 mg tablet,extended release RxNorm: 1543505 TAKE ONE TABLET BY MOUTH DAILY 07/24/20152015 Inactive Zetia 10 mg tablet RxNorm: 991766 1 Tablet(s) PO QHS 201511/04/2015 Inactive Zetia 10 mg tablet RxNorm: 713016 1 Tablet(s) PO QHS 201507/07/2015 Inactive Kombiglyze XR 5 mg-1,000 mg tablet,extended release RxNorm: 4545983 1 Tablet(s) PO daily 04/16/2015 07/14/2015 Inactive Fish Oil 1,000 mg capsule RxNorm: 1200 Capsule(s) PO BID No Start Date Active Calcium + D oral RxNorm: 042149 oral No Start Date Active Flaxseed Meal RxNorm: 641146 miscellaneous No Start Date Active Vitamin D3 5,000 unit tablet RxNorm: 909176 1 Tablet(s) PO daily No Start Date Active Multiple Vitamin oral RxNorm: 79329 oral No Start Date Active Kombiglyze XR 5 mg-1,000 mg tablet,extended release RxNorm: 6563648 1 Tablet(s) PO daily No Start Date 04/15/2015 Inactive Medication Administered Medication Codes Instructions Start Date Status ketorolac 60 mg/2 mL intramuscular solution RxNorm: 380377 2Milliliter 06/07/2017 No longer Active Immunizations Vaccine Codes Date Status Influenza CVX: 141 01/12/2017 completed Assessments Condition Codes Effective Dates Essential (primary) hypertension ICD-10: I10 ICD-9: 401.1 [...] Item Code Result Date Lipid Ord30 CHOL 261 mg/dL 08/31/2017 Lipid Ord30 HDL 45.0 mg/dl 08/31/2017 Lipid Ord30 TRIG 173 mg/dL 08/31/2017 Lipid Ord30 LDL 181 mg/dL 08/31/2017 Lipid Ord30 C/HDL 5.8 Ratio 08/31/2017 %Hba1C Pcd794 % HbA1c 60231-8 6.1 % 08/31/2017 %Hba1C Dat759 Gluc Ave 128 mg/dL 08/31/2017 Comp Metabolic Gth034 NA 139 mEq/L 08/31/2017 Comp Metabolic Fmx667 K 4.4 mEq/L 08/31/2017 Comp Metabolic Jiv374 CL 107 mEq/L 08/31/2017 Comp Metabolic Ykk129 CO2 23.0 mEq/L 08/31/2017 Comp Metabolic Dwb316 ANION GAP 13 08/31/2017 Comp Metabolic Hvo030 GLUCOSE 110 mg/dL 08/31/2017 Comp Metabolic Khw546 Creat 0.7 mg/dL 08/31/2017 Comp Metabolic Moi787 eGFR 92 ml/min/1.73m2 08/31/2017 Comp Metabolic Etu984 BUN 20 mg/dL 08/31/2017 Comp Metabolic Xcv845 B/C Ratio 29.9 Ratio 08/31/2017 Comp Metabolic Iok807 CALCIUM 9.0 mg/dL 08/31/2017 Comp Metabolic Lon149 ALK PHOS 51 U/L 08/31/2017 Comp Metabolic Etm202 AST(SGOT) 12 U/L 08/31/2017 Comp Metabolic Fae955 ALT(SGPT) 14 U/L 08/31/2017 Comp Metabolic Zuh558 BILI T 0.4 mg/dL 08/31/2017 Comp Metabolic Del450 ALBUMIN 3.7 g/dL 08/31/2017 Comp Metabolic Rkh837 TPRO 5.8 g/dL 08/31/2017 Comp Metabolic Par230 GLOB 2.1 g/dL 08/31/2017 Comp Metabolic Haf372 A/G Ratio 1.8 Ratio 08/31/2017 Comp Metabolic Kir602 Osmo 281 mOsmo 08/31/2017 Urine Culture Ucult Preliminary NO Growth Day 1 06/24/2017 Urine Culture Ucult Complete NO Growth Day 2 06/24/2017 Culture Urine [id number] URINE CULTURE SEE NOTES 05/26/2017 Culture Urine [id number] Continued Results 05/26/2017 Urine Culture Ucult Complete [...] 31.9 pg 10/06/2016 Cbc With Differential Ord2 [place]% 9.8 % 10/06/2016 Cbc With Differential Ord2 [...] 1.63 K/ul 10/06/2016 Cbc With Differential Ord2 [place] ABS# 0.6 K/ul 10/06/2016 Cbc With Differential Ord2 Eos ABS# 0.3 K/ul 10/06/2016 Cbc With Differential Ord2 Baso ABS# 0.0 K/ul 10/06/2016 Comp Metabolic Ygy553 NA 140 mEq/L 10/06/2016 Comp Metabolic Xoy877 K 4.3 mEq/L 10/06/2016 Comp Metabolic Sjf324 CL 107 mEq/L 10/06/2016 Comp Metabolic Bgi204 CO2 25.0 mEq/L 10/06/2016 Comp Metabolic Yym057 ANION GAP 12 10/06/2016 Comp Metabolic Cvz760 GLUCOSE 122 mg/dL 10/06/2016 Comp Metabolic Jub733 Creat 0.7 mg/dL 10/06/2016 Comp Metabolic Epb845 eGFR 84 ml/min/1.73m2 10/06/2016 Comp Metabolic Pqr225 BUN 17 mg/dL 10/06/2016 Comp Metabolic Luv526 B/C Ratio 23.3 Ratio 10/06/2016 Comp Metabolic Sbp509 CALCIUM 9.0 mg/dL 10/06/2016 Comp Metabolic Axq127 ALK PHOS 52 U/L 10/06/2016 Comp Metabolic Uen458 AST(SGOT) 18 U/L 10/06/2016 Comp Metabolic Spx060 ALT(SGPT) 22 U/L 10/06/2016 Comp Metabolic Xbg328 BILI T 0.6 mg/dL 10/06/2016 Comp Metabolic Jzx637 ALBUMIN 3.9 g/dL 10/06/2016 Comp Metabolic Wfw822 TPRO 6.1 g/dL 10/06/2016 Comp Metabolic Wvg439 GLOB 2.2 g/dL 10/06/2016 Comp Metabolic Amf189 A/G Ratio 1.8 Ratio 10/06/2016 Comp Metabolic Zhv386 Osmo 282 mOsmo 10/06/2016 %Hba1C Dqk223 % HbA1c 63748-7 6.4 % 10/06/2016 %Hba1C Xgk967 Gluc Ave 137 mg/dL 10/06/2016 %Hba1C Chb522 % HbA1c 52625-4 6.3 % 05/21/2016 %Hba1C Qmv595 Gluc Ave 134 mg/dL 05/21/2016 Hepatic Uys269 ALBUMIN 4.2 g/dL 05/21/2016 Hepatic Ahb860 TPRO 6.6 g/dL 05/21/2016 Hepatic Xrl099 GLOB 2.4 g/dL 05/21/2016 Hepatic Nbv876 A/G Ratio 1.7 Ratio 05/21/2016 Hepatic Vqb061 ALK PHOS 64 U/L 05/21/2016 Hepatic Kqu164 ALT(SGPT) 16 U/L 05/21/2016 Hepatic Ipj412 AST(SGOT) 13 U/L 05/21/2016 Hepatic Pjm436 BILI T 0.5 mg/dL 05/21/2016 Hepatic Hla412 BILI D 0.1 mg/dL 05/21/2016 Hepatic Fbr445 BILI I 0.4 mg/dL 05/21/2016 Lipid Ord30 CHOL 285 mg/dL 05/21/2016 Lipid Ord30 HDL 42.0 mg/dl 05/21/2016 Lipid Ord30 TRIG 364 mg/dL 05/21/2016 Lipid Ord30 LDL 0 Unable to calculate Due to elevated triglycerides mg/dL 05/21/2016 Lipid Ord30 C/HDL 6.8 Ratio 05/21/2016 C A/B FLU [id number] Influenza A Scr Negative 04/29/2016 C A/B FLU [id number] Influenza B Scr Negative 04/29/2016 Urine Culture [...] 96.9 fl 02/12/2016 Cbc With Differential Ord2 [place]% 10.5 % 02/12/2016 Cbc With Differential Ord2 [...] 1.39 K/ul 02/12/2016 Cbc With Differential Ord2 [place] ABS# 0.8 K/ul 02/12/2016 Cbc With Differential Ord2 Eos ABS# 0.2 K/ul 02/12/2016 Cbc With Differential Ord2 Baso ABS# 0.0 K/ul 02/12/2016 %Hba1C Acx499 % HbA1c 61466-2 6.6 % 02/12/2016 %Hba1C Txu304 Gluc Ave 143 mg/dL 02/12/2016 Lipid Ord30 CHOL 276 mg/dL 02/12/2016 Lipid Ord30 HDL 47.0 mg/dl 02/12/2016 Lipid Ord30 TRIG 424 mg/dL 02/12/2016 Lipid Ord30 LDL 0 Unable to calculate Due to elevated triglycerides mg/dL 02/12/2016 Lipid Ord30 C/HDL 5.9 Ratio 02/12/2016 Tsh Ord6 hTSH II 1.21 uIU/mL 02/12/2016 Microalbumin Kor282 MicroAlb <0.7 mg/dL 02/12/2016 Comp Metabolic Itk875 NA 138 mEq/L 02/12/2016 Comp Metabolic Igr649 K 4.2 mEq/L 02/12/2016 Comp Metabolic Xss556 CL 103 mEq/L 02/12/2016 Comp Metabolic Zgo833 CO2 28.0 mEq/L 02/12/2016 Comp Metabolic Lsw772 ANION GAP 11 02/12/2016 Comp Metabolic Get429 GLUCOSE 97 mg/dL 02/12/2016 Comp Metabolic Oxv262 Creat 0.7 mg/dL 02/12/2016 Comp Metabolic Fdn820 eGFR 83 ml/min/1.73m2 02/12/2016 Comp Metabolic Gum128 BUN 16 mg/dL 02/12/2016 Comp Metabolic Slc168 B/C Ratio 21.6 Ratio 02/12/2016 Comp Metabolic Crk167 CALCIUM 9.6 mg/dL 02/12/2016 Comp Metabolic Lvs927 ALK PHOS 53 U/L 02/12/2016 Comp Metabolic Axs403 AST(SGOT) 16 U/L 02/12/2016 Comp Metabolic Nsr823 ALT(SGPT) 22 U/L 02/12/2016 Comp Metabolic Gqf195 BILI T 0.5 mg/dL 02/12/2016 Comp Metabolic Zmu704 ALBUMIN 3.9 g/dL 02/12/2016 Comp Metabolic Fbt807 TPRO 6.4 g/dL 02/12/2016 Comp Metabolic Shu164 GLOB 2.5 g/dL 02/12/2016 Comp Metabolic Ivu558 A/G Ratio 1.6 Ratio 02/12/2016 Comp Metabolic Teq604 Osmo 277 mOsmo 02/12/2016 [place] Spotted Fever Igg/Igm 178078 VIKTORIA MT SPOTTED FEVER IGM EIA . 01/10/2016 [place] Spotted Fever Igg/Igm 340363 RMSF, IGM 0.21 index 01/10/2016 [place] Spotted Fever Igg/Igm 617974 VIKTORIA MT SPOTTED FEVER IGG EIA FLEX . 01/10/2016 [place] Spotted Fever Igg/Igm 247452 RMSF, IGG SCREEN-FLEX Equivocal 01/10/2016 Viktoria Mtn Spot'D Fev Igg 433118 RMSF, IGG -TITER IFA <1:64 Ehrlichia Chaffeensis Antibody Igm 690499 EHRLICHIA CHAFFEENSIS IGM < 1:16 01/09/2016 Ehrlichia Chaffeensis Antibody Igg 518448 EHRLICHIA CHAFFEENSIS IGG <1:64 01/09/2016 West Nile Virus Ab [id number] WEST NILE VIRUS AB IGG 0.33 IV 01/08/2016 West Nile Virus Ab [id number] WEST NILE VIRUS AB IGM 0.02 IV 01/08/2016 Lymes Disease Total Antibodies With Western Blot Reflex [id number] B. BURGDORFERI, IGG/IGM 0.09 LI 01/07/2016 Lymes Disease Total Antibodies With Western Blot Reflex [id number] 01/07/2016 Cbc With Differential Ord2 WBC 6.25 K/ul 01/05/2016 Cbc With Differential Ord2 RBC 4.43 M/ul 01/05/2016 Cbc With Differential Ord2 HGB 14.3 g/dl 01/05/2016 Cbc With Differential Ord2 HCT 42.5 % 01/05/2016 Cbc With Differential Ord2 Neut% 63.3 % 01/05/2016 Cbc With Differential Ord2 MCV 95.9 fl 01/05/2016 Cbc With Differential Ord2 Lymph% 25.8 % 01/05/2016 Cbc With Differential Ord2 MCH 32.3 pg 01/05/2016 Cbc With Differential Ord2 [place]% 8.3 % 01/05/2016 Cbc With Differential Ord2 [...] 1.61 K/ul 01/05/2016 Cbc With Differential Ord2 [place] ABS# 0.5 K/ul 01/05/2016 Cbc With Differential Ord2 Eos ABS# 0.2 K/ul 01/05/2016 Cbc With Differential Ord2 Baso ABS# 0.0 K/ul 01/05/2016 Sed Rate Ord21 ESR 16 mm/hr 01/05/2016 C-Reactive Protein Qnt Crqnt CRP 0.4 mg/dl 01/05/2016 Comp Metabolic Hfv282 NA 138 mEq/L 01/05/2016 Comp Metabolic Elp094 K 4.4 mEq/L 01/05/2016 Comp Metabolic Pfb054 CL 103 mEq/L 01/05/2016 Comp Metabolic Low919 CO2 27.0 mEq/L 01/05/2016 Comp Metabolic Vqe898 ANION GAP 12 01/05/2016 Comp Metabolic Hll736 GLUCOSE 199 mg/dL 01/05/2016 Comp Metabolic Vwf320 Creat 0.8 mg/dL 01/05/2016 Comp Metabolic Wfb736 eGFR 78 ml/min/1.73m2 01/05/2016 Comp Metabolic Jrf086 BUN 15 mg/dL 01/05/2016 Comp Metabolic Qxh148 B/C Ratio 19.2 Ratio 01/05/2016 Comp Metabolic Tan264 CALCIUM 9.4 mg/dL 01/05/2016 Comp Metabolic Skr789 ALK PHOS 59 U/L 01/05/2016 Comp Metabolic Cga814 AST(SGOT) 15 U/L 01/05/2016 Comp Metabolic Fmz024 ALT(SGPT) 19 U/L 01/05/2016 Comp Metabolic Qyi066 BILI T 0.6 mg/dL 01/05/2016 Comp Metabolic Cjr981 ALBUMIN 4.2 g/dL 01/05/2016 Comp Metabolic Oae877 TPRO 6.6 g/dL 01/05/2016 Comp Metabolic Kbh877 GLOB 2.4 g/dL 01/05/2016 Comp Metabolic Jtc676 A/G Ratio 1.7 Ratio 01/05/2016 Comp Metabolic Kxh177 Osmo 282 mOsmo 01/05/2016 Lipid Ord30 CHOL [...] Lipid Ord30 C/HDL 5.7 Ratio 06/30/2015 %Hba1C Jaz067 % HbA1c 05148-8 5.8 % 06/30/2015 %Hba1C Inv840 Gluc Ave 120 mg/dL 06/30/2015 Lipid Ord30 CHOL 274 mg/dL 02/27/2015 Lipid Ord30 HDL 44.0 mg/dl 02/27/2015 Lipid Ord30 TRIG 199 mg/dL 02/27/2015 Lipid Ord30 LDL 190 mg/dL 02/27/2015 Lipid Ord30 C/HDL 6.2 Ratio 02/27/2015 Microalbumin Ilt161 MicroAlb 0.2 mg/dL 02/27/2015 Tsh Ord6 hTSH II 2.53 uIU/mL 02/27/2015 Comp Metabolic Euu011 NA 139 mEq/L 02/27/2015 Comp Metabolic Nfg936 K 4.3 mEq/L 02/27/2015 Comp Metabolic Fqg343 CL 105 mEq/L 02/27/2015 Comp Metabolic Hca734 CO2 28.0 mEq/L 02/27/2015 Comp Metabolic Rlr386 ANION GAP 10 02/27/2015 Comp Metabolic Xbk480 GLUCOSE 116 mg/dL 02/27/2015 Comp Metabolic Qax999 Creat 0.9 mg/dL 02/27/2015 Comp Metabolic Cix666 eGFR 70 ml/min/1.73m2 02/27/2015 Comp Metabolic Jeh525 BUN 20 mg/dL 02/27/2015 Comp Metabolic Cql360 B/C Ratio 23.3 Ratio 02/27/2015 Comp Metabolic Tpr452 CALCIUM 9.0 mg/dL 02/27/2015 Comp Metabolic Vnt504 ALK PHOS 59 U/L 02/27/2015 Comp Metabolic Vnp970 AST(SGOT) 15 U/L 02/27/2015 Comp Metabolic Jgz899 ALT(SGPT) 17 U/L 02/27/2015 Comp Metabolic Ywa048 BILI T 0.7 mg/dL 02/27/2015 Comp Metabolic Yyl497 ALBUMIN 3.9 g/dL 02/27/2015 Comp Metabolic Ybd869 TPRO 6.2 g/dL 02/27/2015 Comp Metabolic Vvo530 GLOB 2.3 g/dL 02/27/2015 Comp Metabolic Uwi545 A/G Ratio 1.7 Ratio 02/27/2015 Comp Metabolic Aar622 Osmo 281 mOsmo 02/27/2015 %Hba1C Pad289 % HbA1c 56335-8 6.2 % 02/27/2015 %Hba1C Uit205 Gluc Ave 131 mg/dL 02/27/2015 Cbc With [...] - General 1995 Ears/Nose/Throat otoscopic exam Overall: external auditory canals [...] time 04/27/2017 None Full Exam - General 1995 Integument inspection of skin Dermatitis: dryness/ flaking [...] Codes Date URINALYSIS NONAUTO W/O SCOPE CPT-4: 69340 06/22/2017 THER/PROPH/DIAG INJ SC/IM CPT-4: 90319 06/07/2017 KETOROLAC TROMETHAMINE INJ CPT-4: J1885 06/07/2017 FLU VAC NO PRSV 4 MOI 3 YRS+ CPT-4: 68004 01/12/2017 ADMIN INFLUENZA VIRUS VAC CPT-4: G0008 01/12/2017 PPPS, SUBSEQ VISIT CPT -4: G0439 09/21/2016 URINALYSIS NONAUTO W/O SCOPE CPT-4: 91632 02/25/2016 Vital Signs Date Vital 04/06/2018 Blood Pressure 1: 122/80 Code : 8480-6 BMI: 28.5 Code : 63572-9 Heart Rate 1 : 92 bpm Height: 5'5" SpO2: 96% Weight: 171 lbs 11/30/2017 Blood Pressure 1: 120/76 Code : 8480-6 BMI: 28.6 Code : 29900-3 Heart Rate 1 : 91 bpm Height: 5'5" SpO2: 97% Weight: 172 lbs 08/18/2017 Blood Pressure 1: 126/78 Code : 8480-6 BMI: 28.6 Code : 99371-3 Heart Rate 1 : 88 bpm Height: 5'5" SpO2: 98% Weight: 172 lbs 07/27/2017 Blood Pressure 1: 140/76 Code : 8480-6 BMI: 28.0 Code : 22409-4 Heart Rate 1 : 99 bpm Height: 5'5" SpO2: 98% Temperature: 36.7 (C) / 98.1 (F) Weight: 168 lbs 06/22/2017 Blood Pressure 1: 134/70 Code : 8480-6 BMI: 29.1 Code : 51828-5 Heart Rate 1 : 94 bpm Height: 5'5" SpO2: 98% Weight: 175 lbs 06/07/2017 Blood Pressure 1: 136/70 Code : 8480-6 BMI: 28.6 Code : 72278-4 Heart Rate 1 : 78 bpm Height: 5'5" SpO2: 98% Weight: 172 lbs 04/27/2017 Blood Pressure 1: 132/70 Code : 8480-6 BMI: 28.5 Code : 42722-2 Heart Rate 1 : 93 bpm Height: 5'5" SpO2: 98% Weight: 171 lbs 03/18/2017 Blood Pressure 1: 144/84 Code : 8480-6 BMI: 29.1 Code : 35753-9 Heart Rate 1 : 94 bpm Height: 5'5" SpO2: 98% Weight: 175 lbs 12/09/2016 Blood Pressure 1: 134/78 Code : 8480-6 BMI: 29.0 Code : 41466-7 Heart Rate 1 : 89 bpm Height: 5'5" SpO2: 97% Weight: 174 lbs 10/18/2016 Blood Pressure 1: 166/92 Code : 8480-6 BMI: 29.4 Code : 53946-1 Heart Rate 1 : 94 bpm Height: 5'5" SpO2: 94% Weight: 176 lbs 8 oz 09/21/2016 Blood Pressure 1: 140/84 Code : 8480-6 BMI: 29.1 Code : 40969-7 Heart Rate 1 : 90 bpm Height: 5'5" SpO2: 97% Weight: 175 lbs 09/02/2016 Blood Pressure 1: 146/82 Code : 8480-6 BMI: 29.3 Code : 55733-4 Heart Rate 1 : 95 bpm Height: 5'5" SpO2: 98% Weight: 176 lbs 08/27/2016 Blood Pressure 1: 178/90 Code : 8480-6 Blood Pressure 1: 162/84 Code: 8480-6 Blood Pressure 1: 148/88 Code: 8480-6 BMI: 30.1 Code: 05774-5 Heart Rate 1: 80 bpm Height: 5'5" SpO2: 98% Weight: 181 lbs 04/29/2016 Blood Pressure 1: 152/76 Code : 8480-6 BMI: 30.1 Code : 78690-8 Heart Rate 1 : 99 bpm Height: 5'5" SpO2: 98% Temperature: 37.4 (C) / 99.3 (F) Weight: 181 lbs 02/12/2016 Blood Pressure 1: 136/82 Code : 8480-6 Heart Rate 1: 88 bpm SpO2: 97% 01/05/2016 Blood Pressure 1: 150/80 Code : 8480-6 BMI: 28.8 Code : 19869-3 Heart Rate 1 : 80 bpm Height: 5'5" SpO2: 98% Weight: 173 lbs 02/26/2015 Blood Pressure 1: 144/84 Code : 8480-6 Blood Pressure 1: 140/82 Code: 8480-6 BMI: 28.8 Code: 61167-5 Heart Rate 1: 81 bpm Height: 5'5" SpO2: 98% Weight: 173 lbs 08/27/2014 Blood Pressure 1: 132/80 Code : 8480-6 BMI: 28.1 Code : 31124-8 Height: 5'5" Weight: 169 lbs Functional Status [...] 02/26/2015 None 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 PATIENT, LEVEL IV Diagnosis: Essential (primary) hypertension[ICD10: I10] Diagnosis: Type 2 diabetes mellitus without complications[ICD10: E11.9] Diagnosis: Mixed hyperlipidemia[ICD10: E78.2] Deysi Thrasher MD, [facility] CPT-4: 41505 04/06/2018 ([id number]) 33122 EST. PATIENT, LEVEL IV Diagnosis: Type 2 diabetes mellitus without complications[ICD10: E11.9] Diagnosis: Essential (primary) hypertension[ICD10: I10] Diagnosis: Pain in left knee[ICD10: M25.562] Diagnosis: Localized edema[ICD10: R60.0] [facility] CPT- 4: 14876 11/30/2017 ([id number]) 23856 EST. PATIENT, LEVEL IV Diagnosis: Essential (primary) hypertension[ICD10: I10] Diagnosis: Type 2 diabetes mellitus without complications[ICD10: E11.9] Deysi Thrasher MD, [facility] CPT-4: 61590 08/18/2017 [id number]) [id number] EST. PATIENT, LEVEL III Diagnosis: Essential (primary) hypertension[ICD10: I10] Diagnosis: Other specified disorders of nose and nasal sinuses[ICD10: J34.89] Deysi Thrasher MD, [facility] CPT-4: 75109 07/27/2017 ([id number]) 14726 EST. PATIENT, LEVEL III Diagnosis: Pain in left lower leg[ICD10: M79.662] Diagnosis: Dysuria[ICD10: R30.0] Deysi Thrasher MD, [facility] CPT-4: 42348 06/22/2017 ([id number]) 39542 EST. PATIENT, LEVEL III Diagnosis: Sciatica, left side[ICD10: M54.32] Diagnosis: Low back pain[ICD10: M54.5] Deysi Thrasher MD, [facility] CPT- 4: 82793 06/07/2017 ([id number]) Miscellaneous no charge Diagnosis: Dysuria[ICD10: R30.0] Deysi Thrasher MD, [facility] CPT-4: 92593 05/23/2017 ([id number]) 70126 EST. PATIENT, LEVEL III Diagnosis: Essential (primary) hypertension[ICD10: I10] Diagnosis: Xerosis cutis[ICD10: L85.3] Deysi Thrasher MD, [facility] CPT- 4: 61761 04/27/2017 [id number] EST. PATIENT, LEVEL IV Diagnosis: Other acute sinusitis[ICD10: J01.80] Diagnosis: Other allergic rhinitis[ICD10: J30.89] Gayathri Thrasher MD, [facility] CPT-4: 95116 03/18/2017 90937 EST. PATIENT, LEVEL III Diagnosis: Other chest pain[ICD10: R07.89] Diagnosis: Essential (primary) hypertension[ICD10: I10] Gayathri Thrasher MD, [facility] CPT-4: 79528 12/09/2016 ([id number]) 92450 EST. PATIENT, LEVEL IV Diagnosis: Essential (primary) hypertension[ICD10: I10] Diagnosis: Other allergic rhinitis[ICD10: J30.89] Diagnosis: Acne vulgaris[ICD10: L70.0] Diagnosis: Sacroiliitis, not elsewhere classified[ICD10: M46.1] Shraddha Thrasher MD, [facility] CPT-4: 52000 10/18/2016 ([id number]) Miscellaneous no charge Diagnosis: Essential (primary) hypertension[ICD10: I10] Shraddha Thrasher MD, [facility] CPT-4: 15196 09/02/2016 ([id number]) 14127 EST. PATIENT, LEVEL III Diagnosis: Essential (primary) hypertension[ICD10: I10] Shraddha Thrasher MD, [facility] CPT-4: 54264 08/27/2016 28462 EST. PATIENT, LEVEL III Diagnosis: Other allergic rhinitis[ICD10: J30.89] Diagnosis: Acute laryngopharyngitis[ICD10: J06.0] Gayathri Thrasher MD, [facility] CPT-4: 13017 04/29/2016 ([id number]) 30496 EST. PATIENT, LEVEL III Diagnosis: Cellulitis of neck[ICD10: L03.221] Shraddha Thrasher MD, [facility] CPT-4: 46791 02/12/2016 ([id number]) 61574 EST. PATIENT, LEVEL IV Diagnosis: Type 2 diabetes mellitus without complications[ICD10: E11.9] Diagnosis: Mixed hyperlipidemia[ICD10: E78.2] Diagnosis: Transient visual loss, left eye[ICD10: H53.122] Diagnosis: Headache[ICD10: R51] Diagnosis: Trigeminal neuralgia[ICD10: G50.0] Diagnosis: Insect bite (nonvenomous) of left front wall of thorax, initial encounter[ICD10: S20.362A] Deysi Thrasher MD, [facility] CPT-4: 38454 01/05/2016 ([id number]) 67530 EST. PATIENT, LEVEL III Diagnosis: Type 2 diabetes mellitus without complications[ICD10: E11.9] [facility] CPT-4: 14686 02/26/2015 ([id number]) OFFICE VISIT, NEW - LEVEL 3 Diagnosis: Diabetes mellitus[ICD9: 250.00] Diagnosis: Screening for breast cancer[ICD9: V76.10] Diagnosis: Screening for osteoporosis[ICD9: V82.81] [facility] CPT-4: 69243 08/27/2014 Plan of Care Planned Activity Notes Codes Status Date Visit Plan: Diabetes Mellitus - controlled - [...] assure normal liver response to medications. 04/06/2018 Patient Education: Patient Medication Summary Completed 04/06/2018 Patient Education: Diabetes Completed 04/06/2018 Patient Education: Cholesterol Management Completed 04/06/2018 Care Plan: Comp Metabolic Pending 04/06/2018 Care Plan: Cbc With Differential Pending 04/06/2018 Care Plan: %Hba1C LOINC : 72605-9 Pending 04/06/2018 Care Plan: Tsh Pending 04/06/2018 Care Plan: Lipid Pending 04/06/2018 Care Plan: Microalbumin Pending 04/06/2018 Care Plan: SCREENINGMAMMOGRAPHYDIGITAL LOINC : 87396-8 Pending 04/06/2018 Visit Plan: Diabetes Mellitus - [...] compression socks with pt. 11/30/2017 Appointment[phone] [place] (15 min) Moderate 11/30/2017 Patient Education: Patient [...] controlled. 08/18/2017 Appointment: [facility] Th[phone] [place] (15 min) Moderate 08/18/2017 Patient Education: Patient [...] nasal discharge. 07/27/2017 Appointment: Deysi Thrasher WPtel: [phone] [phone] (15 min) Moderate 07/27/2017 Patient Education: Patient [...] 12 hours. 06/22/2017 Appointment: Deysi Thrasher WPtel: [phone] (15 min) Moderate 06/22/2017 Patient Education: Patient Medication Summary Completed 06/22/2017 Visit Plan: Low back pain - SI joint pain - Sciatica - recommended pt to start on exercises for low back - rx for naproxen, ketorolac shot today. 06/07/2017 Appointment: Deysi Thrasher WPtel: [facility] (15 min) Moderate 06/07/2017 Patient Education: Patient [...] not better 04/27/2017 Appointment: Deysi Thrasher WPtel: [facility] [place] (15 min) Moderate 04/27/2017 Patient Education: Patient Medication Summary Completed 04/27/2017 Appointment: Gayathri Elizabeth WPtel: [phone] [facility] [place] (15 min) Moderate 04/22/2017 Visit Plan: Sinusitis [...] allergy spray. 03/18/2017 [phone] ([facility] min) Moderate 03/18/2017 Patient Education: Patient Medication Summary Completed 03/18/2017 Appointment: Nurse Visit 01/12/2017 Patient Education: Patient Medication Summary Completed 01/12/2017 Visit Plan: Chest pain - sudden in onset, improving - pt has had uncontrolled blood pressures and has had medication adjustments in the past, but has not seen a fire services plumber - will check labs and EKG - [...] concerns. 12/09/2016 App[facility]ment: [phone] (30 min) Complex 12/09/2016 Patient Education: Patient Medication Summary Completed 12/09/2016 Patient Education: Hypertension Completed 12/09/2016 Care Plan: Referral Order SNOMED-CT : [id number] Pending 12/09/2016 Appointment: Nurse Visit 11/08/2016 Visit [...] histamine 10/18/2016 Appointment: Shraddha Dillon WPtel: [phone] [phone] (15 min) Moderate 10/18/2016 Patient Education: Patient [...] Joseph 09/02/2016 Appointment: Shraddha Dillon WPtel: [phone] [phone] (15 min) Moderate 09/02/2016 Patient Education: Patient [...] ECHOCARDIOGRAM 08/27/2016 Appointment: Shraddha Dillon WPtel: [phone] [phone] (10 min) Simple 08/27/2016 Patient Education: Patient [...] allergy spray. 04/29/2016 App[facility]ment: [phone] (30 min) Complex 04/29/2016 Patient Education: Patient Medication Summary Completed 04/29/2016 Appointment: Lab Draw 02/25/2016 Patient Education: Patient Medication Summary Completed 02/25/2016 Visit Plan: Cellulitis - continue with oral antibiotics as previously directed, return to clinic as previously directed, call for acute change in symptoms, worsening redness, warmth, discharge. 02/12/2016 Appointment: [facility]add[facility] Dillon [facility]el[phone] [phone] (10 min) Simple 02/12/2016 Patient Education: Patient [...] stroke 01/05/2016 Appointment: [facility] Th[phone] [place] (15 min) Moderate 01/05/2016 App[facility]ment: [phone] (30 min) Complex 01/05/2016 Patient Education: [...] 02/26/2015 Care Plan: MICROALBUMIN QUANTITATIVE LOINC : 26690-5 Ordered 02/26/2015 Care Plan: COMPLETE CBC AUTOMATED LOINC : 37216-6 Ordered 02/26/2015 Patient Education: Patient Medication Summary [...] her for appt Initiated Instructions Comment . Diabetes Mellitus - controlled - per [...] to assure normal liver response to medications. on [employer] - look for Vitalsox - [...] discussed different compression socks with pt. . Cellulitis - continue with oral antibiotics [...] Dr. Roth, Dr. Durán - surgeons in [place] Dr. Mojica, Dr. Mauricio - in [place] Dr. Wilkinson - internal Med in [place] Let me know who you want to [...] DOPA paperwork for health care surrogate. . URI - Pt advised to increase [...] BLOOD PRESSURE DAILY IF NEEDS TO SEE PLUGGER WORKER, SHE WANTS TO GO TO [place] [facility] OVER THE WEEKEND FOR SYMPTOMS DISCUSSED [...] call for acute concerns. SCHEDULE ECHOCARDIOGRAM . Chest pain - sudden in onset, improving - pt has had uncontrolled blood pressures and has had medication adjustments in the past, but has not seen a fire services plumber - will check labs and EKG - [...] is to call for acute concerns. . Hypertension - well controlled - continue [...] as discussed-keep appt with Dr Joseph Plan: ([id number]) SCREENINGMAMMOGRAPHYDIGITAL . Diabetes Mellitus - [...]
--- OUTSIDE RECORDS SUMMARY | 2018-04-28 07:33 | XMS REPORT | CCD ---
Author Author Shraddha Dillon MD, [facility] Address [address] [place] [address] Phone Care Team Providers Care Change Management Expert Name Role Phone PP Unavailable CCM Unavailable Summary Purpose Interface Exchange Insurance Providers Payer name Policy type / Coverage type Covered green party ID Effective Begin Date Effective End Date WPS Medicare Part B Medicare Part B [id number] 2017 Unknown [employer] Medicare Part B [id number] 2017 Unknown Family history Son Diagnosis Age [...] Unknown 5 08/27/[address]: 806743034 Never smoker 08/27/[address]: 105045087 Never drinks alcohol 08/27/2014 Allergies, Adverse Reactions, Alerts Substance Reaction Codes Entered Date Inactivated Date Status * OTHER REACTION - SEE ANSWER BOX statin-myalgia Unknown 2017 No Inactive Date Active CODEINE RxNorm: 2670 08/27/2014 No Inactive Date Active hydrocodone emesis Unknown 07/27/2017 No Inactive Date Active Levaquin diarrhea RxNorm: 23533 07/27/2017 No Inactive Date Active Penicillin Unknown 08/27/2014 No Inactive Date Active Past Medical History Illness Codes Condition Status Onset Date Resolved Date Essential (primary) hypertension ICD-9: 401.1 ICD-10: I10 Active 04/27/2017 Unknown Localized edema ICD-9 : 782.3 ICD-10: R60.0 Active 11/30/2017 Unknown Pain in left knee ICD- 9: 719.46 ICD-10: M25.562 Active 11/30/2017 Unknown Type 2 diabetes mellitus without complications ICD-9: 250.00 ICD-10: E11.9 Active 08/26/2014 Unknown Other specified disorders of nose and [...] hypertension ICD-9: 401.1 ICD-10: I10 04/27/2017 Active Localized edema ICD-9 : 782.3 ICD-10: R60.0 11/30/2017 Active Pain in left knee ICD- 9: 719.46 ICD-10: M25.562 11/30/2017 Active Type 2 diabetes mellitus without complications ICD-9: 250.00 ICD-10: E11.9 08/26/2014 Active Other specified disorders of nose and [...] Start Date Stop Date Status Fill Instructions lisinopril 5 mg tablet RxNorm: 461035 TAKE 1/2 TABLET BY MOUTH TWO TIMES A DAY 01/30/2018 07/28/2018 Active naproxen 500 mg tablet RxNorm: 650904 TAKE ONE TABLET BY MOUTH TWICE A DAY 11/18/2017 01/16/2018 Inactive Retin-A Micro 0.1 % topical gel RxNorm: 692681 1 Application TOP BID 08/18/2017 12/15/2017 Inactive tamsulosin 0.4 mg capsule RxNorm: 322214 1 Capsule(s) PO daily 07/21/2017 08/17/2017 Inactive naproxen 500 mg tablet RxNorm: 497335 TAKE ONE TABLET BY MOUTH TWICE A DAY 07/19/2017 09/16/2017 Inactive Keflex 500 mg capsule RxNorm: 703680 1 Capsule(s) PO QID 201706/28/2017 Inactive ketorolac 60 mg/2 mL intramuscular solution RxNorm: 660710 2 Milliliter(s) IM 06/07/2017 06/07/2017 Inactive naproxen 500 mg tablet RxNorm: 625869 1 Tablet(s) PO BID 201707/06/2017 Inactive lisinopril 5 mg tablet RxNorm: 199453 1/2 Tablet(s) PO BID 04/201711/22/2017 Inactive Cipro 500 mg tablet RxNorm: 680447 1 Tablet(s) PO BID 201706/01/2017 Inactive Cipro 500 mg tablet RxNorm: 518793 1 Tablet(s) PO BID 201705/22/2017 Inactive clobetasol 0.05 % topical cream RxNorm: 848327 1 Application TOP BID as needed Itching 04/27/2017 No Stop Date Active Kombiglyze XR 5 mg-1,000 mg tablet,extended release RxNorm: 7824299 TAKE ONE TABLET BY MOUTH DAILY 04/04/20172018 Active Kombiglyze XR 5 mg-1,000 mg tablet,extended release RxNorm: 2067294 TAKE ONE TABLET BY MOUTH DAILY 04/04/20172017 Inactive Zithromax Z-Jose 250 mg tablet RxNorm: 452812 1 Tablet(s) PO UD 03/18/2017 04/26/2017 Inactive Kombiglyze XR 5 mg-1,000 mg tablet,extended release RxNorm: 8262981 TAKE ONE TABLET BY MOUTH DAILY 12/22/20162016 Inactive lisinopril 5 mg tablet RxNorm: 707128 1/2 Tablet(s) PO BID 03/08/2017 Inactive clobetasol 0.05 % topical cream RxNorm: 223251 1 Application TOP BID 10/18/2016 No Stop Date Active oqeioprm-txftnpqkf-mrwiuvsiq 3.5 mg/mL-10,000 unit/mL-1 % ear solution RxNorm: 761237 2 OTIC QID 10/18/2016 10/24/2016 Inactive lisinopril 5 mg tablet RxNorm: 408493 1/2-1 Tablet(s) PO daily 09/02/2016 11/30/2016 Inactive start 1/2 tab daily-increase to a full tab if needed lisinopril 20 mg tablet RxNorm: 198180 1 Tablet(s) PO daily 04/201609/01/2016 Inactive Lofibra 54 mg tablet RxNorm: 206728 1 Tablet(s) PO daily 201604/26/2017 Inactive DC fenofibrate 40 mg Lofibra 54 mg tablet RxNorm: 831416 1 Tablet(s) PO daily 201607/06/2016 Inactive DC fenofibrate 40 mg fenofibrate 40 mg tablet RxNorm: 325222 1 Tablet(s) PO daily 07/06/2016 Inactive fenofibrate 40 mg tablet RxNorm: 511973 1 Tablet(s) PO daily 07/01/2016 Inactive Kombiglyze XR 5 mg-1,000 mg tablet,extended release RxNorm: 7206306 TAKE ONE TABLET BY MOUTH DAILY 06/21/20162016 Inactive Kombiglyze XR 5 mg-1,000 mg tablet,extended release RxNorm: 3710507 Tablet(s) TAKE ONE TABLET BY MOUTH DAILY 05/05/2016 06/20/2016 Inactive Zyrtec 10 mg tablet RxNorm: 5311552 1 Tablet(s) PO daily 04/2905/28/2016 Inactive Zithromax Z-Jose 250 mg tablet RxNorm: 163931 1 Tablet(s) PO UD 04/29/2016 07/01/2016 Inactive Bactrim DS 800 mg-160 mg tablet RxNorm: 224839 1 Tablet(s) PO BID 02/25/2016 02/24/2016 Inactive Bactrim DS 800 mg-160 mg tablet RxNorm: 918565 1 Tablet(s) PO BID 02/25/2016 03/02/2016 Inactive WelChol 625 mg tablet RxNorm: 586313 3 Tablet(s) PO BID 201502/19/2016 Inactive WelChol 625 mg tablet RxNorm: 568904 3 Tablet(s) PO BID with meals 02/20/2016 04/19/2016 Inactive dc zetia doxycycline hyclate 100 mg tablet RxNorm: 080916 1 Tablet(s) PO BID 02/12/2016 02/18/2016 Inactive doxycycline hyclate 100 mg tablet RxNorm: 667523 1 Tablet(s) PO BID 01/05/2016 01/18/2016 Inactive prednisone 20 mg tablet RxNorm: 800256 3 Tablet(s) PO daily 12/201501/09/2016 Inactive Zetia 10 mg tablet RxNorm: 767255 TAKE ONE TABLET BY MOUTH EVERY NIGHT AT BEDTIME 11/13/2015 02/19/2016 Inactive Kombiglyze XR 5 mg-1,000 mg tablet,extended release RxNorm: 0277101 TAKE ONE TABLET BY MOUTH DAILY 07/24/20152015 Inactive Zetia 10 mg tablet RxNorm: 777326 1 Tablet(s) PO QHS 201511/04/2015 Inactive Zetia 10 mg tablet RxNorm: 122976 1 Tablet(s) PO QHS 201507/07/2015 Inactive Kombiglyze XR 5 mg-1,000 mg tablet,extended release RxNorm: 8996550 1 Tablet(s) PO daily 04/16/2015 07/14/2015 Inactive Fish Oil 1,000 mg capsule RxNorm: 1200 Capsule(s) PO BID No Start Date Active Calcium + D oral RxNorm: 793122 oral No Start Date Active Flaxseed Meal RxNorm: 331853 miscellaneous No Start Date Active Vitamin D3 5,000 unit tablet RxNorm: 328180 1 Tablet(s) PO daily No Start Date Active Multiple Vitamin oral RxNorm: 84035 oral No Start Date Active Kombiglyze XR 5 mg-1,000 mg tablet,extended release RxNorm: 7934961 1 Tablet(s) PO daily No Start Date 04/15/2015 Inactive Medication Administered Medication Codes Instructions Start Date Status ketorolac 60 mg/2 mL intramuscular solution RxNorm: 312615 2Milliliter 06/07/2017 No longer Active Immunizations Vaccine Codes Date Status Influenza CVX: 141 01/12/2017 completed Assessments Condition Codes Effective Dates Localized edema ICD-10: R60.0 ICD-9: 782.3 11/30/2017 Pain in left knee ICD-10: M25.562 ICD-9: 719.46 11/30/2017 Essential (primary) hypertension ICD-10: I10 ICD-9: 401.1 11/30/2017 Type 2 diabetes mellitus without complications ICD-10: E11.9 ICD-9: 250.00 11/30/2017 Other specified disorders of nose and [...] Mixed hyperlipidemia ICD-10: E78.2 ICD-9: 272.2 01/05/2016 Headache ICD-10: R51 ICD-9: 784.0 01/05/2016 [...] Reason For Visit Effective Dates Notes hypertension 11/30/2017 hypertension 08/18/2017 nasal discharge 07/27/2017 [...] Lipid Ord30 C/HDL 5.8 Ratio 08/31/2017 %Hba1C Whn187 % HbA1c 26344-4 6.1 % 08/31/2017 %Hba1C Qyl000 Gluc Ave 128 mg/dL 08/31/2017 Comp Metabolic Rpd964 NA 139 mEq/L 08/31/2017 Comp Metabolic Qlq841 K 4.4 mEq/L 08/31/2017 Comp Metabolic Amt816 CL 107 mEq/L 08/31/2017 Comp Metabolic Ewf914 CO2 23.0 mEq/L 08/31/2017 Comp Metabolic Kbk604 ANION GAP 13 08/31/2017 Comp Metabolic Iqg525 GLUCOSE 110 mg/dL 08/31/2017 Comp Metabolic Vgg749 Creat 0.7 mg/dL 08/31/2017 Comp Metabolic Nrs713 eGFR 92 ml/min/1.73m2 08/31/2017 Comp Metabolic Yas967 BUN 20 mg/dL 08/31/2017 Comp Metabolic Svy488 B/C Ratio 29.9 Ratio 08/31/2017 Comp Metabolic Oya618 CALCIUM 9.0 mg/dL 08/31/2017 Comp Metabolic Art662 ALK PHOS 51 U/L 08/31/2017 Comp Metabolic Nat442 AST(SGOT) 12 U/L 08/31/2017 Comp Metabolic Yam719 ALT(SGPT) 14 U/L 08/31/2017 Comp Metabolic Diy513 BILI T 0.4 mg/dL 08/31/2017 Comp Metabolic Eoy338 ALBUMIN 3.7 g/dL 08/31/2017 Comp Metabolic Arb333 TPRO 5.8 g/dL 08/31/2017 Comp Metabolic Cvl094 GLOB 2.1 g/dL 08/31/2017 Comp Metabolic Tav502 A/G Ratio 1.8 Ratio 08/31/2017 Comp Metabolic Bxo897 Osmo 281 mOsmo 08/31/2017 Urine Culture Ucult Preliminary NO Growth Day 1 06/24/2017 Urine Culture Ucult Complete NO Growth Day 2 06/24/2017 Culture Urine [id number] URINE CULTURE SEE NOTES 05/26/2017 Culture Urine [id number] Continued Results 05/26/2017 Urine Culture Ucult Complete [...] 31.9 pg 10/06/2016 Cbc With Differential Ord2 [place]% 9.8 % 10/06/2016 Cbc With Differential Ord2 [...] 1.63 K/ul 10/06/2016 Cbc With Differential Ord2 [place] ABS# 0.6 K/ul 10/06/2016 Cbc With Differential Ord2 Eos ABS# 0.3 K/ul 10/06/2016 Cbc With Differential Ord2 Baso ABS# 0.0 K/ul 10/06/2016 Comp Metabolic Ooz815 NA 140 mEq/L 10/06/2016 Comp Metabolic Fvs555 K 4.3 mEq/L 10/06/2016 Comp Metabolic Epn420 CL 107 mEq/L 10/06/2016 Comp Metabolic Vpi799 CO2 25.0 mEq/L 10/06/2016 Comp Metabolic Qxz978 ANION GAP 12 10/06/2016 Comp Metabolic Vmb996 GLUCOSE 122 mg/dL 10/06/2016 Comp Metabolic Mcm286 Creat 0.7 mg/dL 10/06/2016 Comp Metabolic Iqk745 eGFR 84 ml/min/1.73m2 10/06/2016 Comp Metabolic Ktt890 BUN 17 mg/dL 10/06/2016 Comp Metabolic Xcx867 B/C Ratio 23.3 Ratio 10/06/2016 Comp Metabolic Moo877 CALCIUM 9.0 mg/dL 10/06/2016 Comp Metabolic Ajk948 ALK PHOS 52 U/L 10/06/2016 Comp Metabolic Tgz795 AST(SGOT) 18 U/L 10/06/2016 Comp Metabolic Log788 ALT(SGPT) 22 U/L 10/06/2016 Comp Metabolic Ymh221 BILI T 0.6 mg/dL 10/06/2016 Comp Metabolic Gqm315 ALBUMIN 3.9 g/dL 10/06/2016 Comp Metabolic Gej019 TPRO 6.1 g/dL 10/06/2016 Comp Metabolic Ckg475 GLOB 2.2 g/dL 10/06/2016 Comp Metabolic Ljz740 A/G Ratio 1.8 Ratio 10/06/2016 Comp Metabolic Guu821 Osmo 282 mOsmo 10/06/2016 %Hba1C Ezp019 % HbA1c 91944-5 6.4 % 10/06/2016 %Hba1C Buu118 Gluc Ave 137 mg/dL 10/06/2016 %Hba1C Egb913 % HbA1c 73233-3 6.3 % 05/21/2016 %Hba1C Rqu068 Gluc Ave 134 mg/dL 05/21/2016 Hepatic Ous392 ALBUMIN 4.2 g/dL 05/21/2016 Hepatic Jqk194 TPRO 6.6 g/dL 05/21/2016 Hepatic Inl207 GLOB 2.4 g/dL 05/21/2016 Hepatic Bcd746 A/G Ratio 1.7 Ratio 05/21/2016 Hepatic Qsx586 ALK PHOS 64 U/L 05/21/2016 Hepatic Hbd428 ALT(SGPT) 16 U/L 05/21/2016 Hepatic Xfc975 AST(SGOT) 13 U/L 05/21/2016 Hepatic Agj581 BILI T 0.5 mg/dL 05/21/2016 Hepatic Bvq842 BILI D 0.1 mg/dL 05/21/2016 Hepatic Szl428 BILI I 0.4 mg/dL 05/21/2016 Lipid Ord30 CHOL 285 mg/dL 05/21/2016 Lipid Ord30 HDL 42.0 mg/dl 05/21/2016 Lipid Ord30 TRIG 364 mg/dL 05/21/2016 Lipid Ord30 LDL 0 Unable to calculate Due to elevated triglycerides mg/dL 05/21/2016 Lipid Ord30 C/HDL 6.8 Ratio 05/21/2016 C A/B FLU [id number] Influenza A Scr Negative 04/29/2016 C A/B FLU [id number] Influenza B Scr Negative 04/29/2016 Urine Culture [...] 96.9 fl 02/12/2016 Cbc With Differential Ord2 [place]% 10.5 % 02/12/2016 Cbc With Differential Ord2 [...] 1.39 K/ul 02/12/2016 Cbc With Differential Ord2 [place] ABS# 0.8 K/ul 02/12/2016 Cbc With Differential Ord2 Eos ABS# 0.2 K/ul 02/12/2016 Cbc With Differential Ord2 Baso ABS# 0.0 K/ul 02/12/2016 %Hba1C Dnb342 % HbA1c 79483-9 6.6 % 02/12/2016 %Hba1C Fwe631 Gluc Ave 143 mg/dL 02/12/2016 Lipid Ord30 CHOL 276 mg/dL 02/12/2016 Lipid Ord30 HDL 47.0 mg/dl 02/12/2016 Lipid Ord30 TRIG 424 mg/dL 02/12/2016 Lipid Ord30 LDL 0 Unable to calculate Due to elevated triglycerides mg/dL 02/12/2016 Lipid Ord30 C/HDL 5.9 Ratio 02/12/2016 Tsh Ord6 hTSH II 1.21 uIU/mL 02/12/2016 Microalbumin Tkd805 MicroAlb <0.7 mg/dL 02/12/2016 Comp Metabolic Wvt605 NA 138 mEq/L 02/12/2016 Comp Metabolic Rbe913 K 4.2 mEq/L 02/12/2016 Comp Metabolic Jgw260 CL 103 mEq/L 02/12/2016 Comp Metabolic Ymi564 CO2 28.0 mEq/L 02/12/2016 Comp Metabolic Ykd600 ANION GAP 11 02/12/2016 Comp Metabolic Hnt353 GLUCOSE 97 mg/dL 02/12/2016 Comp Metabolic Hmd218 Creat 0.7 mg/dL 02/12/2016 Comp Metabolic Hfh083 eGFR 83 ml/min/1.73m2 02/12/2016 Comp Metabolic Ikk309 BUN 16 mg/dL 02/12/2016 Comp Metabolic Vhn701 B/C Ratio 21.6 Ratio 02/12/2016 Comp Metabolic Pai029 CALCIUM 9.6 mg/dL 02/12/2016 Comp Metabolic Rcb980 ALK PHOS 53 U/L 02/12/2016 Comp Metabolic Vfb738 AST(SGOT) 16 U/L 02/12/2016 Comp Metabolic Dgr722 ALT(SGPT) 22 U/L 02/12/2016 Comp Metabolic Htc577 BILI T 0.5 mg/dL 02/12/2016 Comp Metabolic Nuj262 ALBUMIN 3.9 g/dL 02/12/2016 Comp Metabolic Dzm161 TPRO 6.4 g/dL 02/12/2016 Comp Metabolic Cnc832 GLOB 2.5 g/dL 02/12/2016 Comp Metabolic Qog490 A/G Ratio 1.6 Ratio 02/12/2016 Comp Metabolic Fkx997 Osmo 277 mOsmo 02/12/2016 Oolitic Spotted Fever Igg/Igm 923302 VIKTORIA MT SPOTTED FEVER IGM EIA . 01/10/2016 Oolitic Spotted Fever Igg/Igm 288287 RMSF, IGM 0.21 index 01/10/2016 Oolitic Spotted Fever Igg/Igm 868850 VIKTORIA MT SPOTTED FEVER IGG EIA FLEX . 01/10/2016 Oolitic Spotted Fever Igg/Igm 177138 RMSF, IGG SCREEN-FLEX Equivocal 01/10/2016 Viktoria Mtn Spot'D Fev Igg 181275 RMSF, IGG -TITER IFA <1:64 Ehrlichia Chaffeensis Antibody Igm 463465 EHRLICHIA CHAFFEENSIS IGM < 1:16 01/09/2016 Ehrlichia Chaffeensis Antibody Igg 524081 EHRLICHIA CHAFFEENSIS IGG <1:64 01/09/2016 West Nile Virus Ab [id number] WEST NILE VIRUS AB IGG 0.33 IV 01/08/2016 West Nile Virus Ab [id number] WEST NILE VIRUS AB IGM 0.02 IV 01/08/2016 Lymes Disease Total Antibodies With Western Blot Reflex [id number] B. BURGDORFERI, IGG/IGM 0.09 LI 01/07/2016 Lymes Disease Total Antibodies With Western Blot Reflex [id number] 01/07/2016 Cbc With Differential Ord2 WBC 6.25 [...] 32.3 pg 01/05/2016 Cbc With Differential Ord2 [place]% 8.3 % 01/05/2016 Cbc With Differential Ord2 [...] 1.61 K/ul 01/05/2016 Cbc With Differential Ord2 [place] ABS# 0.5 K/ul 01/05/2016 Cbc With Differential Ord2 Eos ABS# 0.2 K/ul 01/05/2016 Cbc With Differential Ord2 Baso ABS# 0.0 K/ul 01/05/2016 Sed Rate Ord21 ESR 16 mm/hr 01/05/2016 C-Reactive Protein Qnt Crqnt CRP 0.4 mg/dl 01/05/2016 Comp Metabolic Ftm041 NA 138 mEq/L 01/05/2016 Comp Metabolic Ynq036 K 4.4 mEq/L 01/05/2016 Comp Metabolic Goa400 CL 103 mEq/L 01/05/2016 Comp Metabolic Tud995 CO2 27.0 mEq/L 01/05/2016 Comp Metabolic Vao668 ANION GAP 12 01/05/2016 Comp Metabolic Wnx349 GLUCOSE 199 mg/dL 01/05/2016 Comp Metabolic Ekm270 Creat 0.8 mg/dL 01/05/2016 Comp Metabolic Ykf685 eGFR 78 ml/min/1.73m2 01/05/2016 Comp Metabolic Zis588 BUN 15 mg/dL 01/05/2016 Comp Metabolic Zud402 B/C Ratio 19.2 Ratio 01/05/2016 Comp Metabolic Sbm084 CALCIUM 9.4 mg/dL 01/05/2016 Comp Metabolic Fqj650 ALK PHOS 59 U/L 01/05/2016 Comp Metabolic Ipb321 AST(SGOT) 15 U/L 01/05/2016 Comp Metabolic Ckd611 ALT(SGPT) 19 U/L 01/05/2016 Comp Metabolic Myh851 BILI T 0.6 mg/dL 01/05/2016 Comp Metabolic Euf772 ALBUMIN 4.2 g/dL 01/05/2016 Comp Metabolic Xnq220 TPRO 6.6 g/dL 01/05/2016 Comp Metabolic Giz727 GLOB 2.4 g/dL 01/05/2016 Comp Metabolic Glp846 A/G Ratio 1.7 Ratio 01/05/2016 Comp Metabolic Nfq458 Osmo 282 mOsmo 01/05/2016 Lipid Ord30 CHOL [...] Lipid Ord30 C/HDL 5.7 Ratio 06/30/2015 %Hba1C Kww417 % HbA1c 26701-9 5.8 % 06/30/2015 %Hba1C Zhb844 Gluc Ave 120 mg/dL 06/30/2015 Lipid Ord30 CHOL 274 mg/dL 02/27/2015 Lipid Ord30 HDL 44.0 mg/dl 02/27/2015 Lipid Ord30 TRIG 199 mg/dL 02/27/2015 Lipid Ord30 LDL 190 mg/dL 02/27/2015 Lipid Ord30 C/HDL 6.2 Ratio 02/27/2015 Microalbumin Vnt740 MicroAlb 0.2 mg/dL 02/27/2015 Tsh Ord6 hTSH II 2.53 uIU/mL 02/27/2015 Comp Metabolic Kld147 NA 139 mEq/L 02/27/2015 Comp Metabolic Wzc622 K 4.3 mEq/L 02/27/2015 Comp Metabolic Rlv822 CL 105 mEq/L 02/27/2015 Comp Metabolic Ths379 CO2 28.0 mEq/L 02/27/2015 Comp Metabolic Cbd386 ANION GAP 10 02/27/2015 Comp Metabolic Qcy889 GLUCOSE 116 mg/dL 02/27/2015 Comp Metabolic Ddk690 Creat 0.9 mg/dL 02/27/2015 Comp Metabolic Ubp106 eGFR 70 ml/min/1.73m2 02/27/2015 Comp Metabolic Tmt743 BUN 20 mg/dL 02/27/2015 Comp Metabolic Hiv686 B/C Ratio 23.3 Ratio 02/27/2015 Comp Metabolic Crk784 CALCIUM 9.0 mg/dL 02/27/2015 Comp Metabolic Zxd954 ALK PHOS 59 U/L 02/27/2015 Comp Metabolic Ahc028 AST(SGOT) 15 U/L 02/27/2015 Comp Metabolic Nlm617 ALT(SGPT) 17 U/L 02/27/2015 Comp Metabolic Bgy799 BILI T 0.7 mg/dL 02/27/2015 Comp Metabolic Yzy936 ALBUMIN 3.9 g/dL 02/27/2015 Comp Metabolic Lys780 TPRO 6.2 g/dL 02/27/2015 Comp Metabolic Vvw581 GLOB 2.3 g/dL 02/27/2015 Comp Metabolic Ruc636 A/G Ratio 1.7 Ratio 02/27/2015 Comp Metabolic Uit106 Osmo 281 mOsmo 02/27/2015 %Hba1C Iue969 % HbA1c 22411-4 6.2 % 02/27/2015 %Hba1C Msk814 Gluc Ave 131 mg/dL 02/27/2015 Cbc With [...] Result Effective Dates Constitutional No recent illness 2017 Constitutional No [...] Codes Date URINALYSIS NONAUTO W/O SCOPE CPT-4: 49766 06/22/2017 THER/PROPH/DIAG INJ SC/IM CPT-4: 45326 06/07/2017 KETOROLAC TROMETHAMINE INJ CPT-4: J1885 06/07/2017 FLU VAC NO PRSV 4 MOI 3 YRS+ CPT-4: 07725 01/12/2017 ADMIN INFLUENZA VIRUS VAC CPT-4: G0008 01/12/2017 PPPS, SUBSEQ VISIT CPT -4: G0439 09/21/2016 URINALYSIS NONAUTO W/O SCOPE CPT-4: 23437 02/25/2016 Vital Signs Date Vital 11/30/2017 Blood Pressure 1: 120/76 Code : 8480-6 BMI: 28.6 Code : 87037-8 Heart Rate 1 : 91 bpm Height: 5'5" SpO2: 97% Weight: 172 lbs 08/18/2017 Blood Pressure 1: 126/78 Code : 8480-6 BMI: 28.6 Code : 61885-1 Heart Rate 1 : 88 bpm Height: 5'5" SpO2: 98% Weight: 172 lbs 07/27/2017 Blood Pressure 1: 140/76 Code : 8480-6 BMI: 28.0 Code : 50251-3 Heart Rate 1 : 99 bpm Height: 5'5" SpO2: 98% Temperature: 36.7 (C) / 98.1 (F) Weight: 168 lbs 06/22/2017 Blood Pressure 1: 134/70 Code : 8480-6 BMI: 29.1 Code : 91264-8 Heart Rate 1 : 94 bpm Height: 5'5" SpO2: 98% Weight: 175 lbs 06/07/2017 Blood Pressure 1: 136/70 Code : 8480-6 BMI: 28.6 Code : 19965-1 Heart Rate 1 : 78 bpm Height: 5'5" SpO2: 98% Weight: 172 lbs 04/27/2017 Blood Pressure 1: 132/70 Code : 8480-6 BMI: 28.5 Code : 37805-1 Heart Rate 1 : 93 bpm Height: 5'5" SpO2: 98% Weight: 171 lbs 03/18/2017 Blood Pressure 1: 144/84 Code : 8480-6 BMI: 29.1 Code : 87357-5 Heart Rate 1 : 94 bpm Height: 5'5" SpO2: 98% Weight: 175 lbs 12/09/2016 Blood Pressure 1: 134/78 Code : 8480-6 BMI: 29.0 Code : 56262-1 Heart Rate 1 : 89 bpm Height: 5'5" SpO2: 97% Weight: 174 lbs 10/18/2016 Blood Pressure 1: 166/92 Code : 8480-6 BMI: 29.4 Code : 85244-5 Heart Rate 1 : 94 bpm Height: 5'5" SpO2: 94% Weight: 176 lbs 8 oz 09/21/2016 Blood Pressure 1: 140/84 Code : 8480-6 BMI: 29.1 Code : 80990-7 Heart Rate 1 : 90 bpm Height: 5'5" SpO2: 97% Weight: 175 lbs 09/02/2016 Blood Pressure 1: 146/82 Code : 8480-6 BMI: 29.3 Code : 60175-8 Heart Rate 1 : 95 bpm Height: 5'5" SpO2: 98% Weight: 176 lbs 08/27/2016 Blood Pressure 1: 178/90 Code : 8480-6 Blood Pressure 1: 148/88 Code: 8480-6 Blood Pressure 1: 162/84 Code: 8480-6 BMI: 30.1 Code: 11475-6 Heart Rate 1: 80 bpm Height: 5'5" SpO2: 98% Weight: 181 lbs 04/29/2016 Blood Pressure 1: 152/76 Code : 8480-6 BMI: 30.1 Code : 41187-9 Heart Rate 1 : 99 bpm Height: 5'5" SpO2: 98% Temperature: 37.4 (C) / 99.3 (F) Weight: 181 lbs 02/12/2016 Blood Pressure 1: 136/82 Code : 8480-6 Heart Rate 1: 88 bpm SpO2: 97% 01/05/2016 Blood Pressure 1: 150/80 Code : 8480-6 BMI: 28.8 Code : 55427-8 Heart Rate 1 : 80 bpm Height: 5'5" SpO2: 98% Weight: 173 lbs 02/26/2015 Blood Pressure 1: 144/84 Code : 8480-6 Blood Pressure 1: 140/82 Code: 8480-6 BMI: 28.8 Code: 63618-8 Heart Rate 1: 81 bpm Height: 5'5" SpO2: 98% Weight: 173 lbs 08/27/2014 Blood Pressure 1: 132/80 Code : 8480-6 BMI: 28.1 Code : 80016-8 Height: 5'5" Weight: 169 lbs Functional Status No Functional Status data History of Present Illness Symptom Name Status Result Effective Date Notes hypertension Quality primary hypertension 11/30/2017 None hypertension [...] 02/26/2015 None well woman exam (65+ years) 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 PATIENT, LEVEL IV Diagnosis: Type 2 diabetes mellitus without complications[ICD10: E11.9] Diagnosis: Essential (primary) hypertension[ICD10: I10] Diagnosis: Pain in left knee[ICD10: M25.562] Diagnosis: Localized edema[ICD10: R60.0] Deysi Thrasher MD, [facility] CPT- 4: 11944 11/30/2017 ([id number]) 12815 EST. PATIENT, LEVEL IV Diagnosis: Essential (primary) hypertension[ICD10: I10] Diagnosis: Type 2 diabetes mellitus without complications[ICD10: E11.9] Deysi Thrasher MD, [facility] CPT-4: 74736 08/18/2017 ([id number]) 42566 EST. PATIENT, LEVEL III Diagnosis: Essential (primary) hypertension[ICD10: I10] Diagnosis: Other specified disorders of nose and nasal sinuses[ICD10: J34.89] Deysi Thrasher MD, [facility] CPT-4: 71146 07/27/2017 ([id number]) 75829 EST. PATIENT, LEVEL III Diagnosis: Pain in left lower leg[ICD10: M79.662] Diagnosis: Dysuria[ICD10: R30.0] Deysi Thrasher MD [facility] CPT-4: 05102 06/22/2017 ([id number]) 87086 EST. PATIENT, LEVEL III Diagnosis: Sciatica, left side[ICD10: M54.32] Diagnosis: Low back pain[ICD10: M54.5] Deysi Thrasher MD [facility] CPT- 4: 88387 06/07/2017 ([id number]) Miscellaneous no charge Diagnosis: Dysuria[ICD10: R30.0] Deysi Thrasher MD [facility] CPT-4: 41032 05/23/2017 ([id number]) 83307 EST. PATIENT, LEVEL III Diagnosis: Essential (primary) hypertension[ICD10: I10] Diagnosis: Xerosis cutis[ICD10: L85.3] Deysi Thrasher MD [facility] CPT- 4: 09302 04/27/2017 [id number] EST. PATIENT, LEVEL IV Diagnosis: Other acute sinusitis[ICD10: J01.80] Diagnosis: Other allergic rhinitis[ICD10: J30.89] Gayathri Thrasher MD, [facility] CPT-4: 66490 03/18/2017 [id number] EST. PATIENT, LEVEL III Diagnosis: Other chest pain[ICD10: R07.89] Diagnosis: Essential (primary) hypertension[ICD10: I10] Gayathri Thrasher MD, [facility] CPT-4: 98435 12/09/2016 ([id number]) 41252 EST. PATIENT, LEVEL IV Diagnosis: Essential (primary) hypertension[ICD10: I10] Diagnosis: Other allergic rhinitis[ICD10: J30.89] Diagnosis: Acne vulgaris[ICD10: L70.0] Diagnosis: Sacroiliitis, not elsewhere classified[ICD10: M46.1] Shraddha Thrasher MD, [facility] CPT-4: 98393 10/18/2016 ([id number]) Miscellaneous no charge Diagnosis: Essential (primary) hypertension[ICD10: I10] Shraddha Thrasher MD, [facility] CPT-4: 41370 09/02/2016 ([id number]) 55297 EST. PATIENT, LEVEL III Diagnosis: Essential (primary) hypertension[ICD10: I10] Shraddha Thrasher MD [facility] CPT-4: 17476 08/27/2016 [id number] EST. PATIENT, LEVEL III Diagnosis: Other allergic rhinitis[ICD10: J30.89] Diagnosis: Acute laryngopharyngitis[ICD10: J06.0] Gayathri Thrasher MD, [facility] CPT-4: 95219 04/29/2016 ([id number]) [id number] EST. PATIENT, LEVEL III Diagnosis: Cellulitis of neck[ICD10: L03.221] Shraddha Thrasher MD, [facility] CPT-4: 51197 02/12/2016 ([id number]) [id number] EST. PATIENT, LEVEL IV Diagnosis: Type 2 diabetes mellitus without complications[ICD10: E11.9] Diagnosis: Mixed hyperlipidemia[ICD10: E78.2] Diagnosis: Transient visual loss, left eye[ICD10: H53.122] Diagnosis: Headache[ICD10: R51] Diagnosis: Trigeminal neuralgia[ICD10: G50.0] Diagnosis: Insect bite (nonvenomous) of left front wall of thorax, initial encounter[ICD10: S20.362A] Deysi Thrasher MD, [facility] CPT-4: 33056 01/05/2016 ([id number]) [id number] EST. PATIENT, LEVEL III Diagnosis: Type 2 diabetes mellitus without complications[ICD10: E11.9] Deysi Thrasher MD, [facility] CPT-4: 51910 02/26/2015 ([id number]) OFFICE VISIT, NEW - LEVEL 3 Diagnosis: Diabetes mellitus[ICD9: 250.00] Diagnosis: Screening for breast cancer[ICD9: V76.10] Diagnosis: Screening for osteoporosis[ICD9: V82.81] Shraddha Thrasher MD, [facility] CPT-4: 37494 08/27/2014 Plan of Care Planned Activity Notes [...] with pt. 11/30/2017 Appointment: Deysi Thrasher WPtel: [phone] [id number] (15 min) Moderate 11/30/2017 Patient Education: Patient [...] less controlled. 08/18/2017 Appointment: Deysi Thrasher WPtel: [phone] [facility] (15 min) Moderate 08/18/2017 Patient Education: Patient [...] nasal discharge. 07/27/2017 Appointment: Deysi Thrasher WPtel: [facility] [id number] (15 min) Moderate 07/27/2017 Patient Education: Patient [...] 12 hours. 06/22/2017 Appointment: Deysi Thrasher WPtel: [id number] (15 min) Moderate 06/22/2017 Patient Education: Patient Medication Summary Completed 06/22/2017 Visit Plan: Low back pain - SI joint pain - Sciatica - recommended pt to start on exercises for low back - rx for naproxen, ketorolac shot today. 06/07/2017 Appointment: Deysi Thrasher WPtel: [address] [place], [place] [id number] (15 min) Moderate 06/07/2017 Patient Education: Patient [...] not better 04/27/2017 Appointment: Deysi Thrasher WPtel: [facility] (15 min) Moderate 04/27/2017 Patient Education: Patient Medication Summary Completed 04/27/2017 [phone] ([facility] min) Moderate 04/22/2017 Visit Plan: Sinusitis [...] spray. 03/18/2017 App[facility]ment[phone] (15 min) Moderate 03/18/2017 Patient Education: Patient Medication Summary Completed 03/18/2017 Appointment: Nurse Visit 01/12/2017 Patient Education: Patient Medication Summary Completed 01/12/2017 Visit Plan: Chest pain - sudden in onset, improving - pt has had uncontrolled blood pressures and has had medication adjustments in the past, but has not seen a claims auditor - will check labs and EKG - [...] concerns. 12/09/2016 App[facility]ment: [id number] (30 min) Complex 12/09/2016 Patient Education: Patient Medication Summary Completed 12/09/2016 Patient Education: Hypertension Completed 12/09/2016 Care Plan: Referral Order SNOMED-CT : [id number] Pending 12/09/2016 Appointment: Nurse Visit 11/08/2016 Visit [...] anti histamine 10/18/2016 Appointment: Shraddha Dillon WPtel: [address] [place], [place] [phone] (15 min) Moderate 10/18/2016 Patient Education: Patient [...] Joseph 09/02/2016 Appointment: Shraddha Dillon WPtel: [phone] [phone] (15 min) Moderate 09/02/2016 Patient Education: Patient [...] ECHOCARDIOGRAM 08/27/2016 Appointment: Shraddha Dillon WPtel: [phone] [phone] (10 min) Simple 08/27/2016 Patient Education: Patient [...] spray. 04/29/2016 Appointment: Gayathri Elizabeth WPtel: [phone] [facility] (30 min) Complex 04/29/2016 Patient Education: Patient Medication Summary Completed 04/29/2016 Appointment: Lab Draw 02/25/2016 Patient Education: Patient Medication Summary Completed 02/25/2016 Visit Plan: Cellulitis - continue with oral antibiotics as previously directed, return to clinic as previously directed, call for acute change in symptoms, worsening redness, warmth, discharge. 02/12/2016 Appointment: Shraddha Dillon WPtel: [phone] [phone] (10 min) Simple 02/12/2016 Patient Education: Patient [...] stroke 01/05/2016 Appointment: Deysi Thrasher WPtel: [phone] [facility] [place] (15 min) Moderate 01/05/2016 Appointment: [phone] (30 min) Complex 01/05/2016 Patient Education: Patient [...] 02/26/2015 Care Plan: MICROALBUMIN QUANTITATIVE LOINC : 57663-8 Ordered 02/26/2015 Care Plan: COMPLETE CBC AUTOMATED LOINC : 60784-8 Ordered 02/26/2015 Patient Education: Patient Medication Summary [...] her for appt Initiated Instructions Comment . ua collected . Cellulitis - continue with oral antibiotics [...] Dr. Roth, Dr. Durán - surgeons in [place] Dr. Mojica, Dr. Mauricio - in [place] Dr. Wilkinson - internal Med in [place] Let me know who you want to [...] the past, but has not seen a claims auditor - will check labs and EKG - [...] spray in the nasal steroid allergy spray. on [employer] - look for Vitalsox - [...] hours and off for 12 hours. . Hypertension - well controlled - continue [...] do not resolve or if any worse SCHEDULE ECHO LISINOPRIL 20MG DAILY MONITOR BLOOD PRESSURE DAILY IF NEEDS TO SEE PERSONNEL ANALYST, SHE WANTS TO GO TO [facility] OVER THE WEEKEND FOR SYMPTOMS DISCUSSED [...] call for acute concerns. SCHEDULE ECHOCARDIOGRAM . Low back pain - SI joint pain - Sciatica - recommended pt to start on exercises for low back - rx for naproxen, ketorolac shot today.
--- OUTSIDE RECORDS SUMMARY | 2018-04-28 07:35 | XMS REPORT | CCD ---
Author Author [facility] Address [address] [place] [address] Phone Care Team Providers Care Soil Engineer Name Role Phone PP Unavailable CCM Unavailable Summary Purpose Interface Exchange Insurance Providers Payer name Policy type / Coverage type Covered libertarian ID Effective Begin Date Effective End Date WPS Medicare Part B Medicare Part B [id number] Unknown Unknown [employer] Medicare Part B [id number] Unknown Unknown Family history Son Diagnosis Age [...] Unknown 5 08/27/[address]: 453481389 Never smoker 08/27/[address]: 677902873 Never drinks alcohol 08/27/2014 Allergies, Adverse Reactions, Alerts Substance Reaction Codes Entered Date Inactivated Date Status * OTHER REACTION - SEE ANSWER BOX statin-myalgia Unknown 2017 No Inactive Date Active CODEINE RxNorm: 2670 08/27/2014 No Inactive Date Active hydrocodone emesis Unknown 07/27/2017 No Inactive Date Active Levaquin diarrhea RxNorm: 51593 07/27/2017 No Inactive Date Active Penicillin Unknown 08/27/2014 No Inactive Date Active Past Medical History Illness Codes Condition Status Onset Date Resolved Date Essential (primary) hypertension ICD-9: 401.1 ICD-10: I10 Active 04/27/2017 Unknown Type 2 diabetes mellitus without complications [...] hypertension ICD-9: 401.1 ICD-10: I10 04/27/2017 Active Type 2 diabetes mellitus without complications [...] Start Date Stop Date Status Fill Instructions naproxen 500 mg tablet RxNorm: 449109 TAKE ONE TABLET BY MOUTH TWICE A DAY 11/18/2017 01/16/2018 Active Retin-A Micro 0.1 % topical gel RxNorm: 551894 1 Application TOP BID 08/18/2017 12/15/2017 Active tamsulosin 0.4 mg capsule RxNorm: 174741 1 Capsule(s) PO daily 07/21/2017 08/17/2017 Inactive naproxen 500 mg tablet RxNorm: 515790 TAKE ONE TABLET BY MOUTH TWICE A DAY 07/19/2017 09/16/2017 Inactive Keflex 500 mg capsule RxNorm: 799482 1 Capsule(s) PO QID 201706/28/2017 Inactive ketorolac 60 mg/2 mL intramuscular solution RxNorm: 588826 2 Milliliter(s) IM 06/07/2017 06/07/2017 Inactive naproxen 500 mg tablet RxNorm: 940985 1 Tablet(s) PO BID 201707/06/2017 Inactive lisinopril 5 mg tablet RxNorm: 318756 1/2 Tablet(s) PO BID 04/201711/22/2017 Active Cipro 500 mg tablet RxNorm: 859680 1 Tablet(s) PO BID 201706/01/2017 Inactive Cipro 500 mg tablet RxNorm: 080133 1 Tablet(s) PO BID 201705/22/2017 Inactive clobetasol 0.05 % topical cream RxNorm: 202716 1 Application TOP BID as needed Itching 04/27/2017 No Stop Date Active Kombiglyze XR 5 mg-1,000 mg tablet,extended release RxNorm: 1266656 TAKE ONE TABLET BY MOUTH DAILY 04/04/20172018 Active Kombiglyze XR 5 mg-1,000 mg tablet,extended release RxNorm: 6034179 TAKE ONE TABLET BY MOUTH DAILY 04/04/20172017 Inactive Zithromax Z-Jose 250 mg tablet RxNorm: 441811 1 Tablet(s) PO UD 03/18/2017 04/26/2017 Inactive Kombiglyze XR 5 mg-1,000 mg tablet,extended release RxNorm: 5971224 TAKE ONE TABLET BY MOUTH DAILY 12/22/20162016 Inactive lisinopril 5 mg tablet RxNorm: 146511 1/2 Tablet(s) PO BID 03/08/2017 Inactive clobetasol 0.05 % topical cream RxNorm: 550110 1 Application TOP BID 10/18/2016 No Stop Date Active qpsxceyj-vmexrstkc-qcbgflsgq 3.5 mg/mL-10,000 unit/mL-1 % ear solution RxNorm: 135941 2 OTIC QID 10/18/2016 10/24/2016 Inactive lisinopril 5 mg tablet RxNorm: 778485 1/2-1 Tablet(s) PO daily 09/02/2016 11/30/2016 Inactive start 1/2 tab daily-increase to a full tab if needed lisinopril 20 mg tablet RxNorm: 676475 1 Tablet(s) PO daily 04/201609/01/2016 Inactive Lofibra 54 mg tablet RxNorm: 740622 1 Tablet(s) PO daily 201604/26/2017 Inactive DC fenofibrate 40 mg Lofibra 54 mg tablet RxNorm: 249357 1 Tablet(s) PO daily 201607/06/2016 Inactive DC fenofibrate 40 mg fenofibrate 40 mg tablet RxNorm: 754370 1 Tablet(s) PO daily 07/06/2016 Inactive fenofibrate 40 mg tablet RxNorm: 176113 1 Tablet(s) PO daily 07/01/2016 Inactive Kombiglyze XR 5 mg-1,000 mg tablet,extended release RxNorm: 8301082 TAKE ONE TABLET BY MOUTH DAILY 06/21/20162016 Inactive Kombiglyze XR 5 mg-1,000 mg tablet,extended release RxNorm: 6466103 Tablet(s) TAKE ONE TABLET BY MOUTH DAILY 05/05/2016 06/20/2016 Inactive Zyrtec 10 mg tablet RxNorm: 2687871 1 Tablet(s) PO daily 04/2905/28/2016 Inactive Zithromax Z-Jose 250 mg tablet RxNorm: 003554 1 Tablet(s) PO UD 04/29/2016 07/01/2016 Inactive Bactrim DS 800 mg-160 mg tablet RxNorm: 120345 1 Tablet(s) PO BID 02/25/2016 02/24/2016 Inactive Bactrim DS 800 mg-160 mg tablet RxNorm: 205181 1 Tablet(s) PO BID 02/25/2016 03/02/2016 Inactive WelChol 625 mg tablet RxNorm: 935609 3 Tablet(s) PO BID 201502/19/2016 Inactive WelChol 625 mg tablet RxNorm: 118269 3 Tablet(s) PO BID with meals 02/20/2016 04/19/2016 Inactive dc zetia doxycycline hyclate 100 mg tablet RxNorm: 935113 1 Tablet(s) PO BID 02/12/2016 02/18/2016 Inactive doxycycline hyclate 100 mg tablet RxNorm: 284177 1 Tablet(s) PO BID 01/05/2016 01/18/2016 Inactive prednisone 20 mg tablet RxNorm: 347715 3 Tablet(s) PO daily 12/201501/09/2016 Inactive Zetia 10 mg tablet RxNorm: 896008 TAKE ONE TABLET BY MOUTH EVERY NIGHT AT BEDTIME 11/13/2015 02/19/2016 Inactive Kombiglyze XR 5 mg-1,000 mg tablet,extended release RxNorm: 4288482 TAKE ONE TABLET BY MOUTH DAILY 07/24/20152015 Inactive Zetia 10 mg tablet RxNorm: 760037 1 Tablet(s) PO QHS 201511/04/2015 Inactive Zetia 10 mg tablet RxNorm: 060009 1 Tablet(s) PO QHS 201507/07/2015 Inactive Kombiglyze XR 5 mg-1,000 mg tablet,extended release RxNorm: 0077651 1 Tablet(s) PO daily 04/16/2015 07/14/2015 Inactive Fish Oil 1,000 mg capsule RxNorm: 1200 Capsule(s) PO BID No Start Date Active Calcium + D oral RxNorm: 691615 oral No Start Date Active Flaxseed Meal RxNorm: 530350 miscellaneous No Start Date Active Vitamin D3 5,000 unit tablet RxNorm: 445915 1 Tablet(s) PO daily No Start Date Active Multiple Vitamin oral RxNorm: 42533 oral No Start Date Active Kombiglyze XR 5 mg-1,000 mg tablet,extended release RxNorm: 4867826 1 Tablet(s) PO daily No Start Date 04/15/2015 Inactive Medication Administered Medication Codes Instructions Start Date Status ketorolac 60 mg/2 mL intramuscular solution RxNorm: 919287 2Milliliter 06/07/2017 No longer Active Immunizations Vaccine Codes Date Status Influenza CVX: 141 01/12/2017 completed Assessments Condition Codes Effective Dates Type 2 diabetes mellitus without complications ICD-10: E11.9 ICD-9: 250.00 08/18/2017 Essential (primary) hypertension ICD-10: I10 ICD-9: 401.1 08/18/2017 Other specified disorders of nose and nasal [...] Reason For Visit Effective Dates Notes hypertension 08/18/2017 nasal discharge 07/27/2017 knee pain 06/22/2017 back pain 06/07/2017 earache 04/27/2017 sinus congestion 03/18/2017 vaccination against influenza 01/12/2017 chest pain/pressure 12/09/2016 hypertension 10/18/2016 Annual Medicare Wellness Exam 09/21/2016 hypertension 09/02/2016 hypertension 08/27/2016 fever 04/29/2016 spider bite 02/12/2016 dizziness 01/05/2016 well woman exam (65+ years) 02/26/2015 diabetes mellitus 08/27/2014 type 2. Results Observation Observation Code Item Item Code Result Date Comp Metabolic Ejc376 NA 139 mEq/L 08/31/2017 Comp Metabolic Uyp809 K 4.4 mEq/L 08/31/2017 Comp Metabolic Ajs033 CL 107 mEq/L 08/31/2017 Comp Metabolic Wbf725 CO2 23.0 mEq/L 08/31/2017 Comp Metabolic Jdk998 ANION GAP 13 08/31/2017 Comp Metabolic Yen234 GLUCOSE 110 mg/dL 08/31/2017 Comp Metabolic Leq274 Creat 0.7 mg/dL 08/31/2017 Comp Metabolic Cat785 eGFR 92 ml/min/1.73m2 08/31/2017 Comp Metabolic Fkv774 BUN 20 mg/dL 08/31/2017 Comp Metabolic Xaz906 B/C Ratio 29.9 Ratio 08/31/2017 Comp Metabolic Cyv697 CALCIUM 9.0 mg/dL 08/31/2017 Comp Metabolic Nxn803 ALK PHOS 51 U/L 08/31/2017 Comp Metabolic Zyb839 AST(SGOT) 12 U/L 08/31/2017 Comp Metabolic Fft454 ALT(SGPT) 14 U/L 08/31/2017 Comp Metabolic Iym804 BILI T 0.4 mg/dL 08/31/2017 Comp Metabolic Ffy958 ALBUMIN 3.7 g/dL 08/31/2017 Comp Metabolic Bzo301 TPRO 5.8 g/dL 08/31/2017 Comp Metabolic Vtp378 GLOB 2.1 g/dL 08/31/2017 Comp Metabolic Aqh386 A/G Ratio 1.8 Ratio 08/31/2017 Comp Metabolic Mjx404 Osmo 281 mOsmo 08/31/2017 Lipid Ord30 CHOL 261 mg/dL 08/31/2017 Lipid Ord30 HDL 45.0 mg/dl 08/31/2017 Lipid Ord30 TRIG 173 mg/dL 08/31/2017 Lipid Ord30 LDL 181 mg/dL 08/31/2017 Lipid Ord30 C/HDL 5.8 Ratio 08/31/2017 %Hba1C Ahk721 % HbA1c 03583-7 6.1 % 08/31/2017 %Hba1C Lkh627 Gluc Ave 128 mg/dL 08/31/2017 Urine Culture Ucult Preliminary NO Growth Day 1 06/24/2017 Urine Culture Ucult Complete NO Growth Day 2 06/24/2017 Culture Urine [id number] URINE CULTURE SEE NOTES 05/26/2017 Culture Urine [id number] Continued Results 05/26/2017 Urine Culture Ucult Complete >100,000 col/ml aerobic growth sent to ref lab 05/24/2017 %Hba1C Jfu552 % HbA1c 21457-1 6.4 % 10/06/2016 %Hba1C Olu478 Gluc Ave 137 mg/dL 10/06/2016 Lipid Ord30 CHOL 272 mg/dL 10/06/2016 Lipid Ord30 HDL 44.0 mg/dl 10/06/2016 Lipid Ord30 TRIG 252 mg/dL 10/06/2016 Lipid Ord30 LDL 178 mg/dL 10/06/2016 Lipid Ord30 C/HDL 6.2 Ratio 10/06/2016 Comp Metabolic Nul428 NA 140 mEq/L 10/06/2016 Comp Metabolic Ezl119 K 4.3 mEq/L 10/06/2016 Comp Metabolic Zva059 CL 107 mEq/L 10/06/2016 Comp Metabolic Szf184 CO2 25.0 mEq/L 10/06/2016 Comp Metabolic Led500 ANION GAP 12 10/06/2016 Comp Metabolic Rhf321 GLUCOSE 122 mg/dL 10/06/2016 Comp Metabolic Qrc825 Creat 0.7 mg/dL 10/06/2016 Comp Metabolic Gxm948 eGFR 84 ml/min/1.73m2 10/06/2016 Comp Metabolic Bhi650 BUN 17 mg/dL 10/06/2016 Comp Metabolic Sim693 B/C Ratio 23.3 Ratio 10/06/2016 Comp Metabolic Pwj584 CALCIUM 9.0 mg/dL 10/06/2016 Comp Metabolic Mrp916 ALK PHOS 52 U/L 10/06/2016 Comp Metabolic Hte235 AST(SGOT) 18 U/L 10/06/2016 Comp Metabolic Bpi873 ALT(SGPT) 22 U/L 10/06/2016 Comp Metabolic Xgj043 BILI T 0.6 mg/dL 10/06/2016 Comp Metabolic Dsq320 ALBUMIN 3.9 g/dL 10/06/2016 Comp Metabolic Blu218 TPRO 6.1 g/dL 10/06/2016 Comp Metabolic Gbi664 GLOB 2.2 g/dL 10/06/2016 Comp Metabolic Qtt463 A/G Ratio 1.8 Ratio 10/06/2016 Comp Metabolic Rlp584 Osmo 282 mOsmo 10/06/2016 Cbc With Differential Ord2 WBC 5.63 [...] 31.9 pg 10/06/2016 Cbc With Differential Ord2 [place]% 9.8 % 10/06/2016 Cbc With Differential Ord2 [...] 1.63 K/ul 10/06/2016 Cbc With Differential Ord2 [place] ABS# 0.6 K/ul 10/06/2016 Cbc With Differential Ord2 Eos ABS# 0.3 K/ul 10/06/2016 Cbc With Differential Ord2 Baso ABS# 0.0 K/ul 10/06/2016 Lipid Ord30 CHOL 285 mg/dL 05/21/2016 Lipid Ord30 HDL 42.0 mg/dl 05/21/2016 Lipid Ord30 TRIG 364 mg/dL 05/21/2016 Lipid Ord30 LDL 0 Unable to calculate Due to elevated triglycerides mg/dL 05/21/2016 Lipid Ord30 C/HDL 6.8 Ratio 05/21/2016 %Hba1C Ogr116 % HbA1c 46194-0 6.3 % 05/21/2016 %Hba1C Qwd592 Gluc Ave 134 mg/dL 05/21/2016 Hepatic Yws205 ALBUMIN 4.2 g/dL 05/21/2016 Hepatic Laq346 TPRO 6.6 g/dL 05/21/2016 Hepatic Pgv678 GLOB 2.4 g/dL 05/21/2016 Hepatic Pfx713 A/G Ratio 1.7 Ratio 05/21/2016 Hepatic Gsx501 ALK PHOS 64 U/L 05/21/2016 Hepatic Ntf705 ALT(SGPT) 16 U/L 05/21/2016 Hepatic Sdi141 AST(SGOT) 13 U/L 05/21/2016 Hepatic Nws067 BILI T 0.5 mg/dL 05/21/2016 Hepatic Rpf819 BILI D 0.1 mg/dL 05/21/2016 Hepatic Ieb054 BILI I 0.4 mg/dL 05/21/2016 C A/B FLU [id number] Influenza A Scr Negative 04/29/2016 C A/B FLU 5812325 Influenza B Scr Negative 04/29/2016 Urine Culture [...] 17.7 % 02/12/2016 Cbc With Differential Ord2 MCH 32.3 pg 02/12/2016 Cbc With Differential Ord2 Meeker% 10.5 % 02/12/2016 Cbc With Differential Ord2 MCHC 33.3 pg 02/12/2016 Cbc With Differential Ord2 Eos% 2.5 % 02/12/2016 Cbc With Differential Ord2 PLT 205 K/ul 02/12/2016 Cbc With Differential Ord2 Baso% 0.1 % 02/12/2016 Cbc With Differential Ord2 RDW 14.3 % 02/12/2016 Cbc With Differential Ord2 Neut ABS# 5.44 K/ul 02/12/2016 Cbc With Differential Ord2 Lymph ABS# 1.39 K/ul 02/12/2016 Cbc With Differential Ord2 [place] ABS# 0.8 K/ul 02/12/2016 Cbc With Differential Ord2 Eos ABS# 0.2 K/ul 02/12/2016 Cbc With Differential Ord2 Baso ABS# 0.0 K/ul 02/12/2016 %Hba1C Zni388 % HbA1c 97966-1 6.6 % 02/12/2016 %Hba1C Ljx613 Gluc Ave 143 mg/dL 02/12/2016 Comp Metabolic Bht209 NA 138 mEq/L 02/12/2016 Comp Metabolic Djz527 K 4.2 mEq/L 02/12/2016 Comp Metabolic Lwi440 CL 103 mEq/L 02/12/2016 Comp Metabolic Bed730 CO2 28.0 mEq/L 02/12/2016 Comp Metabolic Hpr685 ANION GAP 11 02/12/2016 Comp Metabolic Xcw735 GLUCOSE 97 mg/dL 02/12/2016 Comp Metabolic Bjp962 Creat 0.7 mg/dL 02/12/2016 Comp Metabolic Ybh845 eGFR 83 ml/min/1.73m2 02/12/2016 Comp Metabolic Whs967 BUN 16 mg/dL 02/12/2016 Comp Metabolic Xcf536 B/C Ratio 21.6 Ratio 02/12/2016 Comp Metabolic Lom620 CALCIUM 9.6 mg/dL 02/12/2016 Comp Metabolic Cxw738 ALK PHOS 53 U/L 02/12/2016 Comp Metabolic Iry321 AST(SGOT) 16 U/L 02/12/2016 Comp Metabolic Mdv171 ALT(SGPT) 22 U/L 02/12/2016 Comp Metabolic Fnj192 BILI T 0.5 mg/dL 02/12/2016 Comp Metabolic Kpl260 ALBUMIN 3.9 g/dL 02/12/2016 Comp Metabolic Hfn136 TPRO 6.4 g/dL 02/12/2016 Comp Metabolic Xqk329 GLOB 2.5 g/dL 02/12/2016 Comp Metabolic Auk550 A/G Ratio 1.6 Ratio 02/12/2016 Comp Metabolic Nip960 Osmo 277 mOsmo 02/12/2016 Lipid Ord30 CHOL 276 mg/dL 02/12/2016 Lipid Ord30 HDL 47.0 mg/dl 02/12/2016 Lipid Ord30 TRIG 424 mg/dL 02/12/2016 Lipid Ord30 LDL 0 Unable to calculate Due to elevated triglycerides mg/dL 02/12/2016 Lipid Ord30 C/HDL 5.9 Ratio 02/12/2016 Microalbumin Wdj798 MicroAlb <0.7 mg/dL 02/12/2016 Tsh Ord6 hTSH II 1.21 uIU/mL 02/12/2016 [place] Spotted Fever Igg/Igm 267375 VIKTORIA [place] SPOTTED FEVER IGM EIA . 01/10/2016 [place] Spotted Fever Igg/Igm 198603 RMSF, IGM 0.21 index 01/10/2016 [place] Spotted Fever Igg/Igm 475679 VIKTORIA MT SPOTTED FEVER IGG EIA FLEX . 01/10/2016 [place] Spotted Fever Igg/Igm 861005 RMSF, IGG SCREEN-FLEX Equivocal 01/10/2016 Viktoria Mtn Spot'D Fev Igg 874099 RMSF, IGG -TITER IFA <1:64 Ehrlichia Chaffeensis Antibody Igm 692419 EHRLICHIA CHAFFEENSIS IGM < 1:16 01/09/2016 Ehrlichia Chaffeensis Antibody Igg 519511 EHRLICHIA CHAFFEENSIS IGG <1:64 01/09/2016 West Nile Virus Ab 130254 WEST NILE VIRUS AB IGG 0.33 IV 01/08/2016 West Nile Virus Ab [id number] WEST NILE VIRUS AB IGM 0.02 IV 01/08/2016 Lymes Disease Total Antibodies With Western Blot Reflex [id number] B. BURGDORFERI, IGG/IGM 0.09 LI 01/07/2016 Lymes Disease Total Antibodies With Western Blot Reflex [id number] 01/07/2016 Sed Rate Ord21 ESR 16 mm/hr 01/05/2016 Cbc With Differential Ord2 WBC 6.25 K/ul [...] 32.3 pg 01/05/2016 Cbc With Differential Ord2 Meeker% 8.3 % 01/05/2016 Cbc With Differential Ord2 MCHC 33.6 pg 01/05/2016 Cbc With Differential Ord2 Eos% 2.4 % 01/05/2016 Cbc With Differential Ord2 Baso% 0.2 % 01/05/2016 Cbc With Differential Ord2 PLT 207 K/ul 01/05/2016 Cbc With Differential Ord2 Neut ABS# 3.96 K/ul 01/05/2016 Cbc With Differential Ord2 RDW 13.5 % 01/05/2016 Cbc With Differential Ord2 Lymph ABS# 1.61 K/ul 01/05/2016 Cbc With Differential Ord2 [place] ABS# 0.5 K/ul 01/05/2016 Cbc With Differential Ord2 Eos ABS# 0.2 K/ul 01/05/2016 Cbc With Differential Ord2 Baso ABS# 0.0 K/ul 01/05/2016 Comp Metabolic Uyx341 NA 138 mEq/L 01/05/2016 Comp Metabolic Eve006 K 4.4 mEq/L 01/05/2016 Comp Metabolic Pcy113 CL 103 mEq/L 01/05/2016 Comp Metabolic Atl047 CO2 27.0 mEq/L 01/05/2016 Comp Metabolic Zel822 ANION GAP 12 01/05/2016 Comp Metabolic Udb821 GLUCOSE 199 mg/dL 01/05/2016 Comp Metabolic Usg888 Creat 0.8 mg/dL 01/05/2016 Comp Metabolic Qyu065 eGFR 78 ml/min/1.73m2 01/05/2016 Comp Metabolic Cpk999 BUN 15 mg/dL 01/05/2016 Comp Metabolic Lri559 B/C Ratio 19.2 Ratio 01/05/2016 Comp Metabolic Lmo425 CALCIUM 9.4 mg/dL 01/05/2016 Comp Metabolic Zah326 ALK PHOS 59 U/L 01/05/2016 Comp Metabolic Zto310 AST(SGOT) 15 U/L 01/05/2016 Comp Metabolic Hop148 ALT(SGPT) 19 U/L 01/05/2016 Comp Metabolic Ubs596 BILI T 0.6 mg/dL 01/05/2016 Comp Metabolic Vfm189 ALBUMIN 4.2 g/dL 01/05/2016 Comp Metabolic Ycx156 TPRO 6.6 g/dL 01/05/2016 Comp Metabolic Erd313 GLOB 2.4 g/dL 01/05/2016 Comp Metabolic Plk980 A/G Ratio 1.7 Ratio 01/05/2016 Comp Metabolic Ebo131 Osmo 282 mOsmo 01/05/2016 C-Reactive Protein Qnt Crqnt CRP 0.4 mg/dl 01/05/2016 Lipid Ord30 CHOL 241 mg/dL 10/07/2015 Lipid Ord30 HDL 47.0 mg/dl 10/07/2015 Lipid Ord30 TRIG 249 mg/dL 10/07/2015 Lipid Ord30 LDL 144 mg/dL 10/07/2015 Lipid Ord30 C/HDL 5.1 Ratio 10/07/2015 Lipid Ord30 CHOL 256 mg/dL 06/30/2015 Lipid Ord30 HDL 45.0 mg/dl 06/30/2015 Lipid Ord30 TRIG 336 mg/dL 06/30/2015 Lipid Ord30 LDL 144 mg/dL 06/30/2015 Lipid Ord30 C/HDL 5.7 Ratio 06/30/2015 %Hba1C Eyt912 % HbA1c 84037-6 5.8 % 06/30/2015 %Hba1C Jrm332 Gluc Ave 120 mg/dL 06/30/2015 Lipid Ord30 CHOL 274 mg/dL 02/27/2015 Lipid Ord30 HDL 44.0 mg/dl 02/27/2015 Lipid Ord30 TRIG 199 mg/dL 02/27/2015 Lipid Ord30 LDL 190 mg/dL 02/27/2015 Lipid Ord30 C/HDL 6.2 Ratio 02/27/2015 Microalbumin Cgf602 MicroAlb 0.2 mg/dL 02/27/2015 %Hba1C Tiw353 % HbA1c 63551-2 6.2 % 02/27/2015 %Hba1C Flt207 Gluc Ave 131 mg/dL 02/27/2015 Tsh Ord6 hTSH II 2.53 uIU/mL 02/27/2015 Cbc With Differential Ord2 WBC 5.7 [...] With Differential Ord2 RDW 13.2 % 02/27/2015 Comp Metabolic Ugb484 NA 139 mEq/L 02/27/2015 Comp Metabolic Bqs706 K 4.3 mEq/L 02/27/2015 Comp Metabolic Pny196 CL 105 mEq/L 02/27/2015 Comp Metabolic Zrn104 CO2 28.0 mEq/L 02/27/2015 Comp Metabolic Jvh059 ANION GAP 10 02/27/2015 Comp Metabolic Kda900 GLUCOSE 116 mg/dL 02/27/2015 Comp Metabolic Hag820 Creat 0.9 mg/dL 02/27/2015 Comp Metabolic Uuw375 eGFR 70 ml/min/1.73m2 02/27/2015 Comp Metabolic Ddd458 BUN 20 mg/dL 02/27/2015 Comp Metabolic Unq061 B/C Ratio 23.3 Ratio 02/27/2015 Comp Metabolic Gcg992 CALCIUM 9.0 mg/dL 02/27/2015 Comp Metabolic Kwd657 ALK PHOS 59 U/L 02/27/2015 Comp Metabolic Kez933 AST(SGOT) 15 U/L 02/27/2015 Comp Metabolic Yct781 ALT(SGPT) 17 U/L 02/27/2015 Comp Metabolic Grf073 BILI T 0.7 mg/dL 02/27/2015 Comp Metabolic Zxv884 ALBUMIN 3.9 g/dL 02/27/2015 Comp Metabolic Lyy121 TPRO 6.2 g/dL 02/27/2015 Comp Metabolic Bxy857 GLOB 2.3 g/dL 02/27/2015 Comp Metabolic Rsg572 A/G Ratio 1.7 Ratio 02/27/2015 Comp Metabolic Sez375 Osmo 281 mOsmo 02/27/2015 Review of Systems System Result Effective [...] benign 08/27/2016 None Full Exam - General 1995 Neck inspection of neck Jugular venous distension: [...] Codes Date URINALYSIS NONAUTO W/O SCOPE CPT-4: 41336 06/22/2017 THER/PROPH/DIAG INJ SC/IM CPT-4: 10579 06/07/2017 KETOROLAC TROMETHAMINE INJ CPT-4: J1885 06/07/2017 FLU VAC NO PRSV 4 MOI 3 YRS+ CPT-4: 45162 01/12/2017 ADMIN INFLUENZA VIRUS VAC CPT-4: G0008 01/12/2017 PPPS, SUBSEQ VISIT CPT -4: G0439 09/21/2016 URINALYSIS NONAUTO W/O SCOPE CPT-4: 54116 02/25/2016 Vital Signs Date Vital 08/18/2017 Blood Pressure 1: 126/78 Code : 8480-6 BMI: 28.6 Code : 56586-1 Heart Rate 1 : 88 bpm Height: 5'5" SpO2: 98% Weight: 172 lbs 07/27/2017 Blood Pressure 1: 140/76 Code : 8480-6 BMI: 28.0 Code : 86363-7 Heart Rate 1 : 99 bpm Height: 5'5" SpO2: 98% Temperature: 36.7 (C) / 98.1 (F) Weight: 168 lbs 06/22/2017 Blood Pressure 1: 134/70 Code : 8480-6 BMI: 29.1 Code : 42791-0 Heart Rate 1 : 94 bpm Height: 5'5" SpO2: 98% Weight: 175 lbs 06/07/2017 Blood Pressure 1: 136/70 Code : 8480-6 BMI: 28.6 Code : 99128-9 Heart Rate 1 : 78 bpm Height: 5'5" SpO2: 98% Weight: 172 lbs 04/27/2017 Blood Pressure 1: 132/70 Code : 8480-6 BMI: 28.5 Code : 41368-4 Heart Rate 1 : 93 bpm Height: 5'5" SpO2: 98% Weight: 171 lbs 03/18/2017 Blood Pressure 1: 144/84 Code : 8480-6 BMI: 29.1 Code : 17923-3 Heart Rate 1 : 94 bpm Height: 5'5" SpO2: 98% Weight: 175 lbs 12/09/2016 Blood Pressure 1: 134/78 Code : 8480-6 BMI: 29.0 Code : 05137-2 Heart Rate 1 : 89 bpm Height: 5'5" SpO2: 97% Weight: 174 lbs 10/18/2016 Blood Pressure 1: 166/92 Code : 8480-6 BMI: 29.4 Code : 52830-0 Heart Rate 1 : 94 bpm Height: 5'5" SpO2: 94% Weight: 176 lbs 8 oz 09/21/2016 Blood Pressure 1: 140/84 Code : 8480-6 BMI: 29.1 Code : 62662-2 Heart Rate 1 : 90 bpm Height: 5'5" SpO2: 97% Weight: 175 lbs 09/02/2016 Blood Pressure 1: 146/82 Code : 8480-6 BMI: 29.3 Code : 73648-3 Heart Rate 1 : 95 bpm Height: 5'5" SpO2: 98% Weight: 176 lbs 08/27/2016 Blood Pressure 1: 178/90 Code : 8480-6 Blood Pressure 1: 162/84 Code: 8480-6 Blood Pressure 1: 148/88 Code: 8480-6 BMI: 30.1 Code: 95290-8 Heart Rate 1: 80 bpm Height: 5'5" SpO2: 98% Weight: 181 lbs 04/29/2016 Blood Pressure 1: 152/76 Code : 8480-6 BMI: 30.1 Code : 92639-3 Heart Rate 1 : 99 bpm Height: 5'5" SpO2: 98% Temperature: 37.4 (C) / 99.3 (F) Weight: 181 lbs 02/12/2016 Blood Pressure 1: 136/82 Code : 8480-6 Heart Rate 1: 88 bpm SpO2: 97% 01/05/2016 Blood Pressure 1: 150/80 Code : 8480-6 BMI: 28.8 Code : 81286-2 Heart Rate 1 : 80 bpm Height: 5'5" SpO2: 98% Weight: 173 lbs 02/26/2015 Blood Pressure 1: 140/82 Code : 8480-6 Blood Pressure 1: 144/84 Code: 8480-6 BMI: 28.8 Code: 55376-9 Heart Rate 1: 81 bpm Height: 5'5" SpO2: 98% Weight: 173 lbs 08/27/2014 Blood Pressure 1: 132/80 Code : 8480-6 BMI: 28.1 Code : 42107-0 Height: 5'5" Weight: 169 lbs Functional Status No Functional Status data History of Present Illness Symptom Name Status Result Effective Date Notes hypertension Quality primary hypertension 08/18/2017 None hypertension [...] 02/26/2015 None well woman exam (65+ 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 PATIENT, LEVEL IV Diagnosis: Essential (primary) hypertension[ICD10: I10] Diagnosis: Type 2 diabetes mellitus without complications[ICD10: E11.9] Deysi Thrasher MD [facility] CPT-4: 51133 08/18/2017 ([id number]) 65566 EST. PATIENT, LEVEL III Diagnosis: Essential (primary) hypertension[ICD10: I10] Diagnosis: Other specified disorders of nose and nasal sinuses[ICD10: J34.89] Deysi Thrasher MD [facility] CPT-4: 41694 07/27/2017 ([id number]) 66524 EST. PATIENT, LEVEL III Diagnosis: Pain in left lower leg[ICD10: M79.662] Diagnosis: Dysuria[ICD10: R30.0] Deysi Thrasher MD [facility] CPT-4: 73292 06/22/2017 ([id number]) 74850 EST. PATIENT, LEVEL III Diagnosis: Sciatica, left side[ICD10: M54.32] Diagnosis: Low back pain[ICD10: M54.5] Deysi Thrasher MD [facility] CPT- 4: 90979 06/07/2017 ([id number]) Miscellaneous no charge Diagnosis: Dysuria[ICD10: R30.0] Deysi Thrasher MD [facility] CPT-4: 97868 05/23/2017 ([id number]) 85904 EST. PATIENT, LEVEL III Diagnosis: Essential (primary) hypertension[ICD10: I10] Diagnosis: Xerosis cutis[ICD10: L85.3] Deysi Thrasher MD [facility] CPT- 4: 13098 04/27/2017 [id number] EST. PATIENT, LEVEL IV Diagnosis: Other acute sinusitis[ICD10: J01.80] Diagnosis: Other allergic rhinitis[ICD10: J30.89] Gayathri Thrasher MD [facility] CPT-4: 06577 03/18/2017 94081 EST. PATIENT, LEVEL III Diagnosis: Other chest pain[ICD10: R07.89] Diagnosis: Essential (primary) hypertension[ICD10: I10] Gayathri Thrasher MD [facility] CPT-4: 09789 12/09/2016 ([id number]) [id number] EST. PATIENT, LEVEL IV Diagnosis: Essential (primary) hypertension[ICD10: I10] Diagnosis: Other allergic rhinitis[ICD10: J30.89] Diagnosis: Acne vulgaris[ICD10: L70.0] Diagnosis: Sacroiliitis, not elsewhere classified[ICD10: M46.1] Shraddha Thrasher MD, [facility] CPT-4: 68817 10/18/2016 ([id number]) Miscellaneous no charge Diagnosis: Essential (primary) hypertension[ICD10: I10] Shraddha Thrasher MD, [facility] CPT-4: 85521 09/02/2016 ([id number]) [id number] EST. PATIENT, LEVEL III Diagnosis: Essential (primary) hypertension[ICD10: I10] Shraddha Thrasher MD, [facility] CPT-4: 14034 08/27/2016 92900 EST. PATIENT, LEVEL III Diagnosis: Other allergic rhinitis[ICD10: J30.89] Diagnosis: Acute laryngopharyngitis[ICD10: J06.0] Gaytahri Thrasher MD, [facility] CPT-4: 82771 04/29/2016 ([id number]) 99659 EST. PATIENT, LEVEL III Diagnosis: Cellulitis of neck[ICD10: L03.221] Shraddha Thrasher MD, [facility] CPT-4: 97662 02/12/2016 ([id number]) 82657 EST. PATIENT, LEVEL IV Diagnosis: Type 2 diabetes mellitus without complications[ICD10: E11.9] Diagnosis: Mixed hyperlipidemia[ICD10: E78.2] Diagnosis: Transient visual loss, left eye[ICD10: H53.122] Diagnosis: Headache[ICD10: R51] Diagnosis: Trigeminal neuralgia[ICD10: G50.0] Diagnosis: Insect bite (nonvenomous) of left front wall of thorax, initial encounter[ICD10: S20.362A] Deysi Thrasher MD, [facility] CPT-4: 65335 01/05/2016 ([id number]) 91612 EST. PATIENT, LEVEL III Diagnosis: Type 2 diabetes mellitus without complications[ICD10: E11.9] Deysi Thrasher MD, [facility] CPT-4: 14241 02/26/2015 ([id number]) OFFICE VISIT, NEW - LEVEL 3 Diagnosis: Diabetes mellitus[ICD9: 250.00] Diagnosis: Screening for breast cancer[ICD9: V76.10] Diagnosis: Screening for osteoporosis[ICD9: V82.81] Shraddha Thrasher MD, [facility] CPT-4: 95495 08/27/2014 Plan of Care Planned Activity Notes Codes Status Date Visit Plan: Hypertension - well controlled - [...] less controlled. 08/18/2017 Appointment: Deysi Thrasher WPtel: [address] [place], [place] [id number] (15 min) Moderate 08/18/2017 Patient Education: Patient [...] nasal discharge. 07/27/2017 Appointment: Deysi Thrasher WPtel: [phone] [facility] (15 min) Moderate 07/27/2017 Patient Education: Patient [...] 12 hours. 06/22/2017 Appointment: Deysi Thrasher WPtel: [facility] (15 min) Moderate 06/22/2017 Patient Education: Patient Medication Summary Completed 06/22/2017 Visit Plan: Low back pain - SI joint pain - Sciatica - recommended pt to start on exercises for low back - rx for naproxen, ketorolac shot today. 06/07/2017 Appointment: Deysi Thrasher WPtel: [facility] (15 min) Moderate 06/07/2017 Patient Education: Patient [...] not better 04/27/2017 Appointment: Deysi Thrasher WPtel: [facility] [place] (15 min) Moderate 04/27/2017 Patient Education: Patient Medication Summary Completed 04/27/2017 Appointment: Gayathri Elizabeth WPtel: [facility] [place] (15 min) Moderate 04/22/2017 Visit Plan: [...] allergy spray. 03/18/2017 Appointment: [phone] (15 min) Moderate 03/18/2017 Patient Education: Patient Medication Summary Completed 03/18/2017 Appointment: Nurse Visit 01/12/2017 Patient Education: Patient Medication Summary Completed 01/12/2017 Visit Plan: Chest pain - sudden in onset, improving - pt has had uncontrolled blood pressures and has had medication adjustments in the past, but has not seen a metal fitters and machinists - will check labs and EKG - [...] acute concerns. 12/09/2016 Appointment: [facility]athri Elizabeth [phone] [place] (30 min) Complex 12/09/2016 Patient Education: Patient Medication Summary Completed 12/09/2016 Patient Education: Hypertension Completed 12/09/2016 Care Plan: Referral Order SNOMED-CT : [id number] Pending 12/09/2016 Appointment: Nurse Visit 11/08/2016 Visit [...] histamine 10/18/2016 Appointment: Shraddha Dillon WPtel: [phone] [phone] (15 min) Moderate 10/18/2016 Patient Education: Patient [...] Dr Joseph 09/02/2016 Appointment: [facility]radd[facility] Dillon [phone] [phone] (15 min) Moderate 09/02/2016 Patient Education: Patient [...] SCHEDULE ECHOCARDIOGRAM 08/27/2016 Appointment: Shraddha Dillon WPtel: [phone] [id number] (10 min) Simple 08/27/2016 Patient Education: Patient [...] allergy spray. 04/29/2016 Appointment: Gayathri Elizabeth [facility]el[phone] [place] [place] (30 min) Complex 04/29/2016 Patient Education: Patient Medication Summary Completed 04/29/2016 Appointment: Lab Draw 02/25/2016 Patient Education: Patient Medication Summary Completed 02/25/2016 Visit Plan: Cellulitis - continue with oral antibiotics as previously directed, return to clinic as previously directed, call for acute change in symptoms, worsening redness, warmth, discharge. 02/12/2016 Appointment: Shraddha Dillon [facility]el[phone] [id number] [place] (10 min) Simple 02/12/2016 Patient Education: [...] stroke 01/05/2016 [phone] (15 min) Moderate 01/05/2016 Appointment: Gayathri Elizabeth [facility]el[phone] (30 min) Complex 01/05/2016 Patient Education: Patient [...] 02/26/2015 Care Plan: MICROALBUMIN QUANTITATIVE LOINC : 10107-0 Ordered 02/26/2015 Care Plan: COMPLETE CBC AUTOMATED LOINC : 64198-6 Ordered 02/26/2015 Patient Education: Patient Medication Summary [...] her for appt Initiated Instructions Comment . HTN-not well controlled-take low dose lisinopril daily- start with 2.5mg daily-increase to 5mg daily if needed-call with readings or other symptoms as discussed-keep appt with Dr Jake Sebastian, Dr. Roth, Dr. Durán - surgeons in [place] Dr. Mojica, Dr. Mauricio - in [place] Dr. Wilkinson - internal Med in [place] Let me know who you want to [...] DOPA paperwork for health care surrogate. . Hypertension - well controlled - continue [...] are starting to become less controlled. . ua collected . Low back pain - SI joint pain - Sciatica - recommended pt to start on exercises for low back - rx for naproxen, ketorolac shot today. . Hypertension - well controlled - continue with current medications, continue with no added salt diet. Pt has been encouraged to exercise daily. The pt has been advised to call the office if there are any acute concerns about change in blood pressure readings at home. Dry skin - RX for clobetasol, call if not better . Sinusitis - Pt has acute infection [...] spray in the nasal steroid allergy spray. Plan: ([id number]) SCREENINGMAMMOGRAPHYDIGITAL . Diabetes Mellitus - [...] BLOOD PRESSURE DAILY IF NEEDS TO SEE MOTORBOAT MECHANIC INBOARD/OUTBOARD, SHE WANTS [facility] WEEKEND FOR SYMPTOMS DISCUSSED [...] are starting to become less controlled. . Chest pain - sudden in onset, improving - pt has had uncontrolled blood pressures and has had medication adjustments in the past, but has not seen a metal fitters and machinists - will check labs and EKG - [...] spray in the nasal steroid allergy spray. take an enteric coated 81 mg aspirin [...] 12 hours and off for 12 hours. vaseline twice daily in nasal passages use [...]
--- OUTSIDE RECORDS SUMMARY | 2018-04-28 07:37 | XMS REPORT | Continuity of Care Document ---
Author Author [facility] Organization [facility] Address Unknown Phone Unavailable Allergies Active Description Code Type Severity Reaction Onset Reported/Identified Relationship to Patient Clinical Status Yes hydrocodone [id number] Drug Allergy Mild N/V 04/12/2018 Yes levofloxacin [id number] Drug Allergy Mild N/V 04/12/2018 Yes codeine [id number] Drug Allergy Unknown N/A 04/12/2018 Yes Penicillins [id number] Drug Allergy Unknown N/A 04/12/2018 Medications There is no data. Problems Date [...] JANE MD Ot R51 HEADACHE 09/15/2016 JAN CHAN [facility] Ot 733.90 BONE CARTILAGE DIS NOS 09/15/2016 JAN CHANP Ot V76.12 OT SCREEN MAMMO-MALIGN NEOPLASM OF PAIGE 09/15/2016 JAN CHANP Ot V82.81 SCREENING FOR OSTEOPOROSIS 09/15/2016 JOYCE JANE MD Ot H53.9 UNSPECIFIED VISUAL DISTURBANCE 09/15/2016 JOYCE JANE MD Ot H57.12 OCULAR PAIN, LEFT EYE 09/15/2016 JOYCE JANE MD Ot R42 DIZZINESS AND GIDDINESS 09/15/2016 JOYCE JANE MD Ot R51 HEADACHE 10/08/2016 CHAN, JAN M CONTACT LENS FITTER Ot I10 ESSENTIAL (PRIMARY) HYPERTENSION 10/19/2016 HEMANT HAND INFANT CAREGIVER Ot Z12.31 ENCNTR SCREEN MAMMOGRAM FOR MALIGNANT NE 10/19/2016 JAN CHAN CONTACT LENS FITTER Ot 733.90 BONE CARTILAGE DIS NOS 10/19/2016 JAN CHAN CONTACT LENS FITTER Ot V76.12 OTH SCREEN MAMMO-MALIGN NEOPLASM OF PAIGE 10/19/2016 JAN CHAN CONTACT LENS FITTER Ot V82.81 SCREENING FOR OSTEOPOROSIS 10/19/2016 BUCK MARCH, JOYCE Anderson Ot H53.9 UNSPECIFIED VISUAL DISTURBANCE 10/19/2016 BUCK MARCH, JOYCE Anderson Ot H57.12 OCULAR PAIN, LEFT EYE 10/19/2016 BUCK MARCH, JOYCE Anderson Ot R42 DIZZINESS AND GIDDINESS 10/19/2016 JOYCE JANE MD Ot R51 HEADACHE 10/19/2016 JAN CHANP Ot I10 ESSENTIAL (PRIMARY) HYPERTENSION 10/19/2016 HEMANT HAND INFANT CAREGIVER Ot Z12.31 ENCNTR SCREEN MAMMOGRAM FOR MALIGNANT NE 10/19/2016 HEMANT HAND INFANT CAREGIVER Ot Z12.31 ENCNTR SCREEN MAMMOGRAM FOR MALIGNANT NE 10/21/2016 JAN CHAN CONTACT LENS FITTER Ot 733.90 BONE CARTILAGE DIS NOS 10/21/2016 JAN CHAN CONTACT LENS FITTER Ot V76.12 OTH SCREEN MAMMO-MALIGN NEOPLASM OF PAIGE 10/21/2016 JAN CHAN CONTACT LENS FITTER Ot V82.81 SCREENING FOR OSTEOPOROSIS 10/21/2016 JOYCE JANE MD Ot H53.9 UNSPECIFIED VISUAL DISTURBANCE 10/21/2016 JOYCE JANE MD Ot H57.12 OCULAR PAIN, LEFT EYE 10/21/2016 JOYCE JANE MD Ot R42 DIZZINESS AND GIDDINESS 10/21/2016 JOYCE JANE MD Ot R51 HEADACHE 10/21/2016 JAN CHAN CONTACT LENS FITTER Ot I10 ESSENTIAL (PRIMARY) HYPERTENSION 10/21/2016 HEMANT HAND INFANT CAREGIVER Ot Z12.31 ENCNTR SCREEN MAMMOGRAM FOR MALIGNANT NE 10/26/2016 HEMANT HAND INFANT CAREGIVER Ot Z12.31 ENCNTR SCREEN MAMMOGRAM FOR MALIGNANT NE 10/26/2016 HEMANT HAND INFANT CAREGIVER Ot Z12.31 ENCNTR SCREEN MAMMOGRAM FOR MALIGNANT NE 10/26/2016 HEMANT HAND INFANT CAREGIVER Ot Z12.31 ENCNTR SCREEN MAMMOGRAM FOR MALIGNANT NE 10/26/2016 HEMANT HAND INFANT CAREGIVER Ot Z12.31 ENCNTR SCREEN MAMMOGRAM FOR MALIGNANT NE 10/26/2016 HEMANT HAND INFANT CAREGIVER Ot Z12.31 ENCNTR SCREEN MAMMOGRAM FOR MALIGNANT NE 10/26/2016 HEMANT HAND INFANT CAREGIVER Ot Z12.31 ENCNTR SCREEN MAMMOGRAM FOR MALIGNANT NE 11/19/2016 HEMANT HAND INFANT CAREGIVER Ot Z12.31 ENCNTR SCREEN MAMMOGRAM FOR MALIGNANT NE 12/10/2016 HEMANT HAND INFANT CAREGIVER Ot R07.9 CHEST PAIN, UNSPECIFIED 12/30/2016 HEMANT HAND INFANT CAREGIVER Ot R07.9 CHEST PAIN, UNSPECIFIED 01/17/2017 NOMAN PALM MD, Ot E11.9 TYPE 2 DIABETES MELLITUS WITHOUT COMPLIC 01/17/2017 NOMAN PALM MD Ot S01.111A LACERATION W/O FB OF RIGHT EYELID AND PE 01/17/2017 NOMAN PALM MD Ot S05.91XA UNSPECIFIED INJURY OF RIGHT EYE AND ORBI 01/17/2017 NOMAN PALM MD Ot S51.811A LACERATION W/O FOREIGN BODY OF RIGHT FOR 01/17/2017 NOMAN PALM MD, Ot W18.09XA STRIKING AGAINST OTH OBJECT W SUBSEQUENT 01/17/2017 NOMAN PALM MD, Ot Z23 ENCOUNTER FOR IMMUNIZATION 01/17/2017 NOMAN [...] BODY OF RIGHT FOR 01/19/2017 NOMAN PALM MD Ot W18.09XA STRIKING AGAINST OTH OBJECT W SUBSEQUENT 01/19/2017 NOMAN PALM MD Ot Z23 ENCOUNTER FOR IMMUNIZATION 01/19/2017 NOMAN PALM MD Ot Z87.59 PERSONAL HISTORY OF COMP OF PREG, CHLDBR 01/19/2017 NOMAN PALM MD Ot Z90.710 ACQUIRED ABSENCE OF BOTH CERVIX AND UTER 01/23/2017 NOMAN PALM MD Ot E11.9 TYPE 2 DIABETES MELLITUS WITHOUT COMPLIC 01/23/2017 NOMAN PALM MD Ot S01.111A LACERATION W/O FB OF RIGHT EYELID AND PE 01/23/2017 NOMAN PALM MD Ot S05.91XA UNSPECIFIED INJURY OF RIGHT EYE AND ORBI 01/23/2017 NOMAN PALM MD Ot S51.811A LACERATION W/O FOREIGN BODY OF RIGHT FOR 01/23/2017 NOMAN PALM MD Ot W18.09XA STRIKING AGAINST OTH OBJECT W SUBSEQUENT 01/23/2017 NOMAN PALM MD Ot Z23 ENCOUNTER FOR IMMUNIZATION 01/23/2017 NOMAN PALM MD, Ot Z87.59 PERSONAL HISTORY OF COMP OF PREG, CHLDBR 01/23/2017 NOMAN PALM MD Ot Z90.710 ACQUIRED ABSENCE OF BOTH CERVIX AND UTER 06/29/2017 CATALINA GONZALEZ APRN Ot E11.9 TYPE 2 DIABETES MELLITUS WITHOUT COMPLIC 06/29/2017 CATALINA GONZALEZ APRN Ot N20.1 CALCULUS OF URETER 06/29/2017 CATALINA GONZALEZ APRN Ot R10.32 LEFT LOWER QUADRANT PAIN 06/29/2017 CATALINA GONZALEZ APRN Ot Z79.82 SALES AND CUSTOMER RELATIONS REP (CURRENT) USE OF ASPIRIN 06/29/2017 CATALINA GONZALEZ APRN Ot Z87.59 PERSONAL HISTORY OF COMP OF PREG, CHLDBR 06/29/2017 CATALINA GONZALEZ APRN Ot Z88.0 ALLERGY STATUS TO PENICILLIN 06/29/2017 CATALINA GONZALEZ INFANT CAREGIVER Ot Z88.6 ALLERGY STATUS TO ANALGESIC AGENT STATUS 06/29/2017 CATALINA GONZALEZ INFANT CAREGIVER Ot Z90.710 ACQUIRED ABSENCE OF BOTH CERVIX AND UTER 07/01/2017 TY KRUGER MD Ot N20.0 CALCULUS OF KIDNEY 07/01/2017 TY KRUGER MD Ot N20.1 CALCULUS OF URETER 07/01/2017 TY KRUGER MD Ot Z01.818 ENCOUNTER FOR OTHER PREPROCEDURAL EXAMIN 07/02/2017 JAN CHAN CONTACT LENS FITTER Ot 733.90 BONE CARTILAGE DIS NOS 07/02/2017 JAN CHAN CONTACT LENS FITTER Ot V76.12 OTH SCREEN MAMMO-MALIGN NEOPLASM OF PAIGE 07/02/2017 JAN CHAN CONTACT LENS FITTER Ot V82.81 SCREENING FOR OSTEOPOROSIS 07/02/2017 BUCK MARCH, JOYCE Anderson Ot H53.9 UNSPECIFIED VISUAL DISTURBANCE 07/02/2017 BUCK MARCH, JOYCE Anderson Ot H57.12 OCULAR PAIN, LEFT EYE 07/02/2017 BUCK MARCH, JOYCE A Ot R42 DIZZINESS AND GIDDINESS 07/02/2017 BUCK MARCH, JOYCE A Ot R51 HEADACHE 07/02/2017 JAN CHAN CONTACT LENS FITTER Ot I10 ESSENTIAL (PRIMARY) HYPERTENSION 07/02/2017 HEMANT HAND INFANT CAREGIVER Ot Z12.31 ENCNTR SCREEN MAMMOGRAM FOR MALIGNANT NE 07/02/2017 HEMANT HAND INFANT CAREGIVER Ot R07.9 CHEST PAIN, UNSPECIFIED 07/04/2017 TY KRUGER MD Ot N20.0 CALCULUS OF KIDNEY 07/04/2017 TY KRUGER MD Ot N20.1 CALCULUS OF URETER 07/04/2017 TY KRUGER MD Ot Z01.818 ENCOUNTER FOR OTHER PREPROCEDURAL EXAMIN 07/04/2017 TY KRUGER MD Ot N20.0 CALCULUS OF KIDNEY 07/04/2017 TY KRUGER MD Ot N20.1 CALCULUS OF URETER 07/04/2017 TY KRUGER MD Ot Z01.818 ENCOUNTER FOR OTHER PREPROCEDURAL EXAMIN 07/05/2017 TY KRUGER MD Ot E11.9 TYPE 2 DIABETES MELLITUS WITHOUT COMPLIC 07/05/2017 TY KRUGER MD Ot I10 ESSENTIAL (PRIMARY) HYPERTENSION 07/05/2017 TY KRUGER MD Ot N20.1 CALCULUS OF URETER 07/05/2017 TY KRUGER MD Ot N35.9 URETHRAL STRICTURE, UNSPECIFIED 07/05/2017 TY KRUGER MD Ot N81.10 CYSTOCELE, UNSPECIFIED 07/05/2017 TY KRUGER MD Ot Z79.899 OTHER SALES AND CUSTOMER RELATIONS REP (CURRENT) DRUG THERAPY 07/06/2017 TY KRUGER MD Ot E11.9 TYPE 2 DIABETES MELLITUS WITHOUT COMPLIC 07/06/2017 TY KRUGER MD Ot I10 ESSENTIAL (PRIMARY) HYPERTENSION 07/06/2017 TY KRUGER MD Ot N20.1 CALCULUS OF URETER 07/06/2017 TY KRUGER MD Ot N35.9 URETHRAL STRICTURE, UNSPECIFIED 07/06/2017 TY KRUGER MD Ot N81.10 CYSTOCELE, UNSPECIFIED 07/06/2017 TY KRUGER MD Ot Z79.899 OTHER PRISON (CURRENT) DRUG THERAPY 07/06/2017 TY KRUGER MD Ot E11.9 TYPE 2 DIABETES MELLITUS WITHOUT COMPLIC 07/06/2017 TY KRUGER MD Ot I10 ESSENTIAL (PRIMARY) HYPERTENSION 07/06/2017 TY KRUGER MD Ot N20.1 CALCULUS OF URETER 07/06/2017 TY KRUGER MD Ot N35.9 URETHRAL STRICTURE, UNSPECIFIED 07/06/2017 TY KRUGER MD Ot N81.10 CYSTOCELE, UNSPECIFIED 07/06/2017 TY KRUGER MD Ot Z79.899 OTHER PRISON (CURRENT) DRUG THERAPY 07/11/2017 JAN CHAN CONTACT LENS FITTER Ot 733.90 BONE CARTILAGE DIS NOS 07/11/2017 JAN CHAN CONTACT LENS FITTER Ot V76.12 OTH SCREEN MAMMO-MALIGN NEOPLASM OF PAIGE 07/11/2017 JAN CHAN CONTACT LENS FITTER Ot V82.81 SCREENING FOR OSTEOPOROSIS 07/11/2017 JOYCE JANE MD Ot H53.9 UNSPECIFIED VISUAL DISTURBANCE 07/11/2017 BUCK MD, JOYCE A Ot H57.12 OCULAR PAIN, LEFT EYE 07/11/2017 BUCK MARCH, JOYCE Anderson Ot R42 DIZZINESS AND GIDDINESS 07/11/2017 JOYCE JANE MD Ot R51 HEADACHE 07/11/2017 JAN CHAN Ot I10 ESSENTIAL (PRIMARY) HYPERTENSION 07/11/2017 HEMANT HAND INFANT CAREGIVER Ot Z12.31 ENCNTR SCREEN MAMMOGRAM FOR MALIGNANT NE 07/11/2017 HEMANT HAND INFANT CAREGIVER Ot R07.9 CHEST PAIN, UNSPECIFIED 07/12/2017 SLICK MARCH, TY Anderson Ot Z09 ENCNTR FOR F/U EXAM AFT TRTMT FOR COND O 07/12/2017 TY KRUGER MD Ot Z87.442 PERSONAL HISTORY OF URINARY CALCULI 07/17/2017 TY KRUGER MD A Ot Z09 ENCNTR FOR F/U EXAM AFT TRTMT FOR COND O 07/17/2017 TY KRUGER MD Ot Z87.442 PERSONAL HISTORY OF URINARY CALCULI 08/02/2017 TY KRUGER MD A Ot Z09 ENCNTR FOR F/U EXAM AFT TRTMT FOR COND O 08/02/2017 TY KRUGER MD A Ot Z87.442 PERSONAL HISTORY OF URINARY CALCULI 12/26/2017 SOHAM MARCH, BRYN Valentino Ot Z01.818 ENCOUNTER FOR OTHER PREPROCEDURAL EXAMIN 12/27/2017 BRYN ROUSSEAU MD Ot Z01.818 ENCOUNTER FOR OTHER PREPROCEDURAL EXAMIN 01/02/2018 JAN CHAN CONTACT LENS FITTER Ot 733.90 BONE CARTILAGE DIS NOS 01/02/2018 JAN CHAN CONTACT LENS FITTER Ot V76.12 OTH SCREEN MAMMO-MALIGN NEOPLASM OF PAIGE 01/02/2018 JAN CHAN CONTACT LENS FITTER Ot V82.81 SCREENING FOR OSTEOPOROSIS 01/02/2018 JOYCE JANE MD Ot H53.9 UNSPECIFIED VISUAL DISTURBANCE 01/02/2018 JOYCE JANE MD Ot H57.12 OCULAR PAIN, LEFT EYE 01/02/2018 JOYCE JANE MD Ot R42 DIZZINESS AND GIDDINESS 01/02/2018 JOYCE JANE MD Ot R51 HEADACHE 01/02/2018 JAN CHAN Ot I10 ESSENTIAL (PRIMARY) HYPERTENSION 01/02/2018 HEMANT HAND APRN Ot Z12.31 ENCNTR SCREEN MAMMOGRAM FOR MALIGNANT NE 01/02/2018 HEMANT HAND APRN Ot R07.9 CHEST PAIN, UNSPECIFIED 01/02/2018 SLICK MARCH, TY Anderson Ot Z09 ENCNTR FOR F/U EXAM AFT TRTMT FOR COND O 01/02/2018 SLICK MARCH, TY Anderson Ot Z87.442 PERSONAL HISTORY OF URINARY CALCULI 01/04/2018 BRYN ROUSSEAU MD Ot K57.30 DVRTCLOS OF LG INT W/O PERFORATION OR AB 01/04/2018 BRYN ROUSSEAU MD Ot K64.4 RESIDUAL HEMORRHOIDAL SKIN TAGS 01/04/2018 BRYN ROUSSEAU MD Ot Z12.11 ENCOUNTER FOR SCREENING FOR MALIGNANT NE 01/04/2018 BRYN ROUSSEAU MD Ot Z80.0 FAMILY HISTORY OF MALIGNANT NEOPLASM OF 01/05/2018 BRYN ROUSSEAU MD Ot K57.30 DVRTCLOS OF LG INT W/O PERFORATION OR AB 01/05/2018 BRYN ROUSSEAU MD Ot K64.4 RESIDUAL HEMORRHOIDAL SKIN TAGS 01/05/2018 BRYN ROUSSEAU MD Ot Z12.11 ENCOUNTER FOR SCREENING FOR MALIGNANT NE 01/05/2018 BRYN ROUSSEAU MD Ot Z80.0 FAMILY HISTORY OF MALIGNANT NEOPLASM OF 01/24/2018 BRYN ROUSSEAU MD Ot K57.30 DVRTCLOS OF LG INT W/O PERFORATION OR AB 01/24/2018 BRYN ROUSSEAU MD Ot K64.4 RESIDUAL HEMORRHOIDAL SKIN TAGS 01/24/2018 BRYN ROUSSEAU MD Ot Z12.11 ENCOUNTER FOR SCREENING FOR MALIGNANT NE 01/24/2018 BRYN ROUSSEAU MD Ot Z80.0 FAMILY HISTORY OF MALIGNANT NEOPLASM OF 04/12/2018 JOYCE JANE MD Ot Z12.31 ENCNTR SCREEN MAMMOGRAM FOR MALIGNANT NE 04/12/2018 LEOBARDO CHIN MD Ot Z01.818 ENCOUNTER FOR OTHER PREPROCEDURAL EXAMIN 04/12/2018 JOYCE JANE MD Ot Z12.31 ENCNTR SCREEN MAMMOGRAM FOR MALIGNANT NE 04/12/2018 LEOBARDO CHIN MD Ot Z01.818 ENCOUNTER FOR OTHER PREPROCEDURAL EXAMIN 04/12/2018 LEOBARDO CHIN MD Ot Z01.818 ENCOUNTER FOR OTHER PREPROCEDURAL EXAMIN 04/14/2018 LEOBARDO CHIN MD Ot E11.36 TYPE 2 DIABETES MELLITUS WITH DIABETIC C 04/14/2018 LEOBARDO CHIN MD Ot H25.11 AGE-RELATED NUCLEAR CATARACT, RIGHT EYE 04/14/2018 LEOBARDO CHIN MD Ot I10 ESSENTIAL (PRIMARY) HYPERTENSION 04/14/2018 LEOBARDO CHIN MD Ot Z79.899 OTHER SALES AND CUSTOMER RELATIONS REP (CURRENT) DRUG THERAPY 04/19/2018 LEOBARDO CHIN MD, Ot E11.36 TYPE 2 DIABETES MELLITUS WITH DIABETIC C 04/19/2018 LEOBARDO CHIN MD Ot H25.11 AGE-RELATED NUCLEAR CATARACT, RIGHT EYE 04/19/2018 LEOBARDO CHIN MD Ot I10 ESSENTIAL (PRIMARY) HYPERTENSION 04/19/2018 LEOBARDO CHIN MD Ot Z79.899 OTHER SALES AND CUSTOMER RELATIONS REP (CURRENT) DRUG THERAPY 04/19/2018 LEOBARDO CHIN MD, Ot E11.36 TYPE 2 DIABETES MELLITUS WITH DIABETIC C 04/19/2018 LEOBARDO CHIN MD Ot H25.11 AGE-RELATED NUCLEAR CATARACT, RIGHT EYE 04/19/2018 LEOBARDO CHIN MD Ot I10 ESSENTIAL (PRIMARY) HYPERTENSION 04/19/2018 LEOBARDO CHIN MD Ot Z79.899 OTHER SALES AND CUSTOMER RELATIONS REP (CURRENT) DRUG THERAPY 04/25/2018 LEOBARDO CHIN MD Ot Z01.818 ENCOUNTER FOR OTHER PREPROCEDURAL EXAMIN Procedures There is no data. Results Test [...] Automated blood platelet mean volume measurement 12.1 [z_us] 7.4-10.4 Automated blood neutrophils/100 leukocytes 61 % [...] i.cardiac measurement (mass/volume) < ng/ mL <0.30 Complete blood count (CBC) with automated white blood cell (WBC) differential - 06/29/17 19:30 Blood leukocytes automated count (number/volume) 15.4 10*3/uL 4.3-11.0 Blood erythrocytes automated count (number/volume) 4.34 10*6/uL 4.35-5.85 Venous blood hemoglobin measurement (mass/volume) 13.8 g/dL 11.5-16.0 Blood hematocrit (volume fraction) 41 % 35-52 Automated erythrocyte mean corpuscular volume 94 [foz_us] 80-99 Automated erythrocyte mean corpuscular hemoglobin (mass per erythrocyte) 32 pg 25-34 Automated erythrocyte mean corpuscular hemoglobin concentration measurement ( mass/volume) 34 g/dL 32-36 Automated erythrocyte distribution width ratio 13.8 % 10.0-14.5 Automated blood platelet count (count/volume) 242 10*3/uL 130-400 Automated blood platelet mean volume measurement 12.4 [foz_us] 7.4-10.4 Automated blood neutrophils/100 leukocytes 91 % 42-75 Automated blood lymphocytes/100 leukocytes 6 % 12-44 Blood monocytes/100 leukocytes 2 % 0-12 Automated blood eosinophils/100 leukocytes 0 % 0-10 Automated blood basophils/100 leukocytes 0 % 0-10 Blood neutrophils automated count (number/volume) 14.0 10*3 1.8-7.8 Blood lymphocytes automated count (number/volume) 1.0 10*3 1.0-4.0 Blood monocytes automated count (number/volume) 0.4 10*3 0.0-1.0 Automated eosinophil count 0.0 10*3/uL 0.0-0.3 Automated blood basophil count (count/volume) 0.0 10*3/uL 0.0-0.1 Comprehensive metabolic panel - 06/29/17 19:30 Serum or plasma sodium measurement (moles/volume) 140 mmol/L 135-145 Serum or plasma potassium measurement (moles/volume) 4.6 mmol/L 3.6-5.0 Serum or plasma chloride measurement (moles/volume) 106 mmol/L 98-107 Carbon dioxide 23 mmol/L 21-32 Serum or plasma anion gap determination (moles/volume) 11 mmol/L 5-14 Serum or plasma urea nitrogen measurement (mass/volume) 24 mg/dL 7-18 Serum or plasma creatinine measurement (mass/volume) 1.11 mg/dL 0.60-1.30 Serum or plasma urea nitrogen/creatinine mass ratio 22 NRG Serum or plasma creatinine measurement with calculation of estimated glomerular filtration rate 49 NRG Serum or plasma glucose measurement (mass/volume) 189 mg/dL 70-105 Serum or plasma calcium measurement (mass/volume) 9.8 mg/dL 8.5-10.1 Serum or plasma total bilirubin measurement (mass/volume) 0.5 mg/dL 0.1-1.0 Serum or plasma alkaline phosphatase measurement (enzymatic activity/volume) 64 U/L 40-136 Serum or plasma aspartate aminotransferase measurement (enzymatic activity/ volume) 19 U/L 5-34 Serum or plasma alanine aminotransferase measurement (enzymatic activity/volume ) 24 U/L 0-55 Serum or plasma protein measurement (mass/volume) 7.6 g/dL 6.4-8.2 Serum or plasma albumin measurement (mass/volume) 4.5 g/dL 3.2-4.5 Lipase - 06/29/17 19:30 Lipase 22 U/L 8-78 Blood manual differential performed detection - 06/29/17 19:30 Blood monocytes/100 leukocytes 1 % NRG Manual blood segmented neutrophils/100 leukocytes 77 % NRG Blood band neutrophils/100 leukocytes 12 % NRG Manual blood lymphocytes/100 leukocytes 10 % NRG Manual eosinophils/100 leukocytes in nose 0 % NRG Manual blood basophils/100 leukocytes 0 % NRG Blood erythrocyte morphology finding identification NORMAL NRG Complete urinalysis with reflex to culture - 06/29/17 21:37 Urine color determination YELLOW NRG Urine clarity determination SLIGHTLY CLOUDY NRG Urine pH measurement by test strip 6 5-9 Specific gravity of urine by test strip 1.020 1.016- 1.022 Urine protein assay by test strip, semi-quantitative NEGATIVE NEGATIVE Urine glucose detection by automated test strip 1+ NEGATIVE Erythrocytes detection in urine sediment by light microscopy 5+ NEGATIVE Urine ketones detection by automated test strip 3+ NEGATIVE Urine nitrite detection by test strip NEGATIVE NEGATIVE Urine total bilirubin detection by test strip NEGATIVE NEGATIVE Urine urobilinogen measurement by automated test strip (mass/volume) NORMAL NORMAL Urine leukocyte esterase detection by dipstick 1+ NEGATIVE Automated urine sediment erythrocyte count by microscopy (number/high power field) [HPF] NRG Automated urine sediment leukocyte count by microscopy (number/high power field ) RARE NRG Bacteria detection in urine sediment by light microscopy NEGATIVE NRG Squamous epithelial cells detection in urine sediment by light microscopy 0-2 NRG Crystals detection in urine sediment by light microscopy NONE NRG Casts detection in urine sediment by light microscopy NONE NRG Mucus detection in urine sediment by light microscopy NEGATIVE NRG Complete urinalysis with reflex to culture NO NRG Bacterial blood culture - 06/29/17 22:10 Bacterial blood culture NG NRG Bacterial blood culture - 06/29/17 22:15 Bacterial blood culture NG NRG Methicillin resistant Staphylococcus aureus (MRSA) screening culture - 09:32 Methicillin resistant Staphylococcus aureus (MRSA) screening culture NEG NRG Capillary blood glucose measurement by glucometer (mass/volume) - 07/05/17 09: 39 Capillary blood glucose measurement by glucometer (mass/volume) 124 mg/dL 70-110 Capillary blood glucose measurement by glucometer (mass/volume) - 04/14/18 07: 32 Capillary blood glucose measurement by glucometer (mass/volume) 133 mg/dL 70-110 Encounters ACCT No. Visit Date/Time Discharge Status Pt. Type Provider Facility Loc./Unit Complaint [id number] 04/25/2018 06:19:00 04/25/2018 11:02:00 DIS Outpatient LEOBARDO CHIN MD [facility] PREOP LEFT CATARACT [id number] 04/14/2018 07:06:00 04/14/2018 08:30:00 DIS [facility] [id number] 04/11/2018 05:47:00 04/12/2018 14:11:00 DIS Outpatient LEOBARDO CHIN MD [facility] PREOP CATARACT RIGHT [id number] 04/11/2018 14:06:00 04/11/2018 23:59:59 CLS Outpatient JOYCE JANE MD [facility] RAD SCREENING MAMMO [id number] 01/02/2018 07:46:00 01/02/2018 23:59:59 CLS Outpatient BRYN ROUSSEAU MD [facility] ENDO FAMILY HX COLON CANCER [id number] 12/26/2017 05:51:00 12/26/2017 14:45:00 DIS Outpatient BRYN ROUSSEAU MD [facility] PREOP COLONOSCOPY [id number] 07/11/2017 14:14:00 07/11/2017 23:59:59 CLS Outpatient TY KRUGER MD [facility] RAD RENAL STONES [id number] 07/05/2017 08:54:00 07/05/2017 14:50:00 DIS Outpatient TY KRUGER MD [facility] LEFT URETERAL/RENAL STONES [id number] 07/01/2017 05:49:00 07/01/2017 16:11:00 DIS Outpatient TY KRUGER MD [facility] PREOP LEFT URETERAL/RENAL STONE [id number] 06/29/2017 19:26:00 06/29/2017 22:58:00 DIS Emergency CATALINA GONZALEZ INFANT CAREGIVER [facility] ER VOMITING, L SIDE ABD PAIN [id number] 01/17/2017 16:58:00 01/17/2017 19:24:00 DIS Emergency NOMAN PALM MD [facility] ER FALL/R EYE INJ [id number] 12/09/2016 14:41:00 12/09/2016 23:59:59 CLS Outpatient HEMANT HAND INFANT CAREGIVER [facility] CARD CHEST PAIN [id number] 10/21/2016 10:18:00 10/21/2016 23:59:59 CLS Outpatient HEMANT HAND APRN [facility] RAD SCREENING Z12.31 [id number] 09/15/2016 12:48:00 09/15/2016 23:59:59 CLS Outpatient JAN CHAN [facility] CARD HTN I10 [id number] 01/05/2016 11:56:00 01/05/2016 23:59:59 CLS Outpatient BUCK MARCH, JOYCE Anderson [facility] RAD VISION CHANGE,LT EYE PAIN,HEADACHE [id number] 11/21/2014 11:04:00 11/21/2014 23:59:59 CLS Outpatient JAN CHAN [facility] RAD SCREENING [id number] 04/28/2018 07:18:00 ACT Outpatient ELSY MARCH, LEOBARDO Amaya [facility] SDC LEFT CATARACT
[2018-04-28] MEDS: TETRACAINE 0.5% OPHTH SOLN 4 ML BTL (SINGLE DOSE ONLY) OU PRN ×4 (07:40→07:49)
[2018-04-28] MEDS: CYCLOPENTOLATE 1% (CYCLOGYL) 2 ML DROPS OP SCH ×3 (07:43→07:49)
[2018-04-28] MEDS: PHENYLEPHRINE 10% OPHTH (NEO-SYN) 5 ML BTL OU SCH ×3 (07:43→07:49)
--- NOTE | 2018-04-28 07:48 | Ophthalmologist Pre-Op Note ---
Pre-Operative Progress Note H&P Reviewed The H&P was reviewed, patient examined and no changes noted. Date H&P Reviewed: Apr 28, 2018 Time H&P Reviewed: 07:48 Pre-Op Dx Cataract, Left Eye LEOBARDO CHIN MD Apr 28, 2018 07:48
[2018-04-28] MEDS ORDERED: acetaZOLAMIDE ER 500 MG CAP (DIAMOX SEQUELS) PO ONE (08:30)
--- NOTE | 2018-04-28 08:43 | Ophthalmology Operative Report ---
Cataract removal/placement IOL PREOPERATIVE DIAGNOSIS: Cataract Left Eye POSTOPERATIVE DIAGNOSIS: Cataract Left Eye PROCEDURE: Cataract removal and placement of posterior chamber implant, left eye SURGEON: Jose Armando Chin ANESTHESIA: Topical with sedation COMPLICATIONS: None ESTIMATED BLOOD LOSS: Minimal DESCRIPTION OF PROCEDURE: After proper informed consent was obtained, the patient, a 73 female, was taken to the Operating Room and the left eye was anesthetized with tetracaine. The left eye was then prepped and draped in the usual manner. A wire lid speculum was placed. A paracentesis was made at the left hand position. Preservative free lidocaine was injected into the anterior chamber followed by viscoelastic. A clear corneal incision was made in the temporal position. A capsulorrhexis was preformed and the central nuclear and cortical material were removed. The posterior capsule was polished and an Hieu 23.5 [id number] was placed into the capsular bag. The residual viscoelastic was aspirated and balanced saline solution was injected into the anterior chamber. Moxifloxacin was injected into the anterior chamber. The wound was checked and found to be water tight. The patient tolerated the procedure well without complications. JOSE ARMANDO CHIN MD Apr 28, 2018 08:43
[2018-04-28 08:50] VITALS: BP 118/63
--- NOTE | 2018-04-28 12:51 | Anesthesia-General Post-Op ---
MAC Patient Condition Mental Status/LOC: Same as Preop Cardiovascular: Satisfactory Nausea/Vomiting: Absent Respiratory: Satisfactory Pain: Controlled Complications: Absent Post Op Complications Complications None Follow Up Care/Instructions Patient Instructions None needed. Anesthesiology Discharge Order Discharge Order Patient is doing well, no complaints, stable vital signs, no apparent adverse anesthesia problems. No complications reported per nursing. DOMINIQUE HUNT CRNA Apr 28, 2018 12:50
== END 2018-04-28 08:50 | disposition home or self-care (01) ==
LOC: SDC 07:18
PROVIDERS: ATTEND Specialist
DX: H25.12 Age-related nuclear cataract, left eye (principal); E11.36 Type 2 diabetes mellitus with diabetic cataract; E11.41 Type 2 diabetes mellitus with diabetic mononeuropathy; I10 Essential (primary) hypertension; Z79.84 Long term (current) use of oral hypoglycemic drugs; Z79.899 Other long term (current) drug therapy

== ENCOUNTER → 2018-07-25 | Outpatient (CLI) | payer MEDICARE, OTHER ==
--- NOTE | 2018-07-25 08:21 | Diagnostic Imaging Report ---
PATIENT HISTORY: RIGHT KNEE PAIN. TECHNIQUE: Three views of the right knee. COMPARISON: None. FINDINGS: No acute fracture or dislocation is seen in the right knee. Alignment appears normal. There are mild degenerative changes in the patellofemoral compartment. There is a superior patellar enthesophyte. No significant joint effusion is seen. IMPRESSION: Mild degenerative changes in the right knee with no acute osseous abnormality seen. Dictated by: Dictated on workstation # [id number]
== END ==
LOC: RAD 07:26
PROVIDERS: ATTEND Nurse Practitioner Family
DX: M17.11 Unilateral primary osteoarthritis, right knee (principal)
CPT/HCPCS: 73562

== ENCOUNTER → 2018-08-15 | Outpatient (CLI) | payer MEDICARE, OTHER ==
--- NOTE | 2018-08-15 13:55 | Diagnostic Imaging Report ---
EXAMINATION: Magnetic resonance imaging of the right knee without intravenous contrast DATE: August 15, 2018. COMPARISON: Right knee radiographs July 25, 2018. INDICATION: 73-year-old female, right knee pain. TECHNIQUE: Multiplanar, multisequence non contrast enhanced MR imaging was accomplished. FINDINGS: MENISCI: There is a full-thickness radial oriented tear involving the posterior root attachment of the medial meniscus with associated 5 mm medial meniscal extrusion. There is a longitudinal horizontal type tear involving the anterior horn, body, and posterior horn of the lateral meniscus. LIGAMENTS AND TENDONS: The anterior and posterior cruciate ligaments are intact. The medial collateral ligament is intact. The iliotibial band, mid third lateral capsular ligament, fibular collateral ligament, biceps femoris tendon and conjoined tendon are intact. The quadriceps tendon and patella ligament are intact. JOINT: There are broad areas of full-thickness patellar cartilage loss. There is approximately 50% thinning of the weightbearing portions of the cartilage of the medial compartment. There is a small knee joint effusion without identified intra-articular body or prominent synovitis. BONE: There is degenerative related marrow edema underlying the lateral patellar facet. There is no acute fracture, bone contusion, or evidence of osteonecrosis. BURSAE AND SOFT TISSUES: There is a Godoy's cysts which is partially ruptured. There is nonspecific anterolateral subcutaneous edema. IMPRESSION: 1. Full-thickness radially oriented tear involving the posterior root attachment of the medial meniscus with associated 5 mm medial meniscal extrusion. 2. Longitudinal horizontal type tear involving the entire lateral meniscus. 3. Intact anterior and posterior crucial ligaments. Additional ligaments and tendons are intact. 4. Severe patellofemoral and moderate medial compartment osteoarthritis. Small knee joint effusion without identified intra-articular body or prominent synovitis. 5. Partially ruptured Godoy's cyst. 6. No acute fracture, bone contusion, or evidence of osteonecrosis. Dictated by: Dictated on workstation # [id number]
== END ==
LOC: RAD 12:18
PROVIDERS: ATTEND Nurse Practitioner Family
DX: M23.221 Derangement of posterior horn of medial meniscus due to old tear or injury, right knee (principal); M23.261 Derangement of other lateral meniscus due to old tear or injury, right knee; M17.11 Unilateral primary osteoarthritis, right knee; M66.0 Rupture of popliteal cyst
CPT/HCPCS: 73721

== ENCOUNTER → 2018-12-07 | Outpatient (CLI) | payer MEDICARE, OTHER ==
--- NOTE | 2018-12-07 14:10 | Diagnostic Imaging Report ---
CLINICAL INDICATION: Patient hit head 11 days ago. She does have headaches and disorientation and issues of balance. EXAM: Axial CT scan of the brain performed without IV contrast. COMPARISON: Head CT without contrast dated 01/17/2017. FINDINGS: There is no evidence of acute cerebral infarct, intracranial hemorrhage, or gross mass effect. The brain parenchymal volume appears appropriate for patient's age. There are subtle areas of low-attenuation white matter changes involving both cerebral hemispheres, likely representing chronic small vessel ischemic disease. There is normal king-white matter distinction. There is no significant midline shift or herniation. There is no evidence of hydrocephalus. The basal cisterns are unremarkable. The skull, extracranial soft tissue, and orbits are unremarkable. The paranasal sinuses are unremarkable. Temporal bones show no significant abnormality. IMPRESSION: Stable age-related brain parenchymal changes with no evidence of acute intracranial process. Dictated by: Dictated on workstation # [id number]
== END ==
LOC: RAD 13:38
PROVIDERS: ATTEND Family Medicine
DX: S09.90XA Unspecified injury of head, initial encounter (principal); W19.XXXA Unspecified fall, initial encounter
CPT/HCPCS: 70450

== ENCOUNTER → 2019-03-06 | Outpatient (CLI) | payer MEDICARE, OTHER ==
--- NOTE | 2019-03-06 12:55 | Diagnostic Imaging Report ---
PROCEDURE: US carotid duplex, bilateral. TECHNIQUE: Multiple real-time grayscale images were obtained over the carotid arteries in various projections, bilaterally. Additional spectral analysis and color Doppler duplex images were also obtained. INDICATION: Carotid bruit. Parameters based on the consensus panel Pérez-Scale and Doppler ultrasound criteria published January 2003, Radiology, Volume 229. DOPPLER (peak systolic velocity M/S Right Left CCA .76 .96 ICA Proximal .61 .18 ICA Mid .86 .85 ICA Distal .91 .80 RATIO 1.20 0.88 ECA 0.71 .12 VERT 0.51 .38 FINDINGS: There are no focally elevated velocities in either internal carotid artery. The ICA/CCA ratios are within normal limits, bilaterally. There is antegrade flow in the vertebral arteries, bilaterally. Grayscale images demonstrate minimal carotid plaque, bilaterally. IMPRESSION: Minimal bilateral carotid plaque however spectral analysis shows no evidence of a hemodynamically significant stenosis in either internal carotid artery. Dictated by: Dictated on workstation # [id number]
== END ==
LOC: RAD 10:33
PROVIDERS: ATTEND Family Medicine
DX: R09.89 Other specified symptoms and signs involving the circulatory and respiratory systems (principal)
CPT/HCPCS: 93880

== ENCOUNTER → 2020-01-01 | Outpatient (CLI) | payer MEDICARE, OTHER ==
[~2020-01-01] MED LIST changes: -TAMS0.4C98 PO; +TMSL.4C PO
--- NOTE | 2020-01-01 14:33 | Diagnostic Imaging Report ---
INDICATION: Routine screening. Comparison is made with prior mammogram from 04/11/2018 and 10/21/2016. 2-D and 3-D bilateral screening mammography was performed with CAD. Both breasts are heterogeneously dense, limiting the sensitivity of mammography. Circumscribed lobulated densities in the right breast are stable and consistent with benign etiologies. Tiny circumscribed density central left breast is stable. There are scattered benign calcifications. No spiculated mass or malignant-appearing microcalcifications are seen. Axillae are unremarkable. IMPRESSION: BI-RADS Category 2 No mammographic features suspicious for malignancy are identified. ACR BI-RADS Category 2: Benign findings. Result letter will be mailed to the patient. Note: At least 10% of breast cancer is not imaged by mammography. Dictated by: Dictated on workstation # [id number]
--- NOTE | 2020-01-01 15:32 | Diagnostic Imaging Report ---
INDICATION: Postmenopausal female. COMPARISON: 11/21/2014. FINDINGS: AP Spine L1-L4: [BMD (g/cm2): 0.890] [T-Score: -2.6] [Z-Score: -1.1] [BMD Previous: 0.973] [BMD % Change: -8.5] LT Hip Neck: [BMD (g/cm2): 0.696] [T-Score: -2.5] [Z-Score: -0.8] LT Hip Total: [BMD (g/cm2):0.764] [T-Score:-1.9] [Z-Score: -0.5] [BMD Previous: 0.773] [BMD % Change: -1.2] RT Hip Neck: [BMD (g/cm2):0.607] [T-Score:-3.1] [Z-Score:-1.4] RT Hip Total: [BMD (g/cm2):0.667] [T-score:-2.7] [Z-Score:-1.3] [BMD Previous:0.826] [BMD % Change:-19.2] World Health Organization criteria for BMD interpretation classify patients as Normal (T-score at or above -1.0), Osteopenic (T-score between -1.0 and -2.5) or Osteoporotic (T-score at or below -2.5). LIMITATIONS AND MODIFICATION: None. FRACTURE RISK (FRAX SCORE): The ten year probability of (%): Major Osteoporotic Fracture: [NA] Hip Fracture: [NA] IMPRESSION: 1. Osteoporosis. 2. Bone mineral density has decreased by a statistically significant amount, as detailed above. 3. See below National Osteoporosis Foundation guidelines on when to potentially initiate pharmacologic therapy. Based on the National Osteoporosis Foundation Guidelines, pharmacologic treatment should be initiated in any of the following, unless clinical conditions suggest otherwise: * Any patient with prior fragility fracture of the hip or vertebrae. A spine fracture indicates 5X risk for subsequent spine fracture and 2X risk for subsequent hip fracture. * Osteoporosis (T-score <-2.5). * Postmenopausal women and men age 50 and older with low bone mass/osteopenia (T-score between -1.0 and -2.5) by DXA and 10-year major osteoporotic fracture greater than 20% or a 10-year probability of hip fracture greater than 3%. These fracture risks are supplied above in the FRAX score, if applicable. * Clinician judgement and/or patient preferences may indicate treatment for people with 10-year fracture probabilities above or below these levels. Dictated by: Dictated on workstation # [id number]
== END ==
LOC: RAD 13:00
PROVIDERS: ATTEND Family Medicine
DX: Z12.31 Encounter for screening mammogram for malignant neoplasm of breast (principal); M81.0 Age-related osteoporosis without current pathological fracture; Z78.0 Asymptomatic menopausal state
CPT/HCPCS: 77063; 77067; 77080

== ENCOUNTER → 2020-03-05 | Outpatient (CLI) | payer MEDICARE, OTHER ==
--- NOTE | 2020-03-05 17:24 | NUR ---
Notified of positive COVID test.
== END ==
LOC: LABNPT 05:27
PROVIDERS: ATTEND Family Medicine
DX: U07.1 COVID-19 (principal)
CPT/HCPCS: 87804; U0002; 87635

== ENCOUNTER → 2020-03-07 | Outpatient (CLI) | payer MEDICARE, OTHER ==
[~2020-03-07] VITALS: Ht 165 cm; Wt 70.0 kg
[~2020-03-07] MED LIST changes: +BAMLANIVIMAB 700 MG in NS 200 ML IV ONE; +EPINEPHrine INJECTION 1 MG/ML AMP IM PRN; +diphenhydrAMINE 50 MG/ML INJ (BENADRYL) IV PRN
[2020-03-07 08:51] VITALS: BP 115/66
[2020-03-07 09:45] VITALS: BP 107/53
== END ==
LOC: INFUSION 08:17
PROVIDERS: ATTEND Family Medicine
DX: U07.1 COVID-19 (principal)